=== PATIENT | male | born 1980 ===

== ENCOUNTER 2022-09-16 16:49 | Emergency (ER) | payer OTHER, SELFPAY ==
[2022-09-16 16:59] VITALS: BP 146/94; PULSE 103; O2SAT 98
[2022-09-16 17:11] VITALS: BP 110/71; PULSE 72; RESP 16; TEMP 36.2; O2SAT 97; BMI 20.3
--- NOTE | 2022-09-16 17:12 | ED.GENADULT ---
HPI - General Adult General Chief complaint: Chest Pain Stated complaint: PALPITATION Related Data Allergies Allergy/AdvReac Type Severity Reaction Status Date / Time No Known Allergies Allergy Unverified 12/03/19 15:54 [facility] Social History Social History Alcohol intake: former Smoked in Last 30 Days: No Substance Use Type: Crack/Cocaine and Heroin Substance Use Frequency: Chronic Longstanding Last Used Substance: Just Prior to Admission Advance Directives: No Advance Directives Information Provided: No Physical Exam ED Vital Signs: BMI result Body Mass Index 20.3 Course Course Course Narrative: RME; 42 yold male presents to the ED for chest pain after cocaine binging for 3 days. patient chest pain and at times palpaitations. patient denies any recent trauma. labs/EKG ordered and chest xray ordered Medical Decision Making Lab Data 09/16/22 18:25 09/16/22 18:25 Labs: Lab Results 09/16/22 09/16/22 09/16/22 Range/Units 18:25 18:25 18:25 WBC 5.3 (4.8-10.8) X10*3/uL RBC 4.29 L (4.60-5.80) X10*6/uL Hgb 13.1 L (14.0-18.0) g/dl Hct 39.3 L (42.0-52.0) % MCV 91.6 (80.0-98.0) fL MCH 30.5 (27.0-33.0) pg MCHC 33.3 (31.0-36.0) g/dl RDW 12.9 (11.0-16.0) % Plt Count 163 (160-400) X10*3/uL MPV 10.7 (9.4-12.4) fL Immature Gran % (Auto) 0.2 (0.0-0.4) % Neut % (Auto) 57.7 (45-73) % Lymph % (Auto) 27.6 (20-40) % Vermilion % (Auto) 12.6 H (2-11) % Eos % (Auto) 1.1 (0-4) % Baso % (Auto) 0.8 (0-2) % Lymph # (Auto) 1.5 (1.2-4.9) X10*3/uL Vermilion # (Auto) 0.7 (0.1-1.2) X10*3/uL Eos # (Auto) 0.1 (0.0-0.4) X10*3/uL Baso # (Auto) 0.0 (0.0-0.2) X10*3/uL Abs Immat Gran (auto) 0.01 (0.00-0.03) X10*3/uL Absolute Neuts (auto) 3.0 (2.0-8.3) x10*3/uL Absolute Nucleated RBC 0.000 (0.0-0.012) X10*3/uL Nucleated RBC % (auto) 0.0 (0.0-0.2) /100WBC PT 12.5 (10.0-13.1) SEC INR 1.1 (0.9-1.1) APTT 31.5 (26.0-36.4) SEC Sodium 143 (135-145) mmol/L Potassium 3.9 (3.3-5.1) mmol/L Chloride 107 (96-108) mmol/L Carbon Dioxide 26 (22-29) mmol/L Anion Gap 14 (12-20) BUN 21 H (9-16) mg/dL Creatinine 0.88 (0.5-1.4) mg/dL Estim Creat Clear Calc 105.2 Estimated GFR > 60 Random Glucose 101 (60-115) mg/dL Calcium 9.7 (8.4-10.2) mg/dL Total Bilirubin 0.7 (0.0-1.0) mg/dL AST 29 (5-37) U/L ALT 17 (0-40) U/L Alkaline Phosphatase 63 (39-117) U/L Troponin I High Sens (<3.5-35.0) ng/L B-Natriuretic Peptide (<100) pg/mL Total Protein 6.9 (6.5-8.0) g/dL Albumin 4.5 (3.5-5.0) g/dL 09/16/22 09/16/22 Range/Units 18:25 18:25 WBC (4.8-10.8) X10*3/uL RBC (4.60-5.80) X10*6/uL Hgb (14.0-18.0) g/dl Hct (42.0-52.0) % MCV (80.0-98.0) fL MCH (27.0-33.0) pg MCHC (31.0-36.0) g/dl RDW (11.0-16.0) % Plt Count (160-400) X10*3/uL MPV (9.4-12.4) fL Immature Gran % (Auto) (0.0-0.4) % Neut % (Auto) (45-73) % Lymph % (Auto) (20-40) % Vermilion % (Auto) (2-11) % Eos % (Auto) (0-4) % Baso % (Auto) (0-2) % Lymph # (Auto) (1.2-4.9) X10*3/uL Vermilion # (Auto) (0.1-1.2) X10*3/uL Eos # (Auto) (0.0-0.4) X10*3/uL Baso # (Auto) (0.0-0.2) X10*3/uL Abs Immat Gran (auto) (0.00-0.03) X10*3/uL Absolute Neuts (auto) (2.0-8.3) x10*3/uL Absolute Nucleated RBC (0.0-0.012) X10*3/uL Nucleated RBC % (auto) (0.0-0.2) /100WBC PT (10.0-13.1) SEC INR (0.9-1.1) APTT (26.0-36.4) SEC Sodium (135-145) mmol/L Potassium (3.3-5.1) mmol/L Chloride (96-108) mmol/L Carbon Dioxide (22-29) mmol/L Anion Gap (12-20) BUN (9-16) mg/dL Creatinine (0.5-1.4) mg/dL Estim Creat Clear Calc Estimated GFR Random Glucose (60-115) mg/dL Calcium (8.4-10.2) mg/dL Total Bilirubin (0.0-1.0) mg/dL AST (5-37) U/L ALT (0-40) U/L Alkaline Phosphatase (39-117) U/L Troponin I High Sens 5.3 (<3.5-35.0) ng/L B-Natriuretic Peptide 33 (<100) pg/mL Total Protein (6.5-8.0) g/dL Albumin (3.5-5.0) g/dL Discharge Plan Discharge Clinical Impression: Chest pain Patient Disposition: Left Against Medical Advice Discharge Date/Time: 09/16/22 18:59
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
[2022-09-16 17:42] VITALS: BP 114/70; PULSE 74; RESP 18; O2SAT 97
--- NOTE | 2022-09-16 17:42 | PC.NURSE ---
Food and fluids provided
--- NOTE | 2022-09-16 17:58 | PC.NURSE ---
Patient agreeable to changing into hospital attire. Drug paraphernalia in pant pockets. Security locked all personal belongings in decon.
--- NOTE | 2022-09-16 18:31 | PC.NURSE ---
Patient pacing in hallway, stating he needs to go home. Explained to patient we were waiting for his labs to come back . Patient easily re -directable back to bed. states upon discharge he will be going to his sponsors house and then home. Denies pain or discomfort at this time. Provided with food and fluids
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
[2022-09-16 18:53] LABS: Alanine Aminotransferase 17 U/L (0-40); Albumin Level 4.5 g/dL (3.5-5.0); Alkaline Phosphatase 63 U/L (39-117); Anion Gap 14 (12-20); Aspartate Amino Transferase 29 U/L (5-37); Bilirubin Total 0.7 mg/dL (0.0-1.0); Blood Urea Nitrogen 21 mg/dL (9-16); Calcium 9.7 mg/dL (8.4-10.2); Carbon Dioxide 26 mmol/L (22-29); Chloride 107 mmol/L (96-108); Creatinine Clr Calc Pharmacy 105.2; Estimated Glomerular Filt Rate > 60; Glucose Random 101 mg/dL (60-115); Potassium 3.9 mmol/L (3.3-5.1); Sodium 143 mmol/L (135-145); Total Protein 6.9 g/dL (6.5-8.0)
== END 2022-09-16 18:59 | disposition left against medical advice (07) ==
PROVIDERS: Physician Assistant; Emergency Provider Physician Assistant; PCP Internal Medicine
DX: R07.9 Chest pain, unspecified (principal); R00.2 Palpitations
CPT/HCPCS: 36415; 71045; 80053; 83880; 84484; 85025; 85610; 85730; 93005; 99283; 99284

== ENCOUNTER 2022-09-23 20:30 | Emergency (ER) | payer OTHER, SELFPAY ==
[2022-09-23 20:36] VITALS: BP 108/59; BP 111/65; PULSE 67; PULSE 69; RESP 17; TEMP 36.9; O2SAT 100; O2SAT 99; BMI 21.3
--- NOTE | 2022-09-23 20:46 | MHC.EDTECH ---
Pt came in by ambulance,pt changed into hospital attire,vitals taken. Pt has a wound to the right forearm,bleeding is controlled, cleaned with normal saline and awaiting a provider at this time. RN aware
[2022-09-23 21:53] VITALS: BP 99/54; PULSE 58; RESP 18; TEMP 37; O2SAT 98
--- NOTE | 2022-09-23 22:50 | PC.NURSE ---
Pt requesting something for anxiety and his nicotine gum. Medicated per MAR at this time.
[2022-09-23 23:23] VITALS: BP 99/52; PULSE 64; RESP 18; TEMP 36.7; O2SAT 99
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
--- NOTE | 2022-09-24 00:14 | PC.NURSE ---
Spoke with Hortencia at [facility] to notify them of pts return. Voices understanding.
--- NOTE | 2022-09-24 00:20 | PC.NURSE ---
I was notified @ this time that this patient eloped while waiting for EMS to return to [facility]. Security, Ele ROMAN and [place] [employer] immediately contacted. Primary RN Maribell attempted to contact [facility] but there was no answer.
--- NOTE | 2022-09-24 00:30 | PC.NURSE ---
Pt no longer visualized on ED stretcher, charge authorizer, protective services, Ele ROMAN, [place] [employer] made aware.
--- NOTE | 2022-09-24 01:08 | PC.NURSE ---
Attempted to notify [facility] of pt elopement, no answer at this time. Will attempt again shortly.
--- NOTE | 2022-09-24 01:15 | PC.NURSE ---
George, open hear[employer] stockyard supervisor at [facility] notified of pt elopement. Voices understanding
--- NOTE | 2022-09-24 03:17 | PC.NURSE ---
Addendum entered by Laura Abdullahi 09/24/22 04:57: Pt located by PD and brought back [place] [facility] [place]psych eval. Original Note: Ele ROMAN unable to locate patient. Per [place] [employer], they sent a car out to patients house, Megan was the only one home and per , has not seen/heard from patient. [employer] and [facility] to call with any updates.
== END 2022-09-24 04:59 | disposition left against medical advice (07) ==
PROVIDERS: Emergency Provider Emergency Medicine Emergency Medical Services; PCP Internal Medicine
DX: S51.811A Laceration without foreign body of right forearm, initial encounter (principal); T81.30XA Disruption of wound, unspecified, initial encounter; F41.1 Generalized anxiety disorder; F43.0 Acute stress reaction; F17.203 Nicotine dependence unspecified, with withdrawal; G47.00 Insomnia, unspecified; X58.XXXA Exposure to other specified factors, initial encounter; Y93.9 Activity, unspecified; Y92.9 Unspecified place or not applicable; Y99.9 Unspecified external cause status; Z79.899 Other long term (current) drug therapy
CPT/HCPCS: 12002; 99284

== ENCOUNTER 2022-09-24 04:59 | Emergency (ER) | payer OTHER, SELFPAY ==
[2022-09-24 05:03] VITALS: BP 103/67; PULSE 76; RESP 17; TEMP 36.8; O2SAT 98; BMI 21.7
--- NOTE | 2022-09-24 06:17 | ED.GENADULT ---
HPI - General Adult General Chief complaint: General Medical Stated complaint: SECT 12,RETURNING S/P ELOPEMENT Time Seen by Provider: 09/24/22 06:17 Source: patient Mode of arrival: EMS Limitations: no limitations History of Present Illness HPI narrative: 42-year-old male who was seen earlier this morning in the emergency department by me. Patient was sent in from [facility] for evaluation of a right forearm laceration which had been repaired at [facility] and dehisced he fell at [facility]. The wound was dressed with bacitracin and a nonstick gauze dressing. When the nurse went to discharge him the patient had eloped. The patient was on a Section 12 at [facility] therefore we contacted the police. The patient told me that he walked home and was talking to his when the police found him and brought him back to emergency department for evaluation. The patient denied using any drugs when he left our facility he states that he last used September 17 when he relapsed and used cocaine. The patient told me that the initial Section 12 was placed by [facility] where he was evaluated for suicidal ideation. He states that he is no longer suicidal however the Section 12 extended over the weekend and he was told that on Saturday (today) the [facility] psychiatrist with make a judgment as to whether he needed to stay longer or could leave their facility. Related Data Home Medications Medication Instructions Recorded Confirmed bupropion HCl 75 mg tablet 75 mg PO BID 09/24/22 09/24/22 dexmethylphenidate 30 mg 30 mg PO DAILY 09/24/22 09/24/22 capsule,extended release [id number] (Focalin XR) hydroxyzine pamoate 50 mg capsule 50 mg PO BID PRN Anxiety 09/24/22 09/24/22 trazodone 100 mg tablet 100 mg PO BEDTIME 09/24/22 09/24/22 Allergies Allergy/AdvReac Type Severity Reaction Status Date / Time No Known Allergies Allergy Verified 09/23/22 20:36 Review of Systems Review of Systems: Yes all other systems are reviewed and are negative [facility] Social History Social History Alcohol intake: former Substance Use Type: Crack/Cocaine and Heroin Advance Directives: No Physical Exam ED Vital Signs: Vital Signs - 24 hr 09/24/22 05:03 Temperature 98.2 F Pulse Rate 76 Respiratory Rate 17 Blood Pressure 103/67 Pulse Oximetry 98 Oxygen Delivery Method Room Air BMI result Body Mass Index 21.7 Const General: cooperative and no acute distress Orientation/consciousness: oriented to person and oriented to place Limitations: no limitations HENMT Head: Yes normal to inspection, Yes normocephalic and Yes atraumatic Ears: external ears normal General nose exam: Normal external nose present Face and sinus: Yes normal facial exam Mouth: Normal oral and palatal mucosa present Throat: Yes posterior oropharynx normal Eyes General: appearance normal, both eyes and all related structures Pupils: Equal, round and reactive pupils present Neck Neck: Yes normal visual inspection, Yes no lymphadenopathy, Yes trachea midline and Yes supple Chest Chest palpation & inspection: normal inspection of the chest and normal palpation of entire chest wall Resp Effort & Inspection: normal respiratory effort and able to speak in complete sentences Auscultation: clear to auscultation bilaterally Cardio Rate: regular rate Rhythm: regular rhythm Heart sounds: S1 normal heart sound present, S2 normal heart sound present and no murmurs GI Inspection: Yes normal to inspection Palpation (GI): Soft to palpation, nontender and no guarding Auscultation: normal bowel sounds General: Yes no CVA tenderness Back/Spine/Pelvis Back: no CVA tenderness Skin General skin exam: no rashes or lesions noted Neuro General: oriented to person and oriented to place Cranial nerves: Yes CN's II-XII intact bilaterally and Yes Equal, round and reactive pupils present Cognition (Neuro): normal cognition Motor exam (neuro): 5/5 motor strength present throughout Extrem Other: The patient's right forearm was bleeding, this was redressed with bacitracin in on sticks dressing. Psych Appearance: grossly normal Speech and movement: Normal speech and movement present Affect: normal affect Attitude: cooperative Thought process: Normal thought process present Thought content: Normal thought content present Medical Decision Making Medical Decision Making MDM Narrative: 42-year-old male who was initially sent to the emergency department from [facility] for evaluation of a right forearm wound which dehisced after he fell at their facility. The patient had made suicidal statements, was evaluated [facility], placed on a Section 12 and eventually transferred to [facility] for psychiatric evaluation. Patient states that he relapsed and last used cocaine on 09/17/2022. Patient eloped from our facility but was found by the police and brought back. The patient denied being suicidal homicidal, he denies using the facility. Patient's physical examination was unremarkable except for the fact that the dehisced wound in his right forearm bleeding in this had to be redressed. We did do a urine tox screen on the patient which was positive for fentanyl and cocaine. It is unclear to me how sensitive are tested it is unclear if this positive test reflects recent knees or his from his previous drug use on 09/17/2022. In any event, the patient does not appear to be intoxicated and is medically cleared to go back to [facility] for further evaluation of his suicidal ideation. Differential Diagnosis The differential diagnosis includes but is not limited to drug use, suicidal ideation, homicidal ideation, depression Lab Data MDM Lab Attestation statement: I reviewed the patient's lab results. Patient's urine tox screen was positive for fentanyl and cocaine. Labs: Lab Results 09/24/22 Range/Units 05:25 Urine Opiates Screen Not Detected (Not Detect) Urine Fentanyl Screen POSITIVE H (Not Detect) Ur Barbiturates Screen Not Detected (Not Detect) Ur Phencyclidine Scrn Not Detected (Not Detect) Ur Amphetamines Screen Not Detected (Not Detect) U Benzodiazepines Scrn Not Detected (Not Detect) Urine Cocaine Screen POSITIVE H (Not Detect) U Marijuana (THC) Screen Not Detected (Not Detect) Discharge Plan Discharge Clinical Impression: Cocaine use disorder, Suicidal ideation Patient Disposition: Xfer Psychiatric Hosp Transfer Details: [facility] Additional Instructions: Your urine drug screen was positive for fentanyl and cocaine. I do not know how all sensitive are urine drug screen is and the positive test could reflect either new use of cocaine and fentanyl or use of cocaine and fentanyl from 09/17/2022. It is important that you continue to get help with your cocaine use disorder. Almost all street drugs have fentanyl in them including cocaine and if you continue to use cocaine , there is a very good chance that you will from a fentanyl overdose. At this time, you are medically clear to go back to [facility] for further treatment of your suicidal ideation. Prescriptions: No Action hydroxyzine pamoate 50 mg capsule 50 mg PO BID PRN (Reason: Anxiety) trazodone 100 mg tablet 100 mg PO BEDTIME bupropion HCl 75 mg tablet 75 mg PO BID dexmethylphenidate [Focalin XR] 30 mg capsule,ER biphasic 50-50 30 mg PO DAILY
--- NOTE | 2022-09-24 06:43 | PC.NURSE ---
Patient cleared medically, ready for discharge back to [facility], ED commercial baker helper is coordinating the ride back to [facility], no distress observed/reported, VSS, med rec completed, pending provider's approval, will continue to monitor
--- NOTE | 2022-09-24 07:26 | PC.NURSE ---
PT SLEEPING. AWAITING AMBULANCE BACK TO [facility].
== END 2022-09-24 11:52 ==
PROVIDERS: Emergency Provider Emergency Medicine Emergency Medical Services; PCP Internal Medicine
DX: R45.851 Suicidal ideations (principal); F14.10 Cocaine abuse, uncomplicated; Z79.899 Other long term (current) drug therapy
CPT/HCPCS: 80307; 99283

== ENCOUNTER 2022-10-24 02:48 | Inpatient (IN) | payer OTHER, SELFPAY ==
[2022-10-24] VITALS (10 sets, daily range): BP systolic 99–128; BP diastolic 52–95; PULSE 48–110; RESP 12–17; TEMP 36.4–37.1; O2SAT 95–100; BMI 20.6
--- NOTE | 2022-10-24 04:49 | PC.NURSE ---
pt spo2 was 83-88% on room air. placed pt on nasal cannula 2 liters
--- NOTE | 2022-10-24 04:52 | ED_ITS ---
HPI - Overdose General Chief Complaint: Overdose Stated Complaint: OD Time Seen by Provider: 10/24/22 04:13 Source: patient and EMS Mode of arrival: EMS Limitations: no limitations History of Present Illness HPI Narrative: accidental overdose of heroin and cocaine - found in alley no trauma noted to head responded to 16mg narcan he has no SI but wants detox he is from [place]. complaint: accidental overdose Onset (ago): unknown Timing confirmed by: other (bystander) Context: Accidental Overdose: wanted to get high Treatments Prior to Arrival: narcan (16mg) Related Data Home Medications Medication Instructions Recorded Confirmed bupropion HCl 75 mg tablet 75 mg PO BID 09/24/22 09/24/22 dexmethylphenidate 30 mg 30 mg PO DAILY 09/24/22 09/24/22 capsule,extended release [id number] (Focalin XR) hydroxyzine pamoate 50 mg capsule 50 mg PO BID PRN Anxiety 09/24/22 09/24/22 trazodone 100 mg tablet 100 mg PO BEDTIME 09/24/22 09/24/22 Allergies Allergy/AdvReac Type Severity Reaction Status Date / Time No Known Allergies Allergy Verified 09/23/22 20:36 Review of Systems Review of Systems: Constitutional : No Fever, No Chills ENT/Mouth : No Ear Pain, No Nasal Congestion, No sore throat Eyes: No Eye Pain, No Swelling, No Redness Cardiovascular : No Chest Pain, No SOB Respiratory : No Cough, No Sputum, No Dyspnea Gastrointestinal : No Nausea, No Vomiting, No Diarrhea, No Hematochezia, No Melena Genitourinary : No Dysuria, No Urinary Frequency, No Hematuria Musculoskeletal : No Myalgias Skin : No Skin Lesions, No rash Neuro : No Weakness, No Numbness, No Paresthesias, No Dizziness, No Headache Psych : positive Anxiety, no Depression, no SI/HI All other systems reviewed and are negative [facility] Past Medical History Attestation statement: The following information was validated with the patient. Medical History Active substance abuse Social History Social History Alcohol intake: current Smoked in Last 30 Days: No Use of substances other than those prescribed or required for medical reasons: Yes Substance Use Type: Crack/Cocaine, Heroin and Opiates Advance Directives: No Advance Directives Information Provided: No Physical Exam Vital Signs: Vital Signs: Last Vital Signs Temp 97.5 F 10/24/22 05:03 Pulse 80 10/24/22 05:03 Resp 17 10/24/22 05:03 BP 110/66 10/24/22 05:03 Pulse Ox 100 10/24/22 05:03 O2 Del Method Nasal Cannula 10/24/22 05:03 O2 Flow Rate 2 10/24/22 05:03 BMI result Body Mass Index 20.6 Appearance: sleepy but easily woken. Oriented X3. No acute distress. Eyes: Pupils equal, round and reactive to light. ENT: Pharynx normal. atraumatic Neck: Normal inspection. Neck supple. CVS: Normal heart rate and rhythm. Pulses normal. Respiratory: No respiratory distress. Breath sounds normal. Abdomen: Soft and non-tender. Skin: Skin warm and dry. Normal skin color. Normal skin turgor. Extremities: No lower extremity edema. No calf ttp Neuro: Oriented X 3. No motor deficit. No sensory deficit. Course Course Course Narrative: Physician observation started at 555am Patient placed in physician observation because the patient needed more time CARE team and recovery team to help with addiction issues. At the time observation was started the patient's vitals were stable, patient is somnolent but easily woken, Neuro: nonfocal, CV RRR, Lungs clear Medical Decision Making Medical Decision Making [facility] Narrative: 42 yo male here with accidental overdose - took 16mg of narcan here oriented x 3, no head trauma will need prolonged monitoring he wants to go to detox has no SI no signs of trauma to the head to suggest need for CT scan. at this time basic labs, obsevation and recovery team when awake. Differential Diagnosis Differential Diagnoses: The differential diagnosis associated with the presentation includes opiate use disorder, overdose Admission/Observation Consideration of admission/observation: Escalation of care including admission/observation considered observe for recovery team and more clinically sober Lab Data [facility] Lab Attestation statement: I reviewed the patient's lab results. 10/24/22 05:25 10/24/22 05:25 Labs: Lab Results 10/24/22 10/24/22 Range/Units 05:25 05:25 WBC 9.1 (4.8-10.8) X10*3/uL RBC 4.24 L (4.60-5.80) X10*6/uL Hgb 13.3 L (14.0-18.0) g/dl Hct 39.6 L (42.0-52.0) % MCV 93.4 (80.0-98.0) fL MCH 31.4 (27.0-33.0) pg MCHC 33.6 (31.0-36.0) g/dl RDW 13.8 (11.0-16.0) % Plt Count 143 L (160-400) X10*3/uL MPV 9.7 (9.4-12.4) fL Immature Gran % (Auto) 0.4 (0.0-0.4) % Neut % (Auto) 78.1 H (45-73) % Lymph % (Auto) 8.4 L (20-40) % [place] % (Auto) 12.6 H (2-11) % Eos % (Auto) 0.3 (0-4) % Baso % (Auto) 0.2 (0-2) % Lymph # (Auto) 0.8 L (1.2-4.9) X10*3/uL [place] # (Auto) 1.1 (0.1-1.2) X10*3/uL Eos # (Auto) 0.0 (0.0-0.4) X10*3/uL Baso # (Auto) 0.0 (0.0-0.2) X10*3/uL Abs Immat Gran (auto) 0.04 H (0.00-0.03) X10*3/uL Absolute Neuts (auto) 7.1 (2.0-8.3) x10*3/uL Absolute Nucleated RBC 0.000 (0.0-0.012) X10*3/uL Nucleated RBC % (auto) 0.0 (0.0-0.2) /100WBC Sodium 142 (135-145) mmol/L Potassium 3.9 (3.3-5.1) mmol/L Chloride 108 (96-108) mmol/L Carbon Dioxide 24 (22-29) mmol/L Anion Gap 14 (12-20) BUN 18 H (9-16) mg/dL Creatinine 0.78 (0.5-1.4) mg/dL Estim Creat Clear Calc 120.0 Estimated GFR > 60 Random Glucose 74 (60-115) mg/dL Calcium 9.3 (8.4-10.2) mg/dL Independent Historian Clinical information obtained from an independent historian. History obtained from or confirmed by: EMS External Record Review External record reviewed: Inpatient record Social Determinants Patient?s care significantly limited by Social Determinants of Health including: Inadequate housing and Low income Discharge Plan Discharge Clinical Impression: Drug overdose Qualifiers: Encounter type: initial encounter Injury intent: accidental or unintentional Qualified Code(s): T50.901A - Poisoning by unspecified drugs, medicaments and biological substances, accidental (unintentional), initial encounter Patient Disposition: Still a Patient Prescriptions: No Action hydroxyzine pamoate 50 mg capsule 50 mg PO BID PRN (Reason: Anxiety) trazodone 100 mg tablet 100 mg PO BEDTIME bupropion HCl 75 mg tablet 75 mg PO BID dexmethylphenidate [Focalin XR] 30 mg capsule,ER biphasic 50-50 30 mg PO DAILY
--- NOTE | 2022-10-24 05:18 | MHC.EDTECH ---
labs are delayed due to this tech unable to draw x3 RN AND MD WAS NOTIFIED REACHED OUT TO ANOTHER TECH
--- NOTE | 2022-10-24 05:22 | MHC.EDTECH ---
PATIENT CHANGE INTO HOSPITAL ATTIRE ALL ITEMS ARE LOCKED INTO DECON
[2022-10-24 05:29] LABS: Basophils Percent Auto 0.2 % (0-2); Eosinophils Percent Auto 0.3 % (0-4); Hematocrit 39.6 % (42.0-52.0); Hemoglobin 13.3 g/dl (14.0-18.0); Imm Gran Abs Auto 0.04 X10*3/uL (0.00-0.03); Imm Gran Pct Auto 0.4 % (0.0-0.4); Lymphocytes Absolute Auto 0.8 X10*3/uL (1.2-4.9); Lymphocytes Percent Auto 8.4 % (20-40); MANUAL DIFF FLAG NO; Mean Corpuscular HGB Conc 33.6 g/dl (31.0-36.0); Mean Corpuscular Hemoglobin 31.4 pg (27.0-33.0); Mean Corpuscular Volume 93.4 fL (80.0-98.0); Mean Platelet Volume 9.7 fL (9.4-12.4); Monocytes Absolute Auto 1.1 X10*3/uL (0.1-1.2); Monocytes Percent Auto 12.6 % (2-11); Neutrophils Absolute Auto 7.1 x10*3/uL (2.0-8.3); Neutrophils Percent Auto 78.1 % (45-73); Platelet Count 143 X10*3/uL (160-400); Red Blood Count 4.24 X10*6/uL (4.60-5.80); Red Cell Distribution Width 13.8 % (11.0-16.0); White Blood Count 9.1 X10*3/uL (4.8-10.8)
[2022-10-24 05:42] LABS: Anion Gap 14 (12-20); Blood Urea Nitrogen 18 mg/dL (9-16); Calcium 9.3 mg/dL (8.4-10.2); Carbon Dioxide 24 mmol/L (22-29); Chloride 108 mmol/L (96-108); Estimated Glomerular Filt Rate > 60; Glucose Random 74 mg/dL (60-115); Potassium 3.9 mmol/L (3.3-5.1); Sodium 142 mmol/L (135-145)
--- NOTE | 2022-10-24 08:53 | PC.NURSE ---
sleeping in room, respirations even and unlabored. call romero within reach
--- NOTE | 2022-10-24 10:35 | PC.NURSE ---
awake, eating breakfast at this time, pt calm and cooperative. reporting vague suicidal ideation currently, no plan.
--- NOTE | 2022-10-24 10:40 | PHA.MEDREC ---
Pharmacy Consult ? Medication Reconciliation Pharmacy has completed the medication reconciliation. spoke with patient to confirm medications. Patient reports not taking anything before coming here.
--- NOTE | 2022-10-24 14:42 | HO.SUDE ---
Addendum entered by True Davies 10/24/22 19:50: After speaking with his mother pt shares SI with plan to jump off a bridge as he cant take struggling with sobriety and not having any family or supports. T/W informed provider and Care Team for Crisis evaluation. Original Note: This racebook writer met with patient to complete SUDE. Pt awake to verbal command, this racebook writer reviewed, pt brought to hospital for accidental overdose. Pt reports being sober for several months before using for the past 4 days at about 5-6 bags a day intravenously. Pt informs this is his 4th overdose, and he was on Suboxone last year but does not want to get back on it. T/W reviewed harm reduction and overdose prevention. Pt verbalized understanding. Pt informs he does not want ATS at this time but that he just needs more sleep. Provider aware.
--- NOTE | 2022-10-24 19:50 | MHC.EDTECH ---
PATIENT 2000 VITALS SIGN TAKEN ,AND ETHANOL DRAWN AND SENT TO LAB ,PT UNABLE TO GIVE URINE SAMPLE AT THIS TIME ,LAKESHIA ARAGON IS AWARE ,PATIENT HAD A TUNA FISH SANDWICH AND A RENA KAYLEEN FOR SNACK ,WARM BLANKET GIVEN ,PATIENT REFUSED DINNER EARLIER .
[2022-10-24 20:07] LABS: Ethanol < 10 mg/dL
[2022-10-24] MEDS: Naloxone HCl Nasal TAKE HOME 4 MG SPRAY 8 MG NOSTRILALT (22:04)
[2022-10-25] VITALS (7 sets, daily range): BP systolic 94–118; BP diastolic 52–65; PULSE 52–65; RESP 14–18; TEMP 36.3–37.6; O2SAT 98–100
--- NOTE | 2022-10-25 05:51 | PC.NURSE ---
Pt slept most of the night, no apparent distress noted, resting quietly. Pt states 6/10 pain in legs and lower back. Pt reports SI, with a prior plan to jump off a bridge, states no plan while here, pt stated he feels safe being in the hospital. Pt ambulated independently to with steady gait, urine sample collected and sent to lab. PO fluids given. wctm pt awaiting care team.
--- NOTE | 2022-10-25 05:56 | MHC.CARE ---
Pt will need a Utox prior to the Care Team assessment this morning.
--- NOTE | 2022-10-25 05:59 | MHC.EDTECH ---
0600 rounding done ,vitals sign taken ,patient urine sample collected and sent to lab ,patient drank 360 ml juice ,patient was change into (green gown ) .
[2022-10-25 06:12] LABS: Amphetamine Screen Urine Not Detected (Not Detect); Barbiturates, Urine Not Detected (Not Detect); Benzodiazepines Screen Urine Not Detected (Not Detect); Cannabinoid Screen Urine Not Detected (Not Detect); Cocaine Screen Urine POSITIVE (Not Detect); Fentanyl, urine POSITIVE (Not Detect); Opiate Screen Urine POSITIVE (Not Detect); Phencyclidine Screen Urine Not Detected (Not Detect)
--- NOTE | 2022-10-25 06:44 | PC.NURSE ---
Care team updated on Pt's urine sample. Plan is for care team will see him this morning.
--- NOTE | 2022-10-25 07:12 | PC.NURSE ---
patient sleeping in strether, pt respirations equal and unlabored no signs of distress.
[2022-10-25 10:07] LABS: Appearance Urine Clear; Color Urine Dark Yellow; Glucose Urine UA Negative (Negative); Leukocyte Esterase Urine Negative (Negative); Nitrite Urine Negative (Negative); Specific Gravity - Urine >= 1.030 (1.005-1.025); UMIC TRIGGER UACC YES; Urine Blood Negative (Negative); Urine Ketones Trace mg/dL (Negative); Urine Protein 30 (1+) mg/dL (Neg-Trace)
[2022-10-25 10:09] LABS: Bacteria Urine None Seen (None Seen); RBC Urine 0-2 /HPF (0-2); Squamous Epithelial Cell Urine 0-2 /HPF (0-2); UACC Culture Trigger YES
--- NOTE | 2022-10-25 12:06 | MHC.CARE ---
Patient seen by CARE team, is a voluntary psychiatric admission, pending placement.
--- NOTE | 2022-10-25 14:43 | ECG_ITS ---
Test Reason : PRLONG QT Blood Pressure : / mmHG Vent. Rate : 059 BPM Atrial Rate : 059 BPM P-R Int : 154 ms QRS Dur : 082 ms QT Int : 430 ms P-R-T Axes : 077 056 050 degrees QTc Int : 425 ms Sinus bradycardia Otherwise normal ECG When compared with ECG of 16-SEP-2022 18:17, No significant change was found Referred By: Iveth Ambriz Electronically Signed By:Duke Strong
[2022-10-25 15:16] LABS: IDNOW Serial# 08D9AD1C
[2022-10-25] MEDS: cloNIDine HCL 0.1 MG TABLET PO (15:16)
[2022-10-25 15:17] LABS: COVID-19 Test Negative (Negative)
[2022-10-25] MEDS: TiZANidine HCL 4 MG TABLET PO (15:49)
[2022-10-25] MEDS: Buprenorphine/Naloxone 4/1 mg FILM 1 FILM SUBLINGUAL ×2 (17:58→22:34)
[2022-10-25] MEDS: diazePAM 5 MG TABLET 10 MG PO (17:58)
[2022-10-25] MEDS: Ondansetron ODT 4 MG TAB.RAPDIS TRANSLINGU ×2 (17:58→22:34)
--- NOTE | 2022-10-25 18:18 | PC.NURSE ---
Matteo was admitted to m3 at 1630 from [facility] for treatment of mood disorder with suicidality and polysubstance abuse. He was clean for several months and relapsed 4 days ago on heroin, cocaine and alcohol.? Patient overdosed on heroin and was found in an alley 10/23/2022, Brought to ED by ambulance where he voiced SI with plan to jump from a bridge due to shame related to substance use/relapse. Patient is alert and fully oriented. He is restless, physically agitated and resistant to engaging in admission process due to feeling uncomfortable with withdrawal. Mood is depressed. Affect is irritable. Matteo reports auditory hallucinations of echoes, denies visual hallucinations. There is no indication of paranoia or delusions thought process linear. He denies current ideation, plan or intent to harm self or others. He notes his and children are protective factors. Matteo has recently lost 15 pounds which he attributes to using and being depressed. Sleep is variable. Focus is poor. Matteo denies medical Issues?but reports 7/10 headache, diarrhea x 1, cramps and body aches. RN notes nausea with dry heaves, tremor and diaphoresis. CIWA on admission is 20. Pt received Valium 10mg. COWS on admission is 12. He received suboxone 06/16. In addition he received zofran 4mg. Matteo is placed on q 15 minute checks for safety.
[2022-10-25] MEDS: Famotidine 20 MG TABLET PO (22:34)
[2022-10-25] MEDS: Melatonin 3 MG TABLET 9 MG PO (22:35)
[2022-10-25] MEDS: traZODone HCL 100 MG TABLET PO (22:35)
[2022-10-25] MEDS: LORazepam 1 MG TABLET PO (22:35)
[2022-10-25] MEDS: buPROPion HCL 75 MG TABLET PO (22:35)
[2022-10-25] MEDS: hydrOXYzine HCL 25 MG TABLET PO (22:35)
[2022-10-25] MEDS: Thiamine HCL 100 MG TABLET PO (22:35)
[2022-10-25] MEDS: Ibuprofen 600 MG TABLET PO (22:37)
[2022-10-26 08:45] VITALS: BP 101/58; PULSE 58; RESP 16; TEMP 36.7; O2SAT 98
[2022-10-26] MEDS: Buprenorphine/Naloxone 8/2 mg FILM 1 FILM SUBLINGUAL (08:59)
[2022-10-26] MEDS: Famotidine 20 MG TABLET PO ×2 (09:00→21:12)
[2022-10-26] MEDS: buPROPion HCL 75 MG TABLET PO ×2 (09:00→21:12)
[2022-10-26] MEDS: Thiamine HCL 100 MG TABLET PO (09:00)
--- NOTE | 2022-10-26 09:16 | HO.PSYADMNOT ---
HPI Date of Service: 10/26/22 Chief Complaint: SI Sources of Information: patient interviewed, chart reviewed and crisis/core team assessment reviewed HPI Subjective Notes: [place] Warning and Conditional Voluntary Narrative: Patient is a 42 year old male with hx of MDD, opioid use, cocaine use and ETOH use d/o, who was brought in by ambulance after accidentally overdosing on heroin and cocaine and being found in an alley. Per crisis report, pt responded to 16mg Narcan. Per , pt has made attempts to get sober but he relapses and becomes depressed and hopeless. This is his 4th overdose. Patient has a history of being section 35d. During admission assessment, pt presents calm and cooperative. Patient stated, I was trying to stay clean but I got this overwhelming urge to use and I spiraled from there . Patient reports suicidal ideation with plan to jumping off bridge. Patient stated, I tried to OD before but someone found me. I'm able to stay clean for a little bit but I use again. This wasn't a suicide attempt . Patient reports he has been using a gram of cocaine, 15 bags of IV heroin and drinking a pint of hard liquor daily. He denies having any outpatient psychiatric providers. Patient reports he would like to go into a treatment program for substance abuse. Past Psychiatric History: Multiple substance abuse treatment programs. One psychiatric admission in September 2022 at [facility]. Detox in [place] and [place]. Has been sectioned 35 in past. 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 Substance History: cocaine use, etoh use, IV heroin use. Trauma History: denies Diagnostics Vital Signs (24Hr): Vital Signs - 24 hr 10/25/22 13:21 10/25/22 15:11 10/25/22 17:29 Temperature 99.7 F 99.4 F 97.4 F Pulse Rate 52 65 52 Respiratory Rate 14 16 18 Blood Pressure 110/55 L 110/65 94/52 L Pulse Oximetry 98 100 99 Oxygen Delivery Method Room Air Room Air Room Air 10/25/22 21:59 Temperature 97.8 F Pulse Rate 56 Respiratory Rate 18 Blood Pressure 112/62 Pulse Oximetry 98 Oxygen Delivery Method Room Air BMI result Body Mass Index 20.6 Labs 10/24/22 05:25 10/24/22 05:25 Labs: Laboratory Results - last 48 hr 10/24/22 10/25/22 10/25/22 19:48 05:56 09:57 Urine Color Dark Yellow Urine Appearance Clear Urine pH 6.0 Ur Specific Plato >= 1.030 H Urine Protein 30 (1+) H Urine Glucose (UA) Negative Urine Ketones Trace Urine Blood Negative Urine Nitrite Negative Ur Leukocyte Esterase Negative Urine RBC 0-2 Urine WBC 6-10 H Ur Squamous Epith Cells 0-2 Urine Bacteria None Seen Hyaline Casts 3-5 Urine Opiates Screen POSITIVE H Urine Fentanyl Screen POSITIVE H Ur Barbiturates Screen Not Detected Ur Phencyclidine Scrn Not Detected Ur Amphetamines Screen Not Detected U Benzodiazepines Scrn Not Detected Urine Cocaine Screen POSITIVE H U Marijuana (THC) Screen Not Detected Ethyl Alcohol < 10 COVID-19 (ZANE) [email or web address] 10/25/22 14:47 Urine Color Urine Appearance Urine pH Ur Specific Plato Urine Protein Urine Glucose (UA) Urine Ketones Urine Blood Urine Nitrite Ur Leukocyte Esterase Urine RBC Urine WBC Ur Squamous Epith Cells Urine Bacteria Hyaline Casts Urine Opiates Screen Urine Fentanyl Screen Ur Barbiturates Screen Ur Phencyclidine Scrn Ur Amphetamines Screen U Benzodiazepines Scrn Urine Cocaine Screen U Marijuana (THC) Screen Ethyl Alcohol COVID-19 (ZANE) Negative COVID-19 [employer] See Note Meds/Allergies Meds Home Medications Medication Instructions Recorded Confirmed Type bupropion HCl 75 mg tablet 75 mg PO BID 09/24/22 10/24/22 History dexmethylphenidate 30 mg 30 mg PO DAILY 09/24/22 10/24/22 History capsule,extended release [id number] (Focalin XR) hydroxyzine pamoate 50 mg capsule 50 mg PO BID PRN Anxiety 09/24/22 10/24/22 History trazodone 100 mg tablet 100 mg PO BEDTIME PRN Sleep 09/24/22 10/24/22 History buspirone 5 mg tablet 5 mg PO BID 10/24/22 10/24/22 History melatonin 3 mg tablet 9 mg PO BEDTIME PRN insomnia 10/24/22 10/24/22 History testosterone 2 pump topical QAM 10/24/22 10/24/22 History Allergies Allergies Allergy/AdvReac Type Severity Reaction Status Date / Time No Known Allergies Allergy Verified 09/23/22 20:36 Mental Status Exam Mental Status Exam Narrative: Pt is alert and oriented; behavior is cooperative and calm; dressed in hospital attire with unkempt hair; mood is described as depressed ; eye contact appropriate; Speech is normal rate, volume and prosody and not pressured; no psychomotor agitation/retardation present; thought process is organized and goal directed; Thought content is on tx; otherwise pertinent to relevant topics and without any delusional content, paranoid ideations or grandiosity; denies HI. Reports suicidal ideation with plan to jump off a bridge. There is no evidence of perceptual disturbance. Patients insight and judgment are poor. Assessment & Plan Assessment & Plan (1) MDD (major depressive disorder), recurrent episode, severe: Status: Acute Code(s): F33.2 - Major depressive disorder, recurrent severe without psychotic features (2) Opioid abuse: Status: Acute Code(s): F11.10 - Opioid abuse, uncomplicated (3) Cocaine abuse: Status: Acute Code(s): F14.10 - Cocaine abuse, uncomplicated (4) ETOH abuse: Status: Acute Code(s): F10.10 - Alcohol abuse, uncomplicated Plan Patient is a 42 year old male with hx of MDD, opioid use, cocaine use and ETOH use d/o, who was brought in by ambulance after accidentally overdosing on heroin and cocaine and being found in an alley. Plan: CV 15 minute safety checks CIWA Continue home medications Referral to substance abuse program Obtain collateral Patient educated on: diagnosis, medication risk/benefits, substance abuse and therapeutic strategies Informed Consent: understands Reason for continued inpatient stay Substantial Risk for: harm to self and med/psych decompensation Statement Statement: I have reviewed the history and physical and performed a pertinent examination on my patient. No changes have occurred unless specified. If the History and Physical was not performed prior to admission, the Hospitalist's service will be consulted for completing the admission physical. Time Spent With Patient Time: Total time managing care of this patient today _60___ minutes.
[2022-10-26] MEDS: LORazepam 1 MG TABLET 2 MG PO (12:35)
--- NOTE | 2022-10-26 14:18 | MHC.CLN ---
NUTRITION CONSULT FOR 15# WEIGHT LOSS. PATIENT STATED THAT HE ATE BREAKFAST AND LUNCH TODAY AND HAD NOT BEEN EATING WELL PRIOR TO TODAY. ORDER FOR ENSURE TID; PREFERS [facility] AWARE. PROVIDES 1050 KCALS, 60 G PROTEIN. REVIEW OF WEIGH HX SHOWS APPROX 5% WEIGHT LOSS X 30 DAYS.
[2022-10-26] MEDS: LORazepam 1 MG TABLET PO ×2 (18:15→21:12)
[2022-10-26 21:27] VITALS: BP 116/63; PULSE 60; RESP 16; TEMP 36.7; O2SAT 98
[2022-10-27 08:49] VITALS: BP 105/74; PULSE 61; RESP 18; TEMP 36.8; O2SAT 99
[2022-10-27] MEDS: LORazepam 1 MG TABLET PO ×4 (09:03→20:57)
[2022-10-27] MEDS: Buprenorphine/Naloxone 8/2 mg FILM 1 FILM SUBLINGUAL (09:03)
[2022-10-27] MEDS: LORazepam 1 MG TABLET 2 MG PO (09:04)
[2022-10-27] MEDS: Thiamine HCL 100 MG TABLET PO (09:04)
[2022-10-27] MEDS: Famotidine 20 MG TABLET PO ×2 (09:04→20:57)
[2022-10-27] MEDS: buPROPion HCL 75 MG TABLET PO ×2 (09:04→20:57)
[2022-10-27] MEDS: Ibuprofen 600 MG TABLET PO (17:09)
--- NOTE | 2022-10-27 19:07 | PC.NURSE ---
Pt complained of right hip pain (09/24), reporting its been sore a couple of days. No bruising or swelling noted. Pt unable to recall what happened, saying, I must of did something to it before I got here and was using. Pt given Motrin as ordered with moderate effect.
[2022-10-27 19:50] VITALS: BP 103/60; PULSE 67; RESP 18; TEMP 36.9; O2SAT 98
[2022-10-27] MEDS: Melatonin 3 MG TABLET 9 MG PO (22:40)
[2022-10-27] MEDS: traZODone HCL 100 MG TABLET PO (22:41)
--- NOTE | 2022-10-27 23:55 | P.PNPSI_ITS ---
Subjective Subjective Date of Service: 10/27/22 Reason For Visit: SI Subjective Notes: Conditional Voluntary Interim History: pt relates hx of withdrawl sz asking for help Medication Compliance: Yes Mental Status Exam Mental Status Exam Narrative: Pt is alert and oriented; behavior is cooperative and calm; dressed in hospital attire with unkempt hair; mood is described as depressed ; eye contact appropriate; Speech is normal rate, volume and prosody and not pressured; no psychomotor agitation/retardation present; thought process is organized and goal directed; Thought content is on tx; otherwise pertinent to relevant topics and without any delusional content, paranoid ideations or grandiosity; denies HI. Reports suicidal ideation with plan to jump off a bridge. There is no evidence of perceptual disturbance. Patients insight and judgment are poor. Diagnostics Vital Signs (24Hr): Vital Signs - 24 hr 10/27/22 08:49 10/27/22 19:50 Temperature 98.3 F 98.4 F Pulse Rate 61 67 Respiratory Rate 18 18 Blood Pressure 105/74 103/60 Pulse Oximetry 99 98 Oxygen Delivery Method Room Air Room Air BMI result Body Mass Index 20.6 Labs 10/24/22 05:25 10/24/22 05:25 Medications Medications Current Medications Acetaminophen (Acetaminophen 325 Mg Tablet) 650 mg PO Q6H PRN PRN Reason: Headache/Pain Mild Scale (1-3) Al Hydroxide/Mg Hydroxide (Magnesium Hydrox/Alum Hydrox 30 Ml Oral.Susp) 30 ml PO Q6H PRN PRN Reason: Heartburn/Nausea Buprenorphine/Naloxone (Buprenorphine/Naloxone 8/2 Mg Film) 1 film SUBLINGUAL DAILY [facility] Last Admin: 10/27/22 09:03 Dose: 1 film Bupropion HCl (Bupropion Hcl 75 Mg Tablet) 75 mg PO BID [facility] Last Admin: 10/27/22 20:57 Dose: 75 mg Famotidine (Famotidine 20 Mg Tablet) 20 mg PO BID [facility] Last Admin: 10/27/22 20:57 Dose: 20 mg Hydroxyzine HCl (Hydroxyzine Hcl 25 Mg Tablet) 25 mg PO Q6H PRN PRN Reason: Anxiety Last Admin: 10/25/22 22:35 Dose: 25 mg Ibuprofen (Ibuprofen 600 Mg Tablet) 600 mg PO Q6H PRN PRN Reason: Pain, Moderate(Pain Scale 4-6) Last Admin: 10/27/22 17:09 Dose: 600 mg Loperamide HCl (Loperamide Hcl 2 Mg Capsule) 2 mg PO Q3H PRN PRN Reason: Loose Stool Lorazepam (Lorazepam 1 Mg Tablet) 1 mg PO Q4H PRN PRN Reason: ciwa 8-12 Last Admin: 10/27/22 16:44 Dose: 1 mg Lorazepam (Lorazepam 1 Mg Tablet) 2 mg PO Q4H PRN PRN Reason: ciwa 13-17 Last Admin: 10/27/22 09:04 Dose: 2 mg Lorazepam (Lorazepam 1 Mg Tablet) 1 mg PO TID ADRIENNE Last Admin: 10/27/22 20:57 Dose: 1 mg Magnesium Hydroxide (Milk Of Magnesia 30 Ml Oral.Susp) 30 ml PO DAILY PRN PRN Reason: Constipation Melatonin (Melatonin 3 Mg Tablet) 9 mg PO BEDTIME PRN PRN Reason: insomnia Last Admin: 10/27/22 22:40 Dose: 9 mg Non-Formulary Medication (Testosterone) 2 pump TOPICAL QAM ADRIENNE Ondansetron HCl (Ondansetron Odt 4 Mg Tab.Rapdis) 4 mg TRANSLINGU Q6H PRN PRN Reason: Nausea Last Admin: 10/25/22 22:34 Dose: 4 mg Thiamine HCl (Thiamine Hcl 100 Mg Tablet) 100 mg PO DAILY ADRIENNE Last Admin: 10/27/22 09:04 Dose: 100 mg Trazodone HCl (Trazodone Hcl 100 Mg Tablet) 100 mg PO BEDTIME PRN PRN Reason: Sleep Last Admin: 10/27/22 22:41 Dose: 100 mg Allergies Allergies Allergy/AdvReac Type Severity Reaction Status Date / Time No Known Allergies Allergy Verified 09/23/22 20:36 Assessment & Plan Assessment & Plan (1) MDD (major depressive disorder), recurrent episode, severe: Status: Acute Code(s): F33.2 - Major depressive disorder, recurrent severe without psychotic features (2) Opioid abuse: Status: Acute Code(s): F11.10 - Opioid abuse, uncomplicated (3) Cocaine abuse: Status: Acute Code(s): F14.10 - Cocaine abuse, uncomplicated (4) ETOH abuse: Status: Acute Code(s): F10.10 - Alcohol abuse, uncomplicated Plan Patient is a 42 year old male with hx of MDD, opioid use, cocaine use and ETOH use d/o, who was brought in by ambulance after accidentally overdosing on heroin and cocaine and being found in an alley. Plan: CV 15 minute safety checks CIWA Continue home medications Referral to substance abuse program Obtain collateral 10/27/22 cont plan of care monitor sx hx sz Patient educated on: medication risk/benefits Reason for continued inpatient stay Substantial Risk for: harm to self and inability to function Time Spent With Patient Time: Total time managing care of this patient today ____ minutes.
[2022-10-28 08:28] VITALS: BP 105/67; PULSE 69; RESP 20; TEMP 36.3; O2SAT 98
[2022-10-28] MEDS: LORazepam 1 MG TABLET PO ×2 (08:46→15:24)
[2022-10-28] MEDS: Buprenorphine/Naloxone 8/2 mg FILM 1 FILM SUBLINGUAL (08:46)
[2022-10-28] MEDS: buPROPion HCL 75 MG TABLET PO (08:46)
[2022-10-28] MEDS: Thiamine HCL 100 MG TABLET PO (08:46)
[2022-10-28] MEDS: Famotidine 20 MG TABLET PO ×2 (08:46→20:46)
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
[2022-10-28 20:45] VITALS: BP 104/73; PULSE 80; RESP 18; TEMP 36.4; O2SAT 98
[2022-10-28] MEDS: LORazepam 0.5 MG TABLET PO (20:46)
[2022-10-28] MEDS: Melatonin 3 MG TABLET 9 MG PO (20:46)
[2022-10-29 08:00] VITALS: BP 99/62; PULSE 49; RESP 18; TEMP 36.6; O2SAT 99
[2022-10-29] MEDS: Famotidine 20 MG TABLET PO ×2 (09:01→21:46)
[2022-10-29] MEDS: LORazepam 0.5 MG TABLET PO ×3 (09:01→21:46)
[2022-10-29] MEDS: Thiamine HCL 100 MG TABLET PO (09:01)
[2022-10-29] MEDS: buPROPion HCl XL 300 MG TAB.ER.24H PO (09:01)
[2022-10-29] MEDS: Buprenorphine/Naloxone 8/2 mg FILM 1 FILM SUBLINGUAL (09:01)
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
[2022-10-29 15:25] VITALS: BP 119/68; PULSE 58; RESP 16; TEMP 36.7; O2SAT 98
[2022-10-29] MEDS: Buprenorphine/Naloxone 4/1 mg FILM 1 FILM SUBLINGUAL (15:30)
[2022-10-29 21:40] VITALS: BP 116/72; PULSE 77; RESP 18; TEMP 36.3; O2SAT 100
[2022-10-29] MEDS: Melatonin 3 MG TABLET 9 MG PO (21:46)
[2022-10-29] MEDS: traZODone HCL 100 MG TABLET PO (21:50)
[2022-10-30] MEDS: hydrOXYzine HCL 25 MG TABLET PO ×2 (01:49→21:36)
[2022-10-30 08:15] VITALS: BP 108/64; PULSE 52; RESP 16; TEMP 36.8; O2SAT 99
[2022-10-30] MEDS: LORazepam 0.5 MG TABLET PO ×2 (08:42→21:36)
[2022-10-30] MEDS: buPROPion HCl XL 300 MG TAB.ER.24H PO (08:42)
[2022-10-30] MEDS: Thiamine HCL 100 MG TABLET PO (08:43)
[2022-10-30] MEDS: Buprenorphine/Naloxone 8/2 mg FILM 1 FILM SUBLINGUAL (08:44)
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
[2022-10-30] MEDS: Fluticasone Propionate Nasal 16 GM SPRAY 1 SPRAY NOSTRIL-B (12:21)
[2022-10-30] MEDS: Buprenorphine/Naloxone 4/1 mg FILM 1 FILM SUBLINGUAL (16:11)
[2022-10-30 20:00] VITALS: BP 113/62; PULSE 64; RESP 18; TEMP 36.3; O2SAT 96
[2022-10-30] MEDS: Melatonin 3 MG TABLET 9 MG PO (21:36)
[2022-10-31 08:39] VITALS: BP 126/79; PULSE 56; RESP 18; TEMP 36.5; O2SAT 99
[2022-10-31] MEDS: Buprenorphine/Naloxone 8/2 mg FILM 1 FILM SUBLINGUAL (08:42)
[2022-10-31] MEDS: buPROPion HCl XL 300 MG TAB.ER.24H PO (08:43)
[2022-10-31] MEDS: Fluticasone Propionate Nasal 16 GM SPRAY 1 SPRAY NOSTRIL-B (09:19)
[2022-10-31] MEDS: hydrOXYzine HCL 25 MG TABLET PO (09:52)
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
== END 2022-10-31 11:09 | disposition other institution (70) | DRG 751 ==
LOC: HO.ED 10-25 07:23 → HO.PADLT16 10-25 17:18
PROVIDERS: Physician Assistant; Student in an Organized Health Care Education/Training Program; Admitting Provider Social Worker; Emergency Provider Emergency Medicine; Responsible Provider Registered Nurse; Visit Provider Psychiatry & Neurology Psychiatry
DX: F33.2 Major depressive disorder, recurrent severe without psychotic features (principal); R45.851 Suicidal ideations; T40.1X1A Poisoning by heroin, accidental (unintentional), initial encounter; T40.5X1A Poisoning by cocaine, accidental (unintentional), initial encounter; F10.10 Alcohol abuse, uncomplicated; F11.10 Opioid abuse, uncomplicated; F14.10 Cocaine abuse, uncomplicated; F43.10 Post-traumatic stress disorder, unspecified; Z62.810 Personal history of physical and sexual abuse in childhood; Z20.822 Contact with and (suspected) exposure to COVID-19; Z79.899 Other long term (current) drug therapy
CPT/HCPCS: 36415; 80048; 80307; 81001; 85025; 87086; 87635; 93005; 99285; S9485

== ENCOUNTER → 2022-10-25 14:43 | Outpatient (BNV) | payer OTHER, SELFPAY | PROVIDERS: Admitting Provider Social Worker; Emergency Provider Emergency Medicine; Visit Provider Internal Medicine Cardiovascular Disease | DX: R00.1 Bradycardia, unspecified (principal) | CPT/HCPCS: 93010 ==

== ENCOUNTER → 2022-10-25 16:04 | Outpatient (BNV) | payer OTHER, SELFPAY | PROVIDERS: Admitting Provider Social Worker; Emergency Provider Emergency Medicine; Responsible Provider Registered Nurse; Visit Provider Psychiatry & Neurology Psychiatry | DX: F33.2 Major depressive disorder, recurrent severe without psychotic features (principal); F11.10 Opioid abuse, uncomplicated; F14.10 Cocaine abuse, uncomplicated; F10.10 Alcohol abuse, uncomplicated | CPT/HCPCS: 99231; 99232 ==

== ENCOUNTER → 2022-10-25 16:04 | Outpatient (BNV) | payer OTHER, SELFPAY | PROVIDERS: Admitting Provider Social Worker; Emergency Provider Emergency Medicine; Responsible Provider Registered Nurse; Visit Provider Registered Nurse | DX: F33.2 Major depressive disorder, recurrent severe without psychotic features (principal); F11.10 Opioid abuse, uncomplicated; F14.10 Cocaine abuse, uncomplicated; F10.10 Alcohol abuse, uncomplicated | CPT/HCPCS: 90792; 99231; 99232; 99238 ==

== ENCOUNTER 2023-02-19 12:36 | Inpatient (IN) | payer OTHER, SELFPAY ==
--- NOTE | ~2023-02-19 | US_ITS ---
EXAMINATION: US THYROID CLINICAL INFORMATION: Large right thyroid. Question thyroid nodule. COMPARISON: None available. TECHNIQUE: Linear transducer grayscale and color Doppler examination with attention to the region of the thyroid. FINDINGS: SIZE: Measurements of the thyroid lobes and nodules are given in sagittal, anteroposterior and transverse dimensions respectively. Right Thyroid Lobe: 6.0 x 2.3 x 2.7 cm, volume 19.5 mL. Parenchyma: The gland echotexture is homogeneous. Thyroid vascularity is normal. Left Thyroid Lobe: 5.5 x 1.6 x 1.9 cm, volume 8.4 mL. Parenchyma: The gland echotexture is homogeneous. Thyroid vascularity is normal. Isthmus: 0.4 cm in maximum AP dimension. Estimated total number of nodules greater than or equal to 1 cm: 1. Seed Corn Production Manager nodules are described as follows: 1. Location: Right mid. Size: 2.7 x 1.8 x 2.3 cm, volume 6.1 mL. Nodule characteristics: Composition: Mixed cystic and solid (1). Echogenicity: Isoechoic (1). Shape: Not taller than wide (0). Margins: Smooth (0). Echogenic Foci: Peripheral calcifications (2). ACR TI-RADS total points: 4 ACR TI-RADS category: 4 NODES: No lymphadenopathy is seen in the tissue surrounding the thyroid gland. US/US thyroid IMPRESSION: 2.7 cm TR 4 nodule in the right mid thyroid. Fine-needle aspiration is recommended as per ACR TI-RADS. ACR TI-RADS RECOMMENDATION REFERENCE: Ultrasound-guided fine-needle aspiration, followup ultrasound, no further follow up. * TR1 (0 point) and TR2 (2 points): No FNA or follow up. * TR3 (3 points): FNA if more than or equal to 2.5 cm in maximum dimension, followup ultrasound in 1, 3 and 5 years if 1.5 to 2.4 cm in maximum dimension. * TR4 (4-6 points): FNA if more than or equal to 1.5 cm in maximum dimension, followup ultrasound in 1, 2, 3 and 5 years if 1 to 1.4 cm in maximum dimension. * TR5 (more than or equal to 7 points): FNA if more than or equal to 1 cm in maximum dimension, followup ultrasound every year for 5 years if 0.5 to 0.9 cm in maximum dimension. * TR3, TR4 or TR5 nodules that are below the size threshold for followup receive no follow up.
--- NOTE | ~2023-02-19 | XR_ITS ---
EXAMINATION: XR FOOT, RIGHT CLINICAL INFORMATION: Right fifth toe swelling COMPARISON: Right foot radiograph from 02/19/2023 TECHNIQUE: AP, lateral, and oblique views of the right foot. FINDINGS: Comminuted fracture of the fifth distal phalanx with butterfly fragment along its medial margin. Correlation with point tenderness. Mild multi joint arthritic changes. Redemonstration of soft tissue irregularity along the lateral aspect of the foot. Joint space alignment are otherwise maintained. XR/XR foot RT 2V IMPRESSION: 1. Comminuted fracture of the fifth distal phalanx with butterfly fragment along its medial margin. Correlation with point tenderness. 2. Mild multi joint arthritic changes. 3. Redemonstration of soft tissue irregularity along the lateral aspect of the foot.
--- NOTE | ~2023-02-19 | US_ITS ---
EXAMINATION: US VENOUS ULTRASOUND WITH DOPPLER LOWER EXTREMITY, RIGHT CLINICAL INFORMATION: Right lower leg swelling, rule out deep venous thrombosis COMPARISON: None available. TECHNIQUE: Ultrasound of the deep veins is performed from the hip to the calf with compression sonography and color and pulse Doppler assessment. Spectral analysis with color-flow imaging is performed. FINDINGS: There is normal venous compression and respiratory variation and augmented flow. The visualized common femoral vein, superficial femoral vein, profunda femoral vein, popliteal vein, and the trifurcation region shows no evidence of deep venous thrombosis. There is no significant popliteal fossa cyst. Incidental note of a 2.3 x 0.7 x 2.4 cm wider than tall lymph node with echogenic hilum in the area examined by the tea tree farmer in the proximal right thigh. Radiologist was not in attendance. Images were later provided for interpretation. If the patient's symptoms persist, followup ultrasound in 5 days 7 days might be of value to exclude proximal propagation from a non-visualized calf vein. US/US venous duplex LE RT IMPRESSION: 1. No DVT demonstrated in the right lower extremity. 2. Incidental note of a 2.3 x 0.7 x 2.4 cm wider than tall lymph node with echogenic hilum in the proximal right thigh. Decisions regarding further management should be based on the clinical assessment. This study was presented today February 25, 2023 at 1:32 PM for interpretation. Stat results provided at this time as requested by referring provider.
--- NOTE | ~2023-02-19 | XR_ITS ---
EXAMINATION: XR FOOT, RIGHT CLINICAL INFORMATION: Abscess lateral foot COMPARISON: None available. TECHNIQUE: AP, lateral, and oblique views of the right foot. FINDINGS: Soft tissue irregularity along the lateral aspect of the foot corresponding to known abscess. No acute visible fracture or dislocation. Mild multi joint arthritic changes. XR/XR foot RT min 3V IMPRESSION: 1. Soft tissue irregularity along the lateral aspect of the foot corresponding to known abscess. 2. No acute visible fracture or dislocation. 3. Mild multi joint arthritic changes.
--- NOTE | ~2023-02-19 | MR_ITS ---
EXAMINATION: MR FOOT WITHOUT AND WITH CONTRAST, RIGHT CLINICAL INFORMATION: Fifth toe fracture. Evaluate for osteomyelitis. Fifth toe swelling. COMPARISON: Right foot radiographs dated 02/19/2023 and 03/03/2023. TECHNIQUE: Multisequence MR imaging of the right foot was obtained before and after the IV administration of 7.5 mL Gadavist contrast on a high-field strength scanner. FINDINGS: Bone detail of the previously seen fifth distal phalangeal fracture is limited on MR examination. There is associated edema with surrounding soft tissue swelling in this area. Minimal postcontrast enhancement. No associated organized fluid collection or abscess formation. A superimposed infectious or inflammatory process cannot be excluded in the appropriate clinical setting. No additional fracture or dislocation. No concerning lytic or blastic osseous lesion. No metatarsal stress reaction. Chronic, corticated ossification along the base of the fifth metatarsal which could represent an accessory ossicle versus remote, unfused fracture fragment. No edema or enhancement in this region to suggest acute injury. Subcutaneous edema and soft tissue swelling with skin thickening and postcontrast enhancement along the lateral aspect of the fifth metatarsal base. Findings could represent acute cellulitis in the appropriate clinical setting. No organized fluid collection or abscess formation. No adjacent marrow edema, periosteal reaction, or enhancement to suggest acute osteomyelitis. No soft tissue mass or fluid collection. No forefoot neuroma. The visualized flexor and extensor tendons are intact. No edema or enhancement within the musculature to suggest acute injury. Intact Lisfranc ligament. MR/MR foot RT wo/w con IMPRESSION: 1. Soft tissue swelling and skin thickening along the lateral aspect of the fifth metatarsal base with minimal postcontrast enhancement. Findings could represent acute cellulitis in the appropriate clinical setting. No organized fluid collection or abscess formation. No adjacent marrow edema or periosteal reaction to suggest acute osteomyelitis. 2. Chronic, corticated ossification along the base of the fifth metatarsal which could represent an accessory ossicle versus remote, unfused fracture fragment. No edema or enhancement in this region to suggest acute injury.
--- NOTE | ~2023-02-19 | XR_ITS ---
EXAMINATION: XR LUMBOSACRAL SPINE CLINICAL INFORMATION: Low back pain extending down right leg COMPARISON: None available. TECHNIQUE: Three views of the lumbosacral spine. FINDINGS: Vertebral body height is preserved. Grade 1 spondylolisthesis is evident at L5-S1, approximately 8 mm, with at least right-sided spondylolysis. Alignment is otherwise maintained. XR/XR lumbar spine 2-3V IMPRESSION: Grade 1 spondylolisthesis at L5-S1 with at least right-sided and probably bilateral L5 spondylolysis.
--- NOTE | ~2023-02-19 | XR_ITS ---
EXAMINATION: XR KNEE, RIGHT CLINICAL INFORMATION: Right knee pain. COMPARISON: None available. TECHNIQUE: Two views of the right knee. FINDINGS: No acute fracture or subluxation. No significant degenerative changes. No abnormal soft tissue calcifications. Trace joint effusion. XR/XR knee RT 2V IMPRESSION: No acute fracture or malalignment. Trace joint effusion.
[2023-02-19 12:40] VITALS: BP 110/66; PULSE 71; RESP 16; TEMP 36.6; O2SAT 98; BMI 20.2
--- NOTE | 2023-02-19 12:40 | ED_ITS ---
HPI - General Adult General Chief complaint: Psychiatric Symptoms Stated complaint: SI/Crisis Time Seen by Provider: 02/19/23 13:17 Source: patient Mode of arrival: ambulatory Limitations: no limitations History of Present Illness HPI narrative: Patient is a 42-year-old male with history of ETOH, cocaine, and opioid abuse, MDD presenting to the emergency department with suicidal ideation and withdrawal from fentanyl. Reports plan for intentional overdose. Friend states patient required narcan several times the other day. States last used a half gram of fentanyl around midnight, cocaine and heroin use around 4am. Denies alcohol use. Also complaining of abscess to lateral aspect of right foot, denies drainage, reports fevers. Denies homicidal ideation, but does report auditory and visual hallucinations patient was admitted for depression and detox on 11/07 patient been homeless for last 10 days started using drugs was sober for 2 months. Patient been to detox at least 12 times Related Data Home Medications Medication Instructions Recorded Confirmed hydroxyzine pamoate 50 mg capsule 50 mg PO BID PRN Anxiety 09/24/22 02/19/23 trazodone 100 mg tablet 100 mg PO BEDTIME PRN Sleep 09/24/22 02/19/23 melatonin 3 mg tablet 9 mg PO BEDTIME PRN insomnia 10/24/22 02/19/23 bupropion HCl 150 mg 24 hr tablet, 150 mg PO QAM 02/19/23 02/19/23 extended release Allergies Allergy/AdvReac Type Severity Reaction Status Date / Time No Known Allergies Allergy Verified 09/23/22 20:36 Review of Systems 2 Review of Systems: Yes all other systems are reviewed and are negative [facility] Past Medical History Medical History Active substance abuse Social History Social History Household Members: Significant Other, Family and Children Housing: House Do you presently have visiting nurse or other home services: No Alcohol intake: current Patient Tobacco Use Status: Never used Tobacco Second Hand Smoke Exposure: No Substance Use Type: Crack/Cocaine, Heroin and Other Advance Directives: No service: No Sexual orientation: Straight/Heterosexual Physical Exam ED Vital Signs: Vital Signs - 24 hr 02/19/23 12:40 02/19/23 15:53 Temperature 97.8 F Pulse Rate 71 Respiratory Rate 16 16 Blood Pressure 110/66 Pulse Oximetry 98 Oxygen Delivery Method Room Air BMI result Body Mass Index 20.2 Appearance: Alert. Oriented X3. No acute distress. Eyes: PERRLA, No Nystagmus ENT: Pharynx normal. Oral Mucosa moist Neck: Normal inspection. Neck supple. CVS: Normal heart rate and rhythm. Pulses normal. Respiratory: No respiratory distress. Equal air entry bilateral, no wheezing/rales/rhonchi Abdomen: Soft and nontender. Bowel sounds are present, no mass palpable, no CVA tenderness Skin: Skin warm and dry. Normal skin color. Normal skin turgor. Extremities: No lower extremity edema. No calf tenderness infected callus right aspect Neuro: Oriented X 3. No motor deficit. No sensory deficit.No cerebellar signs , cranial nerves II-XII intact Course Course Course Narrative: This is a rapid medical exam: Additional HPI, ROS, PE not included below will be deferred to primary provider. Patient is a 42-year-old male with history of ETOH, cocaine, and opioid abuse, MDD presenting to the emergency department with suicidal ideation and withdrawal from fentanyl. Reports plan for intentional overdose. Friend states patient required narcan several times the other day. States last used a half gram of fentanyl around midnight, cocaine and heroin use around 4am. Denies alcohol use. Also complaining of abscess to lateral aspect of right foot, denies drainage, reports fevers. Denies homicidal ideation, but does report auditory and visual hallucinations. Plan: labs including blood cultures, x-ray Medications Administered Generic Name Dose Route Start Last Admin Trade Name Freq PRN Reason Stop Dose Admin Cephalexin HCl 500 mg 02/19/23 21:00 02/19/23 21:11 Cephalexin 500 Mg Capsule PO 03/02/23 21:00 500 mg QID ADRIENNE Administration Doxycycline Monohydrate 100 mg 02/19/23 21:00 02/19/23 21:11 Doxycycline Monohydrate 100 Mg Capsule PO 03/02/23 21:00 100 mg BID ADRIENNE Administration Melatonin 9 mg 02/19/23 20:46 02/19/23 21:11 Melatonin 3 Mg Tablet PO 9 mg BEDTIME PRN Administration insomnia Discontinued Medications Generic Name Dose Route Start Last Admin Trade Name Freq PRN Reason Stop Dose Admin Cephalexin HCl 500 mg 02/19/23 13:59 02/19/23 14:37 Cephalexin 500 Mg Capsule PO 02/19/23 14:00 500 mg ONCE ONE Administration Doxycycline Monohydrate 100 mg 02/19/23 13:59 02/19/23 14:37 Doxycycline Monohydrate 100 Mg Capsule PO 02/19/23 14:00 100 mg ONCE ONE Administration Lorazepam 2 mg 02/19/23 14:08 02/19/23 14:37 Lorazepam 1 Mg Tablet PO 02/19/23 14:09 2 mg ONCE ONE Administration Methadone HCl 30 mg 02/19/23 14:08 02/19/23 14:36 Methadone Hcl 20 Mg/2 Ml Oral.Conc PO 02/19/23 14:09 30 mg ONCE ONE Administration Nicotine Polacrilex 2 mg 02/19/23 21:14 02/19/23 21:17 Nicotine Polacrilex 2 Mg Gum BUCCAL 02/19/23 21:15 2 mg ONCE ONE Administration Procedures Abscess I/D Site: foot Side (if applicable): right Local Anesthetic: lidocaine 1% Amount of anesthesia used (mL): 2 Technique: incised with blade Amount of fluid expressed (mL): 1 Sent for culture/gram staining?: Yes Irrigation: No Packing used?: none Medical Decision Making Medical Decision Making [facility] Narrative: Patient with substance abuse with depression SI feeling seen by care team will admit patient to inpatient psych floor also has abscess superficial on the right foot started on antibiotic status post I&D Differential Diagnosis Differential Diagnoses: The differential diagnosis associated with the presentation includes Admission/Observation Consideration of admission/observation: Escalation of care including admission/observation considered Lab Data [facility] Lab Attestation statement: I reviewed the patient's lab results. 02/19/23 13:05 02/19/23 13:05 Labs: Lab Results 02/19/23 02/19/23 Range/Units 13:05 16:38 WBC 10.8 (4.8-10.8) X10*3/uL RBC 4.16 L (4.60-5.80) X10*6/uL Hgb 13.0 L (14.0-18.0) g/dl Hct 39.2 L (42.0-52.0) % MCV 94.2 (80.0-98.0) fL MCH 31.3 (27.0-33.0) pg MCHC 33.2 (31.0-36.0) g/dl RDW 12.7 (11.0-16.0) % Plt Count 196 D (160-400) X10*3/uL MPV 10.0 (9.4-12.4) fL Immature Gran % (Auto) 0.4 (0.0-0.4) % Neut % (Auto) 81.2 H (45-73) % Lymph % (Auto) 9.1 L (20-40) % Rhea % (Auto) 8.6 (2-11) % Eos % (Auto) 0.4 (0-4) % Baso % (Auto) 0.3 (0-2) % Lymph # (Auto) 1.0 L (1.2-4.9) X10*3/uL Rhea # (Auto) 0.9 (0.1-1.2) X10*3/uL Eos # (Auto) 0.0 (0.0-0.4) X10*3/uL Baso # (Auto) 0.0 (0.0-0.2) X10*3/uL Abs Immat Gran (auto) 0.04 H (0.00-0.03) X10*3/uL Absolute Neuts (auto) 8.8 H (2.0-8.3) x10*3/uL Absolute Nucleated RBC 0.000 (0.0-0.012) X10*3/uL Nucleated RBC % (auto) 0.0 (0.0-0.2) /100WBC ESR 11 (0-15) MM/HR Sodium 139 (135-145) mmol/L Potassium 4.4 (3.3-5.1) mmol/L Chloride 104 (96-108) mmol/L Carbon Dioxide 26 (22-29) mmol/L Anion Gap 13 (12-20) BUN 16 (9-16) mg/dL Creatinine 0.76 (0.5-1.4) mg/dL Estim Creat Clear Calc 120.8 Estimated GFR > 60 Random Glucose 117 H (60-115) mg/dL Calcium 9.4 (8.4-10.2) mg/dL C-Reactive Protein 7.12 H (< or = 0.50) mg/dL Urine Color Yellow Urine Appearance Hazy Urine pH 6.0 (5.0-9.0) Ur Specific [place] >= 1.030 H (1.005-1.025) Urine Protein Trace (Neg-Trace) mg/dL Urine Glucose (UA) Negative (Negative) mg/dL Urine Ketones 15 (Negative) mg/dL Urine Blood Negative (Negative) Urine Nitrite Negative (Negative) Ur Leukocyte Esterase Negative (Negative) Salicylates < 5.0 L (15-30) mg/dL Urine Opiates Screen Not Detected (Not Detect) Urine Fentanyl Screen POSITIVE H (Not Detect) Acetaminophen < 3 (<30) mcg/mL Ur Barbiturates Screen Not Detected (Not Detect) Ur Phencyclidine Scrn Not Detected (Not Detect) Ur Amphetamines Screen Not Detected (Not Detect) U Benzodiazepines Scrn Not Detected (Not Detect) Urine Cocaine Screen POSITIVE H (Not Detect) U Marijuana (THC) Screen Not Detected (Not Detect) Ethyl Alcohol < 10 mg/dL COVID-19 (ZANE) Negative (Negative) COVID-19 Clin Com See Note Independent Interpretation I performed an independent interpretation of an: EKG and Plain X-Ray Interpretation: Sinus bradycardia heart rate 53 beats per normal interval normal QT interval no acute ST-T change and no acute ischemia Radiology Impression Discussion of test interpretation with radiology: I have reviewed the radiologist's reading. Discharge Plan Discharge Clinical Impression: Suicidal ideation, Depression, Polysubstance abuse, Abscess of right foot Patient Disposition: Admitted As Inpatient Interventions: [place]-Suicide Risk Severity Scale Last Done: 02/19/23 15:53
--- NOTE | 2023-02-19 12:46 | ECG_ITS ---
Test Reason : CRISIS Blood Pressure : / mmHG Vent. Rate : 053 BPM Atrial Rate : 053 BPM P-R Int : 140 ms QRS Dur : 088 ms QT Int : 446 ms P-R-T Axes : 058 061 049 degrees QTc Int : 418 ms Sinus bradycardia Early repolarization Otherwise normal ECG When compared with ECG of 25-OCT-2022 14:54, No significant change was found Referred By: Lissa Isaac Electronically Signed By:LELAND JONES
--- OUTSIDE RECORDS SUMMARY | 2023-02-19 13:07 | XMS_ITS | Continuity of Care Document ---
Author Name Unknown Organization [facility] Address [address] [place] [address]- Care Team Providers Care Sample Box Maker Name Role Phone Nakul SUNSHINE, Raúl Goodwin [id number] Date[facility] 12/14/21 - 01/26/22 [facility] [address] [place], [place] [address] Attending Physician: Lion Marvin MD, Hebert Green Referring Physician: Not on Staff, Referring MD Allergies, Adverse Reactions, Alerts No Known Allergies Medications acetaminophen 325 mg oral tablet 650 mg, By Mouth, Every 4 hours, PRN, Temperature Greater than 100.5, Refills 0, Maintenance, Pain , Mild, 04/13/21 9:09:00 EST, Partial fill upon patient request if the prescription is for a schedule II opioid drug. Start Date: 04/13/21 Status: Ordered ARIPiprazole 2 mg oral tablet 2 mg, 1, tablet, By Mouth, Daily, # 30 tablet, Refills 0, Maintenance, 03/23/21 19:02:00 EST, Partial fill upon patient request if the prescription is for a schedule II opioid drug. Start Date: 03/23/21 Status: Ordered buprenorphine-naloxone 8 mg-2 mg sublingual film 1 film, Sublingual, Daily, [id number], # 10 film, 0 Refills, Maintenance, 07/31/21 13:36:00 EDT, Film, Partial fill upon patient request if the prescription is for a schedule II opioid drug. Start Date: 07/31/21 Status: Ordered naloxone 4 mg/0.1 mL nasal spray 1 sprays, Naris, Left, Once, PRN Other respiratory depression, # 1 kit, 0 Refills, Soft Stop, 02/27/19 15:03:49 EST Start Date: 02/27/19 Status: Ordered Wellbutrin By Mouth, 0 Refills, Maintenance, 02/17/20 10:10:00 EST, Partial fill upon patient request if the prescription is for a schedule II opioid drug. Start Date: 02/17/20 Status: Ordered Problem List Condition Confirmation Course Effective Dates Status Health St atus Informant Cellulitis Confirmed Active Social History Social History Type Response Smoking Status Never (less than 100 in lifetime) entered on: 03/23/21 Sex Patient Care team information Care Team Personnel Name: Raúl Mota MD Position: [facility] Physician -Physician Practices Member Role: PCP Address: Address: [address] [place] [address] [address] [place] [address]- Name: Kate Hernandez RN Position: [facility] RN Member Role: Primary Care Nurse Name: Julia Hennessy Position: [facility] RN Member Role: Primary Care Nurse Name: Anita Jeter RN Position: [facility] RN Member Role: Primary Care Nurse Care Team Related Persons Name: CHANDRA NAKIA Address: home [address] [place] [id number]
--- OUTSIDE RECORDS SUMMARY | 2023-02-19 13:07 | XMS_ITS | Continuity of Care Document ---
Author Name Unknown Organization [facility] Address [address] [place] [address]- Care Team Providers Care Tubular Stock Glass Bulb Machine Former Name Role Phone Raúl Sampson Primary Care Physician Encounter [facility] Date(s): 04/07/21 - 04/07/[address] [address]- Discharge Disposition: A-D/C AMA Attending Physician: Ld Sky DO Admitting Physician: Ld Sky DO Referring Physician: Not on Staff, Referring MD Allergies, Adverse Reactions, Alerts No Known Allergies Medications ARIPiprazole 2 mg oral tablet 2 mg, 1, tablet, By Mouth, Daily, # 30 tablet, Refills 0, Maintenance, 03/23/21 19:02:00 EST, Partial fill upon patient request if the prescription is for a schedule II opioid drug. Start Date: 03/23/21 Status: Ordered naloxone 4 mg/0.1 mL nasal spray 1 sprays, Naris, Left, Once, PRN Other respiratory depression, # 1 kit, 0 Refills, Soft Stop, 02/27/19 15:03:49 EST Start Date: 02/27/19 Status: Ordered Wellbutrin By Mouth, 0 Refills, Maintenance, 02/17/20 10:10:00 EST, Partial fill upon patient request if the prescription is for a schedule II opioid drug. Start Date: 02/17/20 Status: Ordered Vital Signs Most recent to oldest [Reference Range]: 1 Oxygen Saturation [94-100 %] 95 % (04/07/21 12:50 PM) Pulse Rate [55-90 bpm] 93 bpm *H* (04/07/21 12:50 PM) Blood Pressure [90-138/55-84 mm Hg] 121/ 73mm Hg (04/07/21 12:50 PM) Respiratory Rate [16-30 br/min] 16 br/mi n (04/07/21 12:50 PM) Temperature [96.8-100.4 DegF] 98.0 DegF (04/07/21 12:56 PM) Mode of Delivery (Oxygen) Room air (04/07/21 12:50 PM) Blood pressure sites Arm, right (04/07/21 12:50 PM) Temperature Route Oral (04/07/21 12:56 PM) Social History Social History Type Response Smoking Status Never (less than 100 in lifetime) entered on: 03/23/21 Sex
--- OUTSIDE RECORDS SUMMARY | 2023-02-19 13:07 | XMS_ITS | Continuity of Care Document ---
Author Name Unknown Organization [facility] Address [address] [place] [address]- Care Team Providers Care Glass Breaker Name Role Phone Saeid Perkins MD Primary Care Physician [place] [facility] Date(s): 03/29/21 - 04/28/21 [facility] [address], [place] [address] Attending Physician: Edis Jimenes Admitting Physician: AdmEdis rea Referring Physician: AdmtrEdis Allergies, Adverse Reactions, Alerts No Known Allergies [...] Date: 02/17/20 Status: Ordered Problem List Condition Effective Dates Status Health Status Inform ant Cellulitis(Confirmed) Active Social History Social History Type Response Smoking Status Never (less than 100 in lifetime) entered on: 03/23/21 Sex
--- OUTSIDE RECORDS SUMMARY | 2023-02-19 13:07 | XMS_ITS | Continuity of Care Document ---
Author Name Unknown Organization [facility] Address [address] [place] [address]- Care Team Providers Care Brothel Keeper Name Role Phone Not on Staff, PCP Primary Care Physician Unavail able Encounter [facility] Date(s): 01/04/22 - 02/09/22 [facility] [address] [place] [address]- Attending Physician: Raúl Mota MD Admitting Physician: Raúl Mota MD Referring Physician: Raúl Mota MD Social History Social History Type Response Sex Male Patient Care team information Care Team Personnel Name: Not on Staff, PCP Position: S Physician (General Medicine) Member Role: PCP Care Team Related Persons Name: MARISELA CHANDRA Address: [place] [address]
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
--- OUTSIDE RECORDS SUMMARY | 2023-02-19 13:07 | XMS_ITS | Continuity of Care Document ---
Author Name Unknown Organization [facility] Sharmaine Talavera [facility] Address [address] [place] [address]- Care Team Providers Care Pail Bailer Name Role Phone Not on Staff, PCP Primary Care Physician Unavail able Encounter [facility] NBR [id number] Date(s): 11/15/21 - 12/15/[address] [address]- Attending Physician: Edis Jimenes Admitting Physician: Edis Jimenes Referring Physician: Edis Jimenes Patient Care team information Personnel Name: Not on Staff, PCP
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
--- OUTSIDE RECORDS SUMMARY | 2023-02-19 13:07 | XMS_ITS | Continuity of Care Document ---
Author Name Unknown Organization [facility] Address [address] [place] [address]- Care Team Providers Care Bread Wrapper Name Role Phone Nakul SUNSHINE, Raúl Goodwin Primary Care Physician Encounter [facility] NBR [id number] Date(s): 11/17/21 - 01/04/22 [facility] [address], [place] [address] Attending Physician: Golden Seymour MD Referring Physician: Not on Staff, Referring [...] mg sublingual film 1 film, Sublingual, Daily, [id number], # 10 film, 0 Refills, Maintenance, 07/31/21 [...] on: 03/23/21 Sex Patient Care team information Personnel Name: Nakul SUNSHINE, Raúl Goodwin Address: Address: [address] [place] [address] [address] [place], [place] [address]
--- OUTSIDE RECORDS SUMMARY | 2023-02-19 13:07 | XMS_ITS | Continuity of Care Document ---
Author Name Unknown Organization [facility] ter Address [address] [place] [address]- Care Team Providers Care Fuse Assembler Name Role Phone Saeid Perkins MD Primary Care Physician Encounter [facility] Date(s): 04/09/21 - 04/10/[address] [address]- Encounter Diagnosis Suicidal ideation(Final) - 04/10/21 Discharge Disposition: A-D/C Group Home, Correction, or Residential Fac Attending Physician: Agustin Garsia MD Admitting Physician: Agustin Garsia MD Referring Physician: Not on Staff, Referring [...] Status Health Status Inform ant Cellulitis(Confirmed) Active Results Orders for Microbiology Reports Name Date Blood Culture 04/09/21 Blood Culture #2 04/09/21 Microbiology Reports TEST:Blood Culture, Second Order STATUS:Unauthenticated BODY SITE: SOURCE:Blood COLLECTED DATE/TIME:04/09/21 8:16 PM Blood Culture, Second Order SPECIMEN DESCRIPTION : BLOOD L HAND SPECIAL REQUESTS : NONE CULTURE : NO GROWTH AFTER 24 HOURS REPORT STATUS : PRELIMINARY REPORT TEST:Blood Culture STATUS:Unauthenticated BODY SITE: SOURCE:Blood COLLECTED DATE/TIME:04/09/21 8:04 PM Blood Culture SPECIMEN DESCRIPTION : BLOOD RAC SPECIAL REQUESTS : NONE CULTURE : NO GROWTH AFTER 24 HOURS REPORT STATUS : PRELIMINARY REPORT Vital Signs Most recent to oldest [Reference Range]: 1 2 3 Oxygen Saturation [94-100 %] 100 % (04/10/21 12:35 AM) 98 % (04/09/21 9:11 PM) 96 % (04/09/21 8:37 PM) Pulse Rate [55-90 bpm] 54 bpm *L* (04/10/21 12:35 AM) 63 bpm (04/09/21 9:11 PM) 59 bpm (04/09/21 8:37 PM) Blood Pressure [90-138/55-84 mm Hg] 106/56mm Hg (04/10/21 12:35 AM) 104/56mm Hg (04/09/21 9:13 PM) 89/54mm Hg *L* (04/09/21 9:11 PM) Respiratory Rate [16-30 br/min] 18 br/min (04/10/21 12:35 AM) 20 br/min (04/09/21 9:11 PM) 20 br/min (04/09/21 8:37 PM) Temperature [96.8-100.4 DegF] 97.4 DegF (04/09/21 9:11 PM) 97.4 DegF (04/09/21 8:37 PM) 98.4 DegF (04/09/21 7:03 PM) Mode of Delivery (Oxygen) Room air (04/10/21 12:35 AM) Room air (04/09/21 9:11 PM) Room air (04/09/21 8:37 PM) Blood pressure sites Arm, left (04/10/21 12:35 AM) Arm, left (04/09/21 9:13 PM) Arm, right (04/09/21 9:11 PM) Temperature Route Oral (04/09/21 9:11 PM) Oral (04/09/21 8:37 PM) Oral (04/09/21 7:03 PM) Social History Social History Type Response Smoking Status Never (less than 100 in lifetime) entered on: 03/23/21 Sex
--- OUTSIDE RECORDS SUMMARY | 2023-02-19 13:07 | XMS_ITS | Continuity of Care Document ---
Author Name Unknown Organization [facility] Address [address] [place] [address]- Care Team Providers Care Metal Framer Name Role Phone Raúl Mota MD Primary Care Physician Encounter [facility] Date(s): 12/27/21 - 01/26/22 [facility] [address] [place], [place] [address] Attending Physician: Edis Jimenes Admitting Physician: Admtr, Edis Referring Physician: Admtr, Ar8 Allergies, Adverse Reactions, Alerts No Known Allergies [...] mg sublingual film 1 film, Sublingual, Daily, [id number], # 10 film, 0 Refills, Maintenance, 07/31/21 [...] Team Personnel Name: Raúl Mota MD Position: [facility] Physician -Physician Practices Member Role: PCP Address: Address: [address] [place] [address] & [place] [address]- Name: Kate Hernandez RN Position: [facility] RN Member Role: Primary Care Nurse Name: Julia Hennessy Position: S RN Member Role: Primary Care Nurse Name: Anita Jeter RN Position: S RN Member Role: Primary Care Nurse Care Team Related Persons Name: NAKIA CHANDRA Address: home [address] [place] [address]
--- OUTSIDE RECORDS SUMMARY | 2023-02-19 13:07 | XMS_ITS | Continuity of Care Document ---
Author Name Unknown Organization [facility] ter Address [address] [place] [address]- Care Team Providers Care Scientific Technical Writer Name Role Phone Raúl Sampson Primary Care Physician Encounter [facility] Date(s): 03/23/21 - 03/26/[address] [address] Discharge Disposition: A-D/C Home Attending Physician: Yeimy Black MD Admitting Physician: Em SUNSHINE, Fito Referring Physician: Not on Staff, Referring MD Allergies, Adverse Reactions, Alerts Substance Reaction Severity Status NKA Active Medications ARIPiprazole 2 mg oral tablet 2 mg, 1, tablet, By Mouth, Daily, # 30 tablet, Refills 0, Maintenance, 03/23/21 19:02:00 EST, Partial fill upon patient request if the prescription is for a schedule II opioid drug. Start Date: 03/23/21 Status: Ordered doxycycline hyclate 100 mg oral enteric coated tablet 2 tablet = 200 mg, By Mouth, Daily, for 11 days, # 22 tablet, 0 Refills, Acute 04/06/21 9:52:00 EST, 03/26/21 9:52:00 EST, CR Tablet, [facility], Partial fill upon patient request if the prescription is for a schedule II opioid drug., 18... Start Date: 03/26/21 Stop Date: 04/06/21 Status: Ordered MorPHINE Inj 4 mg, Injection, IV Push Slowly, Every 4 hours, PRN for Pain , Severe, Routine, 03/25/21 9:13:00 EST Start Date: 03/25/21 Stop Date: 03/26/21 Status: Discontinued naloxone 4 mg/0.1 mL nasal spray 1 sprays, Naris, Left, Once, PRN Other respiratory depression, # 1 kit, 0 Refills, Soft Stop, 02/27/19 15:03:49 EST Start Date: 02/27/19 Status: Ordered oxyCODONE 5 mg oral tablet 5 mg, 1, tablet, By Mouth, Every 6 hours, PRN, for 5 days, # 20 tablet, Refills 0, Tot. Refills 0, Acute 03/31/21 10:13:00 EST, as needed for pain, 03/26/21 10:13:00 EST, Route to Pharmacy Electronically, [facility], Partial fill upon pa... Start Date: 03/26/21 Stop Date: 03/31/21 Status: Ordered Wellbutrin By Mouth, 0 Refills, Maintenance, 02/17/20 10:10:00 EST, Partial fill upon patient request if the prescription is for a schedule II opioid drug. Start Date: 02/17/20 Status: Ordered Results Orders for Microbiology Reports Name Date Anaerobic Culture (ANAEROBIC CULTURE) 03/24/21 Tissue Culture w/ Gram Smear (TISSUE/BIO PSY CULT.) 03/24/21 Blood Culture 03/23/21 Blood Culture #2 03/23/21 Microbiology Reports TEST:Anaerobic Culture STATUS:Unauthenticated BODY SITE: SOURCE:TISSUE1 COLLECTED DATE/TIME:03/24/21 5:55 PM Anaerobic Culture SPECIMEN DESCRIPTION : TISSUE LEFT LONG FINGER FLEXOR MENINGES E SWAB SPECIAL REQUESTS : NONE CULTURE : NO ANAEROBES ISOLATED SO FAR. REPORT STATUS : PRELIMINARY REPORT TEST:Tissue/Biopsy Culture STATUS:Unauthenticated BODY SITE: SOURCE:TISSUE1 COLLECTED DATE/TIME:03/24/21 5:55 PM Tissue/Biopsy Culture SPECIMEN DESCRIPTION : TISSUE LEFT LONG FINGER FLEXOR MENINGES E SWAB SPECIAL REQUESTS : NONE GRAM STAIN : 1+ WHITE BLOOD CELLS NO ORGANISMS SEEN CULTURE : NO GROWTH TO DATE REPORT STATUS : PRELIMINARY REPORT TEST:Blood Culture STATUS:Unauthenticated BODY SITE: SOURCE:Blood COLLECTED DATE/TIME:03/23/21 8:59 PM Blood Culture SPECIMEN DESCRIPTION : BLOOD SPECIAL REQUESTS : NONE CULTURE : NO GROWTH 3 DAYS REPORT STATUS : PRELIMINARY REPORT TEST:Blood Culture, Second Order STATUS:Unauthenticated BODY SITE: SOURCE:Blood COLLECTED DATE/TIME:03/23/21 8:59 PM Blood Culture, Second Order SPECIMEN DESCRIPTION : BLOOD SPECIAL REQUESTS : NONE CULTURE : NO GROWTH AFTER 48 HOURS REPORT STATUS : PRELIMINARY REPORT Vital Signs Most recent to oldest [Reference Range]: 1 2 3 Height 183 cm (03/26/21 7:36 AM) 183 cm (03/26/21 5:21 AM) 183 cm (03/25/21 11:49 PM) Weight 78.2 kg (03/24/21 4:18 PM) 78.2 kg (03/23/21 10:35 PM) 78.2 kg (03/23/21 10:25 PM) Oxygen Saturation [94-100 %] 99 % (03/26/21 7:36 AM) 97 % (03/26/21 5:21 AM) 97 % (03/25/21 11:49 PM) Pulse Rate [55-90 bpm] 67 bpm (03/26/21 7:36 AM) 64 bpm (03/26/21 5:21 AM) 67 bpm (03/25/21 11:49 PM) Body Mass Index [18.5-24.99] 23.35 (03/24/21 4:18 PM) 23.35 (03/23/21 10:35 PM) Blood Pressure [90-138/55-84 mm Hg] 131/92mm Hg (03/26/21 7:36 AM) 116/76mm Hg (03/26/21 5:21 AM) 102/57mm Hg (03/25/21 11:49 PM) Respiratory Rate [16-30 br/min] 20 br/min (03/26/21 10:22 AM) 20 br/min (03/26/21 9:55 AM) 18 br/min (03/26/21 7:36 AM) Temperature [96.8-100.4 DegF] 98.4 DegF (03/26/21 7:36 AM) 98.3 DegF (03/26/21 5:21 AM) 98.0 DegF (03/25/21 11:49 PM) Liters per Minute 6 L/min (03/24/21 6:30 PM) Mode of Delivery (Oxygen) Room air (03/26/21 7:36 AM) Room air (03/26/21 5:21 AM) Room air (03/25/21 11:49 PM) Blood pressure sites Arm, right (03/26/21 7:36 AM) Arm, right (03/26/21 5:21 AM) Arm, right (03/25/21 11:49 PM) Temperature Route Oral (03/26/21 7:36 AM) Oral (03/26/21 5:21 AM) Oral (03/25/21 11:49 PM) Dry Weight 78.2 kg (03/23/21 10:35 PM) Weight Obtained Via Bed scale (03/23/21 10:35 PM) Dry Weight Obtained Via Bed scale (03/23/21 10:35 PM) Social History Social History Type Response Smoking Status Never (less than 100 in lifetime) entered on: 03/23/21 Sex Male
--- OUTSIDE RECORDS SUMMARY | 2023-02-19 13:07 | XMS_ITS | Continuity of Care Document ---
Author Name Unknown Organization [facility] Address [address] [place] [address]- Care Team Providers Care Chief Deputy Sheriff Name Role Phone Raúl Sampson Primary Care Physician Encounter [facility] Date(s): 03/23/21 - 03/23/[address] [address]- Encounter Diagnosis Flexor tenosynovitis of finger(Final) - 03/23/21 [facility]: [facility] Attending Physician: Wagner Modi MD Admitting Physician: Wagner Modi MD Referring Physician: Not on Staff, Referring MD Allergies, Adverse Reactions, Alerts Substance Reaction Severity Status NKA Active Medications ARIPiprazole 2 mg oral tablet 2 mg, 1, tablet, By Mouth, Daily, # 30 tablet, Refills 0, Maintenance, 03/23/21 19:02:00 EST, Partial fill upon patient request if the prescription is for a schedule II opioid drug. Start Date: 03/23/21 Status: Ordered MorPHINE Inj 4 mg, Injection, IV Push Slowly, Once, STAT, 03/23/21 13:13:00 EST, Stop date 03/23/21 13:13:00 EST Start Date: 03/23/21 Stop Date: 03/23/21 Status: Completed naloxone 4 mg/0.1 mL nasal spray 1 sprays, Naris, Left, Once, PRN Other respiratory depression, # 1 kit, 0 Refills, Soft Stop, 02/27/19 15:03:49 EST Start Date: 02/27/19 Status: Ordered Wellbutrin By Mouth, 0 Refills, Maintenance, 02/17/20 10:10:00 EST, Partial fill upon patient request if the prescription is for a schedule II opioid drug. Start Date: 02/17/20 Status: Ordered Results Radiology Reports * Exam Date Time Procedure Performing Provider Status 03/23/21 10:32 AM Hand Min 3 Views Left Sonia Talavera; [facility] (Verified) Notes: (Hand Min 3 Views Left) Reason For Exam: Pain RESULT: Hand Min 3 Views Left Hand Min 3 Views Left, 3 views HX OF PRESENT ILLNESS: pt reports left 3rd digit on his left hand swelling and pain for one week, was seen 12 28 and dx with sprain. States swelling and pain is worse.; Reason: Pain; Clinical Question(s): Fracture COMPARISON: None. FINDINGS: No fractures or bone lesions. No arthritic changes. Mild soft tissue swelling of the middle finger. IMPRESSION: No evidence of acute osseous abnormality. WSN: [id number] Ordering Physician: Wagner Modi Dictated By: True Wall MD Dictated Date/Time: 03/23/21 10:40 a Reviewed By: True Wall MD Signed By: True Wall MD Signed Date/Time: 03/23/21 10:40 am Transcribed By: PARTH Transcribed Date/Time: 03/23/21 10:40 am Vital Signs Most recent to oldest [Reference Range]: 1 2 3 Height 186 cm (03/23/21 10:17 AM) Weight 79.1 kg (03/23/21 10:17 AM) 79.1 kg (03/23/21 10:16 AM) 79.1 kg (03/23/21 9:45 AM) Oxygen Saturation [94-100 %] 100 % (03/23/21 9:45 AM) Pulse Rate [55-90 bpm] 69 bpm (03/23/21 9:45 AM) Blood Pressure [90-138/55-84 mm Hg] 124/74mm Hg (03/23/21 10:16 AM) 117/66mm Hg (03/23/21 9:45 AM) Respiratory Rate [16-30 br/min] 12 br/min *L* (03/23/21 1:47 PM) 20 br/min (03/23/21 1:17 PM) 18 br/min (03/23/21 9:45 AM) Temperature [96.8-100.4 DegF] 97.7 DegF (03/23/21 9:45 AM) Mode of Delivery (Oxygen) Room air (03/23/21 9:45 AM) Blood pressure sites Arm, right (03/23/21 9:45 AM) Temperature Route Oral (03/23/21 9:45 AM) Dry Weight 79.1 kg (03/23/21 10:17 AM) 79.1 kg (03/23/21 10:16 AM) 79.1 kg (03/23/21 9:45 AM) Weight Obtained Via Standing scale (03/23/21 9:45 AM) Dry Weight Obtained Via Standing scale (03/23/21 9:45 AM) Social History Social History Type Response Smoking Status Never (less than 100 in lifetime) entered on: 03/23/21 Sex Male
--- OUTSIDE RECORDS SUMMARY | 2023-02-19 13:07 | XMS_ITS | Continuity of Care Document ---
Author Name Unknown Organization [facility] ter Address [address] [place] [id number]- Care Team Providers Care Social Science Instructor Name Role Phone Maddie SUNSHINE, Saeid Norwood Primary Care Physician [place] [facility] [place] - 04/13/[address] [address]- Encounter Diagnosis Bacteremia(Final) - 04/10/21 Discharge Disposition: A-D/C Home Attending Physician: Mary Gatica MD Admitting Physician: Leticia Lewis MD Referring Physician: Not on Staff, Referring [...] opioid drug. Start Date: 03/23/21 Status: Ordered Dilaudid 2 mg oral tablet 1 mg, Tablet, By Mouth, Every 4 hours, PRN for Pain , Severe, Routine, 04/10/21 18:34:00 EST Start Date: 04/10/21 Stop Date: 04/13/21 Status: Discontinued naloxone 4 mg/0.1 mL nasal [...] for Microbiology Reports Name Date Blood Culture 04/10/21 Blood Culture 04/10/21 Blood Culture #2 04/10/21 Microbiology Reports TEST:Blood Culture STATUS:Unauthenticated BODY SITE: SOURCE:Blood COLLECTED DATE/TIME:04/10/21 12:10 PM Blood Culture SPECIMEN DESCRIPTION : BLOOD LAC SPECIAL REQUESTS : NONE CULTURE : NO GROWTH 3 DAYS REPORT STATUS : PRELIMINARY REPORT TEST:Blood Culture, Second Order STATUS:Unauthenticated BODY SITE: SOURCE:Blood COLLECTED DATE/TIME:04/10/21 12:08 PM Blood Culture, Second Order SPECIMEN DESCRIPTION : BLOOD R FOREARM SPECIAL REQUESTS : NONE CULTURE : NO GROWTH 3 DAYS REPORT STATUS : PRELIMINARY REPORT TEST:Blood Culture STATUS:Unauthenticated BODY SITE: SOURCE:Blood COLLECTED DATE/TIME:04/10/21 12:07 PM Blood Culture SPECIMEN DESCRIPTION : BLOOD R ARM SPECIAL REQUESTS : NONE CULTURE : NO GROWTH 3 DAYS REPORT STATUS : PRELIMINARY REPORT Radiology Reports * Exam Date Time Procedure Performing Provider Status 04/10/21 2:20 PM Foot Min 3 Views Left Sivan Chapa; Auth (Verified) Notes: (Foot Min 3 Views Left) Reason For Exam: Effusion RESULT: Foot Min 3 Views Left Foot Min 3 Views Left, 3 views Hx of Present Illness: d x this morning from ED, called back foot + blood cultures. Pain in left lateral foot; Reason: Effusion; Clinical Question(s): Fracture COMPARISON: None. FINDINGS: No fractures or bone lesions. Healed fracture of the left fifth metatarsal bone with a nail in place. Mild adjacent soft tissue swelling without focal defect. Please correlate clinically. The rest of the left foot is unremarkable. IMPRESSION: Healed fracture of left fifth metatarsal bone with a nail in place. Mild adjacent soft tissue swelling without focal defect. Please correlate clinically. No acute fracture. WSN: [id number] Ordering Physician: Chet Alegria Dictated By: Tyler Dias MD Dictated Date/Time: 04/10/21 2:25 pm Reviewed By: Tyler Disa MD Signed By: Tyler Dias MD Signed Date/Time: 04/10/21 2:25 pm Transcribed By: PARTH Transcribed Date/Time: 04/10/21 2:22 pm Vital Signs Most recent to oldest [Reference Range]: 1 2 3 Height 183 cm (04/13/21 7:31 AM) 183 cm (04/11/21 11:30 PM) 183 cm (04/11/21 7:42 PM) Weight 75.5 kg (04/11/21 12:31 PM) 75.5 kg (04/11/21 12:21 PM) 76.7 kg (04/11/21 11:47 AM) Oxygen Saturation [94-100 %] 96 % (04/13/21 7:31 AM) 97 % (04/12/21 11:00 PM) 97 % (04/12/21 7:00 PM) Pulse Rate [55-90 bpm] 59 bpm (04/13/21 7:31 AM) 61 bpm (04/12/21 11:00 PM) 72 bpm (04/12/21 7:00 PM) Body Mass Index [18.5-24.99] 22.54 (04/11/21 12:31 PM) 22.54 (04/11/21 12:21 PM) 22.9 (04/11/21 11:47 AM) Blood Pressure [90-138/55-84 mm Hg] 99/46mm Hg (04/13/21 7:31 AM) 100/56mm Hg (04/12/21 11:00 PM) 100/52mm Hg (04/12/21 7:00 PM) Respiratory Rate [16-30 br/min] 16 br/min (04/13/21 7:31 AM) 18 br/min (04/13/21 4:56 AM) 18 br/min (04/13/21 3:56 AM) Temperature [96.8-100.4 DegF] 97.9 DegF (04/13/21 7:31 AM) 98.0 DegF (04/12/21 11:00 PM) 98.0 DegF (04/12/21 7:00 PM) Mode of Delivery (Oxygen) Room air (04/13/21 7:31 AM) Room air (04/12/21 11:00 PM) Room air (04/12/21 7:00 PM) Blood pressure sites Arm, right (04/13/21 7:31 AM) Arm, right (04/12/21 11:00 PM) Arm, right (04/12/21 7:00 PM) Temperature Route Oral (04/13/21 7:31 AM) Oral (04/12/21 11:00 PM) Oral (04/12/21 7:00 PM) Dry Weight 75.5 kg (04/11/21 12:21 PM) 76.7 kg (04/11/21 11:47 AM) 76.7 kg (04/11/21 7:56 AM) Weight Obtained Via Bed scale (04/11/21 12:31 PM) Bed scale (04/11/21 12:21 PM) Standing scale (04/10/21 11:16 AM) Dry Weight Obtained Via Standing scale (04/10/21 11:16 AM) Social History Social History Type Response Smoking Status Never (less than 100 in lifetime) entered on: 03/23/21 Sex
--- OUTSIDE RECORDS SUMMARY | 2023-02-19 13:07 | XMS_ITS | Continuity of Care Document ---
Author Name Unknown Organization [facility] Address [address] [place] [address]- Care Team Providers Care Veneer Joiner Name Role Phone Raúl Sampson Primary Care Physician Encounter [facility] Date(s): 11/07/21 - 11/07/[address] [address]- Discharge Disposition: A-D/C Home Attending Physician: Golden Rosado MD Admitting Physician: Golden Rosado MD Referring Physician: Not on Staff, Referring [...] mg sublingual film 1 film, Sublingual, Daily, [id number], # 10 film, 0 Refills, Maintenance, 07/31/21 [...] Health Status Inform ant Cellulitis(Confirmed) Active Results Radiology Reports * Exam Date Time Procedure Performing Provider Status 11/07/21 11:53 AM Ankle Min 3 Views Right Pirosseno , R obin; Auth (Verified) Notes: (Ankle Min 3 Views Right) Reason For Exam: Trauma RESULT: Ankle Min 3 Views Right Ankle Min 3 Views Right HX OF PRESENT ILLNESS: Slipped on puddle of water while shopping at [employer]. Twisted R ankle. Also reports R great toe pain and is unable to move this.; Reason: Trauma; Clinical Question(s): Fracture COMPARISON: None. FINDINGS: No acute fracture or dislocation. Corticated bone fragment adjacent to the medial malleolus, compatible with sequela of remote injury. Intact ankle mortise and talar dome. No arthritic changes. Normal soft tissues. IMPRESSION: No evidence of acute osseous abnormality. WSN: [id number] Ordering Physician: Golden Rosado Dictated By: True Wall MD Dictated Date/Time: 11/07/21 12:22 p Reviewed By: True Wall MD Signed By: True Wall MD Signed Date/Time: 11/07/21 12:22 pm Transcribed By: PARTH Transcribed Date/Time: 11/07/21 12:22 pm * Exam Date Time Procedure Performing Provider Status 11/07/21 11:54 AM Foot Min 3 Views Right Rola Chua ssa; Auth (Verified) Notes: (Foot Min 3 Views Right) Reason For Exam: Pain RESULT: Foot Min 3 Views Right Foot Min 3 Views Right, 3 views HX OF PRESENT ILLNESS: Slipped on puddle of water while shopping at [employer]. Twisted R ankle. Also reports R great toe pain and is unable to move this.; Reason: Pain; Clinical Question(s): Fracture COMPARISON: None. FINDINGS: There is a bone fragment at the base of the fifth metatarsal, it appears well-corticated. No arthritic changes. Normal soft tissues. IMPRESSION: Bone fragment at the base of the fifth metatarsal appears well-corticated and may be the sequela ofprior injury. Recommend correlation with point tenderness on exam. No acute fracture is identified. WSN: [id number] Ordering Physician: Golden Rosado Dictated By: True Wall MD Dictated Date/Time: 11/07/21 12:20 p Reviewed By: True Wall MD Signed By: True Wall MD Signed Date/Time: 11/07/21 12:20 pm Transcribed By: PARTH Transcribed Date/Time: 11/07/21 12:19 pm Vital Signs Most recent to oldest [Reference Range]: 1 Height 183 cm (11/07/21 11:04 AM) Weight 80 kg (11/07/21 11:04 AM) Oxygen Saturation [94-100 %] 100 % (11/07/21 11:04 AM) Pulse Rate [55-90 bpm] 63 bpm (11/07/21 11:04 AM) Blood Pressure [90-138/55-84 mm Hg] 146/ 78mm Hg *H* (11/07/21 11:04 AM) Respiratory Rate [16-30 br/min] 16 br/mi n (11/07/21 11:04 AM) Temperature [96.8-100.4 DegF] 98.6 DegF (11/07/21 11:04 AM) Mode of Delivery (Oxygen) Room air (11/07/21 11:04 AM) Temperature Route Temporal (11/07/21 11:04 AM) Dry Weight 80 kg (11/07/21 11:04 AM) Social History Social History Type Response Smoking Status Never (less than 100 in lifetime) entered on: 03/23/21 Sex
--- OUTSIDE RECORDS SUMMARY | 2023-02-19 13:07 | XMS_ITS | Continuity of Care Document ---
Author Name Unknown Organization [facility] ter Address [address] [place] [address]- Care Team Providers Care Agent Contract Clerk Name Role Phone Raúl Sampson Primary Care Physician En[place] [facility] [place] Date(s): 03/21/21 - 03/21/[address] [address]- Discharge Disposition: A-D/C Walkout Attending Physician: Not on Staff, Attending MD Admitting Physician: Not on Staff, Admitting MD Referring Physician: Not on Staff, Referring [...] 15:03:48 EST Start Date: 02/27/19 Status: Ordered Suboxone 8 mg-2 mg Sublingual Film 1 film, Sublingual, Daily, dissolve under the tongue. MORAIMA-X: [id number], # 14 film, 0 Refills, Maintenance, 04/01/19 12:46:00 EST, Film Start Date: 04/01/19 Stop Date: 04/15/19 Status: Ordered Wellbutrin By Mouth, 0 Refills, Maintenance, 02/17/20 10:10:00 EST, Partial fill upon patient request if the prescription is for a schedule II opioid drug. Start Date: 02/17/20 Status: Ordered Vital Signs Most recent to oldest [Reference Range]: 1 2 Oxygen Saturation [94-100 %] 98 % (03/21/21 11:43 AM) 96 % (03/21/21 11:23 AM) Pulse Rate [55-90 bpm] 86 bpm (03/21/21 11:43 AM) 94 bpm *H* (03/21/21 11:23 AM) Blood Pressure [90-138/55-84 mm Hg] 112/ 66mm Hg (03/21/21 11:43 AM) Temperature [96.8-100.4 DegF] 97.9 DegF (03/21/21 11:43 AM) Mode of Delivery (Oxygen) Room air (03/21/21 11:43 AM) Temperature Route Oral (03/21/21 11:43 AM) Social History Social History Type Response Sex Male
--- OUTSIDE RECORDS SUMMARY | 2023-02-19 13:07 | XMS_ITS | Continuity of Care Document ---
Author Name Unknown Organization [facility] Address [address] [place] [address]- Care Team Providers Care Community Health Outreach Worker Name Role Phone Raúl Sampson Primary Care Physician Encounter [facility] Date(s): 07/31/21 - 07/31/[address] [address]- Discharge Disposition: A-D/C Home Attending Physician: Golden [...] mg sublingual film 1 film, Sublingual, Daily, [id number], # 10 film, 0 Refills, Maintenance, 07/31/21 13:36:00 EDT, Film, Partial fill upon patient request if the prescription is for a schedule II opioid drug. Start Date: 07/31/21 Status: Ordered LORazepam 1 mg oral tablet 1 tablet = 1 mg, By Mouth, Every 6 hours, PRN Symptoms of Alcohol Withdrawal, # 12 tablet, 0 Refills, Acute 08/04/21 13:37:00 EDT, 07/31/21 13:36:00 EDT, Tablet, Partial fill upon patient request if the prescription is for a schedule II opioid drug. Start Date: 07/31/21 Stop Date: 08/04/21 Status: Ordered naloxone 4 mg/0.1 mL nasal [...] Exam Date Time Procedure Performing Provider Status 07/31/21 1:19 PM Chest 2 Views Frontal and Lat Marilu Cheung; Mariangel (Verified) Notes: (Chest 2 Views Frontal and Lat) Reason For Exam: Shortness of Breath RESULT: Chest 2 Views Frontal and Lat Chest 2 Views Frontal and Lat Hx of Present Illness: ETOH Heroin Withdrawl. Last use 07 28 21, when encarcerated. (Multiple drinkshard alcohol 1 bundle 10 bags of Heroin). Reports previouse Suboxone use of 8mg, months ago but hasnot returned to clinic in [place].; Reason: Shortness of Breath; Clinical Question(s): Pneumonia COMPARISON: 02/27/2019. FINDINGS: LINES AND TUBES: None. LUNGS AND PLEURA: Clear lungs. Normal pulmonary vascularity. No pleural effusion. No pneumothorax. HEART, MEDIASTINUM AND JOSEPH: Heart is normal in size. Normal upper mediastinal and hilar contour. BONES AND SOFT TISSUES: No acute abnormality. IMPRESSION: No acute abnormality. WSN: [id number] Ordering Physician: Golden Rosado Dictated By: Alexis Walker MD Dictated Date/Time: 07/31/21 1:26 pm Reviewed By: Alexis Walker MD Signed By: Alexis Walker MD Signed Date/Time: 07/31/21 1:26 pm Transcribed By: PARTH Transcribed Date/Time: 07/31/21 1:24 pm Vital Signs Most recent to oldest [Reference Range]: 1 2 Height 186 cm (07/31/21 11:44 AM) Weight 75 kg (07/31/21 11:44 AM) Oxygen Saturation [94-100 %] 100 % (07/31/21 2:16 PM) 100 % (07/31/21 11:44 AM) Pulse Rate [55-90 bpm] 65 bpm (07/31/21 2:16 PM) 64 bpm (07/31/21 11:44 AM) Blood Pressure [90-138/55-84 mm Hg] 110/ 61mm Hg (07/31/21 2:16 PM) 114/61mm Hg (07/31/21 11:44 AM) Respiratory Rate [16-30 br/min] 20 br/mi n (07/31/21 2:16 PM) 18 br/min (07/31/21 11:44 AM) Temperature [96.8-100.4 DegF] 96.8 DegF (07/31/21 11:44 AM) Mode of Delivery (Oxygen) Room air (07/31/21 2:16 PM) Room air (07/31/21 11:44 AM) Blood pressure sites Arm, right (07/31/21 2:16 PM) Arm, right (07/31/21 11:44 AM) Temperature Route Temporal (07/31/21 11:44 AM) Dry Weight 75 kg (07/31/21 11:44 AM) Weight Obtained Via Patient/family state d (07/31/21 11:44 AM) Social History Social History Type Response Smoking Status Never (less than 100 in lifetime) entered on: 03/23/21 Sex
--- OUTSIDE RECORDS SUMMARY | 2023-02-19 13:07 | XMS_ITS | Continuity of Care Document ---
Author Name Unknown Organization [facility] ter Address [address] [place] [id number]- Care Team Providers Care Straw Hat Brusher Name Role Phone Monique SUNSHINE, Betsy Primary Care Physician [phone] Encounter [facility] [place] Date(s): 04/01/19 - 04/01/[address] [address]- [facility] Encounter Diagnosis Opioid use disorder(Final) - 04/01/19 Discharge Disposition: A-D/C Home Attending Physician: Hebert Campbell MD Admitting Physician: Hebert Campbell MD Referring Physician: Not on Staff, Referring [...] Sublingual, Daily, dissolve under the tongue. MORAIMA-X: [id number], # 14 film, 0 Refills, Maintenance, 04/01/19 12:46:00 EST, Film Start Date: 04/01/19 Stop Date: 04/15/19 Status: Ordered Vital Signs Most recent to oldest [Reference Range]: 1 2 Oxygen Saturation [94-100 %] 98 % (04/01/19 12:45 PM) 100 % (04/01/19 12:27 PM) Pulse Rate [55-90 bpm] 57 bpm (04/01/19 12:45 PM) 78 bpm (04/01/19 12:27 PM) Blood Pressure [90-138/55-84 mm Hg] 127/ 80mm Hg (04/01/19 12:45 PM) Respiratory Rate [16-30 br/min] 20 br/mi n (04/01/19 12:45 PM) Temperature [96.8-100.4 DegF] 97.9 DegF (04/01/19 12:45 PM) Mode of Delivery (Oxygen) Room air (04/01/19 12:45 PM) Room air (04/01/19 12:27 PM) Blood pressure sites Arm, right (04/01/19 12:45 PM) Temperature Route Oral (04/01/19 12:45 PM) Social History Social History Type Response Sex Male
--- OUTSIDE RECORDS SUMMARY | 2023-02-19 13:07 | XMS_ITS | Continuity of Care Document ---
Author Name Unknown Organization [facility] Address [address] [place] [address]- Care Team Providers Care Supervisor Inspection Department Name Role Phone Raúl Sampson Primary Care Physician Encounter [facility] [place] Date(s): 03/29/21 - 04/05/21 [facility] [address] [place] [address]- Attending Physician: Tavia Liu MD Allergies, Adverse Reactions, Alerts No Known [...] 9:52:00 EST, 03/26/21 9:52:00 EST, CR Tablet, [facility], Partial fill upon patient request if the prescription is for a schedule II opioid drug., 18... Start Date: 03/26/21 Stop Date: 04/06/21 Status: Ordered naloxone 4 mg/0.1 mL nasal spray 1 sprays, Naris, Left, Once, PRN Other respiratory depression, # 1 kit, 0 Refills, Soft Stop, 02/27/19 15:03:49 EST Start Date: 02/27/19 Status: Ordered Wellbutrin By Mouth, 0 Refills, Maintenance, 02/17/20 10:10:00 EST, Partial fill upon patient request if the prescription is for a schedule II opioid drug. Start Date: 02/17/20 Status: Ordered Social History Social History Type Response Smoking Status Never (less than 100 in lifetime) entered on: 03/23/21 Sex
[2023-02-19 13:10] LABS: MANUAL DIFF FLAG NO
[2023-02-19 13:13] LABS: Basophils Percent Auto 0.3 % (0-2); Eosinophils Percent Auto 0.4 % (0-4); Hematocrit 39.2 % (42.0-52.0); Imm Gran Abs Auto 0.04 X10*3/uL (0.00-0.03); Imm Gran Pct Auto 0.4 % (0.0-0.4); Lymphocytes Percent Auto 9.1 % (20-40); Mean Corpuscular HGB Conc 33.2 g/dl (31.0-36.0); Mean Corpuscular Hemoglobin 31.3 pg (27.0-33.0); Mean Corpuscular Volume 94.2 fL (80.0-98.0); Monocytes Absolute Auto 0.9 X10*3/uL (0.1-1.2); Monocytes Percent Auto 8.6 % (2-11); Neutrophils Absolute Auto 8.8 x10*3/uL (2.0-8.3); Neutrophils Percent Auto 81.2 % (45-73); Platelet Count 196 X10*3/uL (160-400); Red Blood Count 4.16 X10*6/uL (4.60-5.80); Red Cell Distribution Width 12.7 % (11.0-16.0); White Blood Count 10.8 X10*3/uL (4.8-10.8)
[2023-02-19 13:26] LABS: IDNOW Serial# BCCEAD1C
[2023-02-19 13:27] LABS: COVID-19 Test Negative (Negative)
[2023-02-19 14:01] LABS: Erythrocyte Sedimentation Rate 11 MM/HR (0-15)
[2023-02-19 14:03] LABS: Ethanol < 10 mg/dL
[2023-02-19 14:04] LABS: Anion Gap 13 (12-20); Blood Urea Nitrogen 16 mg/dL (9-16); C Reactive Protein 7.12 mg/dL (< or = 0.50); Calcium 9.4 mg/dL (8.4-10.2); Carbon Dioxide 26 mmol/L (22-29); Chloride 104 mmol/L (96-108); Creatinine Clr Calc Pharmacy 120.8; Estimated Glomerular Filt Rate > 60; Glucose Random 117 mg/dL (60-115); Potassium 4.4 mmol/L (3.3-5.1); Sodium 139 mmol/L (135-145)
[2023-02-19 14:25] LABS: Acetaminophen LAB < 3 mcg/mL (<30); Salicylate < 5.0 mg/dL (15-30)
[2023-02-19] MEDS: methADONE HCl 20 MG/2 ML ORAL.CONC 30 MG PO (14:36)
[2023-02-19] MEDS: cephALEXin 500 MG CAPSULE PO ×2 (14:37→21:11)
[2023-02-19] MEDS: Doxycycline Monohydrate 100 MG CAPSULE PO ×2 (14:37→21:11)
[2023-02-19] MEDS: LORazepam 1 MG TABLET 2 MG PO (14:37)
[2023-02-19 15:53] VITALS: RESP 16
--- NOTE | 2023-02-19 16:05 | PC.NURSE ---
Matteo self presented to the ED with worsening depression and SI in the context of recent fentanyl use. Pleasant but tearful on admission. X-Ray done on R foot and abscess drained. Antibiotics started. Matteo reported feeling sick from withdrawals. COWS 7. 30mg Methadone ordered, Matteo would like to detox with Methadone and then resume his Suboxone. Appetite good. No behavioral concerns. Labs pending. Pain reported to the foot only and has been appropriately addressed. Staff will continue to monitor.
[2023-02-19 16:49] LABS: Appearance Urine Hazy; Color Urine Yellow; Glucose Urine UA Negative (Negative); Leukocyte Esterase Urine Negative (Negative); Nitrite Urine Negative (Negative); Specific Gravity - Urine >= 1.030 (1.005-1.025); Urine Blood Negative (Negative); Urine Ketones 15 mg/dL (Negative); Urine Protein Trace mg/dL (Neg-Trace)
[2023-02-19 16:54] LABS: Amphetamine Screen Urine Not Detected (Not Detect); Barbiturates, Urine Not Detected (Not Detect); Benzodiazepines Screen Urine Not Detected (Not Detect); Cannabinoid Screen Urine Not Detected (Not Detect); Cocaine Screen Urine POSITIVE (Not Detect); Fentanyl, urine POSITIVE (Not Detect); Opiate Screen Urine Not Detected (Not Detect); Phencyclidine Screen Urine Not Detected (Not Detect)
--- NOTE | 2023-02-19 20:18 | PC.NURSE ---
Assumed care of pt. Pt currently angy mcnally recliner, eyes closed, no acute distress at this time. Respirations even and unlabored, continuing plan of care at this time.
[2023-02-19] MEDS: Melatonin 3 MG TABLET 9 MG PO (21:11)
[2023-02-19] MEDS: Nicotine Polacrilex 2 MG GUM BUCCAL (21:17)
--- NOTE | 2023-02-19 23:19 | PC.NURSE ---
Pt remains lying on stretcher, eyes closed, respirations even and unlabored, no acute distress. Continuing plan of care.
[2023-02-19 23:45] VITALS: BP 104/70; PULSE 79; RESP 16; TEMP 37; O2SAT 97; BMI 20.3
--- NOTE | 2023-02-20 04:59 | PC.ADMIT ---
patient arrived on unit at 2330 on 02/19/23. was a referral from the POD after assessment was completed by the CARE team. (see assessment for additional information) nurse to nurse done prior to admission. this is the 2nd M3 admission for this 42 year old male. legal:CV. dx: MDD, opioid use d/o, severe. allowed for skin assessment upon arrival. presents with depressed mood with a sedated affect. fully oriented. reports passive SI, no plan, reporting that he feels safe in the hospital environment. states he ''needs to be here'' and that ''I need a rehab afterwards, I want a voluntary program, not a section 35'' reports use of opioids, fentanyl and cocaine. when he uses opioids he injects. patient has injection sites on R lateral aspect of foot, on hands, both antecubital, and r axilla. patient is on 2 antibiotics for his foot infection. area is swollen and warm to touch. areas assessed and dry dsd placed. needs dressing orders. patient was given and also ordered methadone and a consult placed to addictions. question if he minimized alcohol intake but bal <10. ? compliance to outpatient medications. he does not have behavioral health providers and reports that his PCP prescribes medications. he initially did not sign release for PCP upon admission due to sedated affect but later in the morning when he was up for a snack. no A/V hallucinations but reports he does experience them when he is using. refused flu shot. oriented to unit. safety tool/treatment plan initiated.
[2023-02-20 07:35] VITALS: BP 103/58; PULSE 64; TEMP 37.2; O2SAT 98
--- NOTE | 2023-02-20 09:32 | P.HPPS_ITS ---
HPI Date of Service: 02/20/23 Chief Complaint: Depression Sources of Information: patient interviewed, chart reviewed and crisis/core team assessment reviewed HPI Subjective Notes: [place] Warning and Conditional Voluntary Narrative: Patient is a 42 year old male with hx of MDD, opioid use, cocaine use and ETOH use d/o, who was brought in to [facility] ER via his sponsor d/t suicidal ideation and treatment of his foot. Per crisis report, patient has been homeless for the past 3-5 days and has been using, cocaine, fentanyl and heroin IV. Patient went to the family home and his saw him and called pt's sponsor who brought him to the ER. Patient's foot was treated in the ER and was medically cleared. During admission assessment, patient presents calm, cooperative and guarded. Patient stated, my life is falling apart. My mental health is not good. I've been thinking about suicide. My relationships are unraveling. I have no direction in life. I don't know what I'm supposed to be doing. The day after Thanksgiving I relapsed d/t stress and feeling shitty. I was almost 100 days sober . Patient reports after his last inpatient hospitalizations on M3, he was section 35'd, went to a half way house, returned home for two weeks and now has been homeless for two weeks d/t relapsing on substances. Patient reports suicidal ideation with plan to OD on drugs. Patient does not have an outpatient psychiatrist provider or therapist. He has not been medication compliant for the past two weeks. Patient reports he would like help getting into a substance abuse program and getting connected with outpatient providers . denies HI/VH/AH. Past Psychiatric History: Multiple substance abuse treatment programs. One psychiatric admission in September 2022 at [facility]. Detox in [place] and [place]. Has been sectioned 35 in past. 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 Patient is not able to be in his home with his and children when he is actively using. Substance History: hx of cocaine use, opioids, fentanyl, etoh Trauma History: denies Diagnostics Vital Signs (24Hr): Vital Signs - 24 hr 02/19/23 12:40 02/19/23 15:53 02/19/23 23:45 Temperature 97.8 F 98.6 F Pulse Rate 71 79 Respiratory Rate 16 16 16 Blood Pressure 110/66 104/70 Pulse Oximetry 98 97 Oxygen Delivery Method Room Air Room Air 02/20/23 07:35 Temperature 99 F Pulse Rate 64 Respiratory Rate Blood Pressure 103/58 L Pulse Oximetry 98 Oxygen Delivery Method Room Air BMI result Body Mass Index 20.3 Labs 02/19/23 13:05 02/19/23 13:05 Labs: Laboratory Results - last 48 hr 02/19/23 02/19/23 13:05 16:38 WBC 10.8 RBC 4.16 L Hgb 13.0 L Hct 39.2 L MCV 94.2 MCH 31.3 MCHC 33.2 RDW 12.7 Plt Count 196 D MPV 10.0 Immature Gran % (Auto) 0.4 Neut % (Auto) 81.2 H Lymph % (Auto) 9.1 L [place] % (Auto) 8.6 Eos % (Auto) 0.4 Baso % (Auto) 0.3 Lymph # (Auto) 1.0 L [place] # (Auto) 0.9 Eos # (Auto) 0.0 Baso # (Auto) 0.0 Abs Immat Gran (auto) 0.04 H Absolute Neuts (auto) 8.8 H Absolute Nucleated RBC 0.000 Nucleated RBC % (auto) 0.0 ESR 11 Sodium 139 Potassium 4.4 Chloride 104 Carbon Dioxide 26 Anion Gap 13 BUN 16 Creatinine 0.76 Estim Creat Clear Calc 120.8 Estimated GFR > 60 Random Glucose 117 H Calcium 9.4 C-Reactive Protein 7.12 H Urine Color Yellow Urine Appearance Hazy Urine pH 6.0 Ur Specific [place] >= 1.030 H Urine Protein Trace Urine Glucose (UA) Negative Urine Ketones 15 Urine Blood Negative Urine Nitrite Negative Ur Leukocyte Esterase Negative Salicylates < 5.0 L Urine Opiates Screen Not Detected Urine Fentanyl Screen POSITIVE H Acetaminophen < 3 Ur Barbiturates Screen Not Detected Ur Phencyclidine Scrn Not Detected Ur Amphetamines Screen Not Detected U Benzodiazepines Scrn Not Detected Urine Cocaine Screen POSITIVE H U Marijuana (THC) Screen Not Detected Ethyl Alcohol < 10 COVID-19 (ZANE) Negative COVID-19 Clin Com See Note Imaging Radiology Impressions: ITS Impressions Foot X-Ray 02/19/23 13:38 IMPRESSION: 1. Soft tissue irregularity along the lateral aspect of the foot corresponding to known abscess. 2. No acute visible fracture or dislocation. 3. Mild multi joint arthritic changes. Meds/Allergies Meds Home Medications Medication Instructions Recorded Confirmed Type hydroxyzine pamoate 50 mg capsule 50 mg PO BID PRN Anxiety 09/24/22 02/19/23 History trazodone 100 mg tablet 100 mg PO BEDTIME PRN Sleep 09/24/22 02/19/23 History melatonin 3 mg tablet 9 mg PO BEDTIME PRN insomnia 10/24/22 02/19/23 History bupropion HCl 150 mg 24 hr tablet, 150 mg PO QAM 02/19/23 02/19/23 History extended release Allergies Allergies Allergy/AdvReac Type Severity Reaction Status Date / Time No Known Allergies Allergy Verified 09/23/22 20:36 Mental Status Exam Mental Status Exam Narrative: Pt is alert and oriented; behavior is cooperative and calm; dressed in casual attire; mood is described as depressed and affect congruent; eye contact appropriate; Speech is normal rate, volume and prosody and not pressured; no psychomotor agitation/retardation present; thought process is organized and goal directed; Thought content is on tx; otherwise pertinent to relevant topics and without any delusional content, paranoid ideations or grandiosity; denies HI. Pt reports suicidal ideation with plan to OD. There is no evidence of perceptual disturbance. Patients insight and judgment are poor. Assessment & Plan Assessment & Plan (1) MDD (major depressive disorder), recurrent episode, severe: Status: Acute Code(s): F33.2 - Major depressive disorder, recurrent severe without psychotic features (2) Opioid abuse: Status: Acute Code(s): F11.10 - Opioid abuse, uncomplicated (3) Cocaine abuse: Status: Acute Code(s): F14.10 - Cocaine abuse, uncomplicated Plan Patient is a 42 year old male with hx of MDD, opioid use, cocaine use and ETOH use d/o, who was brought in to [facility] ER via his sponsor d/t suicidal ideation and treatment of his foot. Plan: CV 15 minute safety checks continue home medications wound care consult for foot referral to outpatient psychiatric providers referral to substance abuse program Patient educated on: diagnosis, medication risk/benefits, substance abuse and therapeutic strategies Informed Consent: understands and further education needed Reason for continued inpatient stay Substantial Risk for: harm to self and med/psych decompensation Statement Statement: I have reviewed the history and physical and performed a pertinent examination on my patient. No changes have occurred unless specified. If the History and Physical was not performed prior to admission, the Hospitalist's service will be consulted for completing the admission physical. Time Spent With Patient Time: Total time managing care of this patient today _60___ minutes.
[2023-02-20] MEDS: buPROPion HCl XL 150 MG TAB.ER.24H PO (09:40)
[2023-02-20] MEDS: cephALEXin 500 MG CAPSULE PO ×4 (09:40→21:30)
[2023-02-20] MEDS: methADONE HCl 20 MG/2 ML ORAL.CONC PO ×2 (09:40→12:16)
[2023-02-20] MEDS: Doxycycline Monohydrate 100 MG CAPSULE PO ×2 (09:40→21:30)
[2023-02-20] MEDS: Magnesium Hydrox/Alum Hydrox 30 ML ORAL.SUSP PO (12:15)
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
[2023-02-20 20:00] VITALS: BP 101/59; PULSE 55; RESP 16; TEMP 36.6; O2SAT 98
[2023-02-20] MEDS: Nicotine Polacrilex 2 MG GUM 4 MG BUCCAL ×2 (20:00→22:01)
[2023-02-20] MEDS: Melatonin 3 MG TABLET 9 MG PO (21:30)
[2023-02-20] MEDS: Cyclobenzaprine HCl 10 MG TABLET PO (21:30)
[2023-02-21 07:00] VITALS: BMI 21.5
[2023-02-21 08:47] VITALS: BP 93/50; PULSE 60; RESP 14; TEMP 36.6; O2SAT 97
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
[2023-02-21] MEDS: Doxycycline Monohydrate 100 MG CAPSULE PO ×2 (09:38→21:14)
[2023-02-21] MEDS: cephALEXin 500 MG CAPSULE PO ×4 (09:39→21:14)
[2023-02-21] MEDS: methADONE HCl 20 MG/2 ML ORAL.CONC 40 MG PO (09:39)
[2023-02-21] MEDS: buPROPion HCl XL 150 MG TAB.ER.24H PO (09:39)
[2023-02-21] MEDS: OLANZapine 5 MG TABLET PO ×2 (10:20→16:27)
--- NOTE | 2023-02-21 11:26 | MHC.RECOVRN ---
Met with pt to follow up and assess for opioid withdrawal. Pt laying in bed, eyes closed, wakes to voice. Pt reports having a tough day emotionally. Pt reports prior to receiving 40 mg methadone this morning feeling withdrawal symptoms including stomach cramps, body aches, rhinorrhea. Pt reports methadone has addressed all withdrawal symptoms and currently denies all symptoms. Pt would like to remain at 40 mg. Denies questions or concerns for t/w. Discussed with Lian Ford APRN.
[2023-02-21 13:35] LABS: HBS Num1 64.95 mIU/mL (0-7.99); HBsAGNum1 0.68 S/CO (0.00-0.99); HIV AB/AG Nonreactive (Nonreactive); HIV Num 1 0.05 S/CO (0.00-0.99); Hepatitis A Antibody IgM 0.18 Index (0-0.79); Hepatitis B Core Antibody Nonreactive (Nonreactive); Hepatitis B Surface Antigen Negative (Negative); ~HepC Num1 15.07 S/CO (0.00-0.79); ~Hepatitis A Antibody IgM Nonreactive (Nonreactive); ~Hepatitis B Surface Antibody REACTIVE (Nonreactive); ~Hepatitis C Antibody Reactive (Nonreactive)
[2023-02-21 16:20] VITALS: BP 103/63; PULSE 59; RESP 18; TEMP 36.8; O2SAT 98
[2023-02-21] MEDS: Cyclobenzaprine HCl 10 MG TABLET PO (16:27)
[2023-02-21] MEDS: cloNIDine HCL 0.1 MG TABLET PO (16:27)
[2023-02-21] MEDS: hydrOXYzine HCL 25 MG TABLET PO (16:28)
[2023-02-21] MEDS: Acetaminophen 325 MG TABLET 650 MG PO (16:28)
--- NOTE | 2023-02-21 17:24 | PC.NURSE ---
Patient refused dressing change to R foot. Declined to let writer editor view area at this time.
[2023-02-21 19:45] VITALS: BP 97/58; PULSE 55; RESP 18; TEMP 36.8; O2SAT 96
[2023-02-21] MEDS: Melatonin 3 MG TABLET 9 MG PO (21:15)
[2023-02-22 08:52] VITALS: BP 90/51; PULSE 57; RESP 18; TEMP 36.9; O2SAT 96
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
[2023-02-22] MEDS: cephALEXin 500 MG CAPSULE PO ×4 (10:03→21:37)
[2023-02-22] MEDS: Doxycycline Monohydrate 100 MG CAPSULE PO ×2 (10:03→21:37)
[2023-02-22] MEDS: methADONE HCl 20 MG/2 ML ORAL.CONC 40 MG PO (10:03)
[2023-02-22] MEDS: buPROPion HCl XL 150 MG TAB.ER.24H PO (10:03)
--- NOTE | 2023-02-22 13:14 | HO.WOUND ---
Wound Consult: Initial 42yr old male admitted to [facility] on 02/19/23 22:38? - See progress notes and H&P for detailed history. Wound consult placed for patents right lateral foot while on inpatient behavioral unit. Right Lateral Foot Etiology: s/p I&D in ED of abscess Measurements: 1cm x 1cm x 0.5cm Wound Bed: central areas of yellow moist adherent slough - central area of depth of 0.5cm extending to partial thickness tissue loss at wound edges Drainage / Odor: yellow boston drainage noted on dressing - mild odor noted Edges: ? Irregular - macerated peeling edges Nadia wound: Fluctuance, Erythema and Warmth noted - pt reports this is improved from initial presentation. There is some swelling visable in the foot over all and 5th toe. There is red erythema in the immediate periwound up to 5th toe. There is bone deformity noted with prominent protrusion to lateral side - pt reports that formation from a surgery / repair he had in his 20's - unrelated to current wound. Pain: Denies pain at the wound site - pt reports of significant pain and tenderness to the posterioe knee - direct care nurse made aware and she has requested Hospitalist assessment - may consider Ortho consultaiton if needed. Goals of Treatment: ? Alginate for moisture management with antimicrobial properties. Recommendations: 1. Right Lateral Foot - Cleanse and irrigate with NS, Pat dry.? Apply barrier wipe to periwound, cover wound bed with Durafiber AGl.? Cover with Foam dressing.? Change Daily. Re-consult wound care Nurse for wound deterioration or wound changes.
[2023-02-22] MEDS: Nicotine Polacrilex 2 MG GUM 4 MG BUCCAL ×4 (13:34→21:38)
--- NOTE | 2023-02-22 17:39 | PM.EVENT ---
Event Note Date of Service: 02/22/23 Event Note: Patient is 42-year-old male with PMH significant for polysubstance use and depression with SI who is seen for complaints of right knee pain for the past 3 days. Patient states he had been walking around outside a lot but then started running downhill when he felt a sharp stabbing pain in his right knee. He was able to walk it off at that time but pain has persisted since that day, though he says the knee feels a little bit better now than it initially did. Reports pain radiates both up poor to mid thigh and down to mid calf. Patient is still able to ambulate without assistance. Was noted to walk into the exam room without decreased range motion or limitation to mobility. No limp initially noted. Upon physical examination patient endorses tenderness to palpation behind his knee and in lower thigh and upper calf. No tenderness to lateral, anterior, or medial aspects of knee. Negative Apley test. No swelling or erythema of knee noted. No palpable mass or fluid collection behind knee noted. Mild swelling of calf. Of note, patient had abscess on the right foot drained in the ED on 02/19/2023; was secondary to IV heroin injection site. Started on doxycycline. Today, he was seen today by Wound Care who offered dressing recommendations. Right knee pain Will get x-ray to rule out fracture or oseous abnormality Motrin for pain; can also use cold compresses Most likely soft tissue and a minor muscle strain, which usually takes 2-3 weeks to heal Activity as tolerated; encourage rest when possible Thank you for allowing us to participate in the care of this patient. Signing off at this time. Please re-consult if any acute complaints or issues arise. Time Spent With Patient Time: Total time managing care of this patient today ____ minutes.
[2023-02-22 19:55] VITALS: BP 105/62; PULSE 65; RESP 18; TEMP 36.6; O2SAT 98
[2023-02-22] MEDS: Cyclobenzaprine HCl 10 MG TABLET PO (20:06)
[2023-02-22] MEDS: cloNIDine HCL 0.1 MG TABLET PO (20:06)
[2023-02-22] MEDS: Melatonin 3 MG TABLET 9 MG PO (21:38)
[2023-02-22] MEDS: risperiDONE 1 MG TABLET PO (21:38)
[2023-02-23 08:00] VITALS: BP 128/63; PULSE 69; RESP 18; TEMP 36.3; O2SAT 97
[2023-02-23] MEDS: methADONE HCl 20 MG/2 ML ORAL.CONC 40 MG PO (08:12)
[2023-02-23] MEDS: Doxycycline Monohydrate 100 MG CAPSULE PO ×2 (08:13→20:58)
[2023-02-23] MEDS: buPROPion HCl XL 300 MG TAB.ER.24H PO (08:14)
[2023-02-23] MEDS: cephALEXin 500 MG CAPSULE PO (08:14)
[2023-02-23] MEDS: Nicotine Polacrilex 2 MG GUM 4 MG BUCCAL ×5 (08:25→21:02)
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
[2023-02-23] MEDS: Lidocaine 4 % Patch ADH..PATCH 1 PATCH TRANSDERMA (14:15)
[2023-02-23] MEDS: Throat Lozenge, Medicated LOZENGE 1 LOZENGE MUCOUS MEM (14:22)
--- NOTE | 2023-02-23 14:40 | P.PNPSI_ITS ---
Subjective Subjective Date of Service: 02/23/23 Reason For Visit: Depression Subjective Notes: Conditional Voluntary Interim History: The nursing staff reported the patient had a wound on his right hold. He also complained of sore throat in the morning. On interview the patient reported that he had been feeling more depressed with some suicidal thoughts but able to contract for safety in the facility. He stated that he has had been non compliant with Wellbutrin in the past and he has now restarted on this medication. Mental Status Exam Mental Status Exam Patient Appearance: Well Grooomed and Appropriate Patient Orientation: Person and Situation Level of Consciousness: Awake and Appropriate Patient Behavior: Guarded and Passive Mood Description: Withdrawn Affect Description: Constricted and Depressed Patient Cognition Impaired: Yes Ability to Follow Directions: Good Speech Pattern: Clear Hallucinations: None Delusions: Not Present Thought Process: Distracted and Slowed Thinking Thought Content: positive for Circumstantial Judgement: Fair Diagnostics Vital Signs (24Hr): Vital Signs - 24 hr 02/22/23 19:55 Temperature 97.8 F Pulse Rate 65 Respiratory Rate 18 Blood Pressure 105/62 Pulse Oximetry 98 Oxygen Delivery Method Room Air BMI result Body Mass Index 21.5 Labs 02/19/23 13:05 02/19/23 13:05 Imaging Radiology Impressions: ITS Impressions Foot X-Ray 02/19/23 13:38 IMPRESSION: 1. Soft tissue irregularity along the lateral aspect of the foot corresponding to known abscess. 2. No acute visible fracture or dislocation. 3. Mild multi joint arthritic changes. Knee X-Ray 02/22/23 19:54 IMPRESSION: No acute fracture or malalignment. Trace joint effusion. Medications Medications Current Medications Acetaminophen (Acetaminophen 325 Mg Tablet) 650 mg PO Q6H PRN PRN Reason: Headache/Pain Mild Scale (1-3) Last Admin: 02/21/23 16:28 Dose: 650 mg Al Hydroxide/Mg Hydroxide (Magnesium Hydrox/Alum Hydrox 30 Ml Oral.Susp) 30 ml PO Q6H PRN PRN Reason: Heartburn/Nausea Last Admin: 02/20/23 12:15 Dose: 30 ml Benzocaine (Throat Lozenge, Medicated Lozenge) 1 lozenge MUCOUS MEM Q2H PRN PRN Reason: Sore Throat Last Admin: 02/23/23 14:22 Dose: 1 lozenge Bupropion HCl (Bupropion Hcl Xl 300 Mg Tab.Er.24h) 300 mg PO DAILY [facility] Last Admin: 02/23/23 08:14 Dose: 300 mg Clonidine HCl (Clonidine Hcl 0.1 Mg Tablet) 0.1 mg PO Q4H PRN; Protocol PRN Reason: withdrfawal/anxiety Last Admin: 02/22/23 20:06 Dose: 0.1 mg Cyclobenzaprine HCl (Cyclobenzaprine Hcl 10 Mg Tablet) 10 mg PO QID PRN PRN Reason: muscle spasm Last Admin: 02/22/23 20:06 Dose: 10 mg Docusate Sodium (Docusate Sodium 100 Mg Capsule) 100 mg PO BEDTIME PRN PRN Reason: Constipation Doxycycline Monohydrate (Doxycycline Monohydrate 100 Mg Capsule) 100 mg PO BID [facility] Stop: 03/02/23 21:00 Last Admin: 02/23/23 08:13 Dose: 100 mg Hydroxyzine HCl (Hydroxyzine Hcl 25 Mg Tablet) 25 mg PO Q6H PRN PRN Reason: Anxiety Last Admin: 02/21/23 16:28 Dose: 25 mg Ibuprofen (Ibuprofen 400 Mg Tablet) 400 mg PO TIDWM PRN PRN Reason: Pain, Mild (Pain Scale 1-3) Stop: 03/01/23 17:51 Lidocaine (Lidocaine 4 % Patch Adh..Patch) 1 patch TRANSDERMA DAILY [facility]; Protocol Last Admin: 02/23/23 14:15 Dose: 1 patch Lidocaine (Lidocaine 5 % Ointment 35 Gm) 1 appl TOPICAL Q6H PRN; Protocol PRN Reason: r knee pain Loperamide HCl (Loperamide Hcl 2 Mg Capsule) 2 mg PO Q4H PRN PRN Reason: loose stool Magnesium Hydroxide (Milk Of Magnesia 30 Ml Oral.Susp) 30 ml PO DAILY PRN PRN Reason: Constipation Melatonin (Melatonin 3 Mg Tablet) 9 mg PO BEDTIME PRN PRN Reason: insomnia Last Admin: 02/22/23 21:38 Dose: 9 mg Methadone HCl (Methadone Hcl 20 Mg/2 Ml Oral.Conc) 40 mg PO DAILY [facility] Last Admin: 02/23/23 08:12 Dose: 40 mg Nicotine (Nicotine 21 Mg Patch.Td24) 21 mg TRANSDERMA DAILY PRN PRN Reason: smoking cessation Nicotine Polacrilex (Nicotine Polacrilex 2 Mg Gum) 4 mg BUCCAL Q2H PRN PRN Reason: Nicotine Cravings Last Admin: 12/09/23 14:20 Dose: 4 mg Risperidone (Risperidone 1 Mg Tablet) 1 mg PO BEDTIME [facility] Last Admin: 02/22/23 21:38 Dose: 1 mg Trazodone HCl (Trazodone Hcl 50 Mg Tablet) 50 mg PO BEDTIME MRX1 PRN PRN Reason: Insomnia Allergies Allergies Allergy/AdvReac Type Severity Reaction Status Date / Time No Known Allergies Allergy Verified 09/23/22 20:36 Assessment & Plan Assessment & Plan (1) Abscess of right foot: Status: Acute Code(s): L02.611 - Cutaneous abscess of right foot (2) Right knee pain: Status: Acute Code(s): M25.561 - Pain in right knee (3) Low back pain: Status: Acute Code(s): M54.50 - Low back pain, unspecified (4) Neck mass: Status: Acute Code(s): R22.1 - Localized swelling, mass and lump, neck (5) Sore throat: Status: Acute Code(s): J02.9 - Acute pharyngitis, unspecified Plan 42-year-old male admitted to Psychiatry with consult placed to hospitalist service for evaluation of large right neck mass and follow-up evaluation of right foot abscess. #R Foot abscess and cellulitis -s/p I&D 02/19- wound culture growing MSSA and gram negative rods (prelim) -DC keflex, continue doxycycline -Cellulitis resolving, ongoing purulent drainage from abscess -Continue with dressing changes per wound RN -Will continue following for wound checks #R Neck Mass -suspect thyroid nodule -U/s thyroid ordered #Sore throat with cervical adenopathy -low suspicion for strep as patient has been on keflex and symptoms are new -likely viral -Covid swab -throat lozenges and warm salt water gargles #R knee pain -xray negative for osseous abnormality, trace pleural effusion (no intervention needed at this time) -tylenol, ibuprofen, ice, lidocaine ointment #Low back pain -lido patches, tylenol, ibuprofen Thank you for this consult, will continue following. Reason for continued inpatient stay Substantial Risk for: inability to function, rapid decompensation and med/psych decompensation Time Spent With Patient Time: Total time managing care of this patient today __20__ minutes.
[2023-02-23] MEDS: Ibuprofen 400 MG TABLET PO (16:53)
[2023-02-23 17:02] LABS: Influenza A PCR NEGATIVE (Negative); Influenza B PCR NEGATIVE (Negative); Resp Syncy Virus RNA Qual PCR NEGATIVE (Negative); SARS COV2 PCR INHOUSE NEGATIVE (Negative)
[2023-02-23 20:46] VITALS: BP 132/68; PULSE 73; RESP 18; TEMP 36.2; O2SAT 100
[2023-02-23] MEDS: Melatonin 3 MG TABLET 9 MG PO (20:58)
[2023-02-23] MEDS: Cyclobenzaprine HCl 10 MG TABLET PO (20:58)
[2023-02-23] MEDS: risperiDONE 1 MG TABLET PO (20:58)
[2023-02-23] MEDS: cloNIDine HCL 0.1 MG TABLET PO (20:58)
[2023-02-23] MEDS: Ibuprofen 800 MG TABLET PO (20:59)
[2023-02-24 07:40] VITALS: BP 103/56; PULSE 58; RESP 16; TEMP 37.1; O2SAT 99
[2023-02-24] MEDS: buPROPion HCl XL 300 MG TAB.ER.24H PO (08:12)
[2023-02-24] MEDS: Doxycycline Monohydrate 100 MG CAPSULE PO ×2 (08:12→21:31)
[2023-02-24] MEDS: methADONE HCl 20 MG/2 ML ORAL.CONC 40 MG PO (08:13)
[2023-02-24] MEDS: Lidocaine 4 % Patch ADH..PATCH 1 PATCH TRANSDERMA (08:14)
[2023-02-24] MEDS: Nicotine Polacrilex 2 MG GUM 4 MG BUCCAL ×2 (08:15→21:32)
[2023-02-24] MEDS: Throat Lozenge, Medicated LOZENGE 1 LOZENGE MUCOUS MEM (08:40)
[2023-02-24] MEDS: cloNIDine HCL 0.1 MG TABLET PO (09:33)
[2023-02-24 10:41] LABS: TSH reflex Free T4 6.11 uIU/mL (0.32-4.0)
[2023-02-24 11:12] LABS: Free T4 (Free Thyroxine) 0.85 ng/dL (0.71-1.85)
--- NOTE | 2023-02-24 14:19 | HO.PSYCHPN ---
Subjective Subjective Date of Service: 02/24/23 Reason For Visit: Depression Subjective Notes: Conditional Voluntary Interim History: The nursing staff reported the patient had been medically workout for thyroid condition his TSH was slightly high but his free T3-4 was normal. In the afternoon he looks more depressed and overwhelmed and irritable. On interview the patient reported that he is feeling very anxious so he agreed to increased hydroxyzine. Mental Status Exam Mental Status Exam Patient Appearance: Well Grooomed Patient Orientation: Person and Situation Level of Consciousness: Awake and Appropriate Patient Behavior: Guarded and Passive Mood Description: Withdrawn Affect Description: Constricted Patient Cognition Impaired: Yes Ability to Follow Directions: Good Speech Pattern: Clear Hallucinations: None Delusions: Not Present Thought Process: Linear Thought Content: positive for [place] and positive for Goal Oriented Judgement: Fair Diagnostics Vital Signs (24Hr): Vital Signs - 24 hr 02/23/23 20:46 02/24/23 07:40 Temperature 97.2 F 98.8 F Pulse Rate 73 58 Respiratory Rate 18 16 Blood Pressure 132/68 103/56 L Pulse Oximetry 100 99 Oxygen Delivery Method Room Air Room Air BMI result Body Mass Index 21.5 Labs 02/19/23 13:05 02/19/23 13:05 Labs: Laboratory Results - last 48 hr 02/23/23 02/24/23 16:15 09:38 TSH 6.11 H Free T4 0.85 Influenza Type A (PCR) NEGATIVE Influenza Type B (PCR) NEGATIVE RSV RNA Qual (PCR) NEGATIVE SARS-CoV-2 RNA (RT-PCR) NEGATIVE Imaging Radiology Impressions: ITS Impressions Foot X-Ray 02/19/23 13:38 IMPRESSION: 1. Soft tissue irregularity along the lateral aspect of the foot corresponding to known abscess. 2. No acute visible fracture or dislocation. 3. Mild multi joint arthritic changes. Knee X-Ray 02/22/23 19:54 IMPRESSION: No acute fracture or malalignment. Trace joint effusion. Medications Medications Current Medications Acetaminophen (Acetaminophen 325 Mg Tablet) 650 mg PO Q6H PRN PRN Reason: Headache/Pain Mild Scale (1-3) Last Admin: 02/21/23 16:28 Dose: 650 mg Al Hydroxide/Mg Hydroxide (Magnesium Hydrox/Alum Hydrox 30 Ml Oral.Susp) 30 ml PO Q6H PRN PRN Reason: Heartburn/Nausea Last Admin: 02/20/23 12:15 Dose: 30 ml Benzocaine (Throat Lozenge, Medicated Lozenge) 1 lozenge MUCOUS MEM Q2H PRN PRN Reason: Sore Throat Last Admin: 02/24/23 08:40 Dose: 1 lozenge Bupropion HCl (Bupropion Hcl Xl 300 Mg Tab.Er.24h) 300 mg PO DAILY [facility] Last Admin: 02/24/23 08:12 Dose: 300 mg Clonidine HCl (Clonidine Hcl 0.1 Mg Tablet) 0.1 mg PO Q4H PRN; Protocol PRN Reason: withdrfawal/anxiety Last Admin: 02/24/23 09:33 Dose: 0.1 mg Cyclobenzaprine HCl (Cyclobenzaprine Hcl 10 Mg Tablet) 10 mg PO QID PRN PRN Reason: muscle spasm Last Admin: 02/23/23 20:58 Dose: 10 mg Docusate Sodium (Docusate Sodium 100 Mg Capsule) 100 mg PO BEDTIME PRN PRN Reason: Constipation Doxycycline Monohydrate (Doxycycline Monohydrate 100 Mg Capsule) 100 mg PO BID [facility] Stop: 03/02/23 21:00 Last Admin: 02/24/23 08:12 Dose: 100 mg Hydroxyzine HCl (Hydroxyzine Hcl 25 Mg Tablet) 25 mg PO Q6H PRN PRN Reason: Anxiety Last Admin: 02/21/23 16:28 Dose: 25 mg Ibuprofen (Ibuprofen 800 Mg Tablet) 800 mg PO TIDWM PRN PRN Reason: Pain, Mild (Pain Scale 1-3) Stop: 03/01/23 17:51 Last Admin: 02/23/23 20:59 Dose: 800 mg Lidocaine (Lidocaine 4 % Patch Adh..Patch) 1 patch TRANSDERMA DAILY [facility]; Protocol Last Admin: 02/24/23 08:14 Dose: 1 patch Lidocaine (Lidocaine 5 % Ointment 35 Gm) 1 appl TOPICAL Q6H PRN; Protocol PRN Reason: r knee pain Loperamide HCl (Loperamide Hcl 2 Mg Capsule) 2 mg PO Q4H PRN PRN Reason: loose stool Magnesium Hydroxide (Milk Of Magnesia 30 Ml Oral.Susp) 30 ml PO DAILY PRN PRN Reason: Constipation Melatonin (Melatonin 3 Mg Tablet) 9 mg PO BEDTIME PRN PRN Reason: insomnia Last Admin: 02/23/23 20:58 Dose: 9 mg Methadone HCl (Methadone Hcl 20 Mg/2 Ml Oral.Conc) 40 mg PO DAILY [facility] Nicotine (Nicotine 21 Mg Patch.Td24) 21 mg TRANSDERMA DAILY PRN PRN Reason: smoking cessation Nicotine Polacrilex (Nicotine Polacrilex 2 Mg Gum) 4 mg BUCCAL Q2H PRN PRN Reason: Nicotine Cravings Last Admin: 02/24/23 08:15 Dose: 4 mg Risperidone (Risperidone 1 Mg Tablet) 1 mg PO BEDTIME [facility] Last Admin: 02/23/23 20:58 Dose: 1 mg Trazodone HCl (Trazodone Hcl 50 Mg Tablet) 50 mg PO BEDTIME MRX1 PRN PRN Reason: Insomnia Allergies Allergies Allergy/AdvReac Type Severity Reaction Status Date / Time No Known Allergies Allergy Verified 09/23/22 20:36 Assessment & Plan Assessment & Plan (1) Abscess of right foot: Status: Acute Code(s): L02.611 - Cutaneous abscess of right foot (2) Right knee pain: Status: Acute Code(s): M25.561 - Pain in right knee (3) Low back pain: Status: Acute Code(s): M54.50 - Low back pain, unspecified (4) Neck mass: Status: Acute Code(s): R22.1 - Localized swelling, mass and lump, neck (5) Sore throat: Status: Acute Code(s): J02.9 - Acute pharyngitis, unspecified Plan 42-year-old male admitted to Psychiatry with consult placed to hospitalist service for evaluation of large right neck mass and follow-up evaluation of right foot abscess. #R Foot abscess and cellulitis -s/p I&D 02/19- wound culture growing MSSA and gram negative rods (prelim) -DC keflex, continue doxycycline -Cellulitis resolving, ongoing purulent drainage from abscess -Continue with dressing changes per wound RN -Will continue following for wound checks #R Neck Mass -suspect thyroid nodule -U/s thyroid ordered #Sore throat with cervical adenopathy -low suspicion for strep as patient has been on keflex and symptoms are new -likely viral -Covid swab -throat lozenges and warm salt water gargles #R knee pain -xray negative for osseous abnormality, trace pleural effusion (no intervention needed at this time) -tylenol, ibuprofen, ice, lidocaine ointment #Low back pain -lido patches, tylenol, ibuprofen Thank you for this consult, will continue following. Reason for continued inpatient stay Substantial Risk for: inability to function, rapid decompensation and med/psych decompensation Time Spent With Patient Time: Total time managing care of this patient today __20__ minutes.
[2023-02-24] MEDS: hydrOXYzine HCL 10 MG TABLET PO ×2 (16:02→21:31)
--- NOTE | 2023-02-24 18:14 | PM.EVENT ---
Event Note Date of Service: 02/24/23 Event Note: Patient is 42-year-old male with PMH significant for polysubstance use and depression with SI who is seen for right lower leg and foot swelling since this morning. Also complains of right-sided lower back pain that radiates to his thigh. On exam, minor swelling of RLE noted. No tenderness on exam. No reduced active or passive ROM. Negative Jaswinder's sign. Minor tenderness to right lower back. Treat with lidocaine patches, Tylenol, ibuprofen. Will get US of RLE and x-ray of lumbar spine. Of note, pt was seen 2 days ago for right knee pain which he says feels much better today. Was also been seen yesterday for large right neck mass. Ultrasound of thyroid found a 2.7 cm TR4 nodule in the right mid thyroid with recommendation of fine needle aspiration. Should f/u with PCP to schedule FNA. Will continue to follow pending imaging results. Time Spent With Patient Time: Total time managing care of this patient today ____ minutes.
[2023-02-24 19:20] VITALS: BP 106/56; PULSE 72; RESP 16; TEMP 36.6; O2SAT 96
[2023-02-24] MEDS: Nicotine 21 MG PATCH.TD24 TRANSDERMA (19:42)
[2023-02-24] MEDS: Ibuprofen 800 MG TABLET PO (21:31)
[2023-02-24] MEDS: Cyclobenzaprine HCl 10 MG TABLET PO (21:31)
[2023-02-24] MEDS: Melatonin 3 MG TABLET 9 MG PO (21:31)
[2023-02-24] MEDS: risperiDONE 1 MG TABLET PO (21:31)
[2023-02-25] MEDS: methADONE HCl 20 MG/2 ML ORAL.CONC 40 MG PO (06:21)
[2023-02-25] MEDS: Nicotine Polacrilex 2 MG GUM 4 MG BUCCAL ×3 (06:28→20:07)
[2023-02-25] MEDS: Nicotine 21 MG PATCH.TD24 TRANSDERMA (06:28)
--- NOTE | 2023-02-25 06:31 | PC.NURSE ---
Matteo had removed the nicotine patch around 0100 due to nightmares. Patient was given new nicotine patch at 0630.
[2023-02-25 07:15] VITALS: BP 112/73; PULSE 69; TEMP 36.1; O2SAT 99
[2023-02-25] MEDS: Doxycycline Monohydrate 100 MG CAPSULE PO ×2 (08:08→21:37)
[2023-02-25] MEDS: hydrOXYzine HCL 10 MG TABLET PO ×3 (08:08→21:37)
[2023-02-25] MEDS: buPROPion HCl XL 300 MG TAB.ER.24H PO (08:08)
[2023-02-25] MEDS: Lidocaine 4 % Patch ADH..PATCH 1 PATCH TRANSDERMA (08:53)
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
[2023-02-25] MEDS: cloNIDine HCL 0.1 MG TABLET PO ×2 (16:53→22:57)
--- NOTE | 2023-02-25 17:01 | P.PNADD_ITS ---
Subjective Subjective Date of Service: 02/25/23 Reason For Visit: Depression Interim History: Patient seen in follow up Awake, alert, pleasant and engaged in interview Methadone dose has been at 40mg daily He is reporting withdrawal sx have resolved, however cravings and thoughts of using are quite intense. He has noticed that thoughts increase as the sun is setting . Discussed increasing thoughts of using prior to hospital admission. Reviewed timing of sx with length of time for last MAT administration --he was able to acknowledge that sx increased in severity as it came time to have next injection administered. Ultimately he did not continue with MAT and resumed using. Discussed patient's plan for ongoing treatment--reviewed options including continuing methadone and titrating dose, transitioning to buprenorophine while here and finally continue methadone with option to transition to buprenorphine in the future. Patient decided he would like to continue titrating methadone dose. Review of Systems Constitutional: Reports as per HPI Mental Status Exam Mental Status Exam Patient Appearance: Appropriate Patient Behavior: Talkative Diagnostics Vital Signs (24Hr): Vital Signs - 24 hr 02/24/23 19:20 02/25/23 07:15 Temperature 97.9 F 96.9 F Pulse Rate 72 69 Respiratory Rate 16 Blood Pressure 106/56 L 112/73 Pulse Oximetry 96 99 Oxygen Delivery Method Room Air Room Air BMI result Body Mass Index 21.5 Labs 02/19/23 13:05 02/19/23 13:05 Labs: Laboratory Results - last 48 hr 02/23/23 02/24/23 16:15 09:38 TSH 6.11 H Free T4 0.85 Influenza Type A (PCR) NEGATIVE Influenza Type B (PCR) NEGATIVE RSV RNA Qual (PCR) NEGATIVE SARS-CoV-2 RNA (RT-PCR) NEGATIVE Imaging Radiology Impressions: ITS Impressions Foot X-Ray 02/19/23 13:38 IMPRESSION: 1. Soft tissue irregularity along the lateral aspect of the foot corresponding to known abscess. 2. No acute visible fracture or dislocation. 3. Mild multi joint arthritic changes. Knee X-Ray 02/22/23 19:54 IMPRESSION: No acute fracture or malalignment. Trace joint effusion. Thyroid Ultrasound 02/23/23 13:20 IMPRESSION: 2.7 cm TR 4 nodule in the right mid thyroid. Fine-needle aspiration is recommended as per ACR TI-RADS. ACR TI-RADS RECOMMENDATION REFERENCE: Ultrasound-guided fine-needle aspiration, followup ultrasound, no further follow up. * TR1 (0 point) and TR2 (2 points): No FNA or follow up. * TR3 (3 points): FNA if more than or equal to 2.5 cm in maximum dimension, followup ultrasound in 1, 3 and 5 years if 1.5 to 2.4 cm in maximum dimension. * TR4 (4-6 points): FNA if more than or equal to 1.5 cm in maximum dimension, followup ultrasound in 1, 2, 3 and 5 years if 1 to 1.4 cm in maximum dimension. * TR5 (more than or equal to 7 points): FNA if more than or equal to 1 cm in maximum dimension, followup ultrasound every year for 5 years if 0.5 to 0.9 cm in maximum dimension. * TR3, TR4 or TR5 nodules that are below the size threshold for followup receive no follow up. Venous Duplex 02/25/23 09:44 IMPRESSION: 1. No DVT demonstrated in the right lower extremity. 2. Incidental note of a 2.3 x 0.7 x 2.4 cm wider than tall lymph node with echogenic hilum in the proximal right thigh. Decisions regarding further management should be based on the clinical assessment. This study was presented today February 25, 2023 at 1:32 PM for interpretation. Stat results provided at this time as requested by referring provider. Medications Medications Current Medications Acetaminophen (Acetaminophen 325 Mg Tablet) 650 mg PO Q6H PRN PRN Reason: Headache/Pain Mild Scale (1-3) Last Admin: 02/21/23 16:28 Dose: 650 mg Al Hydroxide/Mg Hydroxide (Magnesium Hydrox/Alum Hydrox 30 Ml Oral.Susp) 30 ml PO Q6H PRN PRN Reason: Heartburn/Nausea Last Admin: 02/20/23 12:15 Dose: 30 ml Benzocaine (Throat Lozenge, Medicated Lozenge) 1 lozenge MUCOUS MEM Q2H PRN PRN Reason: Sore Throat Last Admin: 02/24/23 08:40 Dose: 1 lozenge Bupropion HCl (Bupropion Hcl Xl 300 Mg Tab.Er.24h) 300 mg PO DAILY ADRIENNE Last Admin: 02/25/23 08:08 Dose: 300 mg Clonidine HCl (Clonidine Hcl 0.1 Mg Tablet) 0.1 mg PO Q4H PRN; Protocol PRN Reason: withdrfawal/anxiety Last Admin: 02/25/23 16:53 Dose: 0.1 mg Cyclobenzaprine HCl (Cyclobenzaprine Hcl 10 Mg Tablet) 10 mg PO QID PRN PRN Reason: muscle spasm Last Admin: 02/24/23 21:31 Dose: 10 mg Docusate Sodium (Docusate Sodium 100 Mg Capsule) 100 mg PO BEDTIME PRN PRN Reason: Constipation Doxycycline Monohydrate (Doxycycline Monohydrate 100 Mg Capsule) 100 mg PO BID [facility] Stop: 03/02/23 21:00 Last Admin: 02/25/23 08:08 Dose: 100 mg Hydroxyzine HCl (Hydroxyzine Hcl 25 Mg Tablet) 25 mg PO Q6H PRN PRN Reason: Anxiety Last Admin: 02/21/23 16:28 Dose: 25 mg Hydroxyzine HCl (Hydroxyzine Hcl 10 Mg Tablet) 10 mg PO TID ADRIENNE Last Admin: 02/25/23 15:53 Dose: 10 mg Ibuprofen (Ibuprofen 800 Mg Tablet) 800 mg PO TIDWM PRN PRN Reason: Pain, Mild (Pain Scale 1-3) Stop: 03/01/23 17:51 Last Admin: 02/24/23 21:31 Dose: 800 mg Lidocaine (Lidocaine 4 % Patch Adh..Patch) 1 patch TRANSDERMA DAILY [facility]; Protocol Last Admin: 02/25/23 08:53 Dose: 1 patch Lidocaine (Lidocaine 5 % Ointment 35 Gm) 1 appl TOPICAL Q6H PRN; Protocol PRN Reason: r knee pain Loperamide HCl (Loperamide Hcl 2 Mg Capsule) 2 mg PO Q4H PRN PRN Reason: loose stool Magnesium Hydroxide (Milk Of Magnesia 30 Ml Oral.Susp) 30 ml PO DAILY PRN PRN Reason: Constipation Melatonin (Melatonin 3 Mg Tablet) 9 mg PO BEDTIME PRN PRN Reason: insomnia Last Admin: 02/24/23 21:31 Dose: 9 mg Methadone HCl (Methadone Hcl 20 Mg/2 Ml Oral.Conc) 45 mg PO DAILY@0630 [facility] Nicotine (Nicotine 21 Mg Patch.Td24) 21 mg TRANSDERMA DAILY PRN PRN Reason: smoking cessation Last Admin: 02/25/23 06:28 Dose: 21 mg Nicotine Polacrilex (Nicotine Polacrilex 2 Mg Gum) 4 mg BUCCAL Q2H PRN PRN Reason: Nicotine Cravings Last Admin: 02/25/23 11:24 Dose: 4 mg Risperidone (Risperidone 1 Mg Tablet) 1 mg PO BEDTIME ADRIENNE Last Admin: 02/24/23 21:31 Dose: 1 mg Trazodone HCl (Trazodone Hcl 50 Mg Tablet) 50 mg PO BEDTIME MRX1 PRN PRN Reason: Insomnia Allergies Allergies Allergy/AdvReac Type Severity Reaction Status Date / Time No Known Allergies Allergy Verified 09/23/22 20:36 Assessment & Plan Assessment & Plan (1) Opioid use disorder: Status: Acute Code(s): F11.90 - Opioid use, unspecified, uncomplicated Assessment and Plan: * withdrawal resolved * increase methadone to 45mg QD 02/26 * reviewed coping strategies to address ongoing thoughts of using * will continue to follow Total time managing care of this patient today __35__ minutes.
--- NOTE | 2023-02-25 18:38 | PM.EVENT ---
Event Note Date of Service: 02/25/23 Event Note: Note made of venous duplex study showing 1. No DVT demonstrated in the right lower extremity. 2. Incidental note of a 2.3 x 0.7 x 2.4 cm wider than tall lymph node with echogenic hilum in the proximal right thigh. Decisions regarding further management should be based on the clinical assessment. etiology of this is unclear, will ask Heme/oc to ass for needs for Bx and further investigation Time Spent With Patient Time: Total time managing care of this patient today ____ minutes.
[2023-02-25 19:30] VITALS: BP 123/67; PULSE 78; RESP 16; TEMP 36.7; O2SAT 98
[2023-02-25] MEDS: Cyclobenzaprine HCl 10 MG TABLET PO (21:37)
[2023-02-25] MEDS: risperiDONE 1 MG TABLET PO (21:37)
[2023-02-25] MEDS: Melatonin 3 MG TABLET 9 MG PO (21:38)
[2023-02-25 22:58] VITALS: BP 115/60; PULSE 77; RESP 18
[2023-02-26] MEDS: methADONE HCl 20 MG/2 ML ORAL.CONC 45 MG PO (06:32)
[2023-02-26 07:46] VITALS: BP 93/50; PULSE 67; RESP 18; TEMP 36.6; O2SAT 97
[2023-02-26] MEDS: buPROPion HCl XL 300 MG TAB.ER.24H PO (08:20)
[2023-02-26] MEDS: Lidocaine 4 % Patch ADH..PATCH 1 PATCH TRANSDERMA (08:20)
[2023-02-26] MEDS: Doxycycline Monohydrate 100 MG CAPSULE PO ×2 (08:20→21:08)
[2023-02-26] MEDS: hydrOXYzine HCL 10 MG TABLET PO ×3 (08:20→21:08)
[2023-02-26] MEDS: Nicotine Polacrilex 2 MG GUM 4 MG BUCCAL ×3 (08:23→21:39)
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
--- NOTE | 2023-02-26 11:37 | P.EN_ITS ---
Event Note Date of Service: 02/26/23 Event Note: Pt with RLE swelling. Doppler is negative for DVT. Incidentally noted enlarged lymph node groin noted. This is likely reactive. Would recommend outpatient follow up with repeat u/s in one month. Xray lumbar spine not read officially but there does not appear to be any osseous abnormality. There is likely musculoskeletal strain. Would not recommend further imaging. Recommend muscle relaxers (would recommend tizanidine 4mg TID PRN over cyclobenzaprine if appropr iate but can potentially cause sedation), NSAIDs, tylenol, lidocaine patch. There is also a moderate/large sized thyroid nodule on right lobe. Given no compressive symptoms, recommend outpt follow up with endocrinology/surgery for FNA of nodule. Discussed with Dr. Nguyen. Signing off at this time. Please do not hesitate to reach out for any further questions or for any acute medical concerns. Time Spent With Patient Time: Total time managing care of this patient today ____ minutes.
--- NOTE | 2023-02-26 16:04 | HO.ADDICTPRO ---
Subjective Subjective Date of Service: 02/26/23 Reason For Visit: Depression Interim History: Patient seen in follow up Methadone increased to 45mg this morning Patient reports he does like the way medication is making him feel--has tried reading and he finds his eyes closing. Feels like he is on something . Would like to transition suboxone. Reports this medication was instrumental in maintaining recovery Discharge pending--likely at the end of the week. Discussed d/c methadone now, with plan to start buprenorphine on Saturday. Patient agreeable Review of Systems Constitutional: Reports as per HPI Mental Status Exam Mental Status Exam Patient Appearance: Appropriate Level of Consciousness: Awake and Alert Diagnostics Vital Signs (24Hr): Vital Signs - 24 hr 02/25/23 19:30 02/25/23 22:58 02/26/23 07:46 Temperature 98.1 F 97.9 F Pulse Rate 78 77 67 Respiratory Rate 16 18 18 Blood Pressure 123/67 115/60 93/50 L Pulse Oximetry 98 97 Oxygen Delivery Method Room Air Room Air BMI result Body Mass Index 21.5 Labs 02/19/23 13:05 02/19/23 13:05 Imaging Radiology Impressions: ITS Impressions Foot X-Ray 02/19/23 13:38 IMPRESSION: 1. Soft tissue irregularity along the lateral aspect of the foot corresponding to known abscess. 2. No acute visible fracture or dislocation. 3. Mild multi joint arthritic changes. Knee X-Ray 02/22/23 19:54 IMPRESSION: No acute fracture or malalignment. Trace joint effusion. Thyroid Ultrasound 02/23/23 13:20 IMPRESSION: 2.7 cm TR 4 nodule in the right mid thyroid. Fine-needle aspiration is recommended as per ACR TI-RADS. ACR TI-RADS RECOMMENDATION REFERENCE: Ultrasound-guided fine-needle aspiration, followup ultrasound, no further follow up. * TR1 (0 point) and TR2 (2 points): No FNA or follow up. * TR3 (3 points): FNA if more than or equal to 2.5 cm in maximum dimension, followup ultrasound in 1, 3 and 5 years if 1.5 to 2.4 cm in maximum dimension. * TR4 (4-6 points): FNA if more than or equal to 1.5 cm in maximum dimension, followup ultrasound in 1, 2, 3 and 5 years if 1 to 1.4 cm in maximum dimension. * TR5 (more than or equal to 7 points): FNA if more than or equal to 1 cm in maximum dimension, followup ultrasound every year for 5 years if 0.5 to 0.9 cm in maximum dimension. * TR3, TR4 or TR5 nodules that are below the size threshold for followup receive no follow up. Lumbar Spine X-Ray 02/25/23 08:17 IMPRESSION: Grade 1 spondylolisthesis at L5-S1 with at least right-sided and probably bilateral L5 spondylolysis. Venous Duplex 02/25/23 09:44 IMPRESSION: 1. No DVT demonstrated in the right lower extremity. 2. Incidental note of a 2.3 x 0.7 x 2.4 cm wider than tall lymph node with echogenic hilum in the proximal right thigh. Decisions regarding further management should be based on the clinical assessment. This study was presented today February 25, 2023 at 1:32 PM for interpretation. Stat results provided at this time as requested by referring provider. Medications Medications Current Medications Acetaminophen (Acetaminophen 325 Mg Tablet) 650 mg PO Q6H PRN PRN Reason: Headache/Pain Mild Scale (1-3) Last Admin: 02/21/23 16:28 Dose: 650 mg Al Hydroxide/Mg Hydroxide (Magnesium Hydrox/Alum Hydrox 30 Ml Oral.Susp) 30 ml PO Q6H PRN PRN Reason: Heartburn/Nausea Last Admin: 02/20/23 12:15 Dose: 30 ml Benzocaine (Throat Lozenge, Medicated Lozenge) 1 lozenge MUCOUS MEM Q2H PRN PRN Reason: Sore Throat Last Admin: 02/24/23 08:40 Dose: 1 lozenge Bupropion HCl (Bupropion Hcl Xl 300 Mg Tab.Er.24h) 300 mg PO DAILY [facility] Last Admin: 02/26/23 08:20 Dose: 300 mg Clonidine HCl (Clonidine Hcl 0.1 Mg Tablet) 0.1 mg PO TID PRN; Protocol PRN Reason: Anxiety Doxycycline Monohydrate (Doxycycline Monohydrate 100 Mg Capsule) 100 mg PO BID [facility] Stop: 03/02/23 21:00 Last Admin: 02/26/23 08:20 Dose: 100 mg Hydroxyzine HCl (Hydroxyzine Hcl 25 Mg Tablet) 25 mg PO Q6H PRN PRN Reason: Anxiety Last Admin: 02/21/23 16:28 Dose: 25 mg Hydroxyzine HCl (Hydroxyzine Hcl 10 Mg Tablet) 10 mg PO TID [facility] Last Admin: 02/26/23 15:58 Dose: 10 mg Ibuprofen (Ibuprofen 800 Mg Tablet) 800 mg PO TIDWM PRN PRN Reason: Pain, Mild (Pain Scale 1-3) Stop: 03/01/23 17:51 Last Admin: 02/24/23 21:31 Dose: 800 mg Lidocaine (Lidocaine 4 % Patch Adh..Patch) 1 patch TRANSDERMA DAILY [facility]; Protocol Last Admin: 02/26/23 08:20 Dose: 1 patch Lidocaine (Lidocaine 5 % Ointment 35 Gm) 1 appl TOPICAL Q6H PRN; Protocol PRN Reason: r knee pain Magnesium Hydroxide (Milk Of Magnesia 30 Ml Oral.Susp) 30 ml PO DAILY PRN PRN Reason: Constipation Melatonin (Melatonin 3 Mg Tablet) 9 mg PO BEDTIME PRN PRN Reason: insomnia Last Admin: 02/25/23 21:38 Dose: 9 mg Nicotine (Nicotine 21 Mg Patch.Td24) 21 mg TRANSDERMA DAILY PRN PRN Reason: smoking cessation Last Admin: 02/25/23 06:28 Dose: 21 mg Nicotine Polacrilex (Nicotine Polacrilex 2 Mg Gum) 4 mg BUCCAL Q2H PRN PRN Reason: Nicotine Cravings Last Admin: 02/26/23 16:00 Dose: 4 mg Risperidone (Risperidone 1 Mg Tablet) 1 mg PO BEDTIME [facility] Last Admin: 02/25/23 21:37 Dose: 1 mg Tizanidine HCl (Tizanidine Hcl 4 Mg Tablet) 4 mg PO TID PRN PRN Reason: Muscle Spasm Allergies Allergies Allergy/AdvReac Type Severity Reaction Status Date / Time No Known Allergies Allergy Verified 09/23/22 20:36 Assessment & Plan Assessment & Plan (1) Opioid use disorder: Status: Acute Code(s): F11.90 - Opioid use, unspecified, uncomplicated Assessment and Plan: D/C methadone encouraged to take PRN meds more consistently to address withdrawal sx as they emerge plan to start buprenorphine Saturday during transition patient would benefit from staying inpt--decreased risk of recurrence of use Patient requesting to follow up outpatient with [facility]--Sublocade ordered with goal of administering immediately following D/C Total time managing care of this patient today __35__ minutes.
[2023-02-26 20:05] VITALS: BP 112/56; PULSE 75; RESP 14; TEMP 36.8; O2SAT 96
[2023-02-26] MEDS: risperiDONE 1 MG TABLET PO (21:08)
[2023-02-26] MEDS: cloNIDine HCL 0.1 MG TABLET PO (21:39)
[2023-02-27 07:57] VITALS: BP 118/56; PULSE 71; RESP 16; TEMP 36.8; O2SAT 98
[2023-02-27] MEDS: buPROPion HCl XL 300 MG TAB.ER.24H PO (08:55)
[2023-02-27] MEDS: Doxycycline Monohydrate 100 MG CAPSULE PO ×2 (08:55→23:27)
[2023-02-27] MEDS: hydrOXYzine HCL 10 MG TABLET PO ×3 (08:55→23:27)
[2023-02-27] MEDS: cloNIDine HCL 0.1 MG TABLET PO ×2 (09:00→23:27)
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
--- NOTE | 2023-02-27 12:41 | HO.WOUND ---
Wound Consult: Follow up 42yr old male admitted to [facility] to the Behavioral Health Unit on 02/19/23 22:38? - See progress notes and H&P for detailed history. Wound consult placed for patents right lateral foot, while in ED pt had I&D performed - see chart review for details. Updated topical orders below - TT to Advanced Provider based on todays assessment. Right Lateral Foot Etiology: s/p I&D in ED of abscess Measurements: 1.5cm x 0.5cm x 0.3cm Wound Bed: increased in slough observation since last assessment no odor noted but wound bed with adherent yellow moist slough Drainage / Odor: yellow boston drainage noted on dressing - No odor noted Edges: ? Irregular Nadia wound: mild central fluctuance, Improving erythema and No noted. Decreased swelling in the 5th toe. Of note there is bone deformity noted with prominent protrusion to lateral side - pt reports that formation is from a surgery / repair he had in his 20's - unrelated to current wound. Pain: Denies pain at the wound site - pt reports of improving pain and tenderness to the posterior knee - workup negative per pt - improving symptoms Goals of Treatment: ? Switch topical treatment to Santyl for enzymatic debridement due to increased slough observation Recommendations: 1. Right Lateral Foot - Cleanse with NS, Pat dry.? Apply barrier wipe to periwound, cover wound bed thick layer of Santyl cover with piece of xeroform, cover with Foam dressing.? Change Daily. Re-consult wound care Nurse for wound deterioration or wound changes. Initialized on 02/22/23 13:14 - END OF NOTE
[2023-02-27] MEDS: Ibuprofen 800 MG TABLET PO (13:44)
[2023-02-27] MEDS: TiZANidine HCL 4 MG TABLET PO ×2 (13:45→20:28)
[2023-02-27] MEDS: Nicotine Polacrilex 2 MG GUM 4 MG BUCCAL ×3 (13:46→20:28)
[2023-02-27] MEDS: Nicotine 21 MG PATCH.TD24 TRANSDERMA (13:48)
[2023-02-27] MEDS: Collagenase Clostridium Hist. 30 GM TUBE 1 APPL TOPICAL (19:14)
[2023-02-27 19:58] VITALS: BP 103/57; PULSE 83; RESP 18; TEMP 35.8; O2SAT 99
[2023-02-27] MEDS: risperiDONE 1 MG TABLET PO (23:27)
[2023-02-28 07:00] VITALS: BMI 22.7
[2023-02-28 07:40] VITALS: BP 89/50; PULSE 61; TEMP 36.3; O2SAT 96
[2023-02-28] MEDS: Doxycycline Monohydrate 100 MG CAPSULE PO ×2 (09:19→21:54)
[2023-02-28] MEDS: hydrOXYzine HCL 10 MG TABLET PO ×3 (09:19→21:54)
[2023-02-28] MEDS: buPROPion HCl XL 300 MG TAB.ER.24H PO (09:19)
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
[2023-02-28] MEDS: Ibuprofen 800 MG TABLET PO (09:23)
[2023-02-28] MEDS: TiZANidine HCL 4 MG TABLET PO ×2 (09:23→20:25)
[2023-02-28] MEDS: Nicotine 21 MG PATCH.TD24 TRANSDERMA (09:23)
[2023-02-28] MEDS: Nicotine Polacrilex 2 MG GUM 4 MG BUCCAL ×3 (09:23→20:25)
[2023-02-28 13:46] VITALS: BP 103/59; PULSE 91; RESP 18
[2023-02-28] MEDS: cloNIDine HCL 0.1 MG TABLET PO ×2 (13:49→21:54)
[2023-02-28] MEDS: hydrOXYzine HCL 25 MG TABLET PO (13:49)
[2023-02-28 20:20] VITALS: BP 121/58; PULSE 83; RESP 18; TEMP 36.5; O2SAT 97
[2023-02-28] MEDS: risperiDONE 1 MG TABLET PO (21:54)
[2023-02-28] MEDS: Melatonin 3 MG TABLET 9 MG PO (21:54)
[2023-03-01 07:25] VITALS: BP 88/53; PULSE 58; RESP 16; TEMP 36.6; O2SAT 96
[2023-03-01 08:23] VITALS: PULSE 58
[2023-03-01] MEDS: Doxycycline Monohydrate 100 MG CAPSULE PO (08:57)
[2023-03-01] MEDS: buPROPion HCl XL 300 MG TAB.ER.24H PO (08:57)
[2023-03-01] MEDS: Buprenorphine HCL 2 MG TAB.SUBL SUBLINGUAL ×4 (08:57→11:57)
[2023-03-01] MEDS: hydrOXYzine HCL 10 MG TABLET PO ×3 (08:57→21:29)
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
[2023-03-01] MEDS: Nicotine Polacrilex 2 MG GUM 4 MG BUCCAL ×3 (10:41→21:30)
[2023-03-01] MEDS: Nicotine 21 MG PATCH.TD24 TRANSDERMA (10:42)
[2023-03-01 11:20] VITALS: BP 104/59
[2023-03-01] MEDS: TiZANidine HCL 4 MG TABLET PO ×2 (13:46→21:29)
[2023-03-01] MEDS: Buprenorphine HCL 2 MG TAB.SUBL 4 MG SUBLINGUAL (14:33)
[2023-03-01] MEDS: Collagenase Clostridium Hist. 30 GM TUBE 1 APPL TOPICAL (16:21)
--- NOTE | 2023-03-01 16:24 | P.PNADD_ITS ---
Subjective Subjective Date of Service: 03/01/23 Reason For Visit: Depression Interim History: Patient seen in follow up Last methadone dose on 02/26. Scheduled to start bupre this morning. Initial COWs of 9 as reported by RN. Started 2mg Q1hr for 4 doses. Seen one hour following last dose. He reports feeling better still some cramping in his thighs--encouraged to take PRN tizanidine. Review of Systems Constitutional: Reports as per HPI Mental Status Exam Mental Status Exam Patient Appearance: Appropriate Level of Consciousness: Awake and Appropriate Patient Behavior: Appropriate Mood Description: Calm and Depressed Diagnostics Vital Signs (24Hr): Vital Signs - 24 hr 02/28/23 20:20 03/01/23 07:25 Temperature 97.7 F 98 F Pulse Rate 83 58 Respiratory Rate 18 16 Blood Pressure 121/58 L 88/53 L Pulse Oximetry 97 96 Oxygen Delivery Method Room Air Room Air BMI result Body Mass Index 22.7 Labs 02/19/23 13:05 02/19/23 13:05 Imaging Radiology Impressions: ITS Impressions Foot X-Ray 02/19/23 13:38 IMPRESSION: 1. Soft tissue irregularity along the lateral aspect of the foot corresponding to known abscess. 2. No acute visible fracture or dislocation. 3. Mild multi joint arthritic changes. Knee X-Ray 02/22/23 19:54 IMPRESSION: No acute fracture or malalignment. Trace joint effusion. Thyroid Ultrasound 02/23/23 13:20 IMPRESSION: 2.7 cm TR 4 nodule in the right mid thyroid. Fine-needle aspiration is recommended as per ACR TI-RADS. ACR TI-RADS RECOMMENDATION REFERENCE: Ultrasound-guided fine-needle aspiration, followup ultrasound, no further follow up. * TR1 (0 point) and TR2 (2 points): No FNA or follow up. * TR3 (3 points): FNA if more than or equal to 2.5 cm in maximum dimension, followup ultrasound in 1, 3 and 5 years if 1.5 to 2.4 cm in maximum dimension. * TR4 (4-6 points): FNA if more than or equal to 1.5 cm in maximum dimension, followup ultrasound in 1, 2, 3 and 5 years if 1 to 1.4 cm in maximum dimension. * TR5 (more than or equal to 7 points): FNA if more than or equal to 1 cm in maximum dimension, followup ultrasound every year for 5 years if 0.5 to 0.9 cm in maximum dimension. * TR3, TR4 or TR5 nodules that are below the size threshold for followup receive no follow up. Lumbar Spine X-Ray 02/25/23 08:17 IMPRESSION: Grade 1 spondylolisthesis at L5-S1 with at least right-sided and probably bilateral L5 spondylolysis. Venous Duplex 02/25/23 09:44 IMPRESSION: 1. No DVT demonstrated in the right lower extremity. 2. Incidental note of a 2.3 x 0.7 x 2.4 cm wider than tall lymph node with echogenic hilum in the proximal right thigh. Decisions regarding further management should be based on the clinical assessment. This study was presented today February 25, 2023 at 1:32 PM for interpretation. Stat results provided at this time as requested by referring provider. Medications Medications Current Medications Acetaminophen (Acetaminophen 325 Mg Tablet) 650 mg PO Q6H PRN PRN Reason: Headache/Pain Mild Scale (1-3) Last Admin: 02/21/23 16:28 Dose: 650 mg Al Hydroxide/Mg Hydroxide (Magnesium Hydrox/Alum Hydrox 30 Ml Oral.Susp) 30 ml PO Q6H PRN PRN Reason: Heartburn/Nausea Last Admin: 02/20/23 12:15 Dose: 30 ml Benzocaine (Throat Lozenge, Medicated Lozenge) 1 lozenge MUCOUS MEM Q2H PRN PRN Reason: Sore Throat Last Admin: 02/24/23 08:40 Dose: 1 lozenge Buprenorphine HCl (Buprenorphine Hcl 8 Mg Tab.Subl) 8 mg SUBLINGUAL DAILY ADRIENNE Buprenorphine HCl (Buprenorphine Hcl 2 Mg Tab.Subl) 4 mg SUBLINGUAL DAILY PRN PRN Reason: Opiate Withdrawal Last Admin: 03/01/23 14:33 Dose: 4 mg Bupropion HCl (Bupropion Hcl Xl 300 Mg Tab.Er.24h) 300 mg PO DAILY ADRIENNE Last Admin: 03/01/23 08:57 Dose: 300 mg Clonidine HCl (Clonidine Hcl 0.1 Mg Tablet) 0.1 mg PO BID PRN; Protocol PRN Reason: Anxiety Collagenase (Collagenase Clostridium Hist. 30 Gm Tube) 1 appl TOPICAL DAILY ADRIENNE; Protocol Last Admin: 03/01/23 16:21 Dose: 1 appl Doxycycline Monohydrate (Doxycycline Monohydrate 100 Mg Capsule) 100 mg PO BID ADRIENNE Stop: 03/02/23 21:00 Last Admin: 03/01/23 08:57 Dose: 100 mg Hydroxyzine HCl (Hydroxyzine Hcl 25 Mg Tablet) 25 mg PO Q6H PRN PRN Reason: Anxiety Last Admin: 02/28/23 13:49 Dose: 25 mg Hydroxyzine HCl (Hydroxyzine Hcl 10 Mg Tablet) 10 mg PO TID ADRIENNE Last Admin: 03/01/23 14:30 Dose: 10 mg Ibuprofen (Ibuprofen 800 Mg Tablet) 800 mg PO TIDWM PRN PRN Reason: Pain, Mild (Pain Scale 1-3) Stop: 03/01/23 17:51 Last Admin: 02/28/23 09:23 Dose: 800 mg Lidocaine (Lidocaine 4 % Patch Adh..Patch) 1 patch TRANSDERMA DAILY [facility]; Protocol Last Admin: 03/01/23 10:24 Dose: Not Given Lidocaine (Lidocaine 5 % Ointment 35 Gm) 1 appl TOPICAL Q6H PRN; Protocol PRN Reason: r knee pain Magnesium Hydroxide (Milk Of Magnesia 30 Ml Oral.Susp) 30 ml PO DAILY PRN PRN Reason: Constipation Melatonin (Melatonin 3 Mg Tablet) 9 mg PO BEDTIME PRN PRN Reason: insomnia Last Admin: 02/28/23 21:54 Dose: 9 mg Nicotine (Nicotine 21 Mg Patch.Td24) 21 mg TRANSDERMA DAILY PRN PRN Reason: smoking cessation Last Admin: 03/01/23 10:42 Dose: 21 mg Nicotine Polacrilex (Nicotine Polacrilex 2 Mg Gum) 4 mg BUCCAL Q2H PRN PRN Reason: Nicotine Cravings Last Admin: 03/01/23 13:46 Dose: 4 mg Tizanidine HCl (Tizanidine Hcl 4 Mg Tablet) 4 mg PO BID PRN PRN Reason: Muscle Spasm Last Admin: 03/01/23 13:46 Dose: 4 mg Allergies Allergies Allergy/AdvReac Type Severity Reaction Status Date / Time No Known Allergies Allergy Verified 09/23/22 20:36 Assessment & Plan Assessment & Plan (1) Opioid use disorder: Status: Acute Code(s): F11.90 - Opioid use, unspecified, uncomplicated Assessment and Plan: * Buprenorphine 8mg QD and 4mg PRN --will assess how patient does overnight and adjust dosing as needed * Scheduled for discharge Saturday, should present to [facility] before he leaves [facility] to have Sublocade injection adminsitered. 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 * PRN comfort meds encouraged Total time managing care of this patient today _30___ minutes.
[2023-03-01 18:18] VITALS: BP 115/60; PULSE 64; RESP 18; TEMP 36.2; O2SAT 98
[2023-03-01 19:25] VITALS: BP 132/62; PULSE 92; RESP 14; TEMP 36.8; O2SAT 96
[2023-03-01 21:25] VITALS: BP 115/66; PULSE 87; RESP 16
[2023-03-01] MEDS: cloNIDine HCL 0.1 MG TABLET PO (21:29)
[2023-03-01] MEDS: Melatonin 3 MG TABLET 9 MG PO (21:30)
[2023-03-02 06:00] VITALS: BP 104/60; PULSE 60; TEMP 2.6; TEMP 36.6
[2023-03-02] MEDS: buPROPion HCl XL 300 MG TAB.ER.24H PO (08:40)
[2023-03-02] MEDS: Buprenorphine HCL 8 MG TAB.SUBL SUBLINGUAL ×2 (08:40→17:41)
[2023-03-02] MEDS: Nicotine 21 MG PATCH.TD24 TRANSDERMA (09:03)
[2023-03-02] MEDS: Buprenorphine HCL 2 MG TAB.SUBL 4 MG SUBLINGUAL (09:43)
[2023-03-02] MEDS: Collagenase Clostridium Hist. 30 GM TUBE 1 APPL TOPICAL (12:02)
--- NOTE | 2023-03-02 14:08 | MHC.RECOVRN ---
Met with pt in group room on M3 to follow up regarding transition from methadone to buprenorphine. Pt appears to have restless legs, rhinorrhea. Pt reports feeling much better than a couple days ago, is happy and feels good about the transition. Pt is interested in additional buprenorphine to address continued withdrawal symptoms. Pt continues to be agreeable to plan of discharge on Saturday and presenting to the [facility] for Sublocade injection. Pt denies other questions or concerns. Discussed with Lian Ford APRN.
[2023-03-02] MEDS: TiZANidine HCL 4 MG TABLET PO ×2 (15:10→21:40)
[2023-03-02] MEDS: hydrOXYzine HCL 10 MG TABLET PO ×2 (15:10→21:40)
[2023-03-02] MEDS: Nicotine Polacrilex 2 MG GUM 4 MG BUCCAL ×2 (15:11→20:16)
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
[2023-03-02 18:00] VITALS: BP 113/56; PULSE 78; RESP 16; TEMP 36.6; O2SAT 99
[2023-03-02] MEDS: Melatonin 3 MG TABLET 9 MG PO (21:40)
[2023-03-03] MEDS: Nicotine Polacrilex 2 MG GUM 4 MG BUCCAL ×5 (02:51→19:53)
[2023-03-03] MEDS: Buprenorphine HCL 8 MG TAB.SUBL SUBLINGUAL ×3 (06:32→17:49)
[2023-03-03 07:20] VITALS: BP 101/58; PULSE 62; RESP 16; TEMP 36.8; O2SAT 99
[2023-03-03] MEDS: buPROPion HCl XL 300 MG TAB.ER.24H PO (08:35)
[2023-03-03] MEDS: hydrOXYzine HCL 10 MG TABLET PO ×3 (08:35→22:21)
[2023-03-03] MEDS: Nicotine 21 MG PATCH.TD24 TRANSDERMA (08:37)
[2023-03-03] MEDS: Collagenase Clostridium Hist. 30 GM TUBE 1 APPL TOPICAL (10:23)
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
--- NOTE | 2023-03-03 14:00 | MHC.RECOVRN ---
Met with pt to follow up after buprenorphine increase to 8 mg TID. Pt sitting in group room, awake, alert, easily engages in conversation. Reports feeling better both physically and mentally. Pt future oriented, looking forward to receiving Sublocade on Saturday and continuing outpatient tx. Pt denies questions or concerns for t/w.
--- NOTE | 2023-03-03 14:59 | PM.EVENT ---
Event Note Date of Service: 03/03/23 Event Note: The patient was seen and evaluated Complaining of 5th toe swelling and mild erythema for 1 day No drainage, Foot lateral wound clean and covered with no draianage, no fever or chills XR foot ordered ADvil PRN for pain Time Spent With Patient Time: Total time managing care of this patient today ____ minutes.
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
[2023-03-03] MEDS: Ibuprofen 400 MG TABLET PO (18:00)
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
[2023-03-03 20:10] VITALS: BP 123/71; PULSE 74; RESP 18; TEMP 36.6; O2SAT 98
[2023-03-03] MEDS: Melatonin 3 MG TABLET 9 MG PO (22:20)
[2023-03-03] MEDS: TiZANidine HCL 4 MG TABLET PO (22:21)
[2023-03-04] MEDS: Nicotine Polacrilex 2 MG GUM 4 MG BUCCAL ×7 (05:03→23:20)
[2023-03-04] MEDS: Buprenorphine HCL 8 MG TAB.SUBL SUBLINGUAL ×3 (07:00→18:01)
[2023-03-04 08:27] VITALS: BP 118/74; PULSE 69; RESP 18; TEMP 36.2; O2SAT 100
[2023-03-04] MEDS: buPROPion HCl XL 300 MG TAB.ER.24H PO (08:44)
[2023-03-04] MEDS: Nicotine 21 MG PATCH.TD24 TRANSDERMA (08:44)
[2023-03-04] MEDS: hydrOXYzine HCL 10 MG TABLET PO ×3 (08:44→22:04)
[2023-03-04] MEDS: Ibuprofen 400 MG TABLET PO ×3 (09:08→18:31)
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
[2023-03-04] MEDS: gadobutroL 7.5 ML VIAL IVPUSH (13:01)
[2023-03-04] MEDS: Collagenase Clostridium Hist. 30 GM TUBE 1 APPL TOPICAL (14:15)
[2023-03-04] MEDS: Sulfamethox/Trimeth 800/160 TABLET 1 TAB PO (16:19)
[2023-03-04 19:00] VITALS: BP 113/66; PULSE 73; RESP 16; TEMP 36.7; O2SAT 97
[2023-03-04] MEDS: TiZANidine HCL 4 MG TABLET PO (22:05)
[2023-03-04] MEDS: Melatonin 3 MG TABLET 9 MG PO (22:05)
[2023-03-04] MEDS: hydrOXYzine HCL 25 MG TABLET PO (23:20)
[2023-03-05] MEDS: Sulfamethox/Trimeth 800/160 TABLET 1 TAB PO (06:10)
[2023-03-05] MEDS: Buprenorphine HCL 8 MG TAB.SUBL SUBLINGUAL ×2 (06:11→11:33)
[2023-03-05 07:10] VITALS: BP 109/57; PULSE 65; RESP 16; TEMP 36.4; O2SAT 96
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
[2023-03-05] MEDS: Nicotine 21 MG PATCH.TD24 TRANSDERMA (09:31)
[2023-03-05] MEDS: buPROPion HCl XL 300 MG TAB.ER.24H PO (09:31)
[2023-03-05] MEDS: Ibuprofen 400 MG TABLET PO (09:31)
[2023-03-05] MEDS: hydrOXYzine HCL 10 MG TABLET PO ×2 (09:32→14:00)
[2023-03-05] MEDS: Collagenase Clostridium Hist. 30 GM TUBE 1 APPL TOPICAL (09:32)
[2023-03-05] MEDS: Naloxone HCl Nasal TAKE HOME 4 MG SPRAY 8 MG NOSTRILALT (11:19)
[2023-03-05] MEDS: Nicotine Polacrilex 2 MG GUM 4 MG BUCCAL ×2 (11:33→14:00)
--- NOTE | 2023-03-05 12:28 | PC.NURSE ---
Matteo is alert, fully oriented, pleasant and cooperative with discharge process. He denies ideation, plan or intent to harm self or others. He verbalizes understanding of discharge meds and appointments as well as wound care and abx treatment. He denies current physical complaint.
--- NOTE | 2023-03-28 16:20 | HE.ONCSEC ---
left a massages with his that he have an appt on 04/02/23 and a call back number.
== END 2023-03-05 15:50 | disposition home or self-care (01) | DRG 751 ==
LOC: HO.ED 22:30 → HO.PADLT16 22:55
PROVIDERS: Physician Assistant; Registered Nurse Emergency; Admitting Provider Psychiatry & Neurology Psychiatry; Emergency Provider Internal Medicine; Responsible Provider Registered Nurse; Visit Provider Psychiatry & Neurology Psychiatry
DX: F33.2 Major depressive disorder, recurrent severe without psychotic features (principal); R45.851 Suicidal ideations; L03.115 Cellulitis of right lower limb; Z91.148 Patient's other noncompliance with medication regimen for other reason; B95.61 Methicillin susceptible Staphylococcus aureus infection as the cause of diseases classified elsewhere; J02.9 Acute pharyngitis, unspecified; F14.10 Cocaine abuse, uncomplicated; M54.50 Low back pain, unspecified; F11.10 Opioid abuse, uncomplicated; L02.611 Cutaneous abscess of right foot; E04.1 Nontoxic single thyroid nodule; M25.561 Pain in right knee; Z20.822 Contact with and (suspected) exposure to COVID-19; Z59.02 Unsheltered homelessness; Z79.899 Other long term (current) drug therapy
CPT/HCPCS: 0241U; 36415; 72100; 73560; 73620; 73630; 73720; 76536; 80048; 80143; 80179; 80307; 81003; 84439; 84443; 85025; 85652; 86140; 86704; 86706; 86709; 86803; 87040; 87070; 87077; 87186; 87205; 87340; 87389; 87635; 93005; 93971; 99285; A9585; J0571; S9485

== ENCOUNTER → 2023-02-19 12:46 | Outpatient (BNV) | payer OTHER, SELFPAY | PROVIDERS: Emergency Provider Internal Medicine; Visit Provider Internal Medicine | DX: R00.1 Bradycardia, unspecified (principal) | CPT/HCPCS: 93010 ==

== ENCOUNTER → 2023-02-19 22:38 | Outpatient (BNV) | payer OTHER, SELFPAY | PROVIDERS: Admitting Provider Psychiatry & Neurology Psychiatry; Emergency Provider Internal Medicine; Responsible Provider Registered Nurse; Visit Provider Student in an Organized Health Care Education/Training Program | DX: L02.611 Cutaneous abscess of right foot (principal); M25.561 Pain in right knee; M54.50 Low back pain, unspecified; R22.1 Localized swelling, mass and lump, neck; J02.9 Acute pharyngitis, unspecified | CPT/HCPCS: 99222; 99499 ==

== ENCOUNTER → 2023-02-19 22:38 | Outpatient (BNV) | payer OTHER, SELFPAY | PROVIDERS: Admitting Provider Psychiatry & Neurology Psychiatry; Emergency Provider Internal Medicine; Responsible Provider Registered Nurse; Visit Provider Internal Medicine | DX: R59.0 Localized enlarged lymph nodes (principal); E04.1 Nontoxic single thyroid nodule | CPT/HCPCS: 99222 ==

== ENCOUNTER → 2023-02-19 22:38 | Outpatient (BNV) | payer OTHER, SELFPAY | PROVIDERS: Admitting Provider Psychiatry & Neurology Psychiatry; Emergency Provider Internal Medicine; Responsible Provider Registered Nurse; Visit Provider Nurse Practitioner Psychiatric/Mental Health | DX: F33.2 Major depressive disorder, recurrent severe without psychotic features (principal); F11.90 Opioid use, unspecified, uncomplicated | CPT/HCPCS: 90792; 99231; 99232; 99238; 99499 ==

== ENCOUNTER 2023-03-04 10:46 | Outpatient (AMB) | payer OTHER, SELFPAY ==
--- NOTE | 2023-03-05 14:01 | MHC.AM.SUB ---
Intake Intake Visit Reasons: MAT Intake Allergies No Known Allergies Allergy (Verified 09/23/22 20:36) HPI MAT Intake HPI Details Patient is a 42 year old male with dx of OUD and MDD. Intake completed via teleheath for continuity of care while admitted to unit Seen by this remote mortgage underwriter and microsoft developer on unit several times. Substance use history: -started with prescription for oxycontin over 20 years ago following a sports related injury -over time progressed to heroin--including IVDU -cocaine IV use as well -alcohol use Treatment history: -numerous admissions to various levels of [facility] treatment, including section 35 admissions -Reports several months in recovery when taking Buprenorphine and Sublocade -methadone only for withdrawal management Social History: Denies family history of [facility] with young children strong recovery supports--including individuals in the recovery community Currently stable on 8mg TID which was initiated by this remote mortgage underwriter during current admission [facility] Medical History Active substance abuse Drug overdose Social History Household Members: None Housing: Homeless Do you presently have visiting nurse or other home services: No Alcohol intake: current Patient Tobacco Use Status: Never used Tobacco Years Smoked: ''not sure, for awhile'' e-Cigarette/Vaping Use: Currently Using Second Hand Smoke Exposure: Yes Substance Use Type: Crack/Cocaine, Heroin and Other service: No Sexual orientation: Straight/Heterosexual Review of Systems Const Reports as per HPI Assessment & Plan Assessment & Plan (1) Opioid use disorder: Code(s): F11.90 - Opioid use, unspecified, uncomplicated Plan: sublocade to be admisnitered in office once discharged from unit patient to continue care at [facility] Telehealth Location of provider rendering services: practice address Location of patient: other Patient Identification confirmed using: Name, : Yes Coding Level of Care Code Tele Est Pt Level 3 (08630) Diagnoses Opioid use disorder F11.90 Time Spent (min) 30
== END 2023-03-04 10:55 | disposition home or self-care (01) ==
PROVIDERS: Visit Provider Nurse Practitioner Psychiatric/Mental Health
DX: F11.90 Opioid use, unspecified, uncomplicated (principal)
CPT/HCPCS: 99213

== ENCOUNTER → 2023-03-04 10:46 | Outpatient (BNVA) | payer OTHER, SELFPAY | PROVIDERS: Visit Provider Nurse Practitioner Psychiatric/Mental Health ==

== ENCOUNTER 2023-03-05 15:53 | Outpatient (AMB) | payer OTHER, SELFPAY ==
--- NOTE | 2023-03-05 15:55 | AM.OFFVISNUR ---
Intake Vital Signs 03/05/23 15:57 BP 116/78 Blood Pressure Location Lt radial Position Sitting Pulse 66 Pulse Source Pulse Oximeter Pulse Oximetry (%) 98 Oxygen Delivery Method Room Air Intake Visit Reasons: Sub Inj Intake Note: the patient presents for a sub 300 mg Food And Beverage Cashier Required: No Allergies No Known Allergies Allergy (Verified 03/05/23 15:59) Do you need a note to return to daycare/school/sports/work: No Nursing Note Pt. presents for OUD F/U and initial sublocade injection.? Pt A&O x 4 pleasant and cooperative with care.? [facility] and is going to stay with his mother. He is awaiting a bed at a sober living but in the mean time will stay with his mom. He has plans for recovery support while awaiting his bed. T/W educated pt on process of steady state and sublocade duration.?Pt educated on SS of infection and SE of sublocade injection as well as when to report. Also educated pt. re: care of injection area. Pt. is motivated for recovery and is actively participating in his treatment.? T/W administered sublocade injection as per provider orders.? Pt. will F/U in clinic in four weeks for check in and injection and will call provider Lian on 03/08 for a phone check in.. Office Meds Sublocade 300 mg/1.5 mL solution,extended release subcutaneous syringe Performing Provider: Lian Ford CNP Performing Location: [facility] Administered by: Tonya Villasenor RN on 03/05/23 16:14 Dose Route Admin Location Dispensed Lot Number Expiration Date [facility] Intake Coordinator 300 mg subcut LLQ 1.5 mL [id number] 05/16/24 [address]-3 [employer]. Comments: Pt tolerated first injection well. Educated on S/S of infection and SE to report. Encouraged to call [facility] with questions/concerns. Coding Assessment & Plan Assessment & Plan Orders: Orders AMB Buprenorphine Injection - Patient Supplied Today F11.90 - Opioid use, unspecified, uncomplicated
[2023-03-05 15:57] VITALS: BP 116/78; PULSE 66; O2SAT 98
== END 2023-03-05 16:14 | disposition home or self-care (01) ==
DX: F11.90 Opioid use, unspecified, uncomplicated (principal)

== ENCOUNTER → 2023-03-05 15:53 | Outpatient (BNVA) | payer OTHER, SELFPAY | DX: F11.20 Opioid dependence, uncomplicated (principal) | CPT/HCPCS: 96372; Q9992 ==

== ENCOUNTER → 2023-04-02 13:40 | Outpatient (BNV) | payer OTHER, SELFPAY | PROVIDERS: Visit Provider Internal Medicine | DX: R59.0 Localized enlarged lymph nodes (principal) | CPT/HCPCS: 99214 ==

== ENCOUNTER 2023-04-02 14:01 | Outpatient (AMB) | payer OTHER, SELFPAY ==
--- NOTE | 2023-04-02 14:01 | AM.OFFVISNUR ---
Intake Vital Signs 04/02/23 14:08 BP 112/72 Blood Pressure Location Lt radial Position Sitting Pulse 78 Pulse Source Pulse Oximeter Pulse Oximetry (%) 96 Oxygen Delivery Method Room Air Intake Visit Reasons: Sub Inj Intake Note: the patient presents for a sub inj Demolition Hammer Operator Required: No Allergies No Known Allergies Allergy (Verified 04/02/23 14:10) Do you need a note to return to daycare/school/sports/work: No Nursing Note Pt tolerated injection well, denies concerns about previous injection. Educated on signs and symptoms of infection, encouraged to call [facility] with any questions or concerns, pt verbalized understanding. He was in good spirits, smiling, said hes in a program and going to counseling. Talked about his wide and children being in counseling as well and was very happy telling me he feels back on track . Office Meds Sublocade 300 mg/1.5 mL solution,extended release subcutaneous syringe Performing Provider: Lian Ford CNP Performing Location: [facility] Administered by: Grace Romo RN on 04/02/23 14:23 Dose Route Admin Location Dispensed Lot Number Expiration Date [facility] Environmental Compliance Technician 300 mg subcut RLQ 1.5 mL [id number] 05/16/24 [address]-4 [employer]. Coding Assessment & Plan Assessment & Plan Orders: Orders AMB Buprenorphine Injection - Patient Supplied Today F11.10 - Opioid abuse, uncomplicated
[2023-04-02 14:08] VITALS: BP 112/72; PULSE 78; O2SAT 96
== END 2023-04-02 14:40 | disposition home or self-care (01) ==
DX: F11.10 Opioid abuse, uncomplicated (principal)

== ENCOUNTER → 2023-04-02 14:01 | Outpatient (BNVA) | payer OTHER, SELFPAY | DX: F11.20 Opioid dependence, uncomplicated (principal) | CPT/HCPCS: 96372; Q9992 ==

== ENCOUNTER 2023-04-30 13:57 | Outpatient (AMB) | payer OTHER, SELFPAY ==
[2023-04-30 14:27] VITALS: BP 110/60; PULSE 81; O2SAT 99
--- NOTE | 2023-04-30 14:27 | AM.OFFVISNUR ---
Intake Vital Signs 04/30/23 14:27 BP 110/60 Blood Pressure Location Lt brachial Position Sitting Pulse 81 Pulse Source Pulse Oximeter Pulse Oximetry (%) 99 Oxygen Delivery Method Room Air Intake Visit Reasons: Sub Inj Allergies No Known Allergies Allergy (Verified 04/02/23 14:10) Nursing Note Patient to clinic for sublocade injection. He states he is feeling good, denies any cravings, still residing in a program and sees his family for visits often. He was in good spirits, alert and oriented x4, well appearing. Will see pt again for injection in 4 weeks. Office Meds Sublocade 300 mg/1.5 mL solution,extended release subcutaneous syringe Performing Provider: Lian Ford CNP Performing Location: [facility] Administered by: Grace Romo RN on 04/30/23 14:38 Dose Route Admin Location Dispensed Lot Number Expiration Date [facility] Cutting Machine Tender Helper 300 mg subcut llq 1.5 mL [id number] 06/16/24 [address]-0 [employer]. Comments: Patient tolerated injection with no stated or noted side effects. Will call [facility] with any concerns or questions. Coding Assessment & Plan Assessment & Plan Orders: Orders AMB Buprenorphine Injection - Patient Supplied Today F11.10 - Opioid abuse, uncomplicated
== END 2023-04-30 14:37 | disposition home or self-care (01) ==
DX: F11.10 Opioid abuse, uncomplicated (principal)

== ENCOUNTER → 2023-04-30 13:57 | Outpatient (BNVA) | payer OTHER, SELFPAY | DX: F11.10 Opioid abuse, uncomplicated (principal) | CPT/HCPCS: 96372; Q9992 ==

== ENCOUNTER 2023-05-28 14:02 | Outpatient (AMB) | payer OTHER, SELFPAY ==
--- NOTE | 2023-05-28 14:05 | MHC.AM.SUB ---
Intake Intake Visit Reasons: Sub Inj Intake Note: the patient presents for a sub inj Store Gift Wrap Associate Required: No Allergies No Known Allergies Allergy (Verified 05/28/23 14:05) Do you need a note to return to daycare/school/sports/work: No REPLACED BY [facility] Medical History Active substance abuse Drug overdose Social History Household Members: None Housing: Homeless Do you presently have visiting nurse or other home services: No Alcohol intake: current Patient Tobacco Use Status: Never used Tobacco Years Smoked: ''not sure, for awhile'' e-Cigarette/Vaping Use: Currently Using Second Hand Smoke Exposure: Yes Substance Use Type: Crack/Cocaine, Heroin and Other service: No Sexual orientation: Straight/Heterosexual Coding
[2023-05-28 14:10] VITALS: BP 130/78; PULSE 68; O2SAT 97
--- NOTE | 2023-05-28 14:39 | AM.OFFVISNUR ---
Intake Vital Signs 05/28/23 14:10 BP 130/78 Blood Pressure Location Lt radial Pulse 68 Pulse Source Pulse Oximeter Pulse Oximetry (%) 97 Oxygen Delivery Method Room Air Intake Visit Reasons: Sub Inj Allergies No Known Allergies Allergy (Verified 05/28/23 14:05) Nursing Note Patient in for injection today, appeared well, smiling, very happy. 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 He agrees to call for any concerns or questions. Office Meds Sublocade 100 mg/0.5 mL solution,extended release subcutaneous syringe Performing Provider: Lian Ford CNP Performing Location: [facility] Administered by: Grace Romo RN on 05/28/23 14:45 Dose Route Admin Location Dispensed Lot Number Expiration Date [facility] Teacher Home Therapy 100 mg subcut RLQ 0.5 mL [id number] 05/16/24 [address]-0 [employer]. Coding Assessment & Plan Assessment & Plan Orders: Orders AMB Buprenorphine Injection - Patient Supplied Today F11.10 - Opioid abuse, uncomplicated
== END 2023-05-28 14:34 | disposition home or self-care (01) ==
DX: F11.10 Opioid abuse, uncomplicated (principal)

== ENCOUNTER → 2023-05-28 14:02 | Outpatient (BNVA) | payer OTHER, SELFPAY | DX: F11.10 Opioid abuse, uncomplicated (principal) | CPT/HCPCS: 96372; Q9992 ==

== ENCOUNTER 2023-07-02 13:17 | Outpatient (AMB) | payer OTHER, SELFPAY ==
--- NOTE | 2023-07-02 13:17 | AM.OFFVISNUR ---
Intake Vital Signs 07/02/23 13:20 BP 128/84 Blood Pressure Location Lt brachial Position Sitting Pulse 80 Pulse Source Pulse Oximeter Pulse Oximetry (%) 97 Oxygen Delivery Method Room Air Intake Visit Reasons: Sub Inj Allergies No Known Allergies Allergy (Verified 05/28/23 14:05) Nursing Note Patient in for injection today, alert and oriented x4. Patient appeared anxious, asking to leave soon , and admitted feeling overwhelmed and inquired about a stronger dose of medication, which we did talk about changing next injection, he agreed and appreciated this. He acknowledged feeling both stressed but blessed being able to spend more time with family. I offered for him to see the provider soon, which he agreed would benefit him, he booked a telehealth visit upon check out, and I reviewed this with Lian GAUTAM. Office Meds Sublocade 100 mg/0.5 mL solution,extended release subcutaneous syringe Performing Provider: Leticia Freed NP Performing Location: [facility] Administered by: Grace Romo RN on 07/02/23 14:01 Dose Route Admin Location Dispensed Lot Number Expiration Date [facility] Shift Manager 100 mg subcut LLQ 0.5 mL [id number] 11/17/23 [address]-6 [employer]. Coding Assessment & Plan Assessment & Plan Orders: Orders AMB Buprenorphine Injection - Patient Supplied Today F11.10 - Opioid abuse, uncomplicated Medications: New Sublocade ER (buprenorphine) 100 mg (0.5 mL) subcut ONCE 0.5 mL 0RF NS F11.10 - Opioid abuse, uncomplicated
[2023-07-02 13:20] VITALS: BP 128/84; PULSE 80; O2SAT 97
== END 2023-07-02 13:49 | disposition home or self-care (01) ==
DX: F11.10 Opioid abuse, uncomplicated (principal)

== ENCOUNTER → 2023-07-02 13:17 | Outpatient (BNVA) | payer OTHER, SELFPAY | DX: F11.10 Opioid abuse, uncomplicated (principal) | CPT/HCPCS: 96372; Q9992 ==

== ENCOUNTER 2023-07-17 13:02 | Outpatient (AMB) | payer OTHER, SELFPAY ==
--- NOTE | 2023-07-17 13:01 | A.OFFVISCC_ITS ---
Intake Visit Reasons: MAT Allergies No Known Allergies Allergy (Verified 05/28/23 14:05) [facility] HPI MAT: Details: Patient presents for follow up via telehealth [employer]ed [employer] Reporting he stopped Wellbutrin about a month and a half ago because he was having trouble sleeping and felt that it was making him more anxious. Inquired what time he was taking medication and he reports taking it around lunch time T/w reminded patient that medication is intended to be taken in the morning due to stimulating properties. Patient does not wish to remain on medication --open to trialing new medicaiotn for depressive an danxious sx. Discussed previous trials, he states that SSRIs change my personality --he expanded to say that he felt numb while taking them He acknowledges increase in stresses with family and work Also, requesting increase in sublocade dose as he feels 100mg dose is not effective [facility] Medical History (Updated 07/23/23 @ 17:46 by iLan Ford CNP) Opioid use disorder Right knee pain Low back pain Sore throat Opioid withdrawal Polysubstance abuse Depression Suicidal ideation Active substance abuse Drug overdose Social History Household Members: None Housing: Homeless Do you presently have visiting nurse or other home services: No Alcohol intake: current Patient Tobacco Use Status: Never used Tobacco Years Smoked: ''not sure, for awhile'' e-Cigarette/Vaping Use: Currently Using Second Hand Smoke Exposure: Yes Substance Use Type: Crack/Cocaine, Heroin and Other service: No Sexual orientation: Straight/Heterosexual Review of Systems Const Reports as per HPI Telehealth Telehealth Telehealth Platform: Telephone Location of patient: other Patient Identification confirmed using: Name, : Yes Telehealth method: voice only Patient verbally consented to treatment: Yes Patient verbally consented to billing insurance company: Yes Minutes spent on Phone/Video with Pt.: 35 Assessment & Plan Assessment & Plan (1) Opioid use disorder: Code(s): F11.90 - Opioid use, unspecified, uncomplicated Category: Medical Plan: * sublocade 300mg dose ordered for next visit * films ordered until then (2) MDD (major depressive disorder), recurrent episode, severe: Code(s): F33.2 - Major depressive disorder, recurrent severe without psychotic features Category: Medical Plan: * agreeable to trial of mirtazipine --reviewed dosing, side effects, and goals of treatment * encouraged to call office with any questions Medications: New mirtazapine 7.5 mg PO BEDTIME 30 tabs 0RF Changed From buprenorphine-naloxone 8-2 mg 1 film buccal BID PRN 15 ea 0RF opiate withdrawal To buprenorphine-naloxone 8-2 mg (Suboxone) 1 film buccal BID 28 ea 0RF Discontinued bupropion HCl XL Discontinued Reason: Patient no longer taking 300 mg PO DAILY 30 days 30 tabs 0RF
== END 2023-07-17 13:33 | disposition home or self-care (01) ==
PROVIDERS: Visit Provider Nurse Practitioner Psychiatric/Mental Health
DX: F11.90 Opioid use, unspecified, uncomplicated (principal); F33.2 Major depressive disorder, recurrent severe without psychotic features
CPT/HCPCS: 99214

== ENCOUNTER → 2023-07-17 13:02 | Outpatient (BNVA) | payer OTHER, SELFPAY | PROVIDERS: Visit Provider Nurse Practitioner Psychiatric/Mental Health ==

== ENCOUNTER 2023-07-30 12:58 | Outpatient (AMB) | payer OTHER, SELFPAY ==
--- NOTE | 2023-07-30 13:02 | AM.OFFVISNUR ---
Intake Vital Signs 07/30/23 13:04 BP 118/86 Blood Pressure Location Lt brachial Position Sitting Pulse 91 Pulse Source Pulse Oximeter Pulse Oximetry (%) 98 Oxygen Delivery Method Room Air Intake Visit Reasons: Sub Inj Allergies No Known Allergies Allergy (Verified 05/28/23 14:05) Nursing Note Patient in for injection today, he appears well and happy, smiling, talking in calm, appropriate/clear sentences. States he is excited to stay at 300mg for injection, It lasts the month, I think I need that . He states he is working two jobs, and is keeping busy. Will follow up for injection in 4 weeks. Office Meds Sublocade 300 mg/1.5 mL solution,extended release subcutaneous syringe Performing Provider: Lian Ford CNP Performing Location: [facility] Administered by: Grace Romo RN on 07/30/23 09:01 Dose Route Admin Location Dispensed Lot Number Expiration Date [facility] Auto Servicer 300 mg subcut LUQ 1.5 mL [id number] 05/16/24 [address]-4 [employer] Coding Assessment & Plan Assessment & Plan Orders: Orders AMB Buprenorphine Injection - Patient Supplied 07/30/23 F11.90 - Opioid use, unspecified, uncomplicated Medications: New Sublocade ER (buprenorphine) 300 mg (1.5 mL) subcut ONCE 1.5 mL 0RF NS F11.90 - Opioid use, unspecified, uncomplicated
[2023-07-30 13:04] VITALS: BP 118/86; PULSE 91; O2SAT 98
== END 2023-07-30 13:38 | disposition home or self-care (01) ==
DX: F11.90 Opioid use, unspecified, uncomplicated (principal)

== ENCOUNTER → 2023-07-30 12:58 | Outpatient (BNVA) | payer OTHER, SELFPAY | DX: F11.90 Opioid use, unspecified, uncomplicated (principal) | CPT/HCPCS: 96372; Q9992 ==

== ENCOUNTER 2023-09-10 15:24 | Outpatient (AMB) | payer OTHER, SELFPAY ==
--- NOTE | 2023-09-10 15:28 | AM.OFFVISNUR ---
Intake Intake Visit Reasons: Sub Inj Allergies No Known Allergies Allergy (Verified 05/28/23 14:05) Nursing Note Patient here today in clinic for injection. Pt is alert and oriented x4, in good spirits, speaking in clear/full sentences. Denies any complications with previous injection. Patient states that he is getting a lot of exercise and losing unwanted weight, we talked about increasing protein intake and trying to fit snacks in throughout the work day. Sublocade 300mg given in the LLQ with no noted or stated reaction/complications. Patient will follow up with nurse visit in 4 weeks. Office Meds Sublocade 300 mg/1.5 mL solution,extended release subcutaneous syringe Performing Provider: Lian Ford CNP Performing [facility] Administered by: Grace Romo RN on 09/10/23 15:39 Dose Route Admin Location Dispensed Lot Number Expiration Date [facility] Assembler Erector 300 mg subcut 1.5 mL [id number] 12/16/24 [address]-1 [employer]. Coding Assessment & Plan Assessment & Plan Orders: Orders AMB Buprenorphine Injection - Patient Supplied Today F11.90 - Opioid use, unspecified, uncomplicated Medications: New Sublocade ER (buprenorphine) 300 mg (1.5 mL) subcut ONCE 1.5 mL 0RF NS F11.90 - Opioid use, unspecified, uncomplicated
== END 2023-09-10 15:41 | disposition home or self-care (01) ==
DX: F11.90 Opioid use, unspecified, uncomplicated (principal)

== ENCOUNTER → 2023-09-10 15:24 | Outpatient (BNVA) | payer OTHER, SELFPAY | DX: F11.90 Opioid use, unspecified, uncomplicated (principal); Z79.899 Other long term (current) drug therapy | CPT/HCPCS: 96372; Q9992 ==

== ENCOUNTER 2023-09-14 06:40 | Emergency (ER) | payer OTHER, SELFPAY ==
[2023-09-14 06:58] VITALS: RESP 14; BMI 23.1
[2023-09-14 07:01] VITALS: RESP 16
--- NOTE | 2023-09-14 07:04 | PC.NURSE ---
pt not fully cooperative with exchange underwriting consultant process, questioning why he is here, inquiring about whether or not he is sectioned. When asked to change out of his shirt, he requests to leave stating I aint dealing with this shit, I wanna go if I aint being held here . GUCCI Sky at bedside at this time
--- NOTE | 2023-09-14 07:11 | ED_ITS ---
HPI - General Adult General Chief complaint: ETOH/Substance Use Stated complaint: crisis Time Seen by Provider: 09/14/23 07:02 Source: patient Mode of arrival: ambulatory Limitations: no limitations History of Present Illness ED Provider: Asya Lats APRN HPI narrative: 43-year-old male with a history of polysubstance use presents the ER seeking detox. Patient reports that he uses cocaine daily and occasionally opiates. He denies IV drug abuse. He reports he is currently not suicidal or homicidal. He has no physical complaints. He is currently on a wait list for [facility] detox but states I don't feel safe out there because I'm afraid I'm going to use again. Related Data Previous Rx's ?Medication ?Instructions ?Recorded clonidine HCl 0.1 mg tablet 0.1 mg PO BID PRN Anxiety 30 days 03/04/23 #60 tabs collagenase clostridium histo. 250 1 appl topical DAILY 30 days #30 03/04/23 unit/gram topical ointment (Santyl) grams hydroxyzine HCl 10 mg tablet 10 mg PO TID 30 days #90 tabs 03/04/23 melatonin 3 mg tablet 9 mg (3 x 3 mg) PO BEDTIME PRN 03/04/23 insomnia 30 days #90 tabs nicotine (polacrilex) 2 mg gum 4 mg buccal Q2H PRN Nicotine 03/05/23 Cravings 30 days #110 ea buprenorphine 300 mg/1.5 mL 300 mg (1.5 mL) subcut .every 4 07/02/23 solution,exten.rel.subcutaneous weeks #1.5 mL syringe (Sublocade) mirtazapine 7.5 mg tablet 7.5 mg PO BEDTIME #30 tabs 08/14/23 buprenorphine 8 mg-naloxone 2 mg 1 film buccal BID #28 ea 09/02/23 sublingual film (Suboxone) Allergies Allergy/AdvReac Type Severity Reaction Status Date / Time No Known Allergies Allergy Verified 09/14/23 07:00 Review of Systems Review of Systems: Yes all other systems are reviewed and are negative Constitutional: Constitutional: Reports no additional constitutional complaints, Denies body ache(s), Denies chills, Denies fever(s), Denies headache(s) and Denies weakness Eyes: Eyes: Reports no additional eye complaints and Denies change in vision ENT: Reports system reviewed and no additional complaints, except as documented, Denies dizziness, Denies headache(s), Denies nasal congestion, Denies nasal discharge and Denies neck pain Cardiovascular: Cardiovascular: Reports no additional cardiovascular complaints, Denies chest pain, Denies leg edema and Denies dyspnea Respiratory: Respiratory: Reports no additional respiratory complaints, Denies cough and Denies dyspnea Gastrointestinal: Gastrointestinal: Reports no additional gastrointestinal complaints, Denies abdominal pain, Denies diarrhea, Denies nausea and Denies vomiting Genitourinary: Genitourinary: Denies urinary incontinence Musculoskeletal: Musculoskeletal: Reports no additional musculoskeletal complaints, Denies back pain, Denies arthralgias, Denies joint swelling, Denies neck pain, Denies numbness and Denies tingling Integumentary/Breasts: Skin/Breast: Reports system reviewed and no additional complaints, except as docu and Denies rash Neurologic: Reports system reviewed and no additional complaints, except as documented, Denies Abnormal speech present, Denies dizziness, Denies headache(s), Denies numbness, Denies tingling and Denies weakness Psychiatric: Psychiatric: Denies homicidal ideation and Denies suicidal ideation [facility] Past Medical History Attestation statement: The following information was validated with the patient. Source: old records reviewed and nursing notes reviewed Medical History Opioid use disorder Right knee pain Low back pain Sore throat Opioid withdrawal Polysubstance abuse Depression Suicidal ideation Active substance abuse Drug overdose Social History Social History Household Members: None Housing: Homeless Do you presently have visiting nurse or other home services: No Alcohol intake: current Patient Tobacco Use Status: Never used Tobacco Years Smoked: ''not sure, for awhile'' Smoked in Last 30 Days: Yes e-Cigarette/Vaping Use: Currently Using Second Hand Smoke Exposure: Yes Use of substances other than those prescribed or required for medical reasons: Yes Substance Use Type: Crack/Cocaine and Heroin Substance Use Frequency: Chronic Longstanding Last Used Substance: Hours (ago) Any prior treatment program specific to substance use: No service: No Sexual orientation: Straight/Heterosexual Physical Exam ED Vital Signs: Vital Signs - 24 hr 09/14/23 06:58 09/14/23 07:01 Respiratory Rate 14 16 BMI result Body Mass Index 23.1 Const General: cooperative, healthy appearing, comfortable and no acute distress Orientation/consciousness: patient oriented x3 Limitations: no limitations HENMT Head: Yes normal to inspection Ears: hearing grossly normal bilaterally General nose exam: Normal external nose present Face and sinus: Yes normal facial exam Mouth: Normal oral and palatal mucosa present Throat: Yes posterior oropharynx normal Eyes General: appearance normal, both eyes and all related structures Pupils: Equal, round and reactive pupils present Neck Neck: Yes normal visual inspection Chest Chest palpation & inspection: normal inspection of the chest Resp Effort & Inspection: normal respiratory effort Auscultation: clear to auscultation bilaterally Cardio Rate: regular rate Rhythm: regular rhythm Peripheral pulses: Peripheral pulses 2+ throughout GI Inspection: Yes normal to inspection Palpation (GI): Soft to palpation and nontender Auscultation: normal bowel sounds Back/Spine/Pelvis Thoracic/Lumbar Spine: thoracic and lumbar spine normal to inspection Skin General skin exam: no rashes or lesions noted Neuro General: patient oriented x3, no focal motor deficits and normal sensation to monofilament Cranial nerves: Yes Equal, round and reactive pupils present Cognition (Neuro): normal cognition Speech: No Abnormal speech present Gait exam (Neuro): Normal gait present Motor exam (neuro): 5/5 motor strength present throughout Extrem General: Yes normal to inspection Medical Decision Making Medical Decision Making [facility] Narrative: 43-year-old male with a history of polysubstance use presents the ER seeking detox. Patient reports that he uses cocaine daily and occasionally opiates. He denies IV drug abuse. He reports he is currently not suicidal or homicidal. He has no physical complaints. He is currently on a wait list for [facility] but states I don't feel safe out there because I'm afraid I'm going to use again. Patient is seeking to speak to recovery. No concern for acute ingestion or trauma. Vitals are stable According to nursing we have no recovery team here this weekend and patient should be provided with detox list. There is no safety concerns barring the patient from discharge therefore he will be sent home with a list and return precautions Differential Diagnosis Differential Diagnoses: The differential diagnosis associated with the presentation includes Polysubstance use Admission/Observation Consideration of admission/observation: Escalation of care including admission/observation considered See discussion in MDM Social Determinants Patient?s care significantly limited by Social Determinants of Health including: Alcoholism and drug addiction in family and Other Social Determinant of Health Discharge Plan Discharge Clinical Impression: Cocaine abuse Patient Disposition: Home, Self-Care Instructions: Cocaine Abuse (ED) Prescriptions: No Action mirtazapine 7.5 mg tablet 7.5 mg PO BEDTIME Qty: 30 0RF buprenorphine-naloxone [Suboxone] 8-2 mg film 1 film buccal BID Qty: 28 0RF melatonin 3 mg Tablet 9 mg PO BEDTIME PRN (Reason: insomnia) 30 Days Qty: 90 0RF hydroxyzine HCl 10 mg Tablet 10 mg PO TID 30 Days Qty: 90 0RF clonidine HCl 0.1 mg Tablet 0.1 mg PO BID PRN (Reason: Anxiety) 30 Days Qty: 60 0RF Protocol: Hold for SBP< HOLD for SBP < : 90 Santyl 250 unit/gram Ointment 1 appl topical DAILY 30 Days Qty: 30 0RF Protocol: Apply to: Apply to: Right foot nicotine (polacrilex) 2 mg Gum 4 mg buccal Q2H PRN (Reason: Nicotine Cravings) 30 Days Qty: 110 0RF Sublocade 300 mg/1.5 mL solution, extended rel syringe 300 mg subcut .every 4 weeks Qty: 1.5 5RF Print Language: Sinhala
--- OUTSIDE RECORDS SUMMARY | 2023-09-14 07:27 | XMS_ITS | Continuity of Care Document ---
Author Organization [facility] Address [address] [place] [address]- Care Team Providers Care Research Study Assistant Name Role Phone Raúl Mota MD Primary Care Physician Encounter [facility] Date(s): 05/23/23 - 06/22/23 [facility] [address] [place] [id number]- Allergies, Adverse Reactions, Alerts No Known Allergies [...] mg sublingual film 1 film, Sublingual, Daily, [id number], # 10 film, 0 Refills, Maintenance, 07/31/21 [...] in lifetime) entered on: 03/23/21 Sex Male Patient Care team information Care Team Personnel Name: Raúl Mota MD Position: S Physician - Primary Care Member Role: PCP Address: Address: [address] [place] [address] [address] Epstein [place], [place] [address] Name: Kate Hernandez RN Position: S RN Member Role: Primary Care Nurse Name: Julia Hennessy Position: S RN Member Role: Primary Care Nurse Name: Anita Jeter RN Position: [facility] RN Member Role: Primary Care Nurse Care Team Related Persons Name: ELLIE CHANDRAY Address: home [address] [place] [id number]
--- OUTSIDE RECORDS SUMMARY | 2023-09-14 07:27 | XMS_ITS | Continuity of Care Document ---
Author Organization [facility] Address [address] [place] [address]- Care Team Providers Care Pegger Name Role Phone Raúl Mota MD Primary Care Physician [facility] [facility] [place](s): 06/07/23 - 09/06/23 [facility] [address] [place] [email or web address] Attending Physician: Talisha Nam MD Admitting Physician: Talisha Nam MD Referring Physician: Raúl Mota MD Allergies, Adverse Reactions, Alerts No Known [...] mg sublingual film 1 film, Sublingual, Daily, [id number], # 10 film, 0 Refills, Maintenance, 07/31/21 [...] Team Personnel Name: Raúl Mota MD Position: [facility] Physician - Primary Care Member Role: PCP Address: Address: [address] [place] [address] [address] [place] [address]- Name: Kate Hernandez RN Position: S RN Member Role: Primary Care Nurse Name: Julia Hennessy RN Position: S RN Member Role: Primary Care Nurse Name: Anita Jeter RN Position: S RN Member Role: Primary Care Nurse Care Team Related Persons Name: NAKIA CHANDRA Address: home [address] [place] [address]
--- OUTSIDE RECORDS SUMMARY | 2023-09-14 07:27 | XMS_ITS | Continuity of Care Document ---
Author Organization [facility] Address [address] [place] [address]- Care Team Providers Care Tomography Technologist Name Role Phone Nakul SUNSHINE, Raúl Goodwin Primary Care Physician [place] [facility]23 - 06/27/23 [facility] [address] [place] [phone]- Allergies, Adverse Reactions, Alerts No Known Allergies [...] mg sublingual film 1 film, Sublingual, Daily, [id number], # 10 film, 0 Refills, Maintenance, 07/31/21 [...] Primary Care Member Role: PCP Address: Address: [address] [place] [address] [address] Epstein [place], [place] [address] Name: Kate Hernandez RN Position: S RN Member Role: Primary Care Nurse Name: Julia Hennessy Position: S RN Member Role: Primary Care Nurse Name: Anita Jeter RN Position: [facility] RN Member Role: Primary Care Nurse Care Team Related Persons Name: ELLIE CHANDRAY Address: home [address] [place] [id number]
--- OUTSIDE RECORDS SUMMARY | 2023-09-14 07:27 | XMS_ITS | Continuity of Care Document ---
Author Organization [facility] Address [address] [place] [address]- Care Team Providers Care Producer Arborist Manager Name Role Phone Raúl Mota MD Primary Care Physician Encounter [facility] Date(s): 08/07/23 - 09/06/23 [facility] [address] [place] [id number] Attending Physician: Edis Jimenes Admitting Physician: Admtr, [...] mg sublingual film 1 film, Sublingual, Daily, [id number], # 10 film, 0 Refills, Maintenance, 07/31/21 [...] Name: Raúl Mota MD Position: [facility] Physician - Primary Care Member Role: PCP Address: Address: [address] [place] [address] & [place] [address]- Name: Kate Hernandez RN Position: S RN Member Role: Primary Care Nurse Name: Julia Hennessy RN Position: S RN Member Role: Primary Care Nurse Name: Anita Jeter RN Position: S RN Member Role: Primary Care Nurse Care Team Related Persons Name: NAKIA CHANDRA Address: home [address] [place] [address]
[2023-09-14 07:28] VITALS: BP 0/0; PULSE 67; RESP 16; TEMP 37.1; O2SAT 97
--- NOTE | 2023-09-14 07:34 | PC.NURSE ---
Due to recovery not being present on the weekends, a list with detox facilities was provided to the patient, patient requested to leave, PA perez
== END 2023-09-14 07:35 | disposition home or self-care (01) ==
LOC: HO.ED 07:25
PROVIDERS: Emergency Provider Emergency Medicine; PCP Nurse Practitioner Psychiatric/Mental Health
DX: F14.10 Cocaine abuse, uncomplicated (principal); F33.2 Major depressive disorder, recurrent severe without psychotic features; F19.10 Other psychoactive substance abuse, uncomplicated; F10.10 Alcohol abuse, uncomplicated; F11.20 Opioid dependence, uncomplicated; Z79.899 Other long term (current) drug therapy
CPT/HCPCS: 99284

== ENCOUNTER 2023-09-15 07:37 | Emergency (ER) | payer OTHER, SELFPAY ==
[2023-09-15 07:39] VITALS: BP 103/67; PULSE 81; RESP 16; TEMP 36.6; O2SAT 96; BMI 23.1
--- NOTE | 2023-09-15 07:53 | ECG_ITS ---
Test Reason : ETOH Blood Pressure : / mmHG Vent. Rate : 060 BPM Atrial Rate : 060 BPM P-R Int : 154 ms QRS Dur : 086 ms QT Int : 412 ms P-R-T Axes : 077 048 043 degrees QTc Int : 412 ms Normal sinus rhythm ST elevation, consider early repolarization Borderline ECG When compared with ECG of 19-FEB-2023 12:54, No significant change was found Referred By: Hodan Santos Electronically Signed By:LESLYE MOSS MD
--- NOTE | 2023-09-15 07:54 | ED_ITS ---
HPI - Psych General Chief Complaint: Psychiatric Symptoms Stated Complaint: SI Time Seen by Provider: 09/15/23 07:49 Source: patient Mode of arrival: ambulatory Limitations: no limitations History of Present Illness ED Provider: DR. Santos HPI Narrative: 43-year-old male with history of MDD, opiate use, cocaine use, and ETOH use patient walked into emergency department complaining of depression and suicidal ideation plan. Patient suffer from major depression disorder feeling more depressed due to many factors in his life including financial and relationship with his patient does not talk about it at the moment, feels depressed and having suicidal thoughts to overdose on heroin. Had prior attempt to hurt himself by intentional overdoses, had a prior psych admission in the past here today seeking help. Patient was sober for few months then he relapsed 5 days ago, patient also admitted to using drugs. Related Data Previous Rx's ?Medication ?Instructions ?Recorded clonidine HCl 0.1 mg tablet 0.1 mg PO BID PRN Anxiety 30 days 03/04/23 #60 tabs collagenase clostridium histo. 250 1 appl topical DAILY 30 days #30 03/04/23 unit/gram topical ointment (Santyl) grams hydroxyzine HCl 10 mg tablet 10 mg PO TID 30 days #90 tabs 03/04/23 melatonin 3 mg tablet 9 mg (3 x 3 mg) PO BEDTIME PRN 03/04/23 insomnia 30 days #90 tabs nicotine (polacrilex) 2 mg gum 4 mg buccal Q2H PRN Nicotine 03/05/23 Cravings 30 days #110 ea buprenorphine 300 mg/1.5 mL 300 mg (1.5 mL) subcut .every 4 07/02/23 solution,exten.rel.subcutaneous weeks #1.5 mL syringe (Sublocade) mirtazapine 7.5 mg tablet 7.5 mg PO BEDTIME #30 tabs 08/14/23 buprenorphine 8 mg-naloxone 2 mg 1 film buccal BID #28 ea 09/02/23 sublingual film (Suboxone) Allergies Allergy/AdvReac Type Severity Reaction Status Date / Time No Known Allergies Allergy Verified 09/15/23 07:41 Review of Systems 2 Review of Systems: All other systems are reviewed and are negative Constitutional: Reports as per HPI and Reports no additional constitutional complaints Eyes: Reports as per HPI and Reports no additional eye complaints Reports system reviewed and no additional complaints, except as documented Cardiovascular: Reports as per HPI and Reports no additional cardiovascular complaints Respiratory: Reports as per HPI and Reports no additional respiratory complaints Gastrointestinal: Reports as per HPI and Reports no additional gastrointestinal complaints Genitourinary: Reports no additional female genitourinary complaints Musculoskeletal: Reports no additional musculoskeletal complaints Skin/Breast: Reports system reviewed and no additional complaints, except as docu Psychiatric: Reports no additional psychiatric complaints Endocrine: Reports no additional endocrine complaints Hematologic/Lymphatic: Reports no additional hematologic/lymphatic complaints Allergic/Immunologic: Reports no additional allergic/immunologic complaints Reports system reviewed and no additional complaints, except as documented and Reports Abnormal speech present [facility] Past Medical History Medical History Opioid use disorder Right knee pain Low back pain Sore throat Opioid withdrawal Polysubstance abuse Depression Suicidal ideation Active substance abuse Drug overdose Social History Social History Household Members: None Housing: Homeless Do you presently have visiting nurse or other home services: No Alcohol intake: current Patient Tobacco Use Status: Never used Tobacco Years Smoked: ''not sure, for awhile'' e-Cigarette/Vaping Use: Currently Using Second Hand Smoke Exposure: Yes Substance Use Type: Crack/Cocaine and Heroin Advance Directives: No service: No Sexual orientation: Straight/Heterosexual Physical Exam 2 Vital Signs: Vital Signs: Last Vital Signs Temp 98.3 F 09/15/23 10:41 Pulse 58 09/15/23 10:41 Resp 14 09/15/23 10:41 BP 106/59 L 09/15/23 10:41 Pulse Ox 98 09/15/23 10:41 O2 Del Method Room Air 09/15/23 10:41 BMI result Body Mass Index 23.1 Vital signs have been reviewed and appear to be correct. Blood pressure elevated. Heart rate normal. Respiratory rate normal. Temperature normal. Oxygen saturation normal. Appearance: Alert. Oriented X3. No acute distress. Head: Normal external exam. Normocephalic. Atraumatic. No Maldonado signs noted. No raccoon eyes noted Eyes: PERRLA. EOMI. Conjunctiva and sclera normal. Eyelids normal. ENT: TM's Normal. Pharynx normal. Uvula midline. Moist mucous membranes. No trismus noted. No drooling noted. No muffled voice noted. Neck: Normal inspection. Neck supple. FROM. No adenopathy. Thyroid Normal. No meningeal signs. No neck mass noted. CVS: Normal heart rate and rhythm. Heart sound normal. No murmurs noted. Pulses normal throughout. Respiratory: No respiratory distress. Painless inspiration. Breath sounds normal. No wheezes/rales/rhonchi noted. Chest nontender. No accessory muscle usage noted or decreased air movement noted. Abdomen: Soft and nontender. Bowel sounds normal in all 4 quadrants. No distention noted. No organomegaly noted. No visible injury noted. Back: No CVA tenderness. Full range of motion noted. Skin: Skin warm and dry. Normal skin color. Normal skin turgor. No rashes/lesions/lacerations noted. Extremities: No lower extremity edema. Extremities exhibit normal range of motion. Extremities nontender. Neuro: Oriented X 3. Cranial nerve exam: II-XII are grossly intact No motor deficit. No sensory deficit. Reflexes normal. Patient Orientation: Person, Place, Time and Situation, okay hygiene and grooming. Fair eye contact, attentive, no tics or tremors. Level of Consciousness: Awake, Appropriate and Alert Patient Behavior: Appropriate, Guarded, Cooperative and Anxious Mood Description: Constricted, Blunted and Apprehensive Affect Description: Constricted, Blunted and Apprehensive Patient Cognition Impaired: No Ability to Follow Directions: Excellent Speech Pattern: Clear, Appropriate and Spontaneous Speech, nonpressured, spontaneous with regular rate and rhythm, normal volume and prosody. No dysarthria. Memory Description: Intact, Immediate Intact and Short Term Intact Hallucinations: None Delusions: Not Present Thought Process: Intact Thought Content: positive for Intact, positive for suicidal ideation with plan of overdosing. denies Homicidal Ideation. Depressive Symptoms: Not present. Judgement and Insight: Limited but adequate. Course Reevaluation(s) Reevaluation #1: Depression and SI will start medical clearance process and care team evaluation. Time: 08:00 Reevaluation #2: medically cleared, start physician observation, care team to evaluate. Time: 11:57 Medical Decision Making Differential Diagnosis Differential Diagnoses: The differential diagnosis associated with the presentation includes ( Medical clearance, electrolyte derangement, severe anemia, substance abuse, SI, hallucination.) Admission/Observation Consideration of admission/observation: Escalation of care including admission/observation considered Lab Data MDM Lab Attestation statement: I reviewed the patient's lab results. 09/15/23 08:50 09/15/23 08:50 Labs: Lab Results 09/15/23 Range/Units 08:50 WBC 5.6 (4.8-10.8) X10*3/uL RBC 4.62 (4.60-5.80) X10*6/uL Hgb 14.1 (14.0-18.0) g/dl Hct 42.3 (42.0-52.0) % MCV 91.6 (80.0-98.0) fL MCH 30.5 (27.0-33.0) pg MCHC 33.3 (31.0-36.0) g/dl RDW 13.2 (11.0-16.0) % Plt Count 201 (160-400) X10*3/uL MPV 9.7 (9.4-12.4) fL Immature Gran % (Auto) 0.4 (0.0-0.4) % Neut % (Auto) 52.8 (45-73) % Lymph % (Auto) 29.6 (20-40) % Gallia % (Auto) 12.5 H (2-11) % Eos % (Auto) 3.6 (0-4) % Baso % (Auto) 1.1 (0-2) % Lymph # (Auto) 1.7 (1.2-4.9) X10*3/uL Gallia # (Auto) 0.7 (0.1-1.2) X10*3/uL Eos # (Auto) 0.2 (0.0-0.4) X10*3/uL Baso # (Auto) 0.1 (0.0-0.2) X10*3/uL Abs Immat Gran (auto) 0.02 (0.00-0.03) X10*3/uL Absolute Neuts (auto) 3.0 (2.0-8.3) x10*3/uL Absolute Nucleated RBC 0.000 (0.0-0.012) X10*3/uL Nucleated RBC % (auto) 0.0 (0.0-0.2) /100WBC Sodium 142 (135-145) mmol/L Potassium 4.0 (3.3-5.1) mmol/L Chloride 107 (96-108) mmol/L Carbon Dioxide 28 (22-29) mmol/L Anion Gap 11 L (12-20) BUN 14 (9-16) mg/dL Creatinine 0.90 (0.5-1.4) mg/dL Estim Creat Clear Calc 115.4 Estimated GFR > 60 Random Glucose 84 (60-115) mg/dL Calcium 8.7 D (8.4-10.2) mg/dL Total Bilirubin 0.7 (0.0-1.0) mg/dL Direct Bilirubin 0.2 (0.0-0.5) mg/dL AST 24 (5-37) U/L ALT 19 (0-40) U/L Alkaline Phosphatase 57 (39-117) U/L Troponin I High Sens 7.6 (<3.5-35.0) ng/L Total Protein 6.0 L (6.5-8.0) g/dL Albumin 3.7 (3.5-5.0) g/dL Lipase 22 (8-78) U/L Ethyl Alcohol < 10 mg/dL Discharge Plan Discharge Clinical Impression: MDD (major depressive disorder), recurrent episode, severe, Active substance abuse Patient Disposition: Still a Patient Prescriptions: No Action mirtazapine 7.5 mg tablet 7.5 mg PO BEDTIME Qty: 30 0RF buprenorphine-naloxone [Suboxone] 8-2 mg film 1 film buccal BID Qty: 28 0RF melatonin 3 mg Tablet 9 mg PO BEDTIME PRN (Reason: insomnia) 30 Days Qty: 90 0RF hydroxyzine HCl 10 mg Tablet 10 mg PO TID 30 Days Qty: 90 0RF clonidine HCl 0.1 mg Tablet 0.1 mg PO BID PRN (Reason: Anxiety) 30 Days Qty: 60 0RF Protocol: Hold for SBP< HOLD for SBP < : 90 Santyl 250 unit/gram Ointment 1 appl topical DAILY 30 Days Qty: 30 0RF Protocol: Apply to: Apply to: Right foot nicotine (polacrilex) 2 mg Gum 4 mg buccal Q2H PRN (Reason: Nicotine Cravings) 30 Days Qty: 110 0RF Sublocade 300 mg/1.5 mL solution, extended rel syringe 300 mg subcut .every 4 weeks Qty: 1.5 5RF Print Language: Finnish
--- NOTE | 2023-09-15 08:01 | PC.NURSE ---
patient is changed over by security, changed into hospital attire. has sitter at bedside. patient belongings placed in laundry closet in the pod. patient is calm and cooperative,
--- NOTE | 2023-09-15 08:20 | PC.NURSE ---
Spoke with family who shares concerns for pt well being and substance use and expressions of suicidal ideation to family. Erratic behaviors and concerning post on social media Contact numbers Megan () [phone] Gisel (mom) [phone] Sarai (sister) [phone] wire stripper
[2023-09-15 08:55] LABS: MANUAL DIFF FLAG NO
[2023-09-15 08:56] LABS: Basophils Absolute Auto 0.1 X10*3/uL (0.0-0.2); Basophils Percent Auto 1.1 % (0-2); Eosinophils Absolute Auto 0.2 X10*3/uL (0.0-0.4); Eosinophils Percent Auto 3.6 % (0-4); Hematocrit 42.3 % (42.0-52.0); Hemoglobin 14.1 g/dl (14.0-18.0); Imm Gran Abs Auto 0.02 X10*3/uL (0.00-0.03); Imm Gran Pct Auto 0.4 % (0.0-0.4); Lymphocytes Absolute Auto 1.7 X10*3/uL (1.2-4.9); Lymphocytes Percent Auto 29.6 % (20-40); Mean Corpuscular HGB Conc 33.3 g/dl (31.0-36.0); Mean Corpuscular Hemoglobin 30.5 pg (27.0-33.0); Mean Corpuscular Volume 91.6 fL (80.0-98.0); Mean Platelet Volume 9.7 fL (9.4-12.4); Monocytes Absolute Auto 0.7 X10*3/uL (0.1-1.2); Monocytes Percent Auto 12.5 % (2-11); Neutrophils Percent Auto 52.8 % (45-73); Platelet Count 201 X10*3/uL (160-400); Red Blood Count 4.62 X10*6/uL (4.60-5.80); Red Cell Distribution Width 13.2 % (11.0-16.0); White Blood Count 5.6 X10*3/uL (4.8-10.8)
[2023-09-15 09:31] LABS: Alanine Aminotransferase 19 U/L (0-40); Albumin Level 3.7 g/dL (3.5-5.0); Alkaline Phosphatase 57 U/L (39-117); Anion Gap 11 (12-20); Aspartate Amino Transferase 24 U/L (5-37); Bilirubin Direct 0.2 mg/dL (0.0-0.5); Bilirubin Total 0.7 mg/dL (0.0-1.0); Blood Urea Nitrogen 14 mg/dL (9-16); Calcium 8.7 mg/dL (8.4-10.2); Carbon Dioxide 28 mmol/L (22-29); Chloride 107 mmol/L (96-108); Creatinine Clr Calc Pharmacy 115.4; Estimated Glomerular Filt Rate > 60; Ethanol < 10 mg/dL; Glucose Random 84 mg/dL (60-115); Lipase 22 U/L (8-78); Sodium 142 mmol/L (135-145)
[2023-09-15 09:38] LABS: Troponin-I High Sensitivity 7.6 ng/L (<3.5-35.0)
[2023-09-15 10:41] VITALS: BP 106/59; PULSE 58; RESP 14; TEMP 36.8; O2SAT 98
--- NOTE | 2023-09-15 12:45 | PC.NURSE ---
comsec manager Pt noted to still have tshirt on and cell phone, security called to bedside. Cell phone placed with other belongings in POD, pt reports allergy to hospital gown and request to keep tshirt on per security. Pt observer at bedside
--- NOTE | 2023-09-15 15:44 | PC.NURSE ---
RN to RN phone report given to Noelle, patient already in pod getting changed over.
[2023-09-15 16:06] LABS: Appearance Urine Clear; Color Urine Dark Yellow; Glucose Urine UA Negative (Negative); Leukocyte Esterase Urine Trace (Negative); Nitrite Urine Negative (Negative); PH 5.5 (5.0-9.0); Specific Gravity - Urine >= 1.030 (1.005-1.025); UMIC TRIGGER UACC YES; Urine Blood Negative (Negative); Urine Ketones Trace mg/dL (Negative); Urine Protein Trace mg/dL (Neg-Trace)
[2023-09-15 16:11] LABS: Bacteria Urine None Seen (None Seen); Hyaline Casts Urine 0-2 /LPF (0-2); RBC Urine 0-2 /HPF (0-2); Squamous Epithelial Cell Urine 0-2 /HPF (0-2); WBC Urine 0-5 /HPF (0-5)
[2023-09-15 16:16] LABS: Amphetamine Screen Urine Not Detected (Not Detect); Barbiturates, Urine Not Detected (Not Detect); Benzodiazepines Screen Urine POSITIVE (Not Detect); Buprenorphine Scr Positive (Not Detect); Cannabinoid Screen Urine Not Detected (Not Detect); Cocaine Screen Urine POSITIVE (Not Detect); Fentanyl, urine POSITIVE (Not Detect); Methadone Screen, Urine Not Detected (Not Detect); Opiate Screen Urine Not Detected (Not Detect); Oxycodone Screen Urine Not Detected (Not Detect); Phencyclidine Screen Urine Not Detected (Not Detect)
[2023-09-16 06:34] VITALS: BP 96/45; PULSE 52; RESP 14; TEMP 36.7; O2SAT 95
[2023-09-16 06:35] VITALS: BP 94/40
--- NOTE | 2023-09-16 10:14 | MHC.RECOVRN ---
Met with pt in [facility] after request by CARE Team. Pt presented to the ED with SI without a plan as well as substance use. Pt had been cleared by CARE Team with a plan to discharge today with planned admission to [facility] tomorrow. Pt laying down, eyes closed, wakes to voice, engages in conversation. Pt reports recurrence x 1 week, has been using 3.5 grams cocaine daily, IV and INH, as well as 1 pint of hard liquor. Pt denies other substances. Pts UDS positive for buprenorphine, fentanyl, benzodiazepines, and cocaine. In regards to opioids, pt states I haven't used heroin because I am on the Sublocade shot. Pt was seen at the [facility] on 09/10/23 and received a 300 mg Sublocade injection. Pt states I can't discharge today, I am not in a safe space mentally. Pt reports SI with plan to overdose. Pt states I know I can't go to [facility] with SI so if my disposition needs to change then it needs to change. Pt denies questions or concerns for t/w. Discussed with CARE Team.
--- NOTE | 2023-09-16 11:52 | MHC.CARE ---
Pt will remain in the ED at this time as a dual diagnosis bed search for safety and stabilization.
--- NOTE | 2023-09-16 12:52 | MHC.CARE ---
Pt was accepted to [facility] by Raúl. and the ETA is 5pm. The accepting doctor is Dr. Molly Bates and the address is [address] [place] [id number]. No nurse to nurse is required. Pod RN Lázaro and CARE team were notified of acceptance.
[2023-09-16 14:00] VITALS: BP 98/58; PULSE 87; RESP 16; O2SAT 98
[2023-09-16 17:00] VITALS: BP 98/58; PULSE 87; RESP 16; TEMP 36.7; O2SAT 98
== END 2023-09-16 17:07 ==
PROVIDERS: Emergency Provider Emergency Medicine; PCP Internal Medicine
DX: F33.1 Major depressive disorder, recurrent, moderate (principal); R45.851 Suicidal ideations; R94.31 Abnormal electrocardiogram [ECG] [EKG]; Z79.899 Other long term (current) drug therapy
CPT/HCPCS: 36415; 80048; 80076; 80307; 81001; 83690; 84484; 85025; 93005; 99285; S9485

== ENCOUNTER → 2023-09-15 07:53 | Outpatient (BNV) | payer OTHER, SELFPAY | PROVIDERS: Emergency Provider Emergency Medicine; Visit Provider Internal Medicine Cardiovascular Disease | DX: R94.31 Abnormal electrocardiogram [ECG] [EKG] (principal) | CPT/HCPCS: 93010 ==

== ENCOUNTER 2024-11-19 22:59 | Emergency (ER) | payer OTHER, SELFPAY ==
--- NOTE | 2024-11-19 | ECG_ITS ---
Test Reason : MED CLEARNC Blood Pressure : */* mmHG Vent. Rate : 80 BPM Atrial Rate : 80 BPM P-R Int : 160 ms QRS Dur : 84 ms QT Int : 354 ms P-R-T Axes : 68 65 54 degrees QTcB Int : 408 ms Sinus rhythm with marked sinus arrhythmia Early repolarization Otherwise normal ECG When compared with ECG of 15-Sep-2023 08:15, No significant change was found Referred By: Es Mann Electronically Signed By: Duke Strong
--- OUTSIDE RECORDS SUMMARY | 2024-11-19 16:53 | XMS_ITS | Encounter Summary ---
Author Organization [facility] Address [address] [place] [address] Care Team Providers Care Contact Lens Technician Name Role Phone Raúl Blancas Primary Care Provider [phone] Reason for Visit * Reason Comments Palpitations My heart is beating out of my chest & my throat is starting to close Encounter Details Date Type Department Care Team (Late st Contact Info) Description 11/19/2024 4:53 PM EDT - 11/19/2024 6:04 PM EDT Emergency [facility] Emergency [address] [place] [id number] Rosetta Stephenson MD [address] [place] [address] Discharge Disposition: Left Against Medical Advice Social History Tobacco Use Types Packs/Day Years Used Date Smoking Tobacco: Former Cigarettes Smokeless Tobacco: Current Alcohol Use Standard Drinks/Week Comments No 0 (1 standard drink = 0.6 oz pur e alcohol) Sex and Gender Information Value Date Recorded Sex Assigned at Not on file Legal Sex Male 9:27 AM EST Gender Identity Not on file Sexual Orientation Not on file documented as of this encounter Medications at Time of Discharge ARIPiprazole (ABILIFY) 2 mg tablet Take 1 tablet (2 mg total) by mouth 1 (one) time each day. 11/30/2020 buPROPion XL (WELLBUTRIN XL) 300 mg 24 hr tablet Take 1 tablet by mouth every morning. 09/20/2020 diclofenac (VOLTAREN) 1 % topical gel Apply 2 g topically 4 times daily as needed for Other (b/l elbow pain). 03/15/2020 famotidine (PEPCID) 20 mg tablet Take 1 Tab by mouth 2 times daily as needed for Heartburn. 02/19/2020 documented as of this encounter Discharge Disposition Disposition Code Departure Means Destination Comment s Left Against Medical Advice documented in this encounter Progress Notes * Ernestine Bhatt RN - 11/19/2024 4:53 PM EDT Pt brought into ED by [facility] nurse as he was found running around in the lobby naked. Pt denies SI/HI to her but stated he is having palpitations. Pt has cocaine use history, states last used 8 hours ago * Rosetta Stephenson MD - 11/19/2024 4:48 PM EDT Patient Name: Matteo Ledesma Date and Time of Assessment: 5:20 PM EDT 11/19/24 Patient : 1980 Patient's PMD: GUCCI Mark Chief Complaint Patient presents with ??? Palpitations My heart is beating out of my chest & my throat is starting to close HPI: 44 yo male with PMH Cocaine use presents to the ED for palpitations. Pt brought into ED by [facility] nurse as he was found running around in the lobby naked. Pt denies SI/HI to her but stated he is having palpitations. Pt has cocaine use history, states last used 8 hours ago PHYSICAL EXAM: Visit Vitals Smoking Status Former General: calm, cooperative Resp: no respiratory distress Abd: Soft, non-tender, non-distended Ext: No edema Neuro: AAOx3, no focal deficits MEDICAL DECISION MAKING: Patient presents today for palpitations On initial evaluation, patient is sitting in stretcher, appears mildly agitated but calm Initial Plan: Based on the patient's presentation today, we will obtain vitals, EKG, basic labs, CXR. Please see ED course for my interpretation of lab results and imaging which I independently reviewed. Updates in patient care are also noted there accordingly. EMERGENCY DEPARTMENT COURSE AND TREATMENT: Available prior records were reviewed. Patient history and allergies reviewed. Nursing note reviewed. The diagnostic results contained in this document reflect the information available to the physician at the time of the patient encounter. Final results, when completed, will be found in the patient's hospital chart. Medications - No data to display ED Course as of 11/19/24 175 Moraima Nov 19, 2024 1755 Pt walked out to lobby prior to medical work up. Likely eloped. [BM] ED Course User Index [BM] Rosetta Stephenson MD Procedures Rosetta Stephenson MD 11/19/241729 Rosetta Stephenson MD 11/19/241755 documented in this encounter Plan of Treatment Scheduled Orders Name Type Priority Associated Diagnoses Orde r Schedule 12-Lead ECG ECG STAT Once for 1 Oc currences starting 11/19/2024 until 11/19/2024 documented as of this encounter Visit Diagnoses Not on filedocumented in this encounter Care Teams Contact Lens Technician Relationship Specialty Start Date End Date Raúl Blancas PA [address] [place] [address] PCP - General Internal Medicine 11/19/24 documented as of this encounter
[2024-11-19 23:02] VITALS: BP 127/67; PULSE 102; RESP 16; TEMP 36.5; O2SAT 99; BMI 22.1
--- NOTE | 2024-11-20 00:03 | ED.PSYCH ---
HPI - Psych General Chief Complaint: Psychiatric Symptoms Stated Complaint: SI/HI with a plan Time Seen by Provider: 11/19/24 23:28 Source: patient Mode of arrival: ambulatory Limitations: no limitations History of Present Illness ED Provider: Dr. Es Mann HPI Narrative: Patient comes to the emergency room complaining of suicidal ideation. Patient states that he was considering jumping off a bridge or shooting himself. Denies homicidal ideation. Patient states that he has had a lot of issues with his marriage. Patient states that since he did not have the responsibility of a family/, he started using drugs again. Patient reports using heroin and cocaine. Related Data Home Medications ?Medication ?Instructions ?Recorded ?Confirmed bupropion HCl 150 mg tablet,12 hr 150 mg PO QAM 11/20/24 11/20/24 sustained-release testosterone cypionate 200 mg/mL 300 mg IM QWEEK 11/20/24 11/20/24 intramuscular oil Allergies Allergy/AdvReac Type Severity Reaction Status Date / Time No Known Allergies Allergy Verified 11/19/24 23:10 Review of Systems Review of Systems: Constitutional : No Weight loss, No Fever, No Chills, No Night Sweats, No Fatigue, No Malaise ENT/Mouth : No Hearing loss, No Ear Pain, No Nasal Congestion, No Sinus Pain, No Hoarseness, No sore throat, No Rhinorrhea, No Swallowing Difficulty Eyes: No Eye Pain, No Swelling, No Redness, No Foreign Body, No Discharge, No Vision Changes Cardiovascular : No Chest Pain, No SOB, No Dyspnea on Exertion, No Orthopnea, No Edema, No Palpitations Respiratory : No Cough, No Sputum, No Wheezing, No Smoke Exposure, No Dyspnea Gastrointestinal : No Nausea, No Vomiting, No Diarrhea, No Constipation, No abdominal Pain, No Hematochezia, No Melena Genitourinary : no irregular bleeding, No Dysuria, No Urinary Frequency, No Hematuria, No Urinary Incontinence, No Urgency, No Flank Pain, No Urinary Flow Changes, No Hesitancy Musculoskeletal : No joint pain, No Myalgias, No Joint Swelling Skin : No Skin Lesions, No rash, complaining of 2nd toe pain of the left foot for several weeks Neuro : No Weakness, No Numbness, No Paresthesias, No Loss of Consciousness, No Dizziness, No Headache Psych : No Anxiety/Panic, complaining of depression, SI, no HI, admits to narcotics/opiates and cocaine relapse Heme/Lymph: No Bruising, No Bleeding,No Lymphadenopathy Endocrine : No Polyuria, No Polydipsia, No Temperature Intolerance PMFSH Past Medical History Medical History Opioid use disorder Right knee pain Low back pain Sore throat Opioid withdrawal Polysubstance abuse Depression Suicidal ideation Active substance abuse Drug overdose Social History Social History Household Members: None Housing: Homeless Do you presently have visiting nurse or other home services: No Alcohol intake: current Alcohol intake frequency: does not drink Patient Tobacco Use Status: Never used Tobacco Years Smoked: ''not sure, for awhile'' Smoked in Last 30 Days: Yes e-Cigarette/Vaping Use: Currently Using Second Hand Smoke Exposure: Yes Use of substances other than those prescribed or required for medical reasons: Yes Substance Use Type: Crack/Cocaine and Heroin Advance Directives: No service: No Sexual orientation: Straight/Heterosexual Physical Exam Exam: Exam: Appearance: Alert. Oriented X3. No acute distress. Coherent Eyes: Pupils equal, round and reactive to light. ENT: Pharynx normal. Neck: Normal inspection. Neck supple. No lymph nodes noted. No crepitus CVS: Normal heart rate and rhythm. Pulses normal. Normal S1 and S2 Respiratory: No respiratory distress. Breath sounds normal. No Wheezing. No rales Abdomen: Soft and nontender. No rigidity. No distention. Skin: Skin warm and dry. Normal skin color. Normal skin turgor. Patient's 2nd toe has a loose toenail. It will probably fall off. No signs of cellulitis Extremities: No lower extremity edema. No Lacerations. No Rash Neuro: Oriented X 3. No motor deficit. No sensory deficit. Moving all extremities. No slurred speech. CN 2 through 12 grossly intact Psych: calm, cooperative, normal affect Vital Signs: Vital Signs: Last Vital Signs Temp 98.9 F 11/20/24 08:24 Pulse 97 11/20/24 08:24 Resp 16 11/20/24 08:24 BP 116/62 11/20/24 08:24 Pulse Ox 98 11/20/24 08:24 O2 Del Method Room Air 11/20/24 08:24 BMI result Body Mass Index 22.1 Course Course Course Narrative: Patient is on a Section 12 Care team consult pending Bacitracin was applied to the second left toe Physician observation started 00:02 Reevaluation(s) Reevaluation #1: Time: 10:29 Date: 11/20/24 Provider: Vj Dhillon MD Physician observation ended at 10:29. Patient has been seen by the care team with the recommendation for inpatient psychiatric treatment. Arrangements has been made for the patient to be admitted to the [facility]. He will be transferred there by ambulance.. Medications Administered Discontinued Medications Generic Name Dose Route Start Last Admin Trade Name Freq PRN Reason Stop Dose Admin Diphenhydramine HCl 50 mg 11/20/24 01:08 11/20/24 01:26 Diphenhydramine Hcl 25 Mg Capsule PO 11/20/24 01:09 50 mg ONCE ONE Administration Lorazepam 2 mg 11/20/24 01:08 11/20/24 01:26 Lorazepam 1 Mg Tablet PO 11/20/24 01:09 2 mg ONCE ONE Administration Medical Decision Making Differential Diagnosis Differential Diagnoses: The differential diagnosis associated with the presentation includes (Alcohol abuse, polysubstance abuse, anxiety, depression) Admission/Observation Consideration of admission/observation: Escalation of care including admission/observation considered (Patient is on a Section 12 waiting to be seen by the care team to determine patient's disposition) Lab Data 11/19/24 23:58 11/19/24 23:58 Labs: Lab Results 11/19/24 11/20/24 Range/Units 23:58 00:54 WBC 10.3 (4.8-10.8) X10*3/uL RBC 4.56 L (4.60-5.80) X10*6/uL Hgb 15.0 (14.0-18.0) g/dl Hct 42.3 (42.0-52.0) % MCV 92.8 (80.0-98.0) fL MCH 32.9 (27.0-33.0) pg MCHC 35.5 (31.0-36.0) g/dl RDW 13.5 (11.0-16.0) % Plt Count 210 (160-400) X10*3/uL MPV 9.3 L (9.4-12.4) fL Immature Gran % (Auto) 0.2 (0.0-0.4) % Neut % (Auto) 69.9 (45-73) % Lymph % (Auto) 18.4 L (20-40) % [place] % (Auto) 10.4 (2-11) % Eos % (Auto) 0.5 (0-4) % Baso % (Auto) 0.6 (0-2) % Lymph # (Auto) 1.9 (1.2-4.9) X10*3/uL [place] # (Auto) 1.1 (0.1-1.2) X10*3/uL Eos # (Auto) 0.1 (0.0-0.4) X10*3/uL Baso # (Auto) 0.1 (0.0-0.2) X10*3/uL Abs Immat Gran (auto) 0.02 (0.00-0.03) X10*3/uL Absolute Neuts (auto) 7.2 (2.0-8.3) x10*3/uL Absolute Nucleated RBC 0.000 (0.0-0.012) X10*3/uL Nucleated RBC % (auto) 0.0 (0.0-0.2) /100WBC Sodium 142 (135-145) mmol/L Potassium 4.9 D (3.3-5.1) mmol/L Chloride 104 (96-108) mmol/L Carbon Dioxide 28 (22-29) mmol/L Anion Gap 15 (12-20) BUN 19 H (9-16) mg/dL Creatinine 1.08 (0.5-1.4) mg/dL Estim Creat Clear Calc 91.2 Estimated GFR > 60 Random Glucose 127 H (60-115) mg/dL Calcium 8.8 (8.4-10.2) mg/dL Total Bilirubin 0.9 (0.0-1.0) mg/dL AST 49 H (5-37) U/L ALT 44 H (0-40) U/L Alkaline Phosphatase 44 (39-117) U/L Total Protein 6.6 (6.5-8.0) g/dL Albumin 4.5 (3.5-5.0) g/dL Urine Color Dark Yellow Urine Appearance Clear Urine pH 6.0 (5.0-9.0) Ur Specific [place] >= 1.030 H (1.005-1.025) Urine Protein Trace (Neg-Trace) mg/dL Urine Glucose (UA) Negative (Negative) mg/dL Urine Ketones Trace (Negative) mg/dL Urine Blood Negative (Negative) Urine Nitrite Negative (Negative) Ur Leukocyte Esterase Negative (Negative) Urine Opiates Screen Not Detected (Not Detect) Ur Buprenorphine Scrn Positive H (Not Detect) ng/mL Ur Oxycodone Screen Not Detected (Not Detect) ng/mL Urine Methadone Screen Not Detected (Not Detect) ng/mL Urine Fentanyl Screen Not Detected (Not Detect) Ur Barbiturates Screen Not Detected (Not Detect) Ur Phencyclidine Scrn Not Detected (Not Detect) Ur Amphetamines Screen Not Detected (Not Detect) U Benzodiazepines Scrn POSITIVE H (Not Detect) Urine Cocaine Screen POSITIVE H (Not Detect) U Marijuana (THC) Screen Not Detected (Not Detect) Ethyl Alcohol < 10 mg/dL Critical Care Time Critical Care Time Critical Care Time: Yes Total Critical Care Time: 35 Attestation: I have personally provided critical care time. Time includes review of lab data, radiology results, discussion with consultants, and monitoring for potential decompensation. Intervention performed as documented. Discharge Plan Discharge Clinical Impression: Polysubstance abuse, Suicidal ideation Patient Disposition: Xfer Psychiatric Hosp Transfer Details: [facility] Prescriptions: No Action bupropion HCl 150 mg tablet sustained-release 12 hr 150 mg PO QAM testosterone cypionate 200 mg/mL oil 300 mg IM QWEEK Interventions: [place]-Suicide Risk Severity Scale Last Done: 11/19/24 23:34 Print Language: German
[2024-11-20 00:04] LABS: Hematocrit 42.3 % (42.0-52.0); Hemoglobin 15.0 g/dl (14.0-18.0); Imm Gran Abs Auto 0.02 X10*3/uL (0.00-0.03); Imm Gran Pct Auto 0.2 % (0.0-0.4); Lymphocytes Absolute Auto 1.9 X10*3/uL (1.2-4.9); MANUAL DIFF FLAG NO; Mean Corpuscular HGB Conc 35.5 g/dl (31.0-36.0); Mean Corpuscular Hemoglobin 32.9 pg (27.0-33.0); Mean Corpuscular Volume 92.8 fL (80.0-98.0); NRBC Abs Auto 0.000 X10*3/uL (0.0-0.012); NRBC Pct Auto 0.0 /100WBC (0.0-0.2); Platelet Count 210 X10*3/uL (160-400); Red Blood Count 4.56 X10*6/uL (4.60-5.80); White Blood Count 10.3 X10*3/uL (4.8-10.8)
[2024-11-20 00:21] LABS: Alanine Aminotransferase 44 U/L (0-40); Albumin Level 4.5 g/dL (3.5-5.0); Alkaline Phosphatase 44 U/L (39-117); Anion Gap 15 (12-20); Aspartate Amino Transferase 49 U/L (5-37); Blood Urea Nitrogen 19 mg/dL (9-16); Calcium 8.8 mg/dL (8.4-10.2); Carbon Dioxide 28 mmol/L (22-29); Chloride 104 mmol/L (96-108); Creatinine Clr Calc Pharmacy 91.2; Estimated Glomerular Filt Rate > 60; Potassium 4.9 mmol/L (3.3-5.1); Sodium 142 mmol/L (135-145); Total Protein 6.6 g/dL (6.5-8.0)
[2024-11-20 01:07] LABS: Appearance Urine Clear; Glucose Urine UA Negative (Negative); PH 6.0 (5.0-9.0); Specific Gravity - Urine >= 1.030 (1.005-1.025)
--- OUTSIDE RECORDS SUMMARY | 2024-11-20 01:08 | XMS_ITS | Clinical Summary ---
Author Organization [address] Address [address] [place] [address] Phone Care Team Providers Care Interpretative Dancer Name Role Phone Raúl Blancas Primary Care Provider [phone] Allergies No known active allergies Medications ARIPiprazole (ABILIFY) 2 mg tablet Take 1 tablet (2 mg total) by mouth 1 (one) time each day. 1 Active buPROPion XL (WELLBUTRIN XL) 300 mg 24 hr tablet Take 1 tablet by mouth every morning. 1 Active diclofenac (VOLTAREN) 1 % topical gel Apply 2 g topically 4 times daily as needed for Other (b/l elbow pain). 0 Active famotidine (PEPCID) 20 mg tablet Take 1 Tab by mouth 2 times daily as needed for Heartburn. 0 Active Active Problems Problem Noted Date Diagnosed Date Subclinical hypothyroidism 12/18/2019 Anxiety 07/19/2017 Depression 07/19/2017 Moderate heroin dependence i n early remission ([facility] V24, [facility] V28) 07/19/2017 Overview (03/03/2024): Starting 2000, last use 05/2017, in a community recovery program, also with his psychiatrist Encounters Date Type Department Care Team Description 11/19/2024 4:53 PM EDT - 11/19/2024 6:04 PM EDT Emergency [facility] Emergency [address] [place] [id number] Rosetta Stephenson MD Discharge Disposition: Left Against Medical Advice from Last 3 Months Immunizations Name Administration Dates Next Due Td Tetanus diptheria (Tdvax) 7yo and older 05/10 Surgical History Surgery Date Site/Laterality Comments OTHER SURGICAL HISTORY Left PROCEDURE: MS RPR NON/MALUNION METARSAL W/WO BONE GRAFT OTHER SURGICAL HISTORY PROCEDURE: MS LARYNGOSCOPY INDIRECT W/BIOPSY; COMMENT: polyps removed Medical History Medical History Date Comments Anxiety and depression DX:Anxiet y and depression Family History Medical History Relation Name Comments Other: IBS Brother Meniere's disease Father Other: chronic low back pain Father No Known Problems Maternal Grandfather Hypertension Maternal Grandmother No Known Problems Mother No Known Problems Paternal Grandfather No Known Problems Paternal Grandmother Arthritis Sister Relation Name Status Comments Brother Alive Father Alive Maternal Grandfather Maternal Grandmother Alive Mother Alive Paternal Grandfather Paternal Grandmother Sister Alive Social History Tobacco Use Types Packs/Day Years Used Date Smoking Tobacco: Former Cigarettes Smokeless Tobacco: Current Alcohol Use Standard Drinks/Week Comments No 0 (1 standard drink = 0.6 oz pur e alcohol) Sex and Gender Information Value Date Recorded Sex Assigned at Not on file Legal Sex Male 9:27 AM EST Gender Identity Not on file Sexual Orientation Not on file Obstetrics History Plan of Treatment Health Maintenance Due Date Last Done Comments Hepatitis A Vaccines (1 of 2 - Risk 2-dose series) 1999 Hepatitis B Vaccines (1 of 3 - 19+ 3-dose series) 1999 Cholesterol Screening (Lipid Panel) 02/12/2022 HIV Screening 02/12/2022 Hepatitis C Screening 02/12/2022 Social Influencers of Health Screening 02/12/2022 Depression Screening 03/18/2024 COVID-19 Vaccine (3 - 2024-2 6 season) 2024 05/17/2020, 04/26/2020 Influenza Vaccine (#1) 2024 DTaP,Tdap,and Td Vaccines (2 - Td or Tdap) 05/10/2027 05/10/2017 HIB Vaccines Aged Out No longer eligi ble based on patient's age to complete this topic HPV Vaccines Aged Out No longer eligi ble based on patient's age to complete this topic IPV Vaccines Aged Out No longer eligi ble based on patient's age to complete this topic MMR Vaccines Aged Out No longer eligi ble based on patient's age to complete this topic Meningococcal ACWY Vaccine Aged Out N o longer eligible based on patient's age to complete this topic Meningococcal B Vaccine Aged Out No l onger eligible based on patient's age to complete this topic Pneumococcal Vaccine: Pediatrics (0 to 5 Years) and At-Risk Patients (6 to 49 Years) Aged Out No longer eligible b ased on patient's age to complete this topic RSV Immunization Patients Under 20 months Aged Out No longer eligible b ased on patient's age to complete this topic Varicella Vaccines Aged Out No longer eligible based on patient's age to complete this topic Insurance [facility] Care Teams Interpretative Dancer Relationship Specialty Start Date End Date Raúl Blancas PA [address] [place] [address] PCP - General Internal Medicine 11/19/24
--- OUTSIDE RECORDS SUMMARY | 2024-11-20 01:08 | XMS_ITS | Encounter Summary ---
Author Organization [facility] Address [address] [place] [address] Care Team Providers Care Production Line Assembler Name Role Phone Raúl Blancas Primary Care Provider [phone] Encounter Details Date Type Department Care Team (Late st Contact Info) Description 07/30/2024 Lab Requisition [facility] - Main Lab [address] [place] [phone] Brien Mitchell PA [address] [phone] Testicular hypofunction Social History Tobacco Use Types Packs/Day Years [...] on file documented as of this encounter Plan of Treatment Not on file documented as of this encounter Procedures Procedure Name Priority Date/Time Associated Diagnosis Comments COMPLETE BLOOD COUNT Routine 07/30/2024 1:47 PM EDT Testicular hypofunction documented in this encounter Results * Complete blood count (07/30/2024 1:47 PM EDT) WBC 5.6 4.8 - 10.8 K/[facility] LAB HEMETOLOGY METHOD 07/30/2024 7:13 PM EDT [facility] LAB RBC 4.60 4.50 - 5.50 M/[facility] LAB HEMETOLOGY METHOD 07/30/2024 7:13 PM EDT [facility] Hemoglobin 14.1 13.5 - 17.5 g/dL LAB HEMETOLOGY METHOD 07/30/2024 7:13 PM EDT [facility] Hematocrit 43.3 42.0 - 54.0 % LAB HEMETOLOGY METHOD 07/30/2024 7:13 PM EDT [facility] MCV 95.2 79.0 - 98.0 FL LAB HEMETOLOGY METHOD 07/30/2024 7:13 PM EDT [facility] MCH 31.0 27.0 - 32.0 pcg LAB HEMETOLOGY METHOD 07/30/2024 7:13 PM EDT [facility] MCHC 32.6 32.0 - 37.0 g/dL LAB HEMETOLOGY METHOD 07/30/2024 7:13 PM EDT [facility] RDW 14.1 11.0 - 15.0 % LAB HEMETOLOGY METHOD 07/30/2024 7:13 PM EDT [facility] Platelets 196 130 - 400 K/mcL LAB HEMETOLOGY METHOD 07/30/2024 7:13 PM EDT [facility] MPV 10.1 7.0 - 11.0 FL LAB HEMETOLOGY METHOD 07/30/2024 7:13 PM EDT [facility] NRBC 0.0 <1.0 % LAB HEMETOLOGY METHOD 07/30/2024 7:13 PM EDT [facility] NRBC Absolute 0.00 <0.10 K/mcL LAB HEMETOLOGY METHOD 07/30/2024 7:13 PM EDT [facility] Blood Venous blood specimen / Unknown 07/30/2024 1:47 PM EDT 07/30/2024 6:40 PM EDT us B[facility] LAB BLOOD ORDERABLES Final Res ult [facility] [address] [place] [address], documented in this encounter Visit Diagnoses Diagnosis Testicular hypofunction Other testicular hypofunction documented in this encounter Care Teams Production Line Assembler Relationship Specialty Start Date End Date Raúl Blancas PA [address] [place] [address] PCP - General Internal Medicine 11/19/24 documented as of this encounter
[2024-11-20 01:11] LABS: Cannabinoid Screen Urine Not Detected (Not Detect)
--- NOTE | 2024-11-20 06:08 | PC.NURSE ---
pt rested well throughout the night. pt did not display any symptoms or behaviors of concern.
--- NOTE | 2024-11-20 07:32 | PC.NURSE ---
Pt sleeping. chest rise noted. skin PWD. NAD.
[2024-11-20 08:24] VITALS: BP 116/62; PULSE 97; RESP 16; TEMP 37.2; O2SAT 98
--- NOTE | 2024-11-20 09:27 | PC.NURSE ---
Pt has been sleeping throughout am. Wakes with verbal stimuli but falls alseep immediatly. Skin pWD. no resp depression. Denies SI.
--- NOTE | 2024-11-20 10:11 | PC.NURSE ---
RN to RN with Tamiko at [facility].
--- NOTE | 2024-11-20 10:14 | MHC.CARE ---
Pt has been accepted to [facility] for today. ETA is 12pm. The accepting doc is Dr. Wagner Dutton and the address is [address] [place] [id number]. CARE team and pod RN have been notified. CARE is working on the section. [facility] will call for nurse to nurse.
[2024-11-20 12:19] VITALS: BP 116/62; PULSE 97; RESP 16; TEMP 37.2; O2SAT 98
== END 2024-11-20 12:20 ==
PROVIDERS: Emergency Provider Emergency Medicine
DX: F19.10 Other psychoactive substance abuse, uncomplicated (principal); R45.851 Suicidal ideations
CPT/HCPCS: 36415; 80053; 80307; 81003; 85025; 93005; 99285; S9485

== ENCOUNTER → 2024-11-19 23:53 | Outpatient (BNV) | payer OTHER, SELFPAY | PROVIDERS: Emergency Provider Emergency Medicine; Visit Provider Internal Medicine Cardiovascular Disease | DX: Z13.6 Encounter for screening for cardiovascular disorders (principal) | CPT/HCPCS: 93010 ==

== ENCOUNTER 2025-03-09 07:01 | Inpatient (IN) | payer OTHER, SELFPAY ==
--- OUTSIDE RECORDS SUMMARY | 2025-03-08 14:25 | XMS_ITS | Continuity of Care Document ---
Author Organization [facility] ter Address [address] [place] [id number]- Care Team Providers Care Health Information Clerk Name Role Phone Not on Staff, PCP Primary Care Physician Unavail able [place] [facility] [place]/04[place]25 - 03/08/[address] [address]- Encounter Diagnosis Fever(Final) - 03/04/25 Intentional self-harm(Final) - 03/04/25 Mental health problem(Final) - 03/04/25 Substance use disorder(Final) - 03/04/25 IVDU (intravenous drug user)(Final) - 03/05/25 Discharge Disposition: A-D/C Home Attending Physician: Mary Gatica MD Admitting Physician: Nasir SUNSHINE, Tani Chahal Referring Physician: Not on Staff, Referring MD Encounter Type: Disch IP Allergies, Adverse Reactions, Alerts No Known Allergies Functional Status Functional Status Assessment Assessment Assessment Component Result Effecti ve Date Total Falls Risk Score 1 03/06 Functional Status Assessment Assessment Assessment Component Result Effecti ve Date Jaspreet scale total score 22 Functional Status Assessment Assessment Assessment Component Result Effecti ve Date Total score [AUDIT] 6 03/05/25 Functional Status Assessment Assessment Assessment Component Result Effecti ve Date Unspecifed Functional Status Assessment Skin abnormality typ e (observable entity) Abrasion 03/08/25 Functional Status Assessment Assessment Assessment Component Result Effecti ve Date Total Falls Risk Score 2 03/08 Functional Status Assessment Assessment Assessment Component Result Effecti ve Date Jaspreet scale total score 23 Functional Status Assessment Assessment Assessment Component Result Effecti ve Date Jaspreet scale total score 21 Functional Status Assessment Assessment Assessment Component Result Effecti ve Date Total Falls Risk Score 2 03/08 Functional Status Assessment Assessment Assessment Component Result Effecti ve Date Unspecifed Functional Status Assessment Skin abnormality typ e (observable entity) Abrasion 03/08/25 Functional Status Assessment Assessment Assessment Component Result Effecti ve Date Unspecifed Functional Status Assessment Skin abnormality typ e (observable entity) Cellulitis 03/08/25 Functional Status Assessment Assessment Assessment Component Result Effecti ve Date Disability status [CUBS] I'm Vulnerable - I sometimes or periodically have acute or chronic symptoms affecting housing, employment, social interactions, etc. 03/05/25 Difficulty Reading O r Writing No 03/05/25 Do you need any additional assistance or accommodations during your visit No 03/05/25 Are you deaf, or do you have serious difficulty hearing No 03/05/25 Are you blind, or do you have serious difficulty seeing, even when wearing glasses No 03/05/25 Do you have serious difficulty walking or climbing stairs No 03/05/25 Because of a physica l, mental, or emotional condition, do you have serious difficulty concentrating, remembering, or making decisions No 03/05/25 Because of a physica l, mental, or emotional condition, do you have difficulty doing errands alone such as visiting a physician's office or shopping No 03/05/25 Do you have difficul ty dressing or bathing No 03/05/25 Difficulty communica ting in usual language No 03/05/25 Immunizations Given and Recorded Vaccine Date Status Refusal Reason tetanus/diphtheria/pertussis, acel(Tdap) 03/03/25 Given Medications amoxicillin-clavulanate 875 mg-125 mg oral tablet 1 tablet, By Mouth, 3 times a day, for 12 days, # 36 tablet, 0 Refills, Acute 03/20/25 3:05:00 PM EST, 03/08/25 3:05:00 PM EST, Tablet, [facility], Partial fill upon patient request if the prescription is for a schedule II opioid drug., 183, cm, 03/07/25 20:29:00 EST, Height, 81, kg, 03/05/25 16:51:00 EST, Dry Weight Start Date: 03/08/25 Stop Date: 03/20/25 Status: Ordered Medication Dispense Status: Completed Quantity: 36.0 Unit: tablet Total Allowed Fills: 1 Fills Dispensed: 0 cloNIDine 0.1 mg oral tablet 0.1 mg, 1, tablet, By Mouth, 2 times a day, PRN, Refills 0, Maintenance, Anxiety, 03/04/25 12:40:00PM EST, Partial fill upon patient request if the prescription is for a schedule II opioid drug. Start Date: 03/04/25 Status: Ordered Medication Dispense Status: Completed Total Allowed Fills: 1 Fills Dispensed: 0 doxepin 10 mg oral capsule 1 capsule = 10 mg, By Mouth, Daily at bedtime, 0 Refills, Maintenance, 03/04/25 12:42:00 PM EST, Partial fill upon patient request if the prescription is for a schedule II opioid drug. Start Date: 03/04/25 Status: Ordered Medication Dispense Status: Completed Total Allowed Fills: 1 Fills Dispensed: 0 Mag-Ox 400 400 mg oral tablet 1 tablet = 400 mg, By Mouth, Daily, 0 Refills, Maintenance, 03/04/25 12:42:00 PM EST, Partial fill upon patient request if the prescription is for a schedule II opioid drug. Start Date: 03/04/25 Status: Ordered Medication Dispense Status: Completed Total Allowed Fills: 1 Fills Dispensed: 0 Methadone Tablet 25 mg, Tablet, By Mouth, taper 5 mg each subsequent day, 03/08/25 9:00:00 AM EST Start Date: 03/08/25 Stop Date: 03/08/25 Status: Completed Medication Dispense Status: Completed Total Allowed Fills: 1 Fills Dispensed: 0 rOPINIRole 0.5 mg oral tablet 1 tablet = 0.5 mg, By Mouth, 3 times a day, 0 Refills, Maintenance, 03/04/25 12:41:00 PM EST, Partial fill upon patient request if the prescription is for a schedule II opioid drug. Start Date: 03/04/25 Status: Ordered Medication Dispense Status: Completed Total Allowed Fills: 1 Fills Dispensed: 0 SEROquel 25 mg oral tablet 25 mg, 1, tablet, By Mouth, Daily at bedtime, Refills 0, Maintenance, 03/04/25 12:39:00 PM EST, Partial fill upon patient request if the prescription is for a schedule II opioid drug. Start Date: 03/04/25 Status: Ordered Medication Dispense Status: Completed Total Allowed Fills: 1 Fills Dispensed: 0 Sublocade 100 mg/0.5 mL subcutaneous solution, extended release 0.5 mL = 100 mg, Subcutaneous Injection, Every 28 days, 0 Refills, Maintenance, 03/04/25 12:39:00 PM EST, Partial fill upon patient request if the prescription is for a schedule II opioid drug. Start Date: 03/04/25 Status: Ordered Medication Dispense Status: Completed Total Allowed Fills: 1 Fills Dispensed: 0 testosterone cypionate 200 mg/mL intramuscular solution 1.5 mL = 300 mg, Intramuscular, Every Saturday, 0 Refills, Maintenance, 03/04/25 12:38:00 PM EST, Partial fill upon patient request if the prescription is for a schedule II opioid drug. Start Date: 03/04/25 Status: Ordered Medication Dispense Status: Completed Total Allowed Fills: 1 Fills Dispensed: 0 Wellbutrin XL 150 mg/24 hours oral tablet, extended release 1 tablet = 150 mg, By Mouth, Every 24 hours, TDD: 450 mg, 0 Refills, Maintenance, 03/04/25 12:39:00PM EST, Partial fill upon patient request if the prescription is for a schedule II opioid drug. Start Date: 03/04/25 Status: Ordered Medication Dispense Status: Completed Total Allowed Fills: 1 Fills Dispensed: 0 Wellbutrin XL 300 mg/24 hours oral tablet, extended release 1 tablet = 300 mg, By Mouth, Every 24 hours, TDD: 450 mg, 0 Refills, Maintenance, 03/04/25 12:38:00PM EST, Partial fill upon patient request if the prescription is for a schedule II opioid drug. Start Date: 03/04/25 Status: Ordered Medication Dispense Status: Completed Total Allowed Fills: 1 Fills Dispensed: 0 Mental Status Mental Status Assessment Assessment Assessment Component Result Effecti ve Date Hardy coma score total 15 Mental Status Assessment Assessment Assessment Component Result Effecti ve Date Hardy coma score total 15 Problem List Condition Confirmation Course Effective Dates Status Health St atus Informant Cellulitis Confirmed Active Vital Signs Most recent to oldest [Reference Range]: 1 2 3 Height 183 cm (03/07/25 8:29 PM) 183 cm (03/07/25 1:19 PM) 183 cm (03/07/25 4:17 AM) Weight 81 kg (03/05/25 4:51 PM) Oxygen Saturation [94-100 %] 98 % (03/08/25 1:00 PM) 98 % (03/07/25 8:29 PM) 98 % (03/07/25 1:19 PM) Pulse Rate [55-90 bpm] 70 bpm (03/08/25 1:00 PM) 58 bpm (03/07/25 8:29 PM) 66 bpm (03/07/25 1:19 PM) Body Mass Index [18.5-24.99 kg/m2] 24.19 kg/m2 (03/05/25 4:51 PM) Blood Pressure [90-138/55-84 mm Hg] 137/69mm Hg (03/08/25 1:00 PM) 127/63mm Hg (03/07/25 8:29 PM) 106/68mm Hg (03/07/25 1:19 PM) Respiratory Rate [16-30 br/min] 14 br/min *L* (03/08/25 1:00 PM) 16 br/min (03/08/25 10:02 AM) 16 br/min (03/08/25 9:02 AM) Temperature [96.8-100.4 DegF] 98 DegF (03/08/25 1:00 PM) 98.3 DegF (03/07/25 8:29 PM) 97.5 DegF (03/07/25 1:19 PM) Mode of Delivery (Oxygen) Room air (03/08/25 1:00 PM) Room air (03/07/25 8:29 PM) Room air (03/07/25 1:19 PM) Blood pressure sites Arm, left (03/08/25 1:00 PM) Arm, left (03/07/25 8:29 PM) Arm, left (03/07/25 1:19 PM) Temperature Route Oral (03/08/25 1:00 PM) Oral (03/07/25 8:29 PM) Oral (03/07/25 1:19 PM) Dry Weight 81 kg (03/05/25 4:51 PM) Weight Obtained Via Patient/family state d (03/05/25 4:51 PM) Dry Weight Obtained Via Patient/family s tated (03/05/25 4:51 PM) Social History Social History Type Response Smoking Status Never (less than 100 in lifetime) entered on: 03/23/21 Sex Male Sex Representation Male (finding) Status N/A Social Determinants of Health Assessment Assessment Assessment Component Result Effecti ve Date Unspecifed Social Determinants of Health Assessment Are you worried abou t losing your housing [PRAPARE] Yes 03/05/25 Housing status I have housing 03/05/25 Has lack of transpor tation kept you from medical appointments, meetings, work, or from getting things needed for daily living Yes, it has kept me from non-medical meetings, appointments, work, or from getting things that I need 03/05/25 Have you or any fami ly members you live with been unable to get any of the following when it was really needed in past 1 year [PRAPARE] None 03/05/25 Do you feel physical ly and emotionally safe where you currently live [PRAPARE] Yes 03/05/25 How often do you see or talk to people that you care about and feel close to [PRAPARE] 6 or more times a week 03/05/25 Within the last year , have you been afraid of your partner or ex-partner No 03/05/25 Admission evaluation note * Farida DUCKWORTH, Golden Reed: PERFORM Event Display: Admission Note Authored Date: [id number] Patient: ??MATTEO LEDESMA ? Age:??44 Years?Sex:??Male?:??1980?LOC:??[facility]?? Chief Complaint/Reason for Consultation coming from home, PD called EMS, said he attempted SI 4 days ago, he tried to cut himself and tried to hang himself. History of Present Illness 44-year-old male with history of??polysubstance use,??depression??who has been having??issues with his?and kids,??inflicting self-harm with??numerous??lacerations??to his forearms bilaterally,??expressing??suicidal thoughts??and??police??were called, patient was sectioned??and sent to??the ED for crisis evaluation. ?? In the ED,??patient was noted to have a white blood cell count of 15.6,??Tmax of 101.5 ??F, heart rate 114??and??numerous??horizontal lacerations on bilateral forearms with??surrounding erythema??and??purulent drainage from numerous??wounds on the left forearm.?? He was given??2 L IV fluids, vancomycin and referred for admission.?? He was seen by crisis and formal evaluation pending.?? He is currently denying suicidal ideation??to me.?? He is set up to go to rehab in [place] for alcohol and drug treatment program??on??March 15. ? Social history:??No tobacco.?? He uses cocaine and heroin intranasally, last use??4 days ago ?? Baseline:??Independent in all ADLs ?? HCP:??His Megan Ledsema ?? Code status:??Full code, confirmed. Review of Systems C/o??sever anxiety and feeling very thirsty.??No chest pain, shortness of breath, fevers, chills, nausea, vomiting or diarrhea. Eating and sleeping well. Objective Vital Signs?? Temperature: 98.1 DegF (03/04/25 10:18:00) Temperature Route: Oral (03/04/25 10:18:00) Pulse Rate: 57 bpm (03/04/25 10:18:00) Respiratory Rate: 28 br/min (03/04/25 10:18:00) Systolic Blood Pressure: 128 mm Hg (03/04/25 10:18:00) Diastolic Blood Pressure: 65 mm Hg (03/04/25 10:18:00) Blood pressure sites: Arm, right (03/04/25 10:18:00) Mean Arterial Pressure: 86 mm Hg (03/04/25 07:41:00) Pulse Pressure: 63 mm Hg (03/04/25 10:18:00) Oxygen Saturation: 99 % (03/04/25 10:18:00) Mode of Delivery (Oxygen): Room air (03/04/25 10:18:00) Early Warning Score: 2 (03/04/25 10:22:42) ? Intake/Output? No Data Available ? Physical Exam Temperature?98.8 ?(05:12) Systolic Blood Pressure?101 ?(05:12) Diastolic Blood Pressure?62 ?(05:12) Pulse?61 ?(05:12) SpO2?94 ?(05:12) Respiratory Rate?16 ?(05:12) ?? Constitutional: Alert, in no distress. Mental Status: Oriented to person, place and time. Respiratory: Clear to auscultation. No wheezing, rales or rhonchi. Cardiovascular: Regular rate and rhythm, no murmurs, rubs or gallops. Abdomen: Soft, non-tender, non-distended.??Normal bowel sounds. Skin: Numerous??horizontal??dorsal??bilateral??forearm??lacerations which??are scabbed, with surrounding??erythema??approximately??1 cm??width??around each laceration with??multiple??wounds??on left forearm with purulent??drainage. Psychiatric: Normal mood and affect. Extremities: No edema. Assessment/Plan Assessment:??44-year-old male with history of??polysubstance use,??depression??who has been having??issues with his?and kids,??inflicting self-harm with??numerous??lacerations??to his forearms bilaterally,??expressing??suicidal thoughts??and??police??were called, patient was sectioned??and sent to??the ED for crisis evaluation where he was found to have sepsis secondary to purulent cellulitis of forearms. ?? Sepsis (A41.9) Cellulitis of arm (L03.119):? Sepsis secondary to purulent cellulitis L>R arms related to self-inflicted laceration injuries bilateral forearms. Temp 101.5, hr 114, WBC 15.6, with purulent drainage from L forearm wounds. Received 2 L IVF boluses and started on IV Vancomycin. Blood cultures x2 sent. Send swab of purulent drainage L forearm. No fluctuance, continue serial exams and if worsening consider imaging to rule out deeper involvement. Continue IV Vancomycin and give additional 500 cc bolus NS. ?? Intentional self-harm (X83.8XXA) Mental health problem (F48.9):? Psychiatry consult. Continue Wellbutrin 450 mg daily, doxepin 10 mg daily at HS,??Ropinirole 0.25 mg PO TID. ?? Substance use disorder (F19.90):? Use history includes Heroin and Cocaine. Not currently withdrawing. He is set up for rehab in [place] on March 15. Currently on monthly Sublocade injections. ? Quality measures: ?? Code status:??Full code, confirmed HCP: His Megan Ledesma Med rec: Med history team confirmed doses, confirmed off suboxone and taking Sublocade. Diet:??Regular DVT prophylaxis:??Ambulate TID ?? I spent a total of??92 minutes today reviewing the chart/medical records, speaking with the patient, formulating and discussing the treatment plan and documenting the findings and encounter. ?? Discussed plan with patient, nursing,??and case management. ?? Golden Iqbal, II PA-C [facility] Pager #[phone] or [employer]? Histories Allergies Allergies ?(Active and Proposed Allergies Only) NKA? (Severity: Unknown severity, Onset: Unknown) No Known Medication Allergies? (Severity: Unknown severity, Onset: Unknown) ? Past Medical History/Problem List Active Problems(1) Cellulitis ? Past Surgical History No surgery history documented. ? Social History Alcohol Details:??Use: Never. Substance Abuse Details:??Use: Past. ??Other: 30 days last used IV drugs. Tobacco Details:??Use: Never (less than 100 in lifetime). Electronic Cigarette/Vaping Details:??Electronic Cigarette Use: Unknown/Not obtained. ? Family History No Family History documented. ? Medications Home Medications Buprenorphine (Sublocade 100 mg/0.5 mL subcutaneous solution, extended release)??0.5 Milliliter 100Milligram Subcutaneous Injection Every 28 days BuPROpion (Wellbutrin XL 150 mg/24 hours oral tablet, extended release)??1 tab(s) 150 Milligram By Mouth Every 24 hours TDD: 450 mg BuPROpion (Wellbutrin XL 300 mg/24 hours oral tablet, extended release)??1 tab(s) 300 Milligram By Mouth Every 24 hours TDD: 450 mg Clonidine (cloNIDine 0.1 mg oral tablet)??0.1 Milligram 1 tablet By Mouth 2 times a day as needed Anxiety Doxepin (doxepin 10 mg oral capsule)??1 capsule 10 Milligram By Mouth Daily at bedtime Magnesium Oxide (Mag-Ox 400 400 mg oral tablet)??1 tab(s) 400 Milligram By Mouth Daily Quetiapine (SEROquel 25 mg oral tablet)??25 Milligram 1 tablet By Mouth Daily at bedtime Ropinirole (rOPINIRole 0.5 mg oral tablet)??1 tab(s) 0.5 Milligram By Mouth 3 times a day Testosterone (testosterone cypionate 200 mg/mL intramuscular solution)??1.5 Milliliter 300 Milligram Intramuscular Every Saturday ? Inpatient Medications Medications (15) Active SCHEDULED: (8) BuPROPion XL 150 mg Tablet (Wellbutrin XL Tablet) ??150 mg, By Mouth, Daily BuPROPion XL 300 mg Tablet (Wellbutrin XL Tablet) ??300 mg, By Mouth, Daily Doxepin 10 mg Capsule (Doxepin Tablet) ??10 mg, By Mouth, Daily at bedtime Magnesium Oxide 400 mg Tablet (magnesium oxide 400 mg oral tablet) ??400 mg, By Mouth, Daily NaCl 0.9% Flush 3ml (NaCL 0.9% Flush) ??3 mL, IV Push, Every 8 hours Quetiapine 25 mg Tablet (SEROquel 25 mg oral tablet) ??25 mg, By Mouth, Daily at bedtime Ropinirole 0.25 mg Tablet (rOPINIRole 0.25 mg oral tablet) ??0.5 mg, By Mouth, 3 times a day Vancomycin 1250 mg Inj (Vancomycin IVPB) ??1,250 mg, IVPB, Every 12 hours CONTINUOUS: (0) PRN: (7) Acetaminophen 325 mg Tablet (Acetaminophen Tablet) ??650 mg, By Mouth, Every 4 hours Clonidine 0.1 mg Tablet (cloNIDine 0.1 mg oral tablet) ??0.1 mg, By Mouth, 2 times a day Lorazepam 1 mg Tablet (LORazepam 1 mg oral tablet) ??1 mg, By Mouth, Every 6 hours Melatonin 3 mg Tablet (Melatonin Tablet) ??3 mg, By Mouth, Daily at bedtime NaCl 0.9% Flush 3ml (NaCL 0.9% Flush) ??3 mL, IV Push, Every 8 hours Polyethylene Glycol 17 Gm Powder (MiraLax Powder) ??17 Gm 1 pack/packet, By Mouth, Daily Simethicone 80 mg Chewable Tablet (Simethicone Tablet) ??80 mg, Chew, 3 times a day ? Results Recent Labs BACTERIOLOGY Blood Culture Results Preliminary report ()?? 03/04/2025 02:00 Blood Culture Isolate 1 Comment ()?? 03/04/2025 02:00 Blood Cult 2 Results Preliminary report ()?? 03/04/2025 02:05 Blood Culture 2 Isolate 1 Comment ()?? 03/04/2025 02:05 ?? BLOOD COUNT & DIFF WBC 15.6 k/mm3 (High)?? 03/03/2025 23:53 RBC 4.77 m/mm3 ()?? 03/03/2025 23:53 Hgb 15.2 Gm/dL ()?? 03/03/2025 23:53 Hct 44.8 % ()?? 03/03/2025 23:53 MCV 93.9 femtoliters ()?? 03/03/2025 23:53 MCH 31.9 pg ()?? 03/03/2025 23:53 MCHC 33.9 Gm/dL ()?? 03/03/2025 23:53 Platelet Count 218 k/mm3 ()?? 03/03/2025 23:53 RDW-SD 46.7 femtoliters ()?? 03/03/2025 23:53 MPV 9.4 femtoliters ()?? 03/03/2025 23:53 Nucleated RBC (Automated) 0.0 #/100 WBC'S ()?? 03/03/2025 23:53 Abs. NRBC 0.0 k/mm3 ()?? 03/03/2025 23:53 Abs. Neut 13.4 k/mm3 (High)?? 03/03/2025 23:53 Abs. Lymph 1.0 k/mm3 ()?? 03/03/2025 23:53 Abs. [place] 1.1 k/mm3 ()?? 03/03/2025 23:53 Abs. Eo 0.0 k/mm3 ()?? 03/03/2025 23:53 Abs. Baso 0.0 k/mm3 ()?? 03/03/2025 23:53 Neut % 85.9 % (High)?? 03/03/2025 23:53 Lymph % 6.3 % (Low)?? 03/03/2025 23:53 [place] % 6.9 % ()?? 03/03/2025 23:53 Eos % 0.2 % ()?? 03/03/2025 23:53 Baso % 0.3 % ()?? 03/03/2025 23:53 Imm Gran 0.4 % ()?? 03/03/2025 23:53 Abs. Imm Gran 0.1 k/mm3 ()?? 03/03/2025 23:53 ?? CHEM GENERAL Sodium 136 mmol/L ()?? 03/03/2025 23:53 Potassium 4.0 mmol/L ()?? 03/03/2025 23:53 Chloride 101 mmol/L ()?? 03/03/2025 23:53 Bicarbonate Level 24 mmol/L ()?? 03/03/2025 23:53 Anion Gap 11 mmol/L ()?? 03/03/2025 23:53 Glucose Level 99 mg/dL ()?? 03/03/2025 23:53 BUN 17 mg/dL ()?? 03/03/2025 23:53 Creatinine-Blood 1.00 mg/dL ()?? 03/03/2025 23:53 Estimated GFR Creatinine 95 ML/MIN/1.73 M2 ()?? 03/03/2025 23:53 Calcium 8.6 mg/dL ()?? 03/03/2025 23:53 Lactate 0.7 mmol/L ()?? 03/04/2025 02:00 ?? ENDOCRINE/TUMOR MARKER TSH 0.94 uIU/mL ()?? 03/03/2025 23:53 ?? TOXICOLOGY/TDM Ethanol, Serum or Plasma NONE DETECTED mg/dL ()?? 03/03/2025 23:53 ?? VIROLOGY Influenza A PCR NEGATIVE ()?? 03/04/2025 01:02 Influenza B PCR NEGATIVE ()?? 03/04/2025 01:02 RSV PCR NEGATIVE ()?? 03/04/2025 01:02 COVID-19 PCR Specimen Source NASAL ()?? 03/04/2025 01:02 COVID-19 PCR Result NEGATIVE ()?? 03/04/2025 01:02 ? Electronically Signed on 03/04/25 01:29 PM Golden Barbosa II Heart * Event Display: Echocardiogram - Complete Authored Date: [id number] Transthoracic Echocardiogram Report Patient Name: CORAZON HAN : 1980 Age: 44 year(s) Height: 183 cm BMI: 24.2 kg/m Weight: 81 kg BSA: 2.03 m Room #: [id number] Gender: Male Procedure Information: Procedure Type: TTE procedure: Echo Complete-Doppler, Colorflow, M-Mode. Accession No: [id number] Procedure Date/Time: 03/07/2025 9:39 AM Study [place] [facility] [place] Unit: Echo lab Admission Status: Inpatient Patient Status: Routine Rhythm: Normal sinus rhythm Heart Rate: 69 bpm Blood Pressure: 105 / 57 mmHg Image Quality: Adequate Indications Endocarditis Clinical History History comments: Polysubstance abuse Procedure Staff Interpreting physician: Raghu Badillo Nutrition Services Assistant: Braldy Lambert Referring Physician: Mary Ceballos MD Ordering physician: Mary Ceballos MD Physician Conclusions: Summary: 1) The left ventricular size is mildly dilated. Left ventricular wall thickness is normal. The LV systolic function is normal. The left ventricular ejection fraction is 58% by bi-plane Wilson's method. There are no regional wall motion abnormalities. 2) The right ventricle is moderately dilated. Right ventricular systolic function appears preserved. 3) The right atrium is dilated. 4) The mitral valve appears normal. There is mild mitral regurgitation. Comparison: No prior study available for comparison. Signature Findings: Left Ventricle: The left ventricular size is mildly dilated. Left ventricular wall thickness is normal. The LV systolic function is normal. The left ventricular ejection fraction is 58% by bi-plane Wilson's method. There are no regional wall motion abnormalities. Normal diastolic function. Right Ventricle: The right ventricle is moderately dilated. Right ventricular systolic function appears preserved. Left Atrium: The left atrium is normal in size. Right Atrium: The right atrium is dilated. Aorta: The aortic root and ascending aorta are within normal limits when indexed to BSA. Pulmonary Artery: The pulmonary artery systolic pressure estimation is within normal limits. Aortic Valve: The aortic valve is trileaflet. There is no aortic stenosis. There is no aortic regurgitation. Mitral Valve: The mitral valve appears normal. There is mild mitral regurgitation. Tricuspid Valve: The tricuspid valve appears normal . There is trace tricuspid valve regurgitation. Pulmonic Valve: The pulmonic valve is functionally normal. There is trace pulmonic regurgitation. Venous Structures: The inferior vena cava is normal in size, with normal inspiratory collapse. Pericardial/Extracardiac: There is no pericardial effusion. Measurements: Left Ventricle IVSd (2D): 0.8 cm LVPWd (2D): 1 cm LVIDd (2D): 5.7 cm LVIDs (2D): 4.2 cm (2.5 - 4 cm) Cardiac Output: 6.22 l/min Cardiac Index: 3.06 l/min/m LV Mass: 197.52 g LV Mass Index: 97.24 g/m Relative Wall Thickness: 0.35 Aortic Valve/LVOT AV Peak Velocity: 136 cm/s AV Peak Gradient: 7.4 mmHg AV Mean Gradient: 4 mmHg Dimensionless Index: 0.89 AV Area (VTI): 3.58 cm AV Area Index (VTI): 1.76 cm AV VTI: 25.2 cm LVOT Diameter: 2.3 cm LVOT VTI: 21.7 cm LVOT SV: 90.2 ml LVOT SV Index: 44.4 ml/m LVOT Peak Gradient: 5.9 mmHg Left Ventricle Ejection Fraction LVESV (A4C): 77.5 ml (21 - 61 ml) LVEDV (A4C): 178 ml (62 - 150 ml) LVESVI (A4C): 38.15 ml/m LVEDVI (A4C): 87.63 ml/m EF (A4C): 56.5 % LV EF (A4C): 56.5 % LVESV (A2C): 50.6 ml LVEDV (A2C): 130 ml LVESVI (A2C): 24.91 ml/m LVEDVI (A2C): 64 ml/m EF (A2C): 61.1 % LVEF (Biplane): 58.2 % LVEF (A4C A2C): 58.41 % LVESV (Biplane): 64.3 ml (21 - 61 ml) LVEDV (Biplane): 154 ml (62 - 150 ml) EF (Biplane): 58.2 % Mitral Valve MV Area (P1/2t): 4.31 cm MV Peak E-Wave: 97.3 cm/s MV Peak A-Wave: 38.1 cm/s MV E/A Ratio: 2.55 MV P1/2t: 51 ms MV Deceleration Time: 174 ms Tricuspid Valve TR Peak Velocity: 175 cm/s TR Gradient: 12.3 mmHg Left Ventricle Diastolic Function E' Septal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 mg/dL - 2.3 mg/dL 03/08/25 06:56:00 Est Creatinine Clearance 113.86 mL/min ?? 03/08/25 08:29:58 ? Diagnostic Results ECG 12-Lead ?? 23:57:26 Please click on pdf link to open report ?? Signed By: Lucio Baker DO ?? ECG 12-Lead ?? 23:57:26 Ventricular Rate: 100 BPM Atrial Rate: 100 BPM P-R Interval: 144 ms QRS Duration: 86 ms Q-T Interval: 326 ms QTC Calculation(Bazett): 420 ms P [place]: 83 degrees R [place]: 73 degrees T [place]: 66 degrees Normal sinus rhythm Possible Left atrial enlargement Borderline ECG When compared with ECG of 09-Feb-2025 10:20, No significant change was found Confirmed ?? Signed By: Lucio Baker DO Assessment/Recommendations Assessment: Matteo Ledesma is a 44-year-old male with history of cocaine and opiate use,??depression??who presented in Crisis.??He has a known hx of depression, anxiety, cocaine and opiate use, presenting with reported worsening symptoms and reports of recent SI and possible self harm attempts in the setting of recent relapse. Psychiatry was consulted??initially on 03/04, and??at that time, the patient??was not able to meaningfully engage in assessment due to lethargy. Psychiatry is following up today. ?? 03/08: On evaluation today, the patient demonstrates clear treatment-seeking behavior, having independently arranged admission to a long-term inpatient substance use rehabilitation program with an admission date of 03/15, and transportation planned. He is future oriented, expressing a strong desireto live for his three young children, as well as specific goals related to recovery. Recent superficial cutting behavior is best understood as a maladaptive coping strategy and ???cry for help?? in the context of acute interpersonal stress and substance relapse. The patient consistently denies suicidal ideation, intent, or plan, denies any history of suicide attempts, and denies access to firearms or other weapons. There is no evidence of ongoing self-injurious behavior, psychosis, or severe mood instability. Protective factors include strong attachment to his children, high motivation for sobriety, insight into his substance use disorder, proactive engagement in treatment planning, a social support system (friends and sponsor), and confirmed short-term housing support prior to rehab admission. Based on today???s assessment, the patient does not present an imminent risk of harm to himself or others, does not meet criteria for involuntary psychiatric hospitalization under Section 12, and there is no indication for suicide precautions at this time. ?? Diagnoses: Unspecified depressive disorder Opioid used disorder Stimulant use disorder R/o PTSD ?? Recommendations: - Does not meet criteria for section 12. - No indication for suicide precautions. - Continue Wellbutrin, Seroquel, and Doxepin as prescribed. - Support the patient???s decision to stop substance use and proceed with planned inpatient substance use rehabilitation. - Consider Section 35 given family concerns regarding relapse risk and history of poor outcomes if clinically ??indicated. ?? Thank you for allowing me to participate in this patient's care.?? Please??[facility] Text??Adult Psych Consults??with any further questions or concerns. ?? Recommendations [facility] Gatica. Electronically Signed on 03/08/25 02:23 PM Lauren Adam MD Electronically Signed on 03/08/25 02:24 PM Lauren Adam MD * Brando MCCORD, Aleshia Martin: PERFORM Event Display: Consultation Note Authored Date: [id number] Patient: ??MATTEO LEDESMA ? Age:??44 Years?Sex:??Male?:??1980?LOC:??[facility]?? History of Present Illness ?? Date: 03/05/25 ?? Infectious Diseases Attending: Dr. Weinstein ?? Requesting Attending/Provider: Dr. Lin Sanchez ?? Reason for Consult: Streptococcus pyogenes bacteremia/wound infection ?? Source of Information: [facility], patient ?? History of Present Illness: The patient is a 44-year-old male with a past medical history significant for anxiety/depression, chronic low back pain, and polysubstance abuse (cocaine/heroin) who was admitted 03/03 for crisis evaluation after??cutting his arms bilaterally. The wounds were notably infe cted-appearing and he was found to have a leukocytosis (WBC 15.6) with left shift and fever. He wasstarted on empiric vancomycin and blood cultures have since grown out Group A Strep so ID consultedfor assistance.??Today on exam the patient has been afebrile, hemodynamically stable, and with a resolved leukocytosis (WBC 6).??Numerous??horizontal cuts on the bilateral forearms??with surrounding erythema, some with purulent??drainage, and warm to touch but no fluctuance or induration. Admits toactive IVDU, and that he was previously treated for HCV. ?? Past Medical and Surgical History: ?? -Anxiety/depression -Chronic low back pain -Polysubstance abuse (IV/intranasal cocaine/heroin) -Hepatitis C s/p treatment (Epclusa in 2022) ?? Recent Antimicrobials: ?? Vancomycin IV (03/04-present) ?? Medications: Reviewed ?? Antimicrobial Allergies: No known antimicrobial allergies. ?? Family History: No relevant history of infectious issues in first degree relatives. ?? Social History and Infectious Diseases Exposure History: The patient lives in [place], [place] with his and young children. Active polysubstance abuse (intranasal and IV cocaine and heroin). Remote history of injection. No tobacco or heavy EtOH. Review of Systems Denies fever, chills, rigors, night sweats, headache, chest pain, shortness of breath, cough, abdominal pain, nausea, vomiting, diarrhea, dysuria, arthralgias, or rash. Physical Exam Vitals & Measurements Vital Signs?? Temperature: 97.7 DegF (03/05/25 08:51:00) Temperature Route: Oral (03/05/25 08:51:00) Pulse Rate: 55 bpm (03/05/25 08:51:00) Respiratory Rate: 19 br/min (03/05/25 13:01:00) Systolic Blood Pressure: 121 mm Hg (03/05/25 08:51:00) Diastolic Blood Pressure: 58 mm Hg (03/05/25 08:51:00) Blood pressure sites: Arm, left (03/05/25 08:51:00) Mean Arterial Pressure: 79 mm Hg (03/05/25 08:51:00) Pulse Pressure: 63 mm Hg (03/05/25 08:51:00) Oxygen Saturation: 99 % (03/05/25 08:51:00) Mode of Delivery (Oxygen): Room air (03/05/25 08:51:00) Early Warning Score: 2 (03/05/25 13:07:18) ?? GENERAL: In no acute distress HEENT: Anicteric, no subconjunctival petechiae, moist oral mucosa without lesions or thrush CARDIOVASCULAR: Regular rate and rhythm. Not able to appreciate any murmurs, rubs, or gallops. No peripheral edema. RESPIRATORY: Lungs clear to auscultation, breathing comfortably on room air GASTROINTESTINAL: Non-distended, normoactive bowel sounds, non-tender MUSCULOSKELETAL: Without joint effusions, no tenderness over spine SKIN: Warm to touch. No diffuse rash present, no stigmata of infective endocarditis. Numerous??horizontal cuts on the bilateral forearms??with surrounding erythema, some with purulent??drainage, no induration or fluctuance. NEUROLOGICAL/PSYCH: A&Ox3, grossly intact LINES: PIVs without erythema/edema/tenderness ? Microbiology/ID Work-up: ?? -Wound culture 03/04: In process -Blood cultures 03/04 x2:??GPCs speciated to??Streptococcus pyogenes in 03/19??sets Assessment/Plan ?? The patient is a 44-year-old male with a past medical history significant for anxiety/depression, chronic low back pain, and polysubstance abuse (cocaine/heroin) who was admitted 03/03 for crisis evaluation after cutting his arms bilaterally. The wounds were notably infected-appearing and he wasfound to have a leukocytosis, fever, and Gram positive bacteremia. ID consulted for assistance. ?? Strep pyogenes bacteremia:??The patient is on empiric vancomycin for??Gram positive bacteremia, nowspeciated to GAS, in the setting of infected bilateral forearm wounds. The wounds appear more superficial without induration or fluctuance, superficial culture in process. Wound stop the vancomycin and instead switch to a beta lactam - can use either ceftriaxone (for ease) or penicillin. Should repeat blood cultures today, obtain a TTE, and if clinical worsening low threshold to obtain imaging.? Polysubstance abuse:??The patient has known active polysubstance abuse (IV/intranasal cocaine/heroin), and reportedly was previously treated for HCV with Epclusa.??Would likely benefit from AddictionMedicine/Social Work evaluations, and he is amenable to??checking HIV/HBV/HCV serology given recent active drug use. ? Recommendations: ?? - Stop vancomycin IV - Start ceftriaxone 2g IV daily - Repeat blood cultures x2 today and follow wound culture - TTE - If worsening low threshold for imaging of the bilateral forearms - If amenable would check HIV, HCV, HBV serologies ?? Thank you for the consultation. Infectious Diseases will continue to follow this patient with you.? Aleshia Michaels, DNP, [employer]-[facility] Infectious Disease ?? Discussed with Dr. Weinstein. Dr. Birmingham??is allocations clerk this weekend if concerns. Recommendations communicated with Dr. Sanchez??via TC. ?? Time-based billing: I spent a total of 55 minutes today reviewing the chart/medical records, evaluating the patient, formulating and discussing the treatment plan, and documenting the findings and encounter. ?? (This note was dictated using the [employer] software and any typographical/grammatical errors were notdeliberate) ?? Lab Results Test Name Test Result Date/Time WBC 6.0 k/mm3 03/05/2025 07:56 EST RBC 4.50 m/mm3 03/05/2025 07:56 EST Hgb 14.2 Gm/dL 03/05/2025 07:56 EST Hct 42.5 % 03/05/2025 07:56 EST MCV 94.4 femtoliters 03/05/2025 07:56 EST MCH 31.6 pg 03/05/2025 07:56 EST MCHC 33.4 Gm/dL 03/05/2025 07:56 EST Platelet Count 189 k/mm3 03/05/2025 07:56 EST RDW-SD 46.6 femtoliters 03/05/2025 07:56 EST MPV 9.1 femtoliters 03/05/2025 07:56 EST Nucleated RBC (Automated) 0.0 #/100 WBC'S 03/05/2025 07:56 EST Abs. NRBC 0.0 k/mm3 03/05/2025 07:56 EST Sodium 139 mmol/L 03/05/2025 07:56 EST Potassium 3.9 mmol/L 03/05/2025 07:56 EST Chloride 108 mmol/L 03/05/2025 07:56 EST Bicarbonate Level 21 mmol/L 03/05/2025 07:56 EST Anion Gap 10 mmol/L 03/05/2025 07:56 EST Glucose Level 112 mg/dL 03/05/2025 07:56 EST BUN 13 mg/dL 03/05/2025 07:56 EST Creatinine-Blood 0.91 mg/dL 03/05/2025 07:56 EST Estimated GFR Creatinine 107 ML/MIN/1.73 M2 03/05/2025 07:56 EST Calcium 7.8 mg/dL 03/05/2025 07:56 EST C-Reactive Protein 7.4 mg/dL 03/05/2025 07:56 EST Electronically Signed on 03/05/25 02:30 PM Brando MCCORD, Aleshia Martin Electronically Signed on 03/05/25 03:27 PM Js SUNSHINE, Juliet DUCKWORTH, Sameera Braun: PERFORM Event Display: Consultation Note Authored Date: Patient: ??MATTEO LEDESMA ? Age:??44 Years?Sex:??Male?:??1980?LOC:??[facility]?? Reason for Consultation Addiction Med Consult - polysubstance use Requested by??Dr Mary Green History of Present Illness Matteo Ledesma is a 44 yo male with a PMHx of polysubstance use and depression. Pt was admitted 03/04??with self harm lacerations on his forearms bilaterally. Pt with SI.??Pt with active substance use with heroin and cocaine. Addiction med consulted. ?? Met with pt this morning. Pt resting in bed with eyes closed on approach but woke up and was interactive without issues. He reports he had been using heroin and cocaine daily but prior to admission was trying to stop. He reports using less than a bundle than heroin per day at least.?? Pt is not interested in initiation of any MAT for OUD at this time, but would be agreeable to a methadone taper to help with withdrawal. Pt states that he has been in touch with a treatment program in [place], and will be starting the program 03/15. He says that the program is detention and he will stay there for about 6 months.?? Pt would not be interested in any other referrals to be submitted on his behalf at this time. Not reporting use of any other substances. Review of Systems No acute complaints Physical Exam Vitals & Measurements T:??97.7?F?? TMIN:??97.5?F?? TMAX:??97.9?F?? HR:??55??(Peripheral)?? RR:??18?? BP:??121/58?? SpO2:??99%?? General:??well developed, well nourished,??appears to be stated age.??Breathing is??even and unlabored.??In no acute distress,??no diaphoresis. Mental Status Exam: Appearance:??casual?? Attitude:??cooperative? Eye contact:??normal Motor activity:??calm, no aberrant movements? Mood:??euthymic? Affect:??congruent? Speech:??fluent, unimpaired? Judgment:??appears intact? Insight:??appears intact? Thought process:??linear? Reliability:??likely reliable source? Fund of knowledge:??intact Assessment/Plan Opioid withdrawal (F11.93):??.?? Opioid use disorder (F11.90):??.? Pt not interested in any ongoing MAT for OUD, would be agreeable to a taper of methadone to help with symptoms though. QTc earlier this month 02/23 OK. Could start pt on methadone 30mg x1 today, and taper down by 5mg each subsequent day he is admitted(25mg tomorrow, 20mg Sun, etc etc). Could continue taper on APTU if pt gets admitted for psych. Otherwise if pt is ready to DC prior totaper completion, OK to DC (methadone is long acting and will taper a bit in the system as well). ?? Can consider addition of some PRNs to help with withdrawal on a symptomatic basis: Clonidine 0.1mg PO q 8 hrs PRN restlessness (so long as vitals are stable) Vistaril 25mg PO q 4/6 hrs PRN anxiety Flexeril 10mg PO TID PRN body aches Imodium 2mg q 2/4/6 hrs PRN diarrhea, max of 16mg/day ?? As mentioned in HPI, pt is planning to attend a 6 month program in [place] beginning 03/15. ?? Cocaine use disorder (F14.10):??.?? IVDU (intravenous drug user) (F19.90):??.? Patient counseled on risks of cocaine use, including seizures, psychosis, vascular complications such as heart attack and stroke. Also discussed risk of contamination in the cocaine supply with othersubstances such as fentanyl or heroin, which can lead to overdose. Current treatment guidelines forcocaine use disorder only start to include medication options once a patient has been participatingin intensive therapy for at least 8-12 weeks.??Pt declining referrals. If they change their mind, please reach out to social work. ?? Did psychosocial rehabilitation counselor patient in regards to IV use of substances. Patient should use clean needles if these are able to be obtained. [facility] in [place] is able to provide these to the community.?? Patient also needs to be careful about cleaning the skin prior to injection, and needs to clean thearea well with alcohol. Non-sterile injection techniques can lead to soft tissue infections, endocarditis, spinal abscesses, HIV, HCV. Pt receptive.? Sent update via??[employer] to Dr Mary Green Addiction??Service will sign off at this time. Thank you for allowing us to participate in the careof this patient. Please contact me with any questions or concerns. Problem List/Past Medical History Ongoing Cellulitis Procedure/Surgical History No qualifying data available. Medications Inpatient Acetaminophen(Acetaminophen Tablet), 650 mg, By Mouth, Every 4 hours, PRN BuPROpion(Wellbutrin XL Tablet), 150 mg, By Mouth, Daily BuPROpion(Wellbutrin XL Tablet), 300 mg, By Mouth, Daily Clonidine(cloNIDine 0.1 mg oral tablet), 0.1 mg, By Mouth, 2 times a day, PRN Doxepin(Doxepin Tablet), 10 mg, By Mouth, Daily at bedtime Lorazepam(LORazepam 1 mg oral tablet), 1 mg, By Mouth, Every 6 hours, PRN Magnesium Oxide(magnesium oxide 400 mg oral tablet), 400 mg, By Mouth, Daily Melatonin(Melatonin Tablet), 3 mg, By Mouth, Daily at bedtime, PRN Polyethylene Glycol 3350(MiraLax Powder), 17 Gm= 1 pack/packet, By Mouth, Daily, PRN Quetiapine(SEROquel 25 mg oral tablet), 25 mg, By Mouth, Daily at bedtime Ropinirole(rOPINIRole 0.25 mg oral tablet), 0.5 mg, By Mouth, 3 times a day Simethicone(Simethicone Tablet), 80 mg, Chew, 3 times a day, PRN Sodium Chloride(NaCL 0.9% Flush), 3 mL, IV Push, Every 8 hours Sodium Chloride(NaCL 0.9% Flush), 3 mL, IV Push, Every 8 hours, PRN Vancomycin(Vancomycin IVPB), 1250 mg, 15 mg/kg, IVPB, Every 12 hours Home Buprenorphine(Sublocade 100 mg/0.5 mL subcutaneous solution, extended release), 100 mg= 0.5 mL, Subcutaneous Injection, Every 28 days BuPROpion(Wellbutrin XL 300 mg/24 hours oral tablet, extended release), 300 mg= 1 tablet, By Mouth,Every 24 hours BuPROpion(Wellbutrin XL 150 mg/24 hours oral tablet, extended release), 150 mg= 1 tablet, By Mouth,Every 24 hours Clonidine(cloNIDine 0.1 mg oral tablet), 0.1 mg= 1 tablet, By Mouth, 2 times a day, PRN Doxepin(doxepin 10 mg oral capsule), 10 mg= 1 capsule, By Mouth, Daily at bedtime Magnesium Oxide(Mag-Ox 400 400 mg oral tablet), 400 mg= 1 tablet, By Mouth, Daily Quetiapine(SEROquel 25 mg oral tablet), 25 mg= 1 tablet, By Mouth, Daily at bedtime Ropinirole(rOPINIRole 0.5 mg oral tablet), 0.5 mg= 1 tablet, By Mouth, 3 times a day Testosterone(testosterone cypionate 200 mg/mL intramuscular solution), 300 mg= 1.5 mL, Intramuscular, Every Saturday Allergies NKA No Known Medication Allergies Social History Alcohol Use:Never Electronic Cigarette/Vaping E-Cigarette Use:Unknown/Not obtained Substance Abuse Use:Past Other:30 days last used IV drugs Tobacco Use:Never (less than 100 in lifetime) Immunizations Vaccine Date Status tetanus/diphtheria/pertussis, acel(Tdap) 03/03/2025 Given Electronically Signed on 03/05/25 11:42 AM Sameera Lynch Note * Ladonna Joiner RN: PERFORM Event Display: Discharge/Transfer Note Hospital Authored Date: [id number] Nursing Discharge Note Entered On: 03/08/2025 16:27 EST Performed On: 03/08/2025 16:25 EST by Ladonna Joiner RN Nursing Discharge Note 2 Discharge Level of Care at Discharge : Home/Custodial/Foster Care Discharge Time : 03/08/2025 16:25 EST Patient Support Assistant Utilized : No Patient Left Unit Via : Ambulatory Patient Accompanied Off Unit with : Other: N/A DC Instructions Provided & Signed by Pt : Yes Patient Understands D/C Instructions : Yes Patient Instructions Discharge Signed : Yes Discharge Comments : IV access removed, belongings returned to pt, education and teaching provided,instructed to grape picker RX, refusing wheelchair to lobby. Did Pt have Specialty Bed or Wound Vac : No Rhys RN, Ladonna - 03/08/2025 16:26 EST Electronically Signed on 03/08/25 04:26 PM Ladonna Joiner RN * Gavi SUNSHINE, Mary Rutherford: PERFORM Event Display: Discharge/Transfer Note Hospital Authored Date: [id number] Patient: ??MATTEO LEDESMA ? Age:??44 Years?Sex:??Male?:??1980?LOC:??[facility]?? Patient Information Discharge Location: 4 Primary Care Physician: Not on Staff, PCP Admit Date/Time: 03/04/2025 03:04 Discharge Disposition Discharge Disposition: ?? Discharge Diagnosis Fever (R50.9) Intentional self-harm (X83.8XXA) Mental health problem (F48.9) Substance use disorder (F19.90) Substance use disorder (F19.90) Sepsis (A41.9) Cellulitis of arm (L03.119) IVDU (intravenous drug user) (F19.90) Opioid use disorder (F11.90) Cocaine use disorder (F14.10) Opioid withdrawal (F11.93) _ Discharge Medications Amoxicillin-Clavulanate (amoxicillin-clavulanate 875 mg-125 mg oral tablet)??1 tab(s) By Mouth 3 times a day for 12 Days Buprenorphine (Sublocade 100 mg/0.5 mL subcutaneous solution, extended release)??0.5 Milliliter 100Milligram Subcutaneous Injection Every 28 days BuPROpion (Wellbutrin XL 150 mg/24 hours oral tablet, extended release)??1 tab(s) 150 Milligram By Mouth Every 24 hours TDD: 450 mg BuPROpion (Wellbutrin XL 300 mg/24 hours oral tablet, extended release)??1 tab(s) 300 Milligram By Mouth Every 24 hours TDD: 450 mg Clonidine (cloNIDine 0.1 mg oral tablet)??0.1 Milligram 1 tablet By Mouth 2 times a day as needed Anxiety Doxepin (doxepin 10 mg oral capsule)??1 capsule 10 Milligram By Mouth Daily at bedtime Magnesium Oxide (Mag-Ox 400 400 mg oral tablet)??1 tab(s) 400 Milligram By Mouth Daily Quetiapine (SEROquel 25 mg oral tablet)??25 Milligram 1 tablet By Mouth Daily at bedtime Ropinirole (rOPINIRole 0.5 mg oral tablet)??1 tab(s) 0.5 Milligram By Mouth 3 times a day Testosterone (testosterone cypionate 200 mg/mL intramuscular solution)??1.5 Milliliter 300 Milligram Intramuscular Every Saturday ? Quality Measures Tobacco Use Treatment:? Discharge Medications New Amoxicillin-Clavulanate (amoxicillin-clavulanate 875 mg-125 mg oral tablet)1 tab(s) Oral 3 times a day for 12 Days. Refills: 0. Unchanged Buprenorphine (Sublocade 100 mg/0.5 mL subcutaneous solution, extended release)0.5 Milliliter Subcutaneous Injection Every 28 days. BuPROpion (Wellbutrin XL 150 mg/24 hours oral tablet, extended release)1 tab(s) Oral every 24 hours. TDD: 450 mg. BuPROpion (Wellbutrin XL 300 mg/24 hours oral tablet, extended release)1 tab(s) Oral every 24 hours. TDD: 450 mg. Clonidine (cloNIDine 0.1 mg oral tablet)1 tab(s) Oral twice a day as needed Anxiety. Doxepin (doxepin 10 mg oral capsule)1 capsule Oral Daily at Bedtime. Magnesium Oxide (Mag-Ox 400 400 mg oral tablet)1 tab(s) Oral Daily. Quetiapine (SEROquel 25 mg oral tablet)1 tab(s) Oral Daily at Bedtime. Ropinirole (rOPINIRole 0.5 mg oral tablet)1 tab(s) Oral 3 times a day. Testosterone (testosterone cypionate 200 mg/mL intramuscular solution)1.5 Milliliter Intramuscular every Saturday. Discontinued Buprenorphine-Naloxone (Suboxone 4 mg-1 mg sublingual film)1 Film Sublingual twice a day. Allergies Allergies ?(Active and Proposed Allergies Only) NKA? (Severity: Unknown severity, Onset: Unknown) No Known Medication Allergies? (Severity: Unknown severity, Onset: Unknown) ? Hospital Course ?44 y/o male with h/o polysubstance use,??depression??who has been having??issues with his?and kids,??inflicting self-harm with??numerous??lacerations??to his forearms bilaterally,??expressing??suicidal thoughts??and??police??were called, patient was sectioned??and sent to??the ED for crisis evaluation where he was found to have sepsis secondary to purulent cellulitis of forearms. ?? Sepsis (A41.9) Cellulitis of arm (L03.119):? Sepsis secondary to purulent cellulitis L>R arms related to self-inflicted laceration injuries bilateral forearms. On admission Temp 101.5, hr 114, WBC 15.6, with purulent drainage from L forearm wounds. Received 2 L IVF boluses and started on IV Vancomycin. Blood cultures x2 positive for gram positive blood cx:??now speciated to GAS, Send swab of purulent drainage L forearm: f/u final culture No fluctuance, continue serial exams and if worsening consider imaging to rule out deeper involvement. ID consulted, and antibiotic was changed to Ceftriaxone ECHO: normal LVF; no vegetation ?? He is being discharged as cleared by psychiatry as below ?? Plan: Will continue?? Augmentin 875 mg TID from tomorrow to complete total 14 days of antibiotic from clearance of bacteremia (end fate 03/19/25 ??2 ?? Intentional self-harm (X83.8XXA) Mental health problem (F48.9):? Psychiatry consulted ?? psychiatry reevaluated and recommended no longer??meet criteria for section 12. - No indication for suicide precautions. Cleared for d/c ?? Plan: - Continue Wellbutrin, Seroquel, and Doxepin?? - Support the patient???s decision to stop substance use and proceed with planned inpatient substance use rehabilitation. Note: Patient already arranged to be admitted in [place] ? Substance use disorder (F19.90):? Use history includes Heroin and Cocaine and IV drug use . He is set up for rehab in [place] on March 15. addiction consulted started pt on methadone 30mg??on 02/15 and is being tapered by 5 mg each day ?d/w addiction, no need for Methadone as pt is going to be discharged ? Code status:??Full code, confirmed Objective Vital Signs?? Temperature: 98 DegF (03/08/25 13:00:00) Temperature Route: Oral (03/08/25 13:00:00) Pulse Rate: 70 bpm (03/08/25 13:00:00) Respiratory Rate:??14 br/min??Low (03/08/25 13:00:00) Systolic Blood Pressure: 137 mm Hg (03/08/25 13:00:00) Diastolic Blood Pressure: 69 mm Hg (03/08/25 13:00:00) Blood pressure sites: Arm, left (03/08/25 13:00:00) Mean Arterial Pressure: 84 mm Hg (03/07/25 20:29:00) Pulse Pressure: 68 mm Hg (03/08/25 13:00:00) Oxygen Saturation: 98 % (03/08/25 13:00:00) Mode of Delivery (Oxygen): Room air (03/08/25 13:00:00) Early Warning Score: 0 (03/08/25:46:44) ? . Physical Exam Awake, alert, oriented Lungs: Clear to auscultation bilateral, no wheezing no rales Heart: Regular rate and rhythm, no murmur, no rub or gallop Abdomen: Soft, nontender, nondistended; Bowel sounds present Extremity: SKIN: Warm to touch. No diffuse rash present, no stigmata of infective endocarditis. Numerous??horizontal cuts on the bilateral forearms??with surrounding erythema, some with purulent??drainage, no induration or fluctuance. Neurological: No focal deficit Psychiatric: Normal mood and affect Pending Results Hepatitis C RNA PCR Quant ordered on 03/08/2025 Follow-Up Appointments Added Follow Up ?Time Frame ?Comments Not on Staff, PCP?1 week Home Health Face to Face ^[facility] Results Discharge Labs BACTERIOLOGY MRSA PCR Result Negative, MRSA target DNA not detected. ()?? 03/04/2025 22:13 S Aureus ??PCR Result Positive, SA target DNA detected. (Abnormal)?? 03/04/2025 22:13 Blood Culture Results Preliminary report ()?? 03/05/2025 14:40 Blood Culture Specimen Source BLOOD ()?? 03/05/2025 14:40 Blood Culture Isolate 1 Comment ()?? 03/05/2025 14:40 Aerobic Cult Source SWAB ()?? 03/04/2025 22:13 Superficial Wound Cult Results Note (Abnormal)?? 03/04/2025 22:13 Blood Cult 2 Results Preliminary report ()?? 03/05/2025 14:40 Reflex to Rapid ID, ZANE, Culture 2 Comment ()?? 03/04/2025 02:05 Blood Culture 2 Specimen Source BLOOD ()?? 03/05/2025 14:40 Blood Culture 2 Isolate 1 Comment ()?? 03/05/2025 14:40 Blood Culture 2 Susceptibility Comment ()?? 03/04/2025 02:05 A calcoaceticus-baumannii comp,Culture 2 Not Detected ()?? 03/04/2025 02:05 Bacteroides fragilis, Culture 2 Not Detected ()?? 03/04/2025 02:05 Enterobacterales, Culture 2 Not Detected ()?? 03/04/2025 02:05 Enterobacter cloacae complex, Culture 2 Not Detected ()?? 03/04/2025 02:05 Escherichia coli, Culture 2 Not Detected ()?? 03/04/2025 02:05 Klebsiella aerogenes, Culture 2 Not Detected ()?? 03/04/2025 02:05 Klebsiella oxytoca, Culture 2 Not Detected ()?? 03/04/2025 02:05 Klebsiella pneumoniae group, Culture 2 Not Detected ()?? 03/04/2025 02:05 Proteus spp., Culture 2 Not Detected ()?? 03/04/2025 02:05 Salmonella spp., Culture 2 Not Detected ()?? 03/04/2025 02:05 Serratia marcescens, Culture 2 Not Detected ()?? 03/04/2025 02:05 Haemophilus influenzae, Culture 2 Not Detected ()?? 03/04/2025 02:05 Neisseria meningitidis, Culture 2 Not Detected ()?? 03/04/2025 02:05 Pseudomonas aeruginosa, Culture 2 Not Detected ()?? 03/04/2025 02:05 Stenotrophomonas maltophilia, Culture 2 Not Detected ()?? 03/04/2025 02:05 Enterococcus faecalis, Culture 2 Not Detected ()?? 03/04/2025 02:05 Enterococcus faecium, Culture 2 Not Detected ()?? 03/04/2025 02:05 Listeria monocytogenes, Culture 2 Not Detected ()?? 03/04/2025 02:05 Staphylococcus spp., Culture 2 Not Detected ()?? 03/04/2025 02:05 Staphylococcus aureus, Culture 2 Not Detected ()?? 03/04/2025 02:05 Staphylococcus epidermidis, Culture 2 Not Detected ()?? 03/04/2025 02:05 Staphylococcus lugdunensis, Culture 2 Not Detected ()?? 03/04/2025 02:05 Streptococcus spp., Culture 2 DETECTED (Abnormal)?? 03/04/2025 02:05 Streptococcus agalactiae, Culture 2 Not Detected ()?? 03/04/2025 02:05 Streptococcus pneumoniae, Culture 2 Not Detected ()?? 03/04/2025 02:05 Streptococcus pyogenes, Culture 2 DETECTED (Abnormal)?? 03/04/2025 02:05 Sandhya albicans, Culture 2 Not Detected ()?? 03/04/2025 02:05 Sandhya auris, Culture 2 Not Detected ()?? 03/04/2025 02:05 Sandhya glabrata, Culture 2 Not Detected ()?? 03/04/2025 02:05 Sandhya krusei, Culture 2 Not Detected ()?? 03/04/2025 02:05 Sandhya parapsilosis, Culture 2 Not Detected ()?? 03/04/2025 02:05 Sandhya tropicalis, Culture 2 Not Detected ()?? 03/04/2025 02:05 Cryptococcus neoformans/gattii,Culture 2 Not Detected ()?? 03/04/2025 02:05 IMP (Carbapenemases), Culture 2 Not applicable ()?? 03/04/2025 02:05 KPC (Carbapenemases), Culture 2 Not applicable ()?? 03/04/2025 02:05 OXA-48-like (Carbapenemases), Culture 2 Not applicable ()?? 03/04/2025 02:05 NDM (Carbapenemases), Culture 2 Not applicable ()?? 03/04/2025 02:05 VIM (Carbapenemases), Culture 2 Not applicable ()?? 03/04/2025 02:05 mcr-1 (Colistin Resistance), Culture 2 Not applicable ()?? 03/04/2025 02:05 CTX-M (ESBL), Culture 2 Not applicable ()?? 03/04/2025 02:05 mecA/C(Methicillin Resistance),Culture 2 Not applicable ()?? 03/04/2025 02:05 mecA/C and MREJ (MRSA), Culture 2 Not applicable ()?? 03/04/2025 02:05 Khalida/B (Vancomycin Resistance),Culture 2 Not applicable ()?? 03/04/2025 02:05 ? BLOOD COUNT & DIFF WBC 4.9 k/mm3 ()?? 03/08/2025 06:56 RBC 4.43 m/mm3 (Low)?? 03/08/2025 06:56 Hgb 14.0 Gm/dL ()?? 03/08/2025 06:56 Hct 41.4 % ()?? 03/08/2025 06:56 MCV 93.5 femtoliters ()?? 03/08/2025 06:56 MCH 31.6 pg ()?? 03/08/2025 06:56 MCHC 33.8 Gm/dL ()?? 03/08/2025 06:56 Platelet Count 222 k/mm3 ()?? 03/08/2025 06:56 RDW-SD 46.1 femtoliters ()?? 03/08/2025 06:56 MPV 9.1 femtoliters (Low)?? 03/08/2025 06:56 Nucleated RBC (Automated) 0.0 #/100 WBC'S ()?? 03/08/2025 06:56 Abs. NRBC 0.0 k/mm3 ()?? 03/08/2025 06:56 Abs. Neut 2.1 k/mm3 ()?? 03/08/2025 06:56 Abs. Lymph 2.0 k/mm3 ()?? 03/08/2025 06:56 Abs. [place] 0.5 k/mm3 ()?? 03/08/2025 06:56 Abs. Eo 0.3 k/mm3 ()?? 03/08/2025 06:56 Abs. Baso 0.1 k/mm3 ()?? 03/08/2025 06:56 Neut % 43.5 % (Low)?? 03/08/2025 06:56 Lymph % 39.6 % ()?? 03/08/2025 06:56 [place] % 9.8 % ()?? 03/08/2025 06:56 Eos % 5.7 % ()?? 03/08/2025 06:56 Baso % 1.0 % ()?? 03/08/2025 06:56 Imm Gran 0.4 % ()?? 03/08/2025 06:56 Abs. Imm Gran 0.0 k/mm3 ()?? 03/08/2025 06:56 ?? CHEM GENERAL Sodium 139 mmol/L ()?? 03/08/2025 06:56 Potassium 4.0 mmol/L ()?? 03/08/2025 06:56 Chloride 105 mmol/L ()?? 03/08/2025 06:56 Bicarbonate Level 25 mmol/L ()?? 03/08/2025 06:56 Anion Gap 9 mmol/L ()?? 03/08/2025 06:56 Glucose Level 113 mg/dL (High)?? 03/08/2025 06:56 BUN 12 mg/dL ()?? 03/08/2025 06:56 Creatinine-Blood 0.91 mg/dL ()?? 03/08/2025 06:56 Estimated GFR Creatinine 107 ML/MIN/1.73 M2 ()?? 03/08/2025 06:56 Calcium 8.9 mg/dL ()?? 03/08/2025 06:56 Magnesium 1.9 mg/dL ()?? 03/08/2025 06:56 Lactate 0.7 mmol/L ()?? 03/04/2025 02:00 C-Reactive Protein 7.4 mg/dL (High)?? 03/05/2025 07:56 ? ENDOCRINE/TUMOR MARKER TSH 0.94 uIU/mL ()?? 03/03/2025 23:53 ? SEROLOGY INF DISEASE Anti Hepatitis A IgM NON REACTIVE ()?? 03/05/2025 14:40 Hepatitis B Surface Antigen NON REACTIVE ()?? 03/05/2025 14:40 Hepatitis B Core Ab, IgM NON REACTIVE ()?? 03/05/2025 14:40 Hepatitis C Ab REACTIVE (Abnormal)?? 03/05/2025 14:40 Anti-HBS Quant 72.10 mIU/mL ()?? 03/05/2025 14:40 ? TOXICOLOGY/TDM Ethanol, Serum or Plasma NONE DETECTED mg/dL ()?? 03/03/2025 23:53 Barbiturate Screen, Urine NONE DETECTED ()?? 03/05/2025 17:31 Cannabinoid Screen, Urine NONE DETECTED ()?? 03/05/2025 17:31 Cocaine Metabolite Screen, Urine POSITIVE (Abnormal)?? 03/05/2025 17:31 Benzodiazepine Screen, Urine POSITIVE (Abnormal)?? 03/05/2025 17:31 Amphetamine Screen, Urine NONE DETECTED ()?? 03/05/2025 17:31 Opiate Screen, Urine NONE DETECTED ()?? 03/05/2025 17:31 ? URINE OTHER Est Creatinine Clearance 113.86 mL/min ()?? 03/08/2025 08:29 ? VIROLOGY Influenza A PCR NEGATIVE ()?? 03/04/2025 01:02 Influenza B PCR NEGATIVE ()?? 03/04/2025 01:02 RSV PCR NEGATIVE ()?? 03/04/2025 01:02 COVID-19 PCR Specimen Source NASAL ()?? 03/04/2025 01:02 COVID-19 PCR Result NEGATIVE ()?? 03/04/2025 01:02 HIV STAT Screen Result NEGATIVE ()?? 03/05/2025 14:40 ? Microbiology ?? Hepatitis C RNA PCR Quant?? Collected?? Source: Blood Body Site: ?? Collected Dt/Tm: 03/08/2025 14:54 Last Updated Dt/Tm: 03/08/2025 13:53 ?? Blood Culture?? Completed?? Source: Blood Body Site: ?? Collected Dt/Tm: 03/05/2025 14:54 Last Updated Dt/Tm: 03/07/2025 07:12 ?? Blood Culture #2?? Completed?? Source: Blood Body Site: ?? Collected Dt/Tm: 03/05/2025 14:54 Last Updated Dt/Tm: 03/07/2025 07:12 ?? Blood Culture Result?? Completed?? Source: Blood Body Site: ?? Collected Dt/Tm: 03/05/2025 14:40 Last Updated Dt/Tm: 03/07/2025 07:13 ?? Blood Culture 2 Results?? Completed?? Source: Blood Body Site: ?? Collected Dt/Tm: 03/05/2025 14:40 Last Updated Dt/Tm: 03/07/2025 07:13 ?? MRSA/MSSA PCR Nasal Swab?? Completed?? Source: Swab Body Site: Nose Collected Dt/Tm: 03/04/2025 13:29 Last Updated Dt/Tm: 03/04/2025 23:38 ?? Wound Superficial Culture W/ Gram Smear?? Completed?? Source: Swab Body Site: Laceration Collected Dt/Tm: 03/04/2025 08:30 Last Updated Dt/Tm: 03/05/2025 15:05 ?? Blood Culture 2 Results?? Completed?? Source: Blood Body Site: ?? Collected Dt/Tm: 03/04/2025 02:05 Last Updated Dt/Tm: 03/04/2025 10:11 ?? Blood Culture 2 Rapid ID, ZANE?? Completed?? Source: Blood Body Site: ?? Collected Dt/Tm: 03/04/2025 02:05 Last Updated Dt/Tm: 03/04/2025 23:07 ?? Blood Culture Result?? Completed?? Source: Blood Body Site: ?? Collected Dt/Tm: 03/04/2025 02:00 Last Updated Dt/Tm: 03/04/2025 10:11 ?? Blood Culture?? Completed?? Source: Blood Body Site: ?? Collected Dt/Tm: 03/04/2025 01:08 Last Updated Dt/Tm: 03/04/2025 10:11 ?? Blood Culture #2?? Completed?? Source: Blood Body Site: ?? Collected Dt/Tm: 03/04/2025 01:08 Last Updated Dt/Tm: 03/04/2025 10:11 ?? COVID-19, RSV, and Flu A/B, Rapid PCR?? Completed?? Source: Nasal Body Site: Nose Collected Dt/Tm: 03/03/2025 17:28 Last Updated Dt/Tm: 03/04/2025 01:51 ? 40??minutes spent on discharge Electronically Signed on 03/08/25 03:08 PM Gavi SUNSHINE, Mary Joiner RN, Ladonna: PERFORM Event Display: Patient Education/Instruction Authored Date: [id number] Inpatient Adult Discharge Instructions. [address] [address] Name: MATTEO LEDESMA : 1980?? Visit: 03/04/2025 03:04?? Current Date: 03/08/2025 15:53 ?? Account: [id number]?? Inpatient Adult Discharge Instructions We would like to thank you for allowing us to assist you with your healthcare needs. The following includes patient education materials and information regarding your injury/illness. Our entire staffstrives to provide an excellent experience for our patients and their families. PLEASE ENSURE YOU FOLLOW-UP PER THE INSTRUCTIONS BELOW! ?? YOUR OPINION IS IMPORTANT TO US! Please complete the survey you may receive by mail or email. Your feedback will be used to make improvements to the healthcare experiences of our patients and their families. Surveys are administered by [employer] ?? If further treatment with your primary care physician or another doctor is recommended, it is important for you to keep the appointment. Call your primary care physician or return to the Emergency Department immediately if your condition worsens, fails to improve, or new symptoms develop. If you need to find a doctor, you can call [facility] [employer] for a referral at [phone] or toll free at [phone] or log in to [email or web address].. ?? [facility], in keeping with [facility] guidance, no longer requires face masks for staff, patientsor visitors in most situations. Similiar to time spent indoors at other locations, there is the chance that you were exposed to repiratory viruses during your time with us (such as flu or COVID-19). If you develop symptoms concerning for a viral respiratory infection, please seek testing (and treatment if indicated) from your medical provider or home test kit. ?? You can view and manage your care through the patient portal or by using a health care sara of your choosing. [employer] is a website that allows you to securely view your medical information including your hospital discharge summary, office visit summaries, medications and follow-up visits. You can also request appointments, renew medications, and request access to your medical information using a health care sara of your choosing, or just ask a question. You are entitled to know the individuals who participated in your treatment. This information is available within your medical record and will be provided upon your request. You can enroll at [email or web address] or register d uring your next office visit. You have been discharged from [facility], Patient Care Unit: S64??. If you have any questions regarding these instructions, including results of studies pending, afteryou leave, please call us and we will be happy to assist you 08/10. [facility] Your Care Team Attending Physician Mary Gatica MD?? Consulting Providers Mary Gatica MD?? Discharging Providers Mary Gatica MD Reason for Your Visit coming from home, PD called EMS, said he attempted SI 4 days ago, he tried to cut himself and tried to hang himself.?? Your Diagnosis Cellulitis of arm Cocaine use disorder Opioid use disorder Opioid withdrawal Sepsis Tests Performed Below is a partial list of the tests performed during your hospitalization. You may have had other tests and procedures not included in this list. Please discuss all test results with your provider. Amphetamine Urine Screen Anti-HBS Quant Barbiturate Urine Screen Basic Metabolic Panel Benzodiazepine Urine Screen Blood Culture Blood Culture #2 Blood Culture 2 Rapid ID, ZANE Blood Culture 2 Results Blood Culture Result BUN Cannabinoid Urine Screen CBC CBC w/ Differential Cocaine Urine Screen COVID-19, RSV, and Flu A/B, Rapid PCR Creatinine CRP Electrolytes Ethanol Level Hepatitis A Ab IgM Hepatitis B Core Ab IgM Hepatitis B Surface Antigen Hepatitis C Ab HIV STAT Screen With Reflex to Quant Lactate Level Magnesium Level MRSA/MSSA PCR Nasal Swab Opiate Screen Urine TSH with T4 Reflex (Adults Only) Wound Superficial Culture W/ Gram Smear Amphetamine Urine Screen?? Anti-HBS Quant?? BUN?? Barbiturate Urine Screen?? Basic Metabolic Panel?? Benzodiazepine Urine Screen?? Blood Culture?? Blood Culture #2?? Blood Culture 2 Rapid ID, ZANE?? Blood Culture 2 Results?? Blood Culture Result?? C Reactive Protein (CRP)?? CBC?? CBC w/ Differential?? COVID-19, RSV, and Flu A/B, Rapid PCR?? Cannabinoid Urine Screen?? Cocaine Urine Screen?? Creatinine?? Electrolytes?? Ethanol Level?? HIV STAT Screen With Reflex to Quant?? Hepatitis A Ab IgM?? Hepatitis B Core Ab IgM?? Hepatitis B Surface Antigen?? Hepatitis C Ab?? Hepatitis C RNA PCR Quant?? Lactic Acid Level (Lactate Level)?? MRSA/MSSA PCR Nasal Swab?? Magnesium Level?? Opiate Screen Urine?? TSH with T4 Reflex (Adults Only)?? Wound Superficial Culture W/ Gram Smear?? Primary Care Provider Nakul SUNSHINE, Raúl Goodwin? Advance Directive Health Care Proxy on File No Discharge Vitals Temperature: 98 DegF Height: 183 cm Pulse Rate: 70 bpm Weight: 81 kg Respiratory Rate:??14 br/min??Low Body Mass Index: 24.19 kg/m2 Systolic Blood Pressure: 137 mm Hg Body surface area: 2.03 Diastolic Blood Pressure: 69 mm Hg ?? Oxygen Saturation: 98 % ?? Studies Pending All studies ordered during this hospital stay have been completed unless listed below. Please discuss all pending results with your provider listed above in these instructions. ?? Hepatitis C RNA PCR Quant?? What to do next Instructions From Your Doctor ?? Orders?? giving Ceftriaoxne, ??03/08/25 15:08:00 EST?? Prescriptions??, ??03/08/25 15:08:00 EST?? You Need to Schedule the Following Appointments Follow Up with??Not on Staff, PCP When:Within 1 week Discharge Medications CORAZON MATTEO JENNIFER:1980 Visit Date:03/04/2025 Medications: Please continue your medications until treatment is completed or stopped by your provider. Medications not listed below should be discontinued. Discuss any questions related to medications with your provider. What How Much When Instructions Next Dose New Amoxicillin-Clavulanate (amoxicillin-clavulanate 875 mg-125 mg oral tablet) 1 tab(s) Oral 3 times a day Duration: 12 Days Ordering Physician: Mary Gatica MD at [facility] 3 03/08, 9PM; as prescribed. Unchanged Buprenorphine (Sublocade 100 mg/ 0.5 mL subcutaneous solution, extended release) 0.5 Milliliter Subcutaneous Injection Every 28 days As prescribed. Unchanged BuPROpion (Wellbutrin XL 150 mg/ 24 hours oral tablet, extended release) 1 tab(s) Oral Every 24 hours Special Instructions: TDD: 450 mg ?? 03/09, 9AM; as prescribed. Unchanged BuPROpion (Wellbutrin XL 300 mg/ 24 hours oral tablet, extended release) 1 tab(s) Oral Every 24 hours Special Instructions: TDD: 450 mg ?? 03/09, 9AM; as prescribed. Unchanged Clonidine (cloNIDine 0.1 mg oral tablet) 1 tab(s) Oral Twice a day as needed for Anxiety 03/08, 9PM; as prescribed. Unchanged Doxepin (doxepin 10 mg oral capsule) 1 capsule Oral Daily at Bedtime 03/08, 9PM; as prescribed. Unchanged Magnesium Oxide (Mag-Ox 400 400 mg oral tablet) 1 tab(s) Oral Daily 03/09, 9AM; as prescribed. Unchanged Quetiapine (SEROquel 25 mg oral tablet) 1 tab(s) Oral Daily at Bedtime 03/08, 9PM; as prescribed. Unchanged Ropinirole (rOPINIRole 0.5 mg oral tablet) 1 tab(s) Oral 3 times a day 03/08, 9PM; as prescribed. Unchanged Testosterone (testosterone cypionate 200 mg/ mL intramuscular solution) 1.5 Milliliter Intramuscular Every Saturday As prescribed. [facility] Information [facility]: [address], [place] [phone] ?? What How Much When Comments Stop Taking Buprenorphine-Naloxone (Suboxone 4 mg-1 mg sublingual film) 1 Film Sublingual Twice a day Prescription Given During Visit Amoxicillin-Clavulanate (amoxicillin-clavulanate 875 mg-125 mg oral tablet) - 1 tablet, By Mouth, 3times a day, # 36 tablet, 0 Refills, [facility] [address], [address] [place] [address] [phone]?? Laboratory Results Below is a partial list of the most recent Laboratory test results done prior to this discharge. You may have had other tests and procedures not included in this list. Please discuss all test resultswith your provider. Est Creatinine Clearance - 113.86 mL/min (03/08/2025) Amphetamine Urine Screen (03/05/2025) ???Amphetamine Screen, Urine - NONE DETECTED Anti-HBS Quant (03/05/2025) ???Anti-HBS Quant - 72.10 mIU/mL Barbiturate Urine Screen (03/05/2025) ???Barbiturate Screen, Urine - NONE DETECTED Basic Metabolic Panel (03/08/2025) ???Sodium - 139 mmol/L???Potassium - 4.0 mmol/L???Chloride - 105 mmol/L???Bicarbonate Level - 25 mmol/L???Anion Gap - 9 mmol/L???Glucose Level - 113 mg/dL???BUN - 12 mg/dL???Creatinine-Blood - 0.91 mg/dL???Estimated GFR Creatinine - 107 ML/MIN/1.73 M2???Calcium - 8.9 mg/dL Benzodiazepine Urine Screen (03/05/2025) ???Benzodiazepine Screen, Urine - POSITIVE Blood Culture (03/05/2025) ???Blood Culture Results - Preliminary report???Blood Culture Specimen Source - BLOOD Blood Culture #2 (03/05/2025) ???Blood Cult 2 Results - Preliminary report???Blood Culture 2 Specimen Source - BLOOD Blood Culture 2 Rapid ID, ZANE (03/04/2025) ???A calcoaceticus-baumannii comp,Culture 2 - Not Detected???Bacteroides fragilis, Culture 2 - Not Detected???Enterobacterales, Culture 2 - Not Detected???Enterobacter cloacae complex, Culture 2 - Not Detected???Escherichia coli, Culture 2 - Not Detected???Klebsiella aerogenes, Culture 2 - Not Detec lynette???Klebsiella oxytoca, Culture 2 - Not Detected???Klebsiella pneumoniae group, Culture 2 - Not Detected???Proteus spp., Culture 2 - Not Detected???Salmonella spp., Culture 2 - Not Detected???Serratia marcescens, Culture 2 - Not Detected???Haemophilus influenzae, Culture 2 - Not Detected???Neisseria meningitidis, Culture 2 - Not Detected???Pseudomonas aeruginosa, Culture 2 - Not Detected???Stenotrophomonas maltophilia, Culture 2 - Not Detected???Enterococcus faecalis, Culture 2 - Not Detected???Enterococcus faecium, Culture 2 - Not Detected???Listeria monocytogenes, Culture 2 - Not Detected???Staphylococcus spp., Culture 2 - Not Detected???Staphylococcus aureus, Culture 2 - Not Detected???Staphylococcus epidermidis, Culture 2 - Not Detected???Staphylococcus lugdunensis, Culture 2 - Not Detected???Streptococcus spp., Culture 2 - DETECTED???Streptococcus agalactiae, Culture 2 - Not Detec lynette???Streptococcus pneumoniae, Culture 2 - Not Detected???Streptococcus pyogenes, Culture 2 - DETECTED???Sandhya albicans, Culture 2 - Not Detected???Sandhya auris, Culture 2 - Not Detected???Sandhya glabrata, Culture 2 - Not Detected???Sandhya krusei, Culture 2 - Not Detected???Sandhya parapsilosi s, Culture 2 - Not Detected???Sandhya tropicalis, Culture 2 - Not Detected???Cryptococcus neoformans/gattii,Culture 2 - Not Detected???IMP (Carbapenemases), Culture 2 - Not applicable???KPC (Carbapenemases), Culture 2 - Not applicable???OXA-48-like (Carbapenemases), Culture 2 - Not applicable???NDM (Carbapenemases), Culture 2 - Not applicable???VIM (Carbapenemases), Culture 2 - Not applicable???mcr-1 (Colistin Resistance), Culture 2 - Not applicable???CTX- M (ESBL), Culture 2 - Not applicable???mecA/C(Methicillin Resistance),Culture 2 - Not applicable???mecA/C and MREJ (MRSA), Culture 2 - Not applicable???Khalida/B (Vancomycin Resistance),Culture 2 - Not applicable Blood Culture 2 Results (03/05/2025) ???Blood Culture 2 Isolate 1 - Comment Blood Culture Result (03/05/2025) ???Blood Culture Isolate 1 - Comment BUN (03/06/2025) ???BUN - 9 mg/dL Cannabinoid Urine Screen (03/05/2025) ???Cannabinoid Screen, Urine - NONE DETECTED CBC (03/07/2025) ???WBC - 4.9 k/mm3???RBC - 4.17 m/mm3???Hgb - 12.8 Gm/dL???Hct - 39.2 %???MCV - 94.0 femtoliters???MCH - 30.7 pg???MCHC - 32.7 Gm/dL???Platelet Count - 203 k/mm3???RDW-SD - 47.0 femtoliters???MPV - 9.2 femtoliters???Nucleated RBC (Automated) - 0.0 #/100 WBC'S???Abs. NRBC - 0.0 k/mm3 CBC w/ Differential (03/08/2025) ???WBC - 4.9 k/mm3???RBC - 4.43 m/mm3???Hgb - 14.0 Gm/dL???Hct - 41.4 %???MCV - 93.5 femtoliters???MCH - 31.6 pg???MCHC - 33.8 Gm/dL???Platelet Count - 222 k/mm3???RDW-SD - 46.1 femtoliters???MPV - 9.1 femtoliters???Nucleated RBC (Automated) - 0.0 #/100 WBC'S???Abs. NRBC - 0.0 k/mm3???Abs. Neut - 2.1 k/mm3???Abs. Lymph - 2.0 k/mm3???Abs. [place] - 0.5 k/mm3???Abs. Eo - 0.3 k/mm3???Abs. Baso - 0.1 k/mm3???Neut % - 43.5 %???Lymph % - 39.6 %???[place] % - 9.8 %???Eos % - 5.7 %???Baso % - 1.0 %???Imm Gran - 0.4 %???Abs. Imm Gran - 0.0 k/mm3 Cocaine Urine Screen (03/05/2025) ???Cocaine Metabolite Screen, Urine - POSITIVE COVID-19, RSV, and Flu A/B, Rapid PCR (03/04/2025) ???Influenza A PCR - NEGATIVE???Influenza B PCR - NEGATIVE???RSV PCR - NEGATIVE???COVID-19 PCR Specimen Source - NASAL???COVID-19 PCR Result - NEGATIVE Creatinine (03/06/2025) ???Creatinine-Blood - 0.92 mg/dL???Estimated GFR Creatinine - 105 ML/MIN/1.73 M2 CRP (03/05/2025) ???C-Reactive Protein - 7.4 mg/dL Electrolytes (03/06/2025) ???Sodium - 143 mmol/L???Potassium - 3.8 mmol/L???Chloride - 110 mmol/L???Bicarbonate Level - 24 mmol/L???Anion Gap - 9 mmol/L Ethanol Level (03/03/2025) ???Ethanol, Serum or Plasma - NONE DETECTED Hepatitis A Ab IgM (03/05/2025) ???Anti Hepatitis A IgM - NON REACTIVE Hepatitis B Core Ab IgM (03/05/2025) ???Hepatitis B Core Ab, IgM - NON REACTIVE Hepatitis B Surface Antigen (03/05/2025) ???Hepatitis B Surface Antigen - NON REACTIVE Hepatitis C Ab (03/05/2025) ???Hepatitis C Ab - REACTIVE HIV STAT Screen With Reflex to Quant (03/05/2025) ???HIV STAT Screen Result - NEGATIVE Lactate Level (03/04/2025) ???Lactate - 0.7 mmol/L Magnesium Level (03/08/2025) ???Magnesium - 1.9 mg/dL MRSA/MSSA PCR Nasal Swab (03/04/2025) ???MRSA PCR Result - Negative, MRSA target DNA not detected.???S Aureus PCR Result - Positive, SA target DNA detected. Opiate Screen Urine (03/05/2025) ???Opiate Screen, Urine - NONE DETECTED TSH with T4 Reflex (Adults Only) (03/03/2025) ???TSH - 0.94 uIU/mL Wound Superficial Culture W/ Gram Smear (03/04/2025) ???Aerobic Cult Source - SWAB???Superficial Wound Cult Results - Note Immunizations This Visit Given Vaccine Date tetanus/diphtheria/pertussis, acel(Tdap) 03/03/2025 ?? Not Given Vaccine Commentsinfluenza virus vaccine, inactivated Patient Refuses Allergies (NKA means No Known Allergies) NKA No Known Medication Allergies Problems Active Problems??(1) Cellulitis?? Education Materials Below is the list of Educational Leaflet Providered with your Discharge Instructions. Valuables and Belongings I fully understand and agree that [facility] accepts no responsibility for all my personal property including clothing, toilet articles, radios, jewelry, dentures, hearing aids, rings, money, or any other property that is in my possession or is brought to me after admission. I understand certain valuables may be placed in a hospital safe for a short period of time. I understand that the hospital is not liable for loss or damage due to accident, fire, or other natural occurrence while said property is in the safe. I accept full responsibility for any personal property that I keep with me, and will not hold the hospital responsible in case of loss or disappearance. I acknowledge that i have been encouraged to send valuables and belongings home. ?? Date for Pt to Sign Valuables/Belongings: 03/03/25 16:46:00 ?? Other Discharge Information ? Pulmonary Rehab Status?? Pulmonary Rehab Discharge Status?? Respiratory Rate:??14 br/min??Low ? Common Emergency Awareness Tips IS IT A STROKE? Act FAST and Check for these signs: FACE Does the face look uneven? ARM Does one arm drift down? SPEECH Does their speech sound strange? TIME Call at any sign of stroke ?? Heart Attack Signs Chest discomfort: Most heart attacks involve discomfort in the center of the chest and lasts more than a few minutes, or goes away and comes back. It can feel like uncomfortable pressure, squeezing, fullness or pain. Discomfort in upper body: Symptoms can include pain or discomfort in one or both arms, back, neck, jaw or stomach. Shortness of breath: With or without discomfort. Other signs: Breaking out in a cold sweat, nausea, or lightheaded. Remember, MINUTES DO MATTER. If you experience any of these heart attack warning signs, call to get immediate medical attention! ?? Smoking can increase your chances of developing chronic health problems and can cause harmful effects to other family members in your house. If you smoke, you are strongly encouraged to quit. Please call [facility] [employer] Link at [phone] or [phone] ([phone]) or log in to [email or web address] for referrals to smoking cessation programs. ?? 987 Suicide & Crisis Lifeline is available 08/10 if you or someone you know needs to find a reason to keep living. By calling 979 you'll be connected to a skilled, trained counselor at a crisis center in your area. INPATIENT DISCHARGE INSTRUCTIONS SIGNATURE PAGE MATTEO LEDESMA Location:[facility] Registration Date and Time:03/04/2025 03:04 EST Primary Care Physician: Not on Staff, PCP Attending Physician: Gavi SUNSHINE, Mary Rutherford, I MATTEO LEDESMA, have received the above patient education materials/instructions and have verbalized understanding. If ambulance or transport services are being used I further acknowledge being given a choice of service. ?? If you need to contact me, please call me at this number: . Patient/Scorer Single Name: Patient/Scorer Single Signature: Relationship to Patient: Witness Name/Signature: Date: Patient Care team information Care Team Personnel Name: Dee Espinoza RN Position: S RN Member Role: Primary Care Nurse Name: Kate Hernandez RN Position: S RN Member Role: Primary Care Nurse Name: Julia Hennessy RN Position: S RN Member Role: Primary Care Nurse Name: Not on Staff, PCP Position: [facility] Physician (General Medicine) Member Role: PCP Name: Anita Jeter RN Position: [facility] RN Member Role: Primary Care Nurse Care Team Related Persons Name: MEGAN LEDESMA Insurance Providers Guarantor name: MATTEO LEDESMA Health Plan Information #: 1 Payer: [facility] Payer Identifier: SUSI Member Number: [id number] Group Number: [id number] Subscriber Identifier: [id number] Relationship to Subscriber: self Coverage Type: Medicaid (Managed Care) Coverage Verification Date: NA Telecom: NA Address:
[2025-03-09 07:05] VITALS: BP 127/82; PULSE 93; O2SAT 97
--- NOTE | 2025-03-09 07:07 | ECG_ITS ---
Test Reason : CP Blood Pressure : */* mmHG Vent. Rate : 89 BPM Atrial Rate : 89 BPM P-R Int : 156 ms QRS Dur : 90 ms QT Int : 362 ms P-R-T Axes : 67 19 37 degrees QTcB Int : 440 ms Normal sinus rhythm Normal ECG When compared with ECG of 19-Nov-2024 23:53, No significant change was found Referred By: Generic ED Physician Electronically Signed By: LESLYE MOSS MD
[2025-03-09 07:14] VITALS: BP 111/57; PULSE 96; RESP 14; TEMP 36.6; O2SAT 93; BMI 25.3
--- NOTE | 2025-03-09 07:34 | MHC.EDTECH ---
Patient belongings brought to pod by security, placed in locker 12. One black backpack and two belongings bags.
--- OUTSIDE RECORDS SUMMARY | 2025-03-09 07:50 | XMS_ITS | Data Portability ---
Author Organization [facility], [facility] Address [address] [place] [address] Support Name Relationship Address Phone MATTEO LEDESMA self [address] [place] [address] Assessment Encounter Date Assessment Date Assessment LastModified by Organization Details LastModified Time 09/25/2024 09/25/2024 Foot and Ankle N ew Patient Note CHIEF COMPLAINT: Right foot injury HPI: Matteo is a pleasant 44 year old male who presents today for initial evaluation of a right foot injury. 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 He assumed he had some sort of sprain and that everything would improve with time. When the symptoms did not improve over the next few weeks he presented to [facility] urgent care and was diagnosed with 5th metatarsal base fracture. He has been in a cam boot since Saturday. Pain rating is a 4 out of 10. He has been weightbearing as tolerated. Taking fsfi-bji-whsoqky pain medication. He is very active and averages 20,000 steps a day at his job. Currently he is doing more sedentary work. He is here today to discuss treatment options. 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 PHYSICAL EXAM: Constitutional: Healthy appearing individual in no acute distress Psychiatric: Alert and oriented Respiratory: Unlabored breathing Lymphatic: No lymphadenopathy in the foot/ankle Skin: No open wounds CV: Palpable pedal pulses Neuro: Light touch grossly intact MSK: Focused examination of the right foot and ankle- Onset exam foot and ankle alignment are appropriate. No deformity. Mildly antalgic gait. On seated exam skin is intact. No significant swelling or ecchymosis. Patient is tender discretely at the fifth metatarsal base. He is able to fire his peroneus brevis tendon and sathish the foot. He otherwise is nontender throughout the foot and ankle. Motor and sensory intact. Palp DP pulse. Foot warm well-perfused. IMAGIN prior weightbearing x-rays of the right foot reveal a displaced and rotated fifth metatarsal base avulsion fracture. There is some bony contact more medially. There is not significant retraction of the fracture fragment. ASSESSMENT: Right fifth metatarsal base zone 1 avulsion fracture with displacement and rotation PLAN: We discussed the diagnosis, treatment to date, and the plan moving forward. Discussed both conservative and surgical treatment options. From a conservative standpoint this represents an avulsion injury at the peroneus brevis insertion. There is not significant proximal displacement of the fracture but there is evidence of rotation. There is a chance the fracture heals then in either bony or fibrous union and that his symptoms are relieved with conservative treatment. This may take 2-3 additional months to fully heal. There is also a chance that given the displaced and rotated nature of the fracture as well as his thin soft tissue envelope that he remains symptomatic in this area. If he failed conservative treatment the most reliable surgical option for him would be fifth metatarsal base excision and peroneus brevis insertion repair. Discussed all of the above. We will plan to start with conservative treatment. He will use the cam boot for now and wean into supportive sneakers as tolerated. Work on ankle and foot range of motion and strengthening exercises at home. Will keep a close eye on him and see him back in 4 weeks for repeat x-rays. If he is continuing to be symptomatic we will consider an MRI to evaluate the injury. Follow-up sooner if any issues. Patient agrees with the plan, all questions answered. Speech recognition industrial trainer software was used to create portions of this document. An attempt at proofreading has been made to minimize errors. Please call for corrections. [email or web address] Not available 09/25/2024 12:31:44 Plan of Treatment Reminders Order Date Submit Date Provider Name Organization Details Last Modified By Last Modified Time Details Appointments None record ed. Lab None record ed. Referral None record ed. Procedures None record ed. Surgeries None record ed. Imaging XR, foot, 3 or more view 10:29:0 5 Monica maciel PA-C [facility] [address], [place], [address], Monica maciel PA-C 13:02:33 MedicationOrders None record ed. VaccineOrders None record ed. Patient TargetsNo targets recorded. Patient InstructionsNo instructions recorded. Reason for Referral None Reported. Results Created Date Observation Date Name Description Value Unit Range Abnormal Flag Specimen Type Note LastModifiedBy Organization Detail LastModifiedTime 09/23/2024 09/23/2024 foot 3 view [email or web address]=tzXfPzyXG4sDavHPf6r%1XGItbRuhvr1zrwh%7Up7VXy6 naFhcE6gHoTGbbxGr0JtIBEpQaiEJM0hIrIKtzd43x2750LT0BqtViPXwTmWpVnbPzN Not Available [facility] , [address] , [place] , [address], , 09/23/2024 10:36:41 09/23/2024 09/23/2024 foot 3 view [email or web address]=fyTrTzkFG9bSkvWLm0x%6MPZjmMpuxh4vrge%1Ju4WOf4 fiGtmF9tGwKVkmlBc2MfEEPgJkqUWA7gFwEMywe61u9571RL3GicUsRZyOpBtHqvBvN Not Available [facility] , [address] , [place] , [address], , 09/23/2024 10:36:44 Result Notes Documentation Provider Name and Address Organization Details Recorded Time Xr, Foot, 3 Or More View : [email or web address] Encrypted=xoMqSkgEL0dVfwW Uv6g%9WHOwtHlcqb0taix%2Fg 6UBr2xaJhoU4kGnPHswoKm7Md VLZdResPRD0uAjJVyjh38w472 7NC3YqnBzFWoXzFlMjhTkT Not Available [facility] 09/23/2024 10:36: 41 Xr, Foot, 3 Or More View : [email or web address] Encrypted=eoIvGapCS9fSqcC Uv6g%2CPUnmJitap6ussw%2Fg 1GJv8qlOqqC1fGjFFevfEn0Rl NRMwUyiQCI0hMdDEtkw02d297 0NF9ZnnNvGYwGwEaRitGxE Not Available [facility] 09/23/2024 10:36: 44 Problems Name Problem SNOMED Code Status Onset Date Resolution Date Notes Provider Name and Address Organization Details Recorded Time No complaint s 789499614 Active Status: 'I'; Not Available [facility] 4 09:11:12 Closed fracture of scaphoid bone 63307952 Active 2018 Problem Code: S62.024A ; Problem Code Type: ICD-10; Status: 'A'; Not Available [facility] 4 11:13:50 Fracture of scaphoid bone 67021154 Active 2018 Problem Code: S62.024D ; Problem Code Type: ICD-10; Status: 'A'; Not Available [facility] 4 11:13:50 Pain in right foot 070299489919 107 Active 2024 TAYLOR bo [place] - [facility] 10:28:34 Closed fracture of fifth metatarsa l bone 00172911 Active 2024 TAYLOR bo [place] - [facility] 07/09/202 5 11:18:18 Problem Notes None recorded. Medical Equipment None Reported. Allergies No known drug allergies Medications Name Authored On Sig Start Date Stop Date Status Note Indication Fill Status Repeat Number Dispense Quantity LastModified by Organization Details LastModified Time aripi prazo le 5 mg table t 5 08:43:25 TAKE 1 TABL ET BY MOUT H EVER YDAY AT BEDT ZHANG active Not Available Not availab le 0 Not Available Not Available fred - External Data Service - prod 09/23/2024 08:43:25 bupro pion HCl XL 300 mg 24 hr table t, exten ded relea se 5 08:43:25 TAKE 1 TABL ET BY MOUT H EVER Y DAY active Not Available Not availab le 0 Not Available Not Available fred - External Data Service - prod 09/23/2024 08:43:25 cloni dine HCl 0.1 mg table t 5 08:43:25 TAKE 1 TABL ET BY MOUT H TWIC E A DAY NEED ED active Not Available Not availab le 0 Not Available Not Available fred - External Data Service - prod 09/23/2024 08:43:25 hydro xyzin e HCl 50 mg table t 5 08:43:26 TAKE 1 TABL ET BY MOUT H TWIC E A DAY active Not Available Not availab le 0 Not Available Not Available fred - External Data Service - prod 09/23/2024 08:43:26 UltiC are Safet y Syrin ge 3 mL 22 gauge x 1 1/[address] 08:43:[address] 1.5M L INTR AMUS CULA RLY EVER Y OTHE R WEEK OF TEST OSTE HRYS active Not Available Not availab le 0 Not Available Not Available ferd - External Data Service - prod 09/23/2024 08:43:26 amoxi cilli n 500 mg capsu le 5 08:43:26 TAKE 1 CAPS ULE BY MOUT H TWIC E A DAY FOR 10 DAYS 09/23 aborted Not Available Not availab le 0 Not Available TAYLOR HIRSCH [place] - [facility] 09/23/2024 10:46:05 aripi prazo le 4 19:03:09 ARIP ipra zole 2MG Tabl et 09/23 aborted Statu s: 'Curr ent'; Not Available Not availab le 0 Not Available TAYLOR HIRSCH [facility] 09/23/2024 10:46:15 oxyco done HCl-o xycod one-A SA 19:03:09 1 ever y 4 - 6 hour s as need ed prn pain DO NOT LAURENT ROMERO THIS MEDI JASKARAN ON 09/23 aborted Statu s: 'Curr ent'; Not Available Not availab le 0 Not Available TAYLOR HIRSCH [facility] 09/23/2024 10:46:36 queti apine 100 mg table t 08:43:27 TAKE 1 TABL ET ORAL LY AT BEDT ZHANG , FOR SLEE P AND RACI NG THOU GHTS . 09/23 aborted Not Available Not availab le 0 Not Available TAYLOR HIRSCH [facility] 09/23/2024 10:46:41 trama dol 50 mg table t 12:25:37 TAKE 1 TABL ET BY MOUT H EVER Y 6 HOUR S active Not Available Not availab le 0 Not Available Not Available fred - External Data Service - prod 10/04/2024 12:25:37 testo stero ne cypio timothy 200 mg/mL intra muscu lar oil 13:33:[address] 1.5 CC IM EVER Y WEEK active Not Available Not availab le 0 Not Available Not Available fred - External Data Service - prod 10/11/2024 13:33:07 bupro pion HCl SR 150 mg table t,12 hr susta ined- relea se 23:22:30 TAKE 1 TABL ET ORAL LY ASHISH Y , IN THE MORN ING. active Not Available Not availab le 0 Not Available Not Available fred - External Data Service - prod 10/19/2024 23:22:30 Vitals Date Recorded Body height Body mass index (BMI) Body weight Provider Name and Address Organization Details Last Updated DateTime 09/23/2024 182.88 cm 23.1 kg/m2 68295.7 g TAYLOR HIRSCH [facility] 09/23/2024 10:40:26 Date Recorded Body height Body mass index (BMI) Body weight Provider Name and Address Organization Details Last Updated DateTime 09/25/2024 182.88 cm 23.1 kg/m2 42699.7 g Margaretдмитрий Sol [facility] 09/25/2024 10:43:00 Social History Social History Observation Description Date Observed Sex Unknown 10/02/2024 Legal Sex Male Status Not (finding) 03/09/20 25 No social history survey screeners recorded No social history SDOH screeners recorded Functional Status None recorded. No Functional Screening assessment recorded No Functional SDOH screeners recorded Mental Status None recorded. No Mental Screening assessment recorded No Mental SDOH screeners recorded Family History Nothing Reported. Medical History No medical history recorded. Past Encounters Encounter ID Performer Location Encounter Start Date Encounter Closed Date Diagnosis/Indication Diagnosis SNOMED-CT Code Diagnosis ICD10 Code Diagnosis IMO Codes Diagnosis Note [id number] Monica Waterman PA-C [facility] [address] [place] [address] 09/23/2024 08:45:05 10/02/2024 14:36:08 Pain in right foot 2024567583 08727 M79.671 381603 Closed fra cture of fifth metatarsal bone 10554075 S92.351A 6200217 [id number] MD [facility] [address] [place] [address] 09/25/2024 10:29:17 10/06/2024 14:47:53 Pain in right foot 5008418916 51507 M79.671 597890 Closed fra cture of fifth metatarsal bone 07107765 S92.351A 0572624 Health Concerns Section Related Observation LastModified by Organization Det ls LastModified Time None Recorded Concern Status LastModified by Organization Details LastModified Time None Recorded SDOH Concern Status LastModified by Organization [facility] LastModified Time None Recorded Advance Directives Directive None Recorded Payers Insurance Date Sequence Insurance Name Policy Number Policy Andrews Covered Member ID Andrews Member ID Guarantor Name 10/19/2024 1 [facility] [employer] - [employer]GET[employer] (MEDICAID HMO) [id number] Matteo Ledesma [id number] 1 Matteo Ledesma 09/23/2024 1 [facility] (PPO) [id number] Matteo Ledesma [id number] 1 Matteo Ledesma 09/23/2024 1 [facility] (PPO) [id number] Matteo Ledesma [id number] Matteo Ledesma Notes Date Note Type Note Provider Name and Address Organization Details Recorded Time 09/23/2024 text/html I am seeing the patient today under the supervision of Dr. Mcwilliams who was available but who did not see the patient. History is taken from the patient HPI: Patient here today concerning right foot pain. 5 weeks ago he tells me he hit his foot against a steel manhole cover. 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 He has had pain since then. 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 He thought it would get better but it did not he therefore presents to the orthopedic urgent care clinic today to further evaluate. He is complaining of a lump over his fifth proximal metatarsal. It is painful. Past family, medical, social history and review of systems has been reviewed, updated and is located in the patient s chart. EXAMINATION: Shoe and sock taken down. He does have a palpable mass at the base of his fifth metatarsal that is very tender. There is no skin breakdown. He ambulates with an antalgic gait. The remainder of his ankle is nontender to palpation. He does not have significant swelling. X-RAYS: Were ordered, obtained and independently reviewed today in our office. There were 3 views of the right foot performed in the findings are as follows: Shows a displaced proximal fifth metatarsal fracture. DIAGNOSIS: Right fifth metatarsal fracture proximal MEDICAL DECISION MAKING: Case reviewed with Dr. Landrum via phone today. Patient is in need of surgical intervention Dr. Landrum would like to see him September 25, 2024 at 10:30 AM to discuss the details and plan further. Tramadol is sent to the patient's pharmacy. Patient is aware of these arrangements. He is also given a cam walking boot and should limit his weightbearing. The patient is ambulatory, but has weakness and/or instability of their extremity which requires stabilization from this semi-rigid/rigid orthosis to improve their function. Verbal and written instructions for the use and application of this item were given. Patient was instructed that should the brace result in increased pain, decreased sensation, increased swelling or an overall worsening of their medical condition, to please contact our office immediately. Call sooner if he has any problems or concerns. Today's visit involved examining the patient, reviewing the history, reviewing the radiographic studies, counseling the patient regarding treatment options, and the administrative tasks including placing orders, preparing patient information and home handouts and preparing the visit note. This note was generated with [facility] speech recognition industrial trainer dictation software. Please excuse any errors that may have been overlooked during review of this note. Sometimes, these errors may affect the content or meaning of a given sentence. Please call for corrections. Monica Waterman PA-C [address], [place], [address], [facility] 09/23/2024 16:17:37 Care Team Name Role Member ID Specialty Address Phone None Recorded.
--- OUTSIDE RECORDS SUMMARY | 2025-03-09 07:50 | XMS_ITS | Encounter Summary ---
Author Organization [facility] Address [address] [place] [address] Care Team Providers Care Picture Enlarger Name Role Phone Raúl Blancas Primary Care Provider [phone] Encounter Details Date Type Department Care Team (Late st Contact Info) Description 11/21/2024 Lab Requisition [facility] - Main Lab [address] [facility] [place] [address] Anais Gamino [address] [place], [place] [phone] Other fpc (current) drug therapy Social History Tobacco Use Types Packs/Day Years [...] Procedure Name Priority Date/Time Associated Diagnosis Comments LIPID PANEL WITH REFLEX TO DIRECT LDL Routine 11/21/2024 7:00 AM EDT Other fpc (current) drug therapy HEMOGLOBIN A1C Routine 11/21/2024 7:00 AM EDT Other fpc (current) drug therapy GLUCOSE, RANDOM Routine 11/21/2024 7:00 AM EDT Other fpc (current) drug therapy documented in this encounter Results * Glucose, random (11/21/2024 7:00 AM EDT) Glucose 74 70 - 100 mg/dL LAB CHEMISTRY METHOD 11/21/2024 11:57 AM EDT [facility] Blood Venous blood specimen / Unknown Venipuncture / Unknown 11/21/2024 7:00 AM EDT 11/21/2024 10:39 AM EDT Anais Gamino LAB BLOOD ORDERABLES Arely l Result [facility] [address] [place] [address], [place] [phone] * (ABNORMAL) Lipid panel with reflex to direct LDL (11/21/2024 7:00 AM EDT) Cholesterol 105 0 - 200 mg/dL LAB CHEMISTRY METHOD 11/21/2024 11:57 AM [facility] Triglycerides 50 0 - 150 mg/dL LAB CHEMISTRY METHOD 11/21/2024 11:57 AM [facility] HDL 39(L) >=40 mg/dL LAB CHEMISTRY METHOD 11/21/2024 11:57 AM [facility] LDL Calculated 56 0 - 100 mg/dL LAB CHEMISTRY METHOD 11/21/2024 11:57 AM [facility] Comment:Estimated LDL Calcul ated using equation: Total cholesterol - HDL cholesterol - (Triglycerides/5) VLDL Cholesterol Noe 10 mg/dL LAB CHEMISTRY METHOD 11/21/2024 11:57 AM [facility] Non HDL Chol. (LDL+VLDL) 66 <145 mg/dL LAB CHEMISTRY METHOD 11/21/2024 11:57 AM [facility] Chol/HDL Ratio 2.7 0.0 - 4.4 LAB CHEMISTRY METHOD 11/21/2024 11:57 AM [facility] Blood Venous blood specimen / Unknown Venipuncture / Unknown 11/21/2024 7:00 AM EDT 11/21/2024 10:39 AM EDT Anais [facility] LAB BLOOD ORDERABLES Arely l Result Performing Organization Address [facility]/ZIP Co de Phone Number [facility] [address] [place] [address], [place] [phone] * Hemoglobin A1c (11/21/2024 7:00 AM EDT) Hemoglobin A1C 5.1 <6.5 % LAB CHEMISTRY METHOD 11/21/2024 1:05 PM EDT [facility] Mean Bld Glu Estim. 100 mg/dL LAB CHEMISTRY METHOD 11/21/2024 1:05 PM EDT [facility] Blood Venous blood specimen / Unknown Venipuncture / Unknown 11/21/2024 7:00 AM EDT 11/21/2024 10:39 AM EDT [facility] LAB BLOOD ORDERABLES Arely l Result Performing Organization Address City/[facility]/ZIP Co de Phone Number [facility] [address] [place] [address], [place] [phone] documented in this encounter Visit Diagnoses Diagnosis Other ocean transportation intermediary (current) drug therapy documented in this encounter Care Teams Picture Enlarger Relationship Specialty Start Date End Date Raúl Blancas PA [address] [place] [phone] PCP - General Internal Medicine 11/19/24 documented as of this encounter
--- OUTSIDE RECORDS SUMMARY | 2025-03-09 07:50 | XMS_ITS | Encounter Summary ---
Author Organization [facility] Address [address] [place] [address] Care Team Providers Care Roll Tester Name Role Phone Raúl Blancas Primary Care Provider [phone] Encounter Details Date Type Department Care Team (Late st Contact Info) Description 07/30/[address] [facility] - Main Lab [address] [place] [phone] Brien Mitchell PA [address] [phone] Testicular hypofunction Social History Tobacco Use Types [...] PM EDT) WBC 5.6 4.8 - 10.8 K/[facility] LAB HEMETOLOGY METHOD 07/30/2024 7:13 PM EDT [facility] RBC 4.60 4.50 - 5.50 M/[facility] LAB HEMETOLOGY METHOD 07/30/2024 7:13 PM EDT [facility] Hemoglobin 14.1 13.5 - 17.5 g/dL LAB HEMETOLOGY METHOD 07/30/2024 7:13 PM EDT [facility] Hematocrit 43.3 42.0 - 54.0 % LAB HEMETOLOGY METHOD 07/30/2024 7:13 PM EDT [facility] MCV 95.2 79.0 - 98.0 FL LAB HEMETOLOGY METHOD 07/30/2024 7:13 PM EDT [facility] MCH 31.0 27.0 - 32.0 pcg LAB HEMETOLOGY METHOD 07/30/2024 7:13 PM EDT [facility] MCHC 32.6 32.0 - 37.0 g/dL LAB HEMETOLOGY METHOD 07/30/2024 7:13 PM EDT [facility] RDW 14.1 11.0 - 15.0 % LAB HEMETOLOGY METHOD 07/30/2024 7:13 PM EDT [facility] Platelets 196 130 - 400 K/mcL LAB HEMETOLOGY METHOD 07/30/2024 7:13 PM EDT [facility] MPV 10.1 7.0 - 11.0 FL LAB HEMETOLOGY METHOD 07/30/2024 7:13 PM EDT [facility] NRBC 0.0 <1.0 % LAB HEMETOLOGY METHOD 07/30/2024 7:13 PM EDT [facility] NRBC Absolute 0.00 <0.10 K/mcL LAB HEMETOLOGY METHOD 07/30/2024 7:13 PM EDT [facility] Blood Venous blood specimen / Unknown 07/30/2024 1:47 PM EDT 07/30/2024 6:40 PM EDT us Brien [facility] LAB BLOOD ORDERABLES Final Res [facility] LAB [address] [place] [address], documented in this encounter Visit Diagnoses Diagnosis Testicular hypofunction Other testicular hypofunction documented in this encounter Care Teams Roll Tester Relationship Specialty Start Date End Date Raúl Blancas PA [address] [place] [address] PCP - General Internal Medicine 11/19/24 documented as of this encounter
--- OUTSIDE RECORDS SUMMARY | 2025-03-09 07:50 | XMS_ITS | Clinical Summary ---
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 Overview (03/03/2024): Starting 2000, last use 05/2017, in a community recovery program, also with his psychiatrist Immunizations Immunization Administration Dates Next Due Td Tetanus diptheria (Tdvax) 7yo and older 05/10 Surgical History Surgery Date Site/Laterality Comments OTHER SURGICAL HISTORY Left PROCEDURE: [place] RPR NON/MALUNION METARSAL W/WO BONE GRAFT OTHER SURGICAL HISTORY PROCEDURE: [place] LARYNGOSCOPY INDIRECT W/BIOPSY; COMMENT: polyps removed Medical [...] on file Sexual Orientation Not on file Plan of Treatment Health Maintenance Due Date Last Done Comments Hepatitis A Vaccines (1 of 2 - Risk 2-dose series) 1999 Hepatitis B Vaccines (1 of 3 - 19+ 3-dose series) 1999 HPV Vaccines (1 - 3-dose SCD M series) 2007 HIV Screening 02/12/2022 Hepatitis C Screening 02/12/2022 Social Influencers of Health Screening 02/12/2022 Depression Screening 03/18/2024 COVID-19 Vaccine (3 - 2024-2 6 season) 2024 05/17/2020, 04/26/2020 Influenza Vaccine (#1) 2024 DTaP,Tdap,and Td Vaccines (2 - Td or Tdap) 05/10/2027 05/10/2017 Cholesterol Screening (Lipid Panel) 11/21/2029 11/21/2024 RSV Immunization Adult Patients (1 - 1-dose 75+ series) 2055 HIB Vaccines Aged Out No longer eligi [...] on patient's age to complete this topic Procedures Procedure Name Priority Date/Time Associated Diagnosis Comments LIPID PANEL WITH REFLEX TO DIRECT LDL Routine 11/21/2024 7:00 AM EDT Other oil heaterman (current) drug therapy from Last 3 Months or Most Recently Relevant to Health Maintenance Results * (ABNORMAL) Lipid panel with reflex to direct LDL (11/21/2024 7:00 AM EDT) Cholesterol 105 0 - 200 mg/dL LAB CHEMISTRY METHOD 11/21/2024 11:57 AM [facility] Triglycerides 50 0 - 150 mg/dL LAB CHEMISTRY METHOD 11/21/2024 11:57 AM [facility] HDL 39(L) >=40 mg/dL LAB CHEMISTRY METHOD 11/21/2024 11:57 AM [facility] LDL Calculated 56 0 - 100 mg/dL LAB CHEMISTRY METHOD 11/21/2024 11:57 AM [facility] Comment:Estimated LDL Calcul ated using equation: Total cholesterol - HDL cholesterol - (Triglycerides/5) VLDL Cholesterol Noe 10 mg/dL LAB CHEMISTRY METHOD 11/21/2024 11:57 AM [facility] Non HDL Chol. (LDL+VLDL) 66 <145 mg/dL LAB CHEMISTRY METHOD 11/21/2024 11:57 AM [facility] Chol/HDL Ratio 2.7 0.0 - 4.4 LAB CHEMISTRY METHOD 11/21/2024 11:57 AM [facility] Blood Venous blood specimen / Unknown Venipuncture / Unknown 11/21/2024 7:00 AM EDT 11/21/2024 10:39 AM EDT Anais Gamino LAB BLOOD ORDERABLES Arely l Result [facility] LAB [address] [place] [address], from Last 3 Months or Most Recently Relevant to Health Maintenance Insurance [facility] Care Teams Mule Tender Relationship Specialty Start Date End Date Raúl Blancas PA [address] [place] [id number] PCP - General Internal Medicine 11/19/24
--- OUTSIDE RECORDS SUMMARY | 2025-03-09 07:50 | XMS_ITS | Data Portability ---
Author Organization [facility] [facility] [employer] Address [address] [place] [address] Assessment Encounter Date Assessment Date Assessment LastModified by Organization Details LastModified Time 08/19/2024 08/19/2024 Assessment & Emily n Substance Use Disorder - History of substance use disorder involving opiates, cocaine, and alcohol since January 2001. Currently sober for almost a year, with the last use being on September 13, 2023. Previous mental health issues related to addiction, treated with Wellbutrin and an antipsychotic for the first 6 months of sobriety, now tapered off. - Continue monitoring sobriety. No current issues with substance use reported. Sleep disturbances - Reports waking up three times a night and experiencing snoring with episodes of apnea. Symptoms have been ongoing for 6 to 7 months, leading to fatigue and emotional instability. - Refer for a home sleep study to evaluate sleep patterns and potential sleep apnea. Shoulder pain - History of a fifth-degree shoulder separation with unresolved pain in the front deltoid area, likely due to scar tissue and exacerbated by overhead work activities. - Consideration of cortisone injections if they continue to be helpful. Provide exercises and tips for at-home management. Potential future imaging and referral to an orthopedist if pain persists. Medical clearance for driving license - Requires medical clearance for driving license due to previous psychiatric issues in August 2023. - Submit medical clearance diagnosis to DMV after receiving documentation from the psychologist. Substance use disorder - History of substance abuse disorder since age 22, involving opiates, cocaine, and alcohol. Currently sober for nearly one year as of September 12, 2024. - Continue current routine that supports sobriety; no specific medical intervention discussed. Low testosterone - History of low testosterone levels; treatment with testosterone has been beneficial for sobriety, marriage, and mood stabilization. - Continue testosterone therapy as it has been effective in improving mood stabilization and supporting sobriety. Driving license restrictions - Current restricted driving license due to past psychiatric issues related to addiction. Has already completed pscyh portion of the form. -Patient to fax paperwork for PCP portion of form to be completed. Appointments - Follow-up appointment for a home polysomnography to be scheduled. - Appointment for a cortisone shot to be scheduled. - Appointment for a primary care annual exam and preventative care to be scheduled. Not available 08/19/2024 20:23:25 10/14/2024 10/14/2024 Assessment & Emily n Broken toe: - Toe was initially misdiagnosed as fine, but later confirmed broken by [facility]. Healing well, likely to have a bump but full recovery expected without surgery. - Follow-up scheduled in one week. Cortisone injection pending. Sleep disturbances: - Difficulty staying asleep, potentially contributing to fatigue and low testosterone levels. - Polysomnography scheduled for November. Consideration of environmental changes to improve sleep quality. Fatigue and body soreness: - Potential vitamin deficiencies contributing to fatigue. Sleep disturbances may also be a factor. - Lab work ordered to check thyroid function, vitamin D, and B vitamins. Follow-up in one month. Depression: - Depression returning after cessation of mental health medications. Previously responded well to bupropion. - Restart bupropion at 150 mg daily. Prescription sent to [facility] in [place]. Nicotine use: - Nicotine use through vaping, planning detox and cessation. - Scheduled detox next week. Recommendation to limit vaping before bed. Consider nicotine patches or gum. Prescription - Bupropion 150 mg, one tablet orally daily in the morning, 30 tablets Appointments - Follow-up appointment in approximately one month. [id number] Not available 10/14/2024 15:39:59 Plan of Treatment Reminders Order Date Submit Date Provider Last Modified By Organization Details Last Modified Time Details Appointments None recorded. Lab vitamin D, 25-hydroxy , total, serum 2024 025 [facility], [address] [facility], [place], [address], 12:05:48 cobalamin and folate panel, serum 2024 025 [facility], [address], [place], [address], 12:05:47 TSH + free T4, serum 2024 025 [facility], [address], [place], [address], 5 12:05:45 CMP, serum or plasma 2024 025 [facility], [address], [place], [address], 5 12:05:46 lipid panel, serum 2024 025 [facility], [address], [place], [address], 5 12:05:47 CBC w/ auto diff 2024 [facility] [address], [place], [address], 5 12:05:46 HbA1c (hemoglobi n A1c), blood 2024 025 [facility], [address], [place], [address], 12:05:48 Referral None recorded. Procedures home sleep testing (PROC) 2024 025 [email or web address] Not available 16:35:22 Surgeries None recorded. Imaging None recorded. Medication Orders bupropion HCl SR 150 mg tablet,12 hr sustained- release 2024 025 [facility] #[id number], [address], [place], [address], 15:35:57 Patient TargetsNo targets recorded. Patient Instructions Encounter Date Encounter Id Patient Instructions Last Modified By Organization Details Last Modified Time 08/19/2024 [id number] rotator cuff: exercises Not available 08/19/2024 14:59:12 rotator cuff problems: care instructions Not available 08/19/2024 14:59:12 Reason for Referral None Reported. Results Created Date Observation Date Name Description Value Unit Range Abnormal Flag Note LastModifiedBy Organization Detail LastModifiedTime 10/15/1910/15/2024 TSH+F REE T4 TSH 3.140 uIU/m L 0.450- 4.500 normal Not Available [facility] ([facility]) [address] [place], [address], 10/15/2024 12:05:45 10/15/1910/15/2024 TSH+F REE T4 T4,free(dire ct) 0.90 NG/dL 0.82-1 .77 normal Not Available [facility] ([facility]) [address] [place], [address], 10/15/2024 12:05:45 10/15/1910/15/2024 CBC WITH DIFFE RENTI AL/PL ATELE T WBC 5.8 x10e3 /uL 3.4-10 .8 normal Not Available [facility] ([facility]) [address] [place], [address], 10/15/2024 12:05:46 10/15/1910/15/2024 CBC WITH DIFFE RENTI AL/PL ATELE T RBC 4.31 x10e6 /uL 4.14-5 .80 normal Not Available [facility] ([facility]) [address] [place], [address], 10/15/2024 12:05:46 10/15/1910/15/2024 CBC WITH DIFFE RENTI AL/PL ATELE T hemoglobin 14.0 g/dL 13.0-1 7.7 normal Not Available [facility] ([facility]) [address] [place], [address], 10/15/2024 12:05:46 10/15/19 25 10/15/2024 CBC WITH DIFFE RENTI AL/PL ATELE T hematocrit 42.1 % 37.5-5 1.0 normal Not Available [facility] ([facility]) [address] [place], [address], 10/15/2024 12:05:46 10/15/19 25 10/15/2024 CBC WITH DIFFE RENTI AL/PL ATELE T MCV 98 fL 79-97 above high normal Not Available [facility] ([facility]) [address] [place], [address], 10/15/2024 12:05:46 10/15/19 25 10/15/2024 CBC WITH DIFFE RENTI AL/PL ATELE T MCH 32.5 pg 26.6-3 3.0 normal Not Available [facility] ([facility]) [address] [place], [address], 10/15/2024 12:05:46 10/15/19 25 10/15/2024 CBC WITH DIFFE RENTI AL/PL ATELE T MCHC 33.3 g/dL 31.5-3 5.7 normal Not Available [facility] ([facility]) [address] [place], [address], 10/15/2024 12:05:46 10/15/19 25 10/15/2024 CBC WITH DIFFE RENTI AL/PL ATELE T RDW 14.4 % 11.6-1 5.4 Not Available [facility] ([facility]) [address] [place], [address], 10/15/2024 12:05:46 10/15/19 25 10/15/2024 CBC WITH DIFFE RENTI AL/PL ATELE T platelets 215 x10e3 /uL 150-45 0 normal Not Available [facility] ([facility]) [address] [place], [address], 10/15/2024 12:05:46 10/15/19 25 10/15/2024 CBC WITH DIFFE RENTI AL/PL ATELE T neutrophils 67 % not estab. normal Not Available [facility] ([facility]) [address] [facility], [place], [address], 10/15/2024 12:05:46 10/15/19 25 10/15/2024 CBC WITH DIFFE RENTI AL/PL ATELE T lymphs 21 % not estab. normal Not Available [facility] ([facility]) [address] [facility], [place], [address], 10/15/2024 12:05:46 10/15/19 25 10/15/2024 CBC WITH DIFFE RENTI AL/PL ATELE T monocytes 9 % not estab. normal Not Available [facility] ([facility]) [address] [facility], [place], [address], 10/15/2024 12:05:46 10/15/19 25 10/15/2024 CBC WITH DIFFE RENTI AL/PL ATELE T eos 2 % not estab. normal Not Available [facility] ([facility]) [address] [facility], [place], [address], 10/15/2024 12:05:46 10/15/19 25 10/15/2024 CBC WITH DIFFE RENTI AL/PL ATELE T basos 1 % not estab. normal Not Available [facility] ([facility]) [address] [facility], [place], [address], 10/15/2024 12:05:46 10/15/19 25 10/15/2024 CBC WITH DIFFE RENTI AL/PL ATELE T immature cells SEISMIC PROSPECTING SUPERVISOR Not Available [facility] ([facility]) [address] [place], [address], 10/15/2024 12:05:46 10/15/19 25 10/15/2024 CBC WITH DIFFE RENTI AL/PL ATELE T neutrophils (absolute) 3.9 x10e3 /uL 1.4-7. 0 normal Not Available [facility] ([facility]) [address] [facility], [place], [address], 10/15/2024 12:05:46 10/15/19 25 10/15/2024 CBC WITH DIFFE RENTI AL/PL ATELE T lymphs (absolute) 1.2 x10e3 /uL 0.7-3. 1 normal Not Available [facility] ([facility]) [address] [facility], [place], [address], 10/15/2024 12:05:46 10/15/19 25 10/15/2024 CBC WITH DIFFE RENTI AL/PL ATELE T monocytes(ab solute) 0.5 x10e3 /uL 0.1-0. 9 normal Not Available [facility] ([facility]) [address] [facility], [place], [address], 10/15/2024 12:05:46 10/15/19 25 10/15/2024 CBC WITH DIFFE RENTI AL/PL ATELE T eos (absolute) 0.1 x10e3 /uL 0.0-0. 4 normal Not Available [facility] ([facility]) [address] [facility], [place], [address], 10/15/2024 12:05:46 10/15/19 25 10/15/2024 CBC WITH DIFFE RENTI AL/PL ATELE T baso (absolute) 0.1 x10e3 /uL 0.0-0. 2 normal Not Available [facility] ([facility]) [address] [facility], [place], [address], 10/15/2024 12:05:46 10/15/19 25 10/15/2024 CBC WITH DIFFE RENTI AL/PL ATELE T immature granulocytes 0 % not estab. Not Available [facility] ([facility]) [address] [facility], [place], [address], 10/15/2024 12:05:46 10/15/19 25 10/15/2024 CBC WITH DIFFE RENTI AL/PL ATELE T immature grans (abs) 0.0 x10e3 /uL 0.0-0. 1 Not Available [facility] ([facility]) [address] [facility], [place], [address], 10/15/2024 12:05:46 10/15/19 25 10/15/2024 CBC WITH DIFFE RENTI AL/PL ATELE T NRBC SEISMIC PROSPECTING SUPERVISOR Not Available [facility] ([facility]) [address] [facility], [place], [address], 10/15/2024 12:05:46 10/15/19 25 10/15/2024 CBC WITH DIFFE RENTI AL/PL ATELE T hematology comments: SEISMIC PROSPECTING SUPERVISOR Not Available [facility] ([facility]) [address] [facility] [facility], [place], [address], 10/15/2024 12:05:46 10/15/19 25 10/15/2024 COMP. METAB OLIC PANEL (14) glucose 75 mg/dL 70-99 normal Not Available [facility] ([facility]) [address] [facility], [place], [address], 10/15/2024 12:05:46 10/15/19 25 10/15/2024 COMP. METAB OLIC PANEL (14) BUN 16 mg/dL 6-24 normal Not Available [facility] ([facility]) [address] [place], [address], 10/15/2024 12:05:46 10/15/19 25 10/15/2024 COMP. METAB OLIC PANEL (14) creatinine 0.96 mg/dL 0.76-1 .27 normal Not Available [facility] ([facility]) [address] [place], [address], 10/15/2024 12:05:46 10/15/19 25 10/15/2024 COMP. METAB OLIC PANEL (14) eGFR 100 mL/mi n/1.7 3 >59 normal Not Available [facility] ([facility]) [address] [place], [address], 10/15/2024 12:05:46 10/15/19 25 10/15/2024 COMP. METAB OLIC PANEL (14) BUN/creatini ne ratio 17 9-20 normal Not Available [facility] ([facility]) [address] [place], [address], 10/15/2024 12:05:46 10/15/19 25 10/15/2024 COMP. METAB OLIC PANEL (14) sodium 142 mmol/ L 134-14 4 normal Not Available [facility] ([facility]) [address] [place], [address], 10/15/2024 12:05:46 10/15/19 25 10/15/2024 COMP. METAB OLIC PANEL (14) potassium 4.5 mmol/ L 3.5-5. 2 normal Not Available [facility] ([facility]) [address] [place], [address], 10/15/2024 12:05:46 10/15/19 25 10/15/2024 COMP. METAB OLIC PANEL (14) chloride 107 mmol/ L 96-106 above high normal Not Available [facility] ([facility]) [address] [place], [address], 10/15/2024 12:05:46 10/15/19 25 10/15/2024 COMP. METAB OLIC PANEL (14) carbon dioxide, total 22 mmol/ L 20-29 normal Not Available [facility] ([facility]) [address] [place], [address], 10/15/2024 12:05:46 10/15/19 25 10/15/2024 COMP. METAB OLIC PANEL (14) calcium 9.3 mg/dL 8.7-10 .2 normal Not Available [facility] ([facility]) [address] [place], [address], 10/15/2024 12:05:46 10/15/19 25 10/15/2024 COMP. METAB OLIC PANEL (14) protein, total 6.5 g/dL 6.0-8. 5 normal Not Available [facility] ([facility]) [address] [place], [address], 10/15/2024 12:05:46 10/15/19 25 10/15/2024 COMP. METAB OLIC PANEL (14) albumin 4.4 g/dL 4.1-5. 1 normal Not Available [facility] ([facility]) [address] [place], [address], 10/15/2024 12:05:46 10/15/19 25 10/15/2024 COMP. METAB OLIC PANEL (14) globulin, total 2.1 g/dL 1.5-4. 5 Not Available [facility] ([facility]) [address] [facility] [facility], [place], [address], 10/15/2024 12:05:46 10/15/19 25 10/15/2024 COMP. METAB OLIC PANEL (14) bilirubin, total 0.2 mg/dL 0.0-1. 2 normal Not Available [facility] ([facility]) [address] [facility], [place], [address], 10/15/2024 12:05:46 10/15/19 25 10/15/2024 COMP. METAB OLIC PANEL (14) alkaline phosphatase 49 IU/L 44-121 normal Not Available [facility]) [address] [place], [address], 10/15/2024 12:05:46 10/15/19 25 10/15/2024 COMP. METAB OLIC PANEL (14) AST (SGOT) 30 IU/L 0-40 normal Not Available [facility] ([facility]) [address] [place], [address], 10/15/2024 12:05:46 10/15/19 25 10/15/2024 COMP. METAB OLIC PANEL (14) ALT (SGPT) 20 IU/L 0-44 normal Not Available [facility] ([facility]) [address] [place], [address], 10/15/2024 12:05:46 10/15/19 25 10/15/2024 LIPID PANEL cholesterol, total 138 mg/dL 100-19 9 normal Not Available [facility] ([facility]) [address] [place], [address], 10/15/2024 12:05:46 10/15/19 25 10/15/2024 LIPID PANEL triglyceride s 198 mg/dL 0-149 above high normal Not Available [facility] ([facility]) [address] [facility], [place], [address], 10/15/2024 12:05:46 10/15/19 25 10/15/2024 LIPID PANEL HDL cholesterol 37 mg/dL >39 below low normal Not Available [facility] ([facility]) [address] [facility], [place], [address], 10/15/2024 12:05:46 10/15/19 25 10/15/2024 LIPID PANEL VLDL cholesterol megan 33 mg/dL 5-40 Not Available [facility]) [address] [facility], [place], [address], 10/15/2024 12:05:46 10/15/19 25 10/15/2024 LIPID PANEL LDL chol calc ([facility]) 68 mg/dL 0-99 Not Available [facility] [address] [place], [address], 10/15/2024 12:05:46 10/15/19 25 10/15/2024 LIPID PANEL LDL calc comment: SEISMIC PROSPECTING SUPERVISOR Not Available [facility]) [address] [place], [address], 10/15/2024 12:05:46 07/30/20 25 10/15/2024 VITAM IN B12 AND FOLAT E vitamin B12 595 pg/mL 232-12 45 normal Not Available [facility] ([facility]) [address] [facility], [place], [address], 10/15/2024 12:05:47 10/15/19 25 10/15/2024 VITAM IN B12 AND FOLAT E folate (folic acid), serum 10.4 NG/mL >3.0 normal A serum folat e josee ntrat ion of less than 3.1 ng/mL is consi dered to repre sent clini megan defic iency . Not Available [facility] ([facility]) [address] [facility], [place], [address], 10/15/2024 12:05:47 10/15/19 25 10/15/2024 HEMOG LOBIN A1C hemoglobin A1C 5.3 % 4.8-5. 6 normal Predi abete s: 5.7 - 6.4 Diabe nemo: >6.4 Glyce sarah contr ol for adult s with diabe nemo: <7.0 Not Available [facility] ([facility]) [address] [facility], [place], [address], 10/15/2024 12:05:48 10/15/19 25 10/15/2024 VITAM IN D, 25-HY DROXY vitamin D, 25-hydroxy 36.8 NG/mL 30.0-1 00.0 Vitam in D defic iency has been defin ed by the Insti tute of Medic ine and an Endoc rine Socie ty pract ice guide line as a level of serum 25-OH vitam in D less than 20 ng/mL (1,2) . The Endoc rine Socie ty went on to furth er defin e vitam in D insuf ficie ncy as a level betwe en 21 and 29 ng/mL (2). 1. IOM (Inst itute of Medic ine). 2010. Dieta ry refer ence jus es for calci um and D. Gabriel redding [place]: The [facility]io nal [facility] Press . 2. Tim freedman [place], Nidhi stock [place], Chris off-F errreyes i SUAREZ, et al. Evalu ation , treat ment, and preve ntion of vitam in D defic iency : an Endoc rine Socie ty clini megan pract ice guide line. JCEM. 2010; 96(7) :1911 -30. Not Available [facility] ([facility]) [address], [place], [address], 10/15/2024 12:05:48 Result Notes None recorded. Problems Name Problem SNOMED Code Status Onset Date Resolution Date Notes Provider Name and Address Organization Details Recorded Time History of opioid abuse 8300728295954 00 Active 2000 Lima Perez, [place] [address] , [facility] 5 14:19:07 History of alcohol abuse Active 2000 Lima Perez [place] [id number] , [facility] 5 14:19:25 History of hepatitis C 8517960549730 1 Active 2022 Limaaustin Perez [place] [address] , [facility] 5 14:40:44 Hypogonadi sm in male 52205697 Active 2023 Lima Perez [place] [id number] , [facility] 5 20:18:46 Problem Notes None recorded. Procedures Surgical History Date Name Laterality Status Provider Name and Address Organization Details Recorded Time Reconstructive Surgery completed E[facility] 08/19/2024 14:01:27 Imaging Results None recorded. Procedure Notes None recorded. Medical Equipment None Reported. Allergies No known drug allergies Medications Name Sig Start Date Stop Date Status Note LastModified by Organization Details LastModified Time amoxicillin 500 mg capsule TAKE 1 CAPSULE BY MOUTH TWICE A DAY FOR 10 DAYS 08/19 completed Not Available Not Available Not Available bupropion HCl SR 150 mg tablet,12 hr sustained-r elease TAKE 1 TABLET ORALLY DAILY , IN THE MORNING. active Not Available Not Available No t Available clonidine HCl 0.1 mg tablet TAKE 1 TABLET BY MOUTH TWICE A DAY NEEDED 08/19 completed Not Available Not Available Not Available hydroxyzine HCl 50 mg tablet TAKE 1 TABLET BY MOUTH TWICE A DAY 08/19 completed Not Available Not Available Not Available tramadol 50 mg tablet TAKE 1 TABLET BY MOUTH EVERY 6 HOURS 10/14 completed Not Available Not Available Not Available quetiapine 100 mg tablet TAKE 1 TABLET ORALLY AT BEDTIME , FOR SLEEP AND RACING THOUGHTS. 08/19 completed Not Available Not Available Not Available cephalexin 500 mg capsule TAKE 1 CAPSULE BY MOUTH THREE TIMES A DAY active Not Available Not Available No t Available testosteron e cypionate 200 mg/mL intramuscul ar oil INJECT 1.5 CC IM EVERY WEEK active Not Available Not Available No t Available diazepam 5 mg tablet TAKE 1 TABLET BY MOUTH EVERY 6 HOURS NEEDED FOR ANXIETY. 08/19 completed Not Available Not Available Not Available amoxicillin 500 mg-potassiu m clavulanate 125 mg tablet TAKE 1 TABLET BY MOUTH TWICE A DAY FOR 10 DAYS WITH FOOD 08/19 completed Not Available Not Available Not Available aripiprazol e 5 mg tablet TAKE 1 TABLET BY MOUTH EVERYDAY AT BEDTIME 08/19 completed Not Available Not Available Not Available bupropion HCl XL 300 mg 24 hr tablet, extended release TAKE 1 TABLET BY MOUTH EVERY DAY 08/19 completed Not Available Not Available Not Available Suboxone 8 mg-2 mg sublingual film TAKE 1 FILM BUCCALLY 2 TIMES A DAY 08/19 completed Not Available Not Available Not Available Suboxone 4 mg-[address] 1 FILM UNDER THE TONGUE TWICE A DAY active Not Available Not Available No t Available Ulti[employer] Safety Syringe 3 mL 22 gauge x 1 1/2 INJECT 1.5ML INTRAMUSC ULARLY EVERY OTHER WEEK OF TESTOSTER ONE 08/19 completed Not Available Not Available Not Available Vitals Date Recorded Body height Body mass index (BMI) Body weight Oxygen saturation Heart rate Systolic And Diastolic Provider Name and Address Organization Details Last Updated DateTime 182.88 cm 23.8 kg/m2 52033.3 6 g 95 % 60 /min 114/72 mm[Hg] Eboni [facility] 14:02:31 Date Recorded Body height Body mass index (BMI) Body weight Heart rate Oxygen saturation Systolic And Diastolic Provider Name and Address Organization Details Last Updated DateTime 182.88 cm 23.9 kg/m2 37081.2 6 g 69 /min 97 % 112/68 mm[Hg] Eboni berry [place] [facility] 15:15:13 Social History Question Answer Notes LastModified by Organizat ion Details LastModified Time Tobacco Smoking Status Former Smoker Vapes Eboni bo [facility] 08/19/2024 14:00:24 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 3 Information not available 08/19/2024 What Is Your Relationship Status? Information not available 08/19/2024 Do You Use Your Seat Belt Or Car Seat Routinely? Yes Information not available 08/19/2024 Are You Sexually Active? Yes Information not available 08/19/2024 Do You Have Smoke And Carbon Monoxide Detectors In Your Home? Yes Information not available 08/19/2024 Sex: Unknown Functional Status Question Answer Note LastModified by Organizat ion Details LastModified Time Do you use any illicit or recreational drugs? No Information not available 08/19/2024 What is your level of alcohol consumption? None Information not available 08/19/2024 Are you currently employed? 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 Family History Relationship Description Onset Age of this Age Resolved Age Notes LastModified by Organization Details LastModified Time Paternal Uncle Heart disease lauryn Not available 06/2024 14:00:41 Medical History No medical history recorded. Past Encounters Encounter ID Performer Location Encounter Start Date Encounter Closed Date Diagnosis/Indication Diagnosis SNOMED-CT Code Diagnosis ICD10 Code Diagnosis IMO Codes Diagnosis Note [id number] [facility] [address] [facility] [place] [address] 08/19/2024 13:43:09 08/19/2024 14:47:36 Daytime somnolence 7709499336 00 R40.0 [id number] Patient reports snoring, gasping for breath at night and waking for past 6-7 months. This has resulted in significan t fatigue during the day. Order for home sleep study made today. Discussed limiting stimulants , such as nicotine right before bedtime. Chronic pa in of left upper limb 9285022167 [id number] M25.512 G89.29 785778 Amenable to cortisone injection, as these have been helpful in the past. He declines physical therapy referral at this time, but is open to doing exercises at home Substance use disorder 3146057992 F19.90 [id number] Denies any recent substance use or desire to use any substances . Reports last substance use to be in August 2023. Male hypogonadism 413924 06 E29.1 [id number] On testostero ne, which is managed by [facility] in [place]. Patient reports that he has labs done every few months. Will request records to be sent to this office. [id number] MADONNA [facility] [address] [place] [address],[address] [place] [address] 10/14/2024 15:09:31 10/14/2024 15:54:39 Screening for cardiovascular system disease 710042506 Z13.6 [id number] Will collect baseline lab work today. Thyroid di sorder screening [id number] Z13.29 [id number] Based on patient's symptoms, will collect baseline thyroid labs. Screening for disorder [id number] Z13.21 [id number] Reports having been vitamin deficient in the past. I do doubt he will be vitamin B deficient due to energy drink consumptio n, but we will check today in case. Moderate r ecurrent major depression [id number] F33.1 [id number] Will restart bupropion, as patient has had good effects from this in the past. Advised this can take several weeks for effects to be noticed. Fatigue [id number] R53.82 [id number] Patient reports several possible contributi ng factors to his fatigue. He is getting 4 good hours of sleep nightly, he estimates. Looking into getting a new bed. He is continuing to use nicotine in the form of vaping just prior to bed. He has been set up with sleep medicine but will not see them until November. Reports his depression has been worse as of late. Testostero ne has been low, per urology who he is following for this issue. This is his second week with increase in weekly dose. We will also check labwork today to see if there are any other contributi ng factors. Restart Wellbutrin . Health Concerns Section Related Observation LastModified by Organization Detai ls LastModified Time None Recorded Concern Status LastModified by Organization Details LastModified Time None Recorded Advance Directives Directive None Recorded Payers Insurance Date Sequence Insurance Name Policy Number Policy Andrews Covered Member ID Andrews Member ID Guarantor Name 11/29/2024 1 Jovie - TOGETHER WITH [employer] [facility] (MEDICAID REPLACEMENT - HMO) [id number] Matteo Newton Baltazar [id number] 1 Matteo Ledesma Notes Date Note Type Note Provider Name and Address Organization Details Recorded Time 08/19/2024 text/html ROS as noted in the HPI Matteo is here to establish primary care after leaving his previous practice with Dr. Raúl Rahman over a year ago due to circumstances that made the fit unsuitable. Matteo has no current issues with substance use and has been sober for almost a year as of September 12, having struggled with substance abuse disorder involving opiates, cocaine, and alcohol since he was 22 years old. His substance abuse was initially triggered by being prescribed OxyContin in January 2001 during his sophomore year in college following a reconstructive surgery on his fifth metatarsal in [place], [place]. He has a history of heart disease on his father's side of the family, with two uncles affected, but no history of hypertension or diabetes in either parent. Both parents are still living. He reports that his testosterone levels were the lowest his previous doctor had seen in a decade for someone his age, which led to him being on testosterone therapy for about a year. He reports significant improvements in sobriety, marriage, and overall mood stabilization since starting testosterone therapy. He was also on Wellbutrin and an antipsychotic medication for the first six months of his sobriety to help with mood regulation but has since tapered off these medications and reports doing well without them. He quit smoking cigarettes after less than three years of total use, although he is currently addicted to vaping since quitting smoking. He is attempting to switch from vaping to using smokeless nicotine products or patches but has not yet been able to stop vaping entirely. Reports sleep disturbances for the past 6-7 months, waking up at 4:30 every day as part of a routine that supports sobriety. Experiences waking up three times a night with snoring and episodes of apnea, leading to significant fatigue during the day which affects emotional well-being. Reports attempts to alleviate sleep issues using melatonin, magnesium, Breathe Right strips without success. No current seasonal allergies noted; previously experienced nasal congestion from December to April which has since resolved. 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 This incident marked the beginning of substance abuse issues, exacerbated by family history of addiction which was unknown at the time. Father had requested no morphine post-surgery due to this history, but dependency developed within six months. Also reported a history of mental health issues last August resulting in a temporary license restriction allowing travel only until 9 PM daily. Was prescribed mental health medications including Wellbutrin and an antipsychotic (name not recalled) for mood regulation during the first six months of sobriety; both medications have since been tapered off successfully. Currently experiencing significant sleep disturbances for the past 6-7 months, waking up three times per night at 4:30 AM, resulting in fatigue and impacting emotional stability. Reports snoring and episodes resembling sleep apnea as observed by his . Previously tried melatonin, magnesium supplements, and Breathe Right strips without relief. No known seasonal allergies reported; nasal congestion from December to April has resolved. 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 History of fifth-degree shoulder separation during active addiction phase; previously managed with cortisone shots administered by Dr. Cole on two occasions which were helpful at that time. 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 No current use of illicit drugs or alcohol consumption for nearly a year as of September 12; previously used opiates, cocaine, and alcohol beginning at age 22 after being prescribed OxyContin during sophomore year of college (January 2001). Experienced varying lengths of sobriety but will reach one year sober in three weeks. No current issues with substance use reported. Lima Perez, TECHNICAL WRITER [address], [address], [place], [address], [place] [facility] 08/19/2024 20:24:34 10/14/2024 text/html ROS as noted in the HPI Matteo Ledesma, a 44-year-old male, reported a history of right foot pain beginning at the end of August 2024 following an injury. Initial evaluation with x-ray resulted in a misdiagnosis of no fracture. Persistent pain led to further evaluation at [facility], where a fracture was confirmed. By late September 2024, the fracture had begun to heal, and he was informed that a full recovery was likely without surgery, though a permanent bump may remain. He has a follow-up scheduled in one week. He has not yet received a cortisone injection for the foot and has canceled the procedure twice, attributing ongoing soreness to the untreated injury. Matteo described feeling absolute crap overall, with significant fatigue and poor sleep quality. He reported difficulty staying asleep, frequently waking up feeling overheated, and often relocating to the couch for the remainder of the night, which does not provide restorative sleep. He has been unable to obtain a sleep study until November 2024 due to insurance delays. He endorsed increased body soreness and a marked decline in his sense of wellness. To cope with daytime fatigue, he has been consuming two 5-hour energy drinks daily. He reported a history of substance abuse but has been sober for over a year. He was previously on medication for depression and anxiety, which he discontinued under medical supervision approximately six months ago. Since stopping the medication, anxiety has remained controlled, but depressive symptoms have returned big time. He is currently attempting dietary improvements and a detox regimen, including plans to stop nicotine use, particularly vaping, and intends to use nicotine patches or gum as alternatives. Matteo is under the care of urology for testosterone management. He previously received testosterone injections every two weeks, which caused significant fluctuations in mood and energy. The regimen was changed to a smaller weekly dose, but his testosterone levels dropped below 200. Last week, his dose was increased, and he is now on his second higher-dose injection. He has a history of ADHD and was previously treated with Vyvanse, which he found effective for focus and mental organization but ultimately discontinued due to misuse and concerns about relapse in the context of his substance abuse history. He reported that bupropion was previously effective for both mood and nicotine cravings, with no adverse effects. He is currently undergoing eight weeks of drug screening as part of DMV requirements, with only a few weeks remaining. No other symptoms or concerns were reported. Lima Perez, TECHNICAL WRITER [address] [facility] [address], [place], [address], [facility] 10/14/2024 16:56:30
[2025-03-09 08:14] LABS: MANUAL DIFF FLAG NO
--- NOTE | 2025-03-09 08:14 | ED.PSYCH ---
HPI - Psych General Chief Complaint: Overdose Stated Complaint: RELAPSE OF COCAINE/FENTANYL,CP/PALPITATIONS Time Seen by Provider: 03/09/25 08:13 History of Present Illness ED Provider: Sally Botello NP HPI Narrative: Referral with notable history of opioid use disorder, cocaine and fentanyl use, major depressive disorder, we will call use presents to the ED for evaluation via ambulance from a motel, with the patient reports using a proximally 1.5 g of cocaine on the and she would like Zofran. Reports chest pain began around 6:00 a.m. today. He does have a history of chest pain related to cocaine use, but feels this is more severe. He also reports suicidal ideations, reporting he has physically cut himself several times. He has markings that are linear to both arms, which he reports from cutting himself with a box knife. Denies any homicidal ideation. Patient is requesting help with recovery. She reports that she is scheduled to go to a long-term recovery program in [place] on 03/15 but does not feel he is going to make it until then. He denies any shortness the breath, abdominal pain, nausea or vomiting. No urinary complaints. Related Data Home Medications ?Medication ?Instructions ?Recorded ?Confirmed bupropion HCl 150 mg tablet,12 hr 150 mg PO QAM 11/20/24 03/09/25 sustained-release testosterone cypionate 200 mg/mL 300 mg IM QWEEK 11/20/24 03/09/25 intramuscular oil amoxicillin 875 mg-potassium 1 tab PO TID 03/09/25 03/09/25 clavulanate 125 mg tablet quetiapine 25 mg tablet 25 mg PO BEDTIME 03/09/25 03/09/25 Allergies Allergy/AdvReac Type Severity Reaction Status Date / Time No Known Allergies Allergy Verified 03/09/25 07:15 Review of Systems Review of Systems: ROS is otherwise negative unless mentioned in HPI. [facility] Past Medical History Medical History Opioid use disorder Right knee pain Low back pain Sore throat Opioid withdrawal Polysubstance abuse Depression Suicidal ideation Active substance abuse Drug overdose Social History Social History Household Members: None Housing: Homeless Do you presently have visiting nurse or other home services: No Alcohol intake: current Alcohol intake frequency: does not drink Patient Tobacco Use Status: Current everyday Tobacco user Tobacco use type: Cigarette Cigarette Packs Per Day: 2 Cigarettes Per Day: 40.0 Years Smoked: ''not sure, for awhile'' Smoked in Last 30 Days: Yes e-Cigarette/Vaping Use: Never Used Patient Interested in Nicotine Replacement: Yes Patient Given Instructions on How to Stop Smoking: Yes Date Education Initiated: 03/09/25 Second Hand Smoke Exposure: Yes Use of substances other than those prescribed or required for medical reasons: Yes Substance Use Type: Crack/Cocaine and Heroin Currently Displaying Signs/Symptoms of Drug Intoxication Withdrawal: No Have you been hit, kicked, punched, or otherwise hurt by someone within the past year? If so, by whom?: No Do you feel safe in your current relationship?: No Current Relationship Is there a partner from a previous relationship who is making you feel unsafe now?: No Are you made to feel afraid or neglected: No Advance Directives: No Advance Directives Information Provided: Yes Do you have thoughts of harming others: None Do you have a plan to hurt others: No Plan Recently lost weight without trying: No Eating poorly because of decreased appetite: No Nutrition Risks: No Nutritional Risk Poor oral hygiene: No service: No Sexual orientation: Straight/Heterosexual Physical Exam Exam: Exam: Nursing notes and vital signs reviewed. Constitutional: Well-appearing, NAD. Alert. Oriented X3. Eyes: EOMI. ENT: Pharynx normal. Neck: Normal inspection. Neck supple. CVS: Normal heart rate and rhythm. Pulses normal. Respiratory: No respiratory distress. Breath sounds normal. Abdomen: Nondistended. Skin: Skin warm and dry. Several linear markings, simple lacerations with healed scabs to the bilateral forearms. No open wounds. Extremities: No lower extremity edema. Neuro: Oriented X 3. No motor deficit. Vital Signs: Vital Signs: Last Vital Signs Temp 98.1 F 03/10/25 08:00 Pulse 56 03/10/25 08:00 Resp 16 03/10/25 08:00 BP 106/67 03/10/25 08:00 Pulse Ox 98 03/10/25 08:00 O2 Del Method Room Air 03/10/25 08:00 BMI result Body Mass Index 25.3 Medications Administered Generic Name Dose Route Start Last Admin Trade Name Freq PRN Reason Stop Dose Admin Bacitracin 1 appl 03/09/25 21:00 03/10/25 08:34 Bacitracin Oint 14 Gm Tube TOPICAL Not Given BID [facility] Protocol Bupropion HCl 150 mg 03/10/25 09:00 03/10/25 08:32 Bupropion Hcl Xl 150 Mg Tab.Er.24h PO 150 mg DAILY ADRIENNE Administration Cephalexin HCl 500 mg 03/09/25 20:00 03/10/25 08:32 Cephalexin 500 Mg Capsule PO 03/16/25 19:59 500 mg Q12H ADRIENNE Administration Hydroxyzine HCl 25 mg 03/09/25 15:30 03/10/25 07:47 Hydroxyzine Hcl 25 Mg Tablet PO 25 mg Q6H PRN Administration mild anxiety Melatonin 9 mg 03/09/25 22:28 03/09/25 22:41 Melatonin 3 Mg Tablet PO 9 mg BEDTIME PRN Administration Insomnia Nicotine 21 mg 03/10/25 09:00 03/10/25 08:34 Nicotine 21 Mg Patch.Td24 TRANSDERMA Not Given DAILY ADRIENNE Nicotine Polacrilex 4 mg 03/09/25 15:30 03/10/25 07:47 Nicotine Polacrilex 2 Mg Gum BUCCAL 4 mg Q2H PRN Administration Nicotine Cravings Quetiapine Fumarate 25 mg 03/09/25 21:00 03/09/25 21:06 Quetiapine Fumarate 25 Mg Tablet PO 25 mg BEDTIME ADRIENNE Administration Medical Decision Making Medical Decision Making MDM Narrative: Well-appearing male, NAD, answering all questions appropriately. Endorses using cocaine, fentanyl before 6:00 a.m. today. Has a history of cocaine related chest pain but feels this is more severe. EKG is nonischemic upon arrival. We will add on troponin. Does endorse active suicidal ideations. We will also add care eval, urine toxicology and reassess. 9:55 AM-- his troponin is flat. White blood cell count is 17, nonspecific. Urinalysis with no signs of infection, urine toxicology is positive for Suboxone, methadone, fentanyl, and cocaine. Viral panel is currently pending. She has remained vitally stable while in the ED. Medically cleared for care evaluation and assessment. 10:30 AM--patient was seen by the care team. We will be a bed search. Differential Diagnosis Differential Diagnoses: The differential diagnosis associated with the presentation includes cocaine chest pain, substance abuse, mental health crisis Admission/Observation Consideration of admission/observation: Escalation of care including admission/observation considered Consult Healthcare Provider Management of the patient was discussed with: Behavioral Health Provider Lab Data MDM Lab Attestation statement: I reviewed the patient's lab results. (Nonspecific leukocytosis.) 03/09/25 08:09 03/10/25 08:04 Labs: Lab Results 03/09/25 03/09/25 Range/Units 08:09 09:15 WBC 17.0 H (4.8-10.8) X10*3/uL RBC 4.52 L (4.60-5.80) X10*6/uL Hgb 14.4 (14.0-18.0) g/dl Hct 41.9 L (42.0-52.0) % MCV 92.7 (80.0-98.0) fL MCH 31.9 (27.0-33.0) pg MCHC 34.4 (31.0-36.0) g/dl RDW 13.0 (11.0-16.0) % Plt Count 224 (160-400) X10*3/uL MPV 8.8 L (9.4-12.4) fL Immature Gran % (Auto) 0.4 (0.0-0.4) % Neut % (Auto) 87.0 H (45-73) % Lymph % (Auto) 6.5 L (20-40) % [place] % (Auto) 5.4 (2-11) % Eos % (Auto) 0.3 (0-4) % Baso % (Auto) 0.4 (0-2) % Lymph # (Auto) 1.1 L (1.2-4.9) X10*3/uL [place] # (Auto) 0.9 (0.1-1.2) X10*3/uL Eos # (Auto) 0.1 (0.0-0.4) X10*3/uL Baso # (Auto) 0.1 (0.0-0.2) X10*3/uL Abs Immat Gran (auto) 0.07 H (0.00-0.03) X10*3/uL Absolute Neuts (auto) 14.7 H (2.0-8.3) x10*3/uL Absolute Nucleated RBC 0.000 (0.0-0.012) X10*3/uL Nucleated RBC % (auto) 0.0 (0.0-0.2) /100WBC Sodium 139 (135-145) mmol/L Potassium 4.3 (3.3-5.1) mmol/L Chloride 104 (96-108) mmol/L Carbon Dioxide 27 (22-29) mmol/L Anion Gap 12 (12-20) BUN 15 (9-16) mg/dL Creatinine 1.05 (0.5-1.4) mg/dL Estim Creat Clear Calc 98.5 Estimated GFR > 60 Random Glucose 97 (60-115) mg/dL Calcium 9.4 D (8.4-10.2) mg/dL Total Bilirubin 0.6 (0.0-1.0) mg/dL AST 24 (5-37) U/L ALT 14 (0-40) U/L Alkaline Phosphatase 62 (39-117) U/L Troponin I High Sens 9.0 (<3.5-35.0) ng/L Total Protein 7.1 (6.5-8.0) g/dL Albumin 4.5 (3.5-5.0) g/dL Urine Color Yellow Urine Appearance Clear Urine pH 7.0 (5.0-9.0) Ur Specific [place] 1.025 (1.005-1.025) Urine Protein Trace (Neg-Trace) mg/dL Urine Glucose (UA) Negative (Negative) mg/dL Urine Ketones Negative (Negative) mg/dL Urine Blood Negative (Negative) Urine Nitrite Negative (Negative) Ur Leukocyte Esterase Negative (Negative) Urine RBC 0-2 (0-2) /HPF Urine WBC 0-5 (0-5) /HPF Ur Squamous Epith Cells 0-2 (0-2) /HPF Urine Bacteria None Seen (None Seen) Hyaline Casts 0-2 (0-2) /LPF Salicylates < 5.0 L (15-30) mg/dL Urine Opiates Screen Not Detected (Not Detect) Ur Buprenorphine Scrn Positive H (Not Detect) ng/mL Ur Oxycodone Screen Not Detected (Not Detect) ng/mL Urine Methadone Screen Positive H (Not Detect) ng/mL Urine Fentanyl Screen POSITIVE H (Not Detect) Acetaminophen < 3 (<30) mcg/mL Ur Barbiturates Screen Not Detected (Not Detect) Ur Phencyclidine Scrn Not Detected (Not Detect) Ur Amphetamines Screen Not Detected (Not Detect) U Benzodiazepines Scrn Not Detected (Not Detect) Urine Cocaine Screen POSITIVE H (Not Detect) U Marijuana (THC) Screen Not Detected (Not Detect) Influenza Type A (PCR) NEGATIVE (Negative) Influenza Type B (PCR) NEGATIVE (Negative) RSV RNA Qual (PCR) NEGATIVE (Negative) SARS-CoV-2 RNA (RT-PCR) NEGATIVE (Negative) Independent Interpretation I performed an independent interpretation of an: EKG Interpretation: Rate: 89 Rhythm: NSR [place]: 67/19/37 Normal P waves. Normal ZENOBIA. Normal QRS complex. ST T wave : no dep, elev qTC: 440 prior studies: similar The study has been interpreted contemporaneously by me. Independent Historian Clinical information obtained from an independent historian. History obtained from or confirmed by: EMS External Record Review External record reviewed: Outside ED record Chronic Conditions Patient?s care impacted by: Other (Polysubstance use.) Social Determinants Patient?s care significantly limited by Social Determinants of Health including: Inadequate housing, Alcoholism and drug addiction in family, Problems related to primary support group and Problems related to employment Discharge Plan Discharge Clinical Impression: Cocaine abuse, Opioid use disorder, Depression with suicidal ideation Patient Disposition: Admitted As Inpatient Interventions: Admission Worksheet (ED) Last Done: 03/09/25 15:09 Discharge Date/Time: 03/09/25 15:29
[2025-03-09 08:17] LABS: Appearance Urine Clear; Glucose Urine UA Negative (Negative); Hematocrit 41.9 % (42.0-52.0); Hemoglobin 14.4 g/dl (14.0-18.0); Imm Gran Abs Auto 0.07 X10*3/uL (0.00-0.03); Imm Gran Pct Auto 0.4 % (0.0-0.4); Lymphocytes Absolute Auto 1.1 X10*3/uL (1.2-4.9); Mean Corpuscular HGB Conc 34.4 g/dl (31.0-36.0); Mean Corpuscular Hemoglobin 31.9 pg (27.0-33.0); Mean Corpuscular Volume 92.7 fL (80.0-98.0); NRBC Abs Auto 0.000 X10*3/uL (0.0-0.012); NRBC Pct Auto 0.0 /100WBC (0.0-0.2); PH 7.0 (5.0-9.0); Platelet Count 224 X10*3/uL (160-400); Red Blood Count 4.52 X10*6/uL (4.60-5.80); Specific Gravity - Urine 1.025 (1.005-1.025); White Blood Count 17.0 X10*3/uL (4.8-10.8)
[2025-03-09 08:27] LABS: Cannabinoid Screen Urine Not Detected (Not Detect)
[2025-03-09 08:34] LABS: Acetaminophen LAB < 3 mcg/mL (<30); Alanine Aminotransferase 14 U/L (0-40); Albumin Level 4.5 g/dL (3.5-5.0); Alkaline Phosphatase 62 U/L (39-117); Anion Gap 12 (12-20); Aspartate Amino Transferase 24 U/L (5-37); Blood Urea Nitrogen 15 mg/dL (9-16); Calcium 9.4 mg/dL (8.4-10.2); Carbon Dioxide 27 mmol/L (22-29); Chloride 104 mmol/L (96-108); Creatinine Clr Calc Pharmacy 98.5; Estimated Glomerular Filt Rate > 60; Potassium 4.3 mmol/L (3.3-5.1); Salicylate < 5.0 mg/dL (15-30); Sodium 139 mmol/L (135-145); Total Protein 7.1 g/dL (6.5-8.0)
[2025-03-09 08:36] LABS: Troponin-I High Sensitivity 9.0 ng/L (<3.5-35.0)
[2025-03-09 10:02] LABS: Resp Syncy Virus RNA Qual PCR NEGATIVE (Negative); SARS COV2 PCR INHOUSE NEGATIVE (Negative)
[2025-03-09 14:00] VITALS: BP 91/52; PULSE 52; RESP 12; TEMP 36.2; O2SAT 98
--- NOTE | 2025-03-09 14:47 | PHA.MEDREC ---
Pharmacy Consult ? Medication Reconciliation Pharmacy has reviewed the medication reconciliation completed by nursing. Pt takes testosterone of Saturdays.
[2025-03-09 15:52] VITALS: BMI 23.0
--- NOTE | 2025-03-09 16:52 | PC.ADMIT ---
Pt admitted to the unit at 1531. Pt arrived via wheelchair with security and staff. Pt signed CV with provider. Pt did sign a 3 day notice after signing the CV. 3-day up on Thursday 03/15. Skin check, contraband search completed. Legals completed. Pt was BIBA d/t unintentional overdose on cocaine and fentanyl. Pt reports an increase in substance use since the separation from his . Pt is currently homeless. 4 days prior to the unintentional overdose, Pt did cut bilateral arms from his wrists up past elbows. Pt states this was not a suicide attempt but did this as a release . Pt has a history of multiple psychiatric inpatient admissions. Pt has a history of section 35's, and multiple inpatient stays at detox/rehab centers in [place], [place], & [place]. Pt states he was accepted into [facility] in [place] which is a recovery center (Social work to verify acceptance date). Tox screen positive for cocaine, fentanyl, methadone, and buphrenorphine. EKG completed which showed NSR. Pt currently has no outside providers. WBC elevated at 17.0. Hospitalist consult placed d/t elevated WBC's and potential need for antibiotics d/t self inflicted cuts on arms. Addiction consult was placed. Pt is a 2 pack per day smoker. Pt requested nicotine replacement. Declined flu vaccine. Oriented to unit. Safety tool & treatment plan completed. Admission completed.
--- NOTE | 2025-03-09 19:32 | PM.EVENT ---
Event Note Date of Service: 03/09/25 Event Note: Pt seen on the floor for report of cut wounds to both arms. Pt stated the wounds occurred 5 days ago when pt cut himself with a knife. Pt states his last Tetanus shot was this year and is up to date. Pt denies pain or discharge from sites. Pt denies fever, chills or night sweats. Ordering keflex 500 mg Q12 H X 7D, pt has no known allergies. In addition, ordering bacitracin topically BID scheduled with wound care instructions. ABX prescribed more so empirically as sites are red, inflammed and slightly warm to the touch. Reviewed POC with nursing on the floor. Time Spent With Patient Time: Total time managing care of this patient today ____ minutes.
[2025-03-09 20:59] VITALS: BP 113/69; PULSE 73; RESP 16; TEMP 36.3; O2SAT 99
[2025-03-10 08:00] VITALS: BP 106/67; PULSE 56; RESP 16; TEMP 36.7; O2SAT 98
[2025-03-10] MEDS: buPROPion HCl XL 150 MG TAB.ER.24H PO (08:32)
[2025-03-10 08:39] LABS: Alanine Aminotransferase 30 U/L (0-40); Albumin Level 4.1 g/dL (3.5-5.0); Alkaline Phosphatase 64 U/L (39-117); Anion Gap 12 (12-20); Aspartate Amino Transferase 24 U/L (5-37); Blood Urea Nitrogen 22 mg/dL (9-16); Calcium 9.4 mg/dL (8.4-10.2); Carbon Dioxide 27 mmol/L (22-29); Chloride 106 mmol/L (96-108); Cholesterol 134 mg/dL (<200); Creatinine Clr Calc Pharmacy 98.4; Estimated Glomerular Filt Rate > 60; HDL Cholesterol 41 mg/dL (>40); Potassium 4.5 mmol/L (3.3-5.1); Sodium 140 mmol/L (135-145); Total Protein 7.0 g/dL (6.5-8.0); Triglycerides 173 mg/dL (<150)
--- NOTE | 2025-03-10 09:50 | HO.PM.IMCN ---
History of Present Illness Data of Consult Service Date: 03/10/25 Primary Care Provider: Unknown Physician HPI Reason for consult: Medical consult 44-year-old male with past medical history of opioid use disorder, polysubstance use disorder including cocaine and fentanyl, major depressive disorder complicated by housing instability presented to the ED for evaluation via ambulance after he used approximately 1.5 g of cocaine. Patient also reported chest pain, more severe than his usual chest pain. Patient reporting suicidal ideation with self-harm on both arms with a box knife. His EKG did not demonstrate any ischemic changes, troponins were negative. His white blood cell was elevated, urinalysis with no evidence of infection, U tox positive for Suboxone, methadone, fentanyl and cocaine viral panel negative. No anemia, no electrolyte imbalances. On exam he has no medical concerns. Review of Systems Review of Systems: Denies any shortness of breath, chest pain, headaches, dysuria, abdominal pain or discomfort, nausea, vomiting or diarrhea. Denies fever or chills. [facility] Medical History Opioid use disorder Right knee pain Low back pain Sore throat Opioid withdrawal Polysubstance abuse Depression Suicidal ideation Active substance abuse Drug overdose Social History Household Members: None Housing: Homeless Do you presently have visiting nurse or other home services: No Alcohol intake: current Alcohol intake frequency: does not drink Patient Tobacco Use Status: Current everyday Tobacco user Tobacco use type: Cigarette Cigarette Packs Per Day: 2 Cigarettes Per Day: 40.0 Years Smoked: ''not sure, for awhile'' Smoked in Last 30 Days: Yes e-Cigarette/Vaping Use: Never Used Patient Interested in Nicotine Replacement: Yes Patient Given Instructions on How to Stop Smoking: Yes Date Education Initiated: 03/09/25 Second Hand Smoke Exposure: Yes Use of substances other than those prescribed or required for medical reasons: Yes Substance Use Type: Crack/Cocaine and Heroin Currently Displaying Signs/Symptoms of Drug Intoxication Withdrawal: No Have you been hit, kicked, punched, or otherwise hurt by someone within the past year? If so, by whom?: No Do you feel safe in your current relationship?: No Current Relationship Is there a partner from a previous relationship who is making you feel unsafe now?: No Are you made to feel afraid or neglected: No Advance Directives: No Advance Directives Information Provided: Yes Do you have thoughts of harming others: None Do you have a plan to hurt others: No Plan Recently lost weight without trying: No Eating poorly because of decreased appetite: No Nutrition Risks: No Nutritional Risk Poor oral hygiene: No service: No Sexual orientation: Straight/Heterosexual Meds Allergies Allergy/AdvReac Type Severity Reaction Status Date / Time No Known Allergies Allergy Verified 03/09/25 07:15 Active Medications: Current Medications Acetaminophen (Acetaminophen 325 Mg Tablet) 650 mg PO Q6H PRN PRN Reason: Headache/Pain, Scale 1-10 Al Hydroxide/Mg Hydroxide (Magnesium Hydrox/Alum Hydrox 30 Ml Oral.Susp) 30 ml PO Q6H PRN PRN Reason: Heartburn/Nausea Bacitracin (Bacitracin Oint 14 Gm Tube) 1 appl TOPICAL BID [facility]; Protocol Last Admin: 03/10/25 08:34 Dose: Not Given Bupropion HCl (Bupropion Hcl Xl 150 Mg Tab.Er.24h) 150 mg PO DAILY [facility] Last Admin: 03/10/25 08:32 Dose: 150 mg Cephalexin HCl (Cephalexin 500 Mg Capsule) 500 mg PO Q12H [facility] Stop: 03/16/25 19:59 Last Admin: 03/10/25 08:32 Dose: 500 mg Hydroxyzine HCl (Hydroxyzine Hcl 25 Mg Tablet) 25 mg PO Q6H PRN PRN Reason: mild anxiety Last Admin: 03/10/25 07:47 Dose: 25 mg Magnesium Hydroxide (Milk Of Magnesia 30 Ml Oral.Susp) 30 ml PO DAILY PRN PRN Reason: Constipation Melatonin (Melatonin 3 Mg Tablet) 9 mg PO BEDTIME PRN PRN Reason: Insomnia Last Admin: 03/09/25 22:41 Dose: 9 mg Nicotine (Nicotine 21 Mg Patch.Td24) 21 mg TRANSDERMA DAILY [facility] Last Admin: 03/10/25 08:34 Dose: Not Given Nicotine Polacrilex (Nicotine Polacrilex 2 Mg Gum) 4 mg BUCCAL Q2H PRN PRN Reason: Nicotine Cravings Last Admin: 03/10/25 07:47 Dose: 4 mg Non-Formulary Medication (Testosterone Cypionate) 300 mg IM Q7D [facility] Quetiapine Fumarate (Quetiapine Fumarate 25 Mg Tablet) 25 mg PO BEDTIME [facility] Last Admin: 03/09/25 21:06 Dose: 25 mg Trazodone HCl (Trazodone Hcl 50 Mg Tablet) 50 mg PO BEDTIME MRX1 PRN PRN Reason: Insomnia Home Medications ?Medication ?Instructions ?Recorded ?Confirmed ?Last Taken ?Type bupropion HCl 150 mg tablet,12 hr 150 mg PO QAM 11/20/24 03/09/25 Unknown History sustained-release testosterone cypionate 200 mg/mL 300 mg IM QWEEK 11/20/24 03/09/25 02/20/25 History intramuscular oil amoxicillin 875 mg-potassium 1 tab PO TID 03/09/25 03/09/25 Unknown History clavulanate 125 mg tablet quetiapine 25 mg tablet 25 mg PO BEDTIME 03/09/25 03/09/25 Unknown History Physical Exam Vital Signs and Narrative: Vital Signs: Last Vital Signs Temp 98.1 F 03/10/25 08:00 Pulse 56 03/10/25 08:00 Resp 16 03/10/25 08:00 BP 106/67 03/10/25 08:00 Pulse Ox 98 03/10/25 08:00 O2 Del Method Room Air 03/10/25 08:00 BMI result Body Mass Index 23.0 Constitutional: Alert, NAD. Alert. Oriented X3. HEENT: Normocephalic atraumatic, moist mucous membranes. Pupils equal round reactive CVS: Normal heart rate and rhythm. Pulses normal. Respiratory: No respiratory distress. Breath sounds normal. Abdomen: Nontender positive bowel sounds x3 Skin: Skin warm and dry. Several linear markings, simple lacerations with scabs to the bilateral forearms. Mild redness and swelling around lacerations to left forearm. Extremities: No lower extremity edema. Neuro: Oriented X 3. No motor deficit. Results Labs 03/09/25 08:09 03/10/25 08:04 Labs: Laboratory Results - last 24 hr 03/09/25 03/10/25 09:15 08:04 Anion Gap 12 Estim Creat Clear Calc 98.4 Estimated GFR > 60 Random Glucose 116 H Estimat Average Glucose 100 Hemoglobin A1c % 5.1 Calcium 9.4 Total Bilirubin 0.2 AST 24 ALT 30 Alkaline Phosphatase 64 Total Protein 7.0 Albumin 4.1 Triglycerides 173 H Cholesterol 134 LDL Cholesterol, Calc 59 HDL Cholesterol 41 Influenza Type A (PCR) NEGATIVE Influenza Type B (PCR) NEGATIVE RSV RNA Qual (PCR) NEGATIVE SARS-CoV-2 RNA (RT-PCR) NEGATIVE Assessment and Plan (1) Cellulitis: Status: Acute Plan 44-year-old male with past medical history listed below presented to the emergency room with suicidal ideation. Now admitted for inpatient psychiatric stabilization. Opioid use disorder/Polysubstance use disorder/MDD/SI Treatment per psychiatric team. Lacerations to bilateral forearms Lacerations to left arm with redness, slight swelling and warmth surrounding scabbed areas Keflex 500 mg q.i.d. for 10 days Thank you for allowing me to participate in the care of this patient. Will follow with you, please notify medical provider with any changes in condition or concerns.
--- NOTE | 2025-03-10 10:54 | HO.PSYADMNOT ---
HPI Date of Service: 03/10/25 Chief Complaint: CRISIS Sources of Information: patient interviewed, chart reviewed and crisis/core team assessment reviewed HPI Subjective Notes: [place] Warning and Conditional Voluntary Narrative: Patient is a 44 year old male with hx of MDD, opioid use, cocaine use and ETOH use d/o, who presented to ER due to unintentional overdose with cocaine and fentanyl secondary to increased depressive symptoms. Per crisis report, patient [place] [facility] [place] with deep cuts on both of his arms, he states I did that about 5 days ago . Patient reports his of 12 years left him due to his polysubstance use. Patient reports he has been abusing substances for over 20 years. Patient states he has been using substances increasingly lately due to the split. Patient states prior to September 2024, he was clean for over a year. Patient reports a few days ago he was thinking about life and got upset and began cutting on his arms. He denies it was a suicide attempt. He reports poor sleep and appetite. He reports SI with no plan. Denies HI/VH/AH. History of multiple detox admissions and being section 35. Utox positive for buprenorphine, fentanyl, methadone and cocaine. Patient reports he has an intake at [facility] in [place]. He reports his admission date is 03/15/2025. Collateral was obtained from patient's father, Tobias Ledesma, with patient's consent. Mr. Tobias Ledesma reports patient and his have not split up however, patient's does not want him around the children when pt is under the influence of substances. Patient is reportedly accepted to the program in [place] and patient's father is asking to have him discharged on Saturday, March 13, 2025 to be able to drive him to [place]. During admission assessment, patient presents alert and oriented x3. Irritable edge. Guarded. Patient reports he relapsed in October due to stress however would not go into detail. When asked about the events prior to him cutting himself, patient stated, I don't know why I cut myself . Patient reports prior to arriving to ER, I got paranoid at a hotel and thought the police were coming into my room. I swallowed everything I had, then I called 911. My intention was not kill myself . He denies SI/HI/VH/AH. Patient reports he does not have outpatient psychiatric providers nor is he interested in referrals. Patient reports he is focused on going to a program in [place] that he was accepted, called [facility]. Patient stated, It's a 4-6 month program. I have already paid for it. My father is the one bringing me down . Past Psychiatric History: Multiple substance abuse treatment programs. hx of 2 IPLOC. Has been sectioned 35 in past. does not have outpatient psychiatric providers. hx of SIB via cutting. hx of SA via attempting to hang self. Medical Evaluation Reviewed: [facility] Medical History Opioid use disorder Right knee pain Low back pain Sore throat Opioid withdrawal Polysubstance abuse Depression Suicidal ideation Active substance abuse Drug overdose Family History: denies Social History: , has 3 children, unemployed Patient is not able to be in his home with his and children when he is actively using. Substance History: pt reports he has been using a bundle of heroin, 2 grams of cocaine and a pint of alcohol daily for the last week. Trauma History: yes Diagnostics Vital Signs (24Hr): Vital Signs - 24 hr 03/09/25 14:00 03/09/25 20:59 03/10/25 08:00 Temperature 97.2 F 97.3 F 98.1 F Pulse Rate 52 73 56 Respiratory Rate 12 16 16 Blood Pressure 91/52 L 113/69 106/67 Pulse Oximetry 98 99 98 Oxygen Delivery Method Room Air Room Air Room Air BMI result Body Mass Index 23.0 Labs 03/09/25 08:09 03/10/25 08:04 Labs: Laboratory Results - last 48 hr 03/09/25 03/09/25 03/10/25 08:09 09:15 08:04 WBC 17.0 H RBC 4.52 L Hgb 14.4 Hct 41.9 L MCV 92.7 MCH 31.9 MCHC 34.4 RDW 13.0 Plt Count 224 MPV 8.8 L Immature Gran % (Auto) 0.4 Neut % (Auto) 87.0 H Lymph % (Auto) 6.5 L Stanly % (Auto) 5.4 Eos % (Auto) 0.3 Baso % (Auto) 0.4 Lymph # (Auto) 1.1 L Stanly # (Auto) 0.9 Eos # (Auto) 0.1 Baso # (Auto) 0.1 Abs Immat Gran (auto) 0.07 H Absolute Neuts (auto) 14.7 H Absolute Nucleated RBC 0.000 Nucleated RBC % (auto) 0.0 Sodium 139 140 Potassium 4.3 4.5 Chloride 104 106 Carbon Dioxide 27 27 Anion Gap 12 12 BUN 15 22 H Creatinine 1.05 1.04 Estim Creat Clear Calc 98.5 98.4 Estimated GFR > 60 > 60 Random Glucose 97 116 H Estimat Average Glucose 100 Hemoglobin A1c % 5.1 Calcium 9.4 D 9.4 Total Bilirubin 0.6 0.2 AST 24 24 ALT 14 30 Alkaline Phosphatase 62 64 Troponin I High Sens 9.0 Total Protein 7.1 7.0 Albumin 4.5 4.1 Triglycerides 173 H Cholesterol 134 LDL Cholesterol, Calc 59 HDL Cholesterol 41 Urine Color Yellow Urine Appearance Clear Urine pH 7.0 Ur Specific Sanborn 1.025 Urine Protein Trace Urine Glucose (UA) Negative Urine Ketones Negative Urine Blood Negative Urine Nitrite Negative Ur Leukocyte Esterase Negative Urine RBC 0-2 Urine WBC 0-5 Ur Squamous Epith Cells 0-2 Urine Bacteria None Seen Hyaline Casts 0-2 Salicylates < 5.0 L Urine Opiates Screen Not Detected Ur Buprenorphine Scrn Positive H Ur Oxycodone Screen Not Detected Urine Methadone Screen Positive H Urine Fentanyl Screen POSITIVE H Acetaminophen < 3 Ur Barbiturates Screen Not Detected Ur Phencyclidine Scrn Not Detected Ur Amphetamines Screen Not Detected U Benzodiazepines Scrn Not Detected Urine Cocaine Screen POSITIVE H U Marijuana (THC) Screen Not Detected Influenza Type A (PCR) NEGATIVE Influenza Type B (PCR) NEGATIVE RSV RNA Qual (PCR) NEGATIVE SARS-CoV-2 RNA (RT-PCR) NEGATIVE Meds/Allergies Meds Home Medications ?Medication ?Instructions ?Recorded ?Confirmed ?Type bupropion HCl 150 mg tablet,12 hr 150 mg PO QAM 11/20/24 03/09/25 History sustained-release testosterone cypionate 200 mg/mL 300 mg IM QWEEK 11/20/24 03/09/25 History intramuscular oil amoxicillin 875 mg-potassium 1 tab PO TID 03/09/25 03/09/25 History clavulanate 125 mg tablet quetiapine 25 mg tablet 25 mg PO BEDTIME 03/09/25 03/09/25 History Allergies Allergies Allergy/AdvReac Type Severity Reaction Status Date / Time No Known Allergies Allergy Verified 03/09/25 07:15 Mental Status Exam Mental Status Exam Patient Appearance: Appropriate Patient Orientation: Person, Place, Time and Situation Level of Consciousness: Awake and Alert Patient Behavior: Appropriate, Guarded and Poor Eye Contact Mood Description: Depressed and Angry Affect Description: Constricted Ability to Follow Directions: Good Speech Pattern: Clear Memory Description: Intact Hallucinations: None Delusions: Not Present Thought Process: Intact and Goal Oriented Thought Content: positive for Intact Assessment & Plan Assessment & Plan (1) MDD (major depressive disorder), recurrent episode, severe: Status: Acute Code(s): F33.2 - Major depressive disorder, recurrent severe without psychotic features (2) Cocaine abuse: Status: Acute Code(s): F14.10 - Cocaine abuse, uncomplicated (3) Opioid use disorder: Status: Acute Code(s): F11.90 - Opioid use, unspecified, uncomplicated (4) ETOH abuse: Status: Acute Code(s): F10.10 - Alcohol abuse, uncomplicated Plan Patient is a 44 year old male with hx of MDD, opioid use, cocaine use and ETOH use d/o, who presented to ER due to unintentional overdose with cocaine and fentanyl secondary to increased depressive symptoms. Plan: CV 15 minute safety checks Continue home medications Obtain collateral CIWA protocol Encourage groups Discharge planning; discharge with father on March 13 2025 with plan to go to substance abuse program in [place]. Patient educated on: diagnosis and medication risk/benefits Reason for continued inpatient stay Substantial Risk for: med/psych decompensation Statement Statement: I have reviewed the history and physical and performed a pertinent examination on my patient. No changes have occurred unless specified. If the History and Physical was not performed prior to admission, the Hospitalist's service will be consulted for completing the admission physical. Time Spent With Patient Time: Total time managing care of this patient today _60___ minutes.
--- NOTE | 2025-03-10 14:34 | PC.NURSE ---
Patient injected his own left glueteal with his testosterone His technique was done well. He had a CIWA done of 13 and medicated with 2 mg of Lorazepam.
[2025-03-10 20:00] VITALS: BP 104/69; PULSE 69; RESP 15; TEMP 36.6; O2SAT 97
--- NOTE | 2025-03-10 20:22 | PC.NURSE ---
c/o SUAREZ at time of CIWA assessment. declined tylenol when offered. eating crackers for c/o nausea.
[2025-03-11 09:30] VITALS: BP 105/68; PULSE 69; RESP 14; TEMP 36.5; O2SAT 100
[2025-03-11] MEDS: buPROPion HCl XL 150 MG TAB.ER.24H PO (09:37)
[2025-03-11 10:32] VITALS: BMI 23.9
--- NOTE | 2025-03-11 10:38 | HO.PSYCHPN ---
Subjective Subjective Date of Service: 03/11/25 Reason For Visit: CRISIS Interim History: Patient was seen and discussed in rounds today. Records and plans were reviewed. He continues to be going through his withdrawal and his [facility] protocol is covering him. He is still scoring high. Eating and sleeping adequately. No SI. No AVH. No changes were made today Review of Systems Review of Systems Yes all other systems are reviewed and are negative Mental Status Exam Mental Status Exam Patient Appearance: Appropriate Patient Orientation: Person, Place, Time and Situation Level of Consciousness: Awake and Alert Patient Behavior: Appropriate, Guarded and Poor Eye Contact Mood Description: Depressed and Angry Affect Description: Constricted Ability to Follow Directions: Good Speech Pattern: Clear Memory Description: Intact Hallucinations: None Delusions: Not Present Thought Process: Intact and Goal Oriented Thought Content: positive for Intact Diagnostics Vital Signs (24Hr): Vital Signs - 24 hr 03/10/25 20:00 03/11/25 09:30 Temperature 97.9 F 97.7 F Pulse Rate 69 69 Respiratory Rate 15 14 Blood Pressure 104/69 105/68 Pulse Oximetry 97 100 Oxygen Delivery Method Room Air Room Air BMI result Body Mass Index 23.9 Labs 03/09/25 08:09 03/10/25 08:04 Labs: Laboratory Results - last 48 hr 03/10/25 08:04 Sodium 140 Potassium 4.5 Chloride 106 Carbon Dioxide 27 Anion Gap 12 BUN 22 H Creatinine 1.04 Estim Creat Clear Calc 98.4 Estimated GFR > 60 Random Glucose 116 H Estimat Average Glucose 100 Hemoglobin A1c % 5.1 Calcium 9.4 Total Bilirubin 0.2 AST 24 ALT 30 Alkaline Phosphatase 64 Total Protein 7.0 Albumin 4.1 Triglycerides 173 H Cholesterol 134 LDL Cholesterol, Calc 59 HDL Cholesterol 41 Medications Medications Current Medications Acetaminophen (Acetaminophen 325 Mg Tablet) 650 mg PO Q6H PRN PRN Reason: Headache/Pain, Scale 1-10 Al Hydroxide/Mg Hydroxide (Magnesium Hydrox/Alum Hydrox 30 Ml Oral.Susp) 30 ml PO Q6H PRN PRN Reason: Heartburn/Nausea Bacitracin (Bacitracin Oint 14 Gm Tube) 1 appl TOPICAL BID [facility]; Protocol Last Admin: 03/11/25 09:36 Dose: 1 appl Bupropion HCl (Bupropion Hcl Xl 150 Mg Tab.Er.24h) 150 mg PO DAILY [facility] Last Admin: 03/11/25 09:37 Dose: 150 mg Cephalexin HCl (Cephalexin 500 Mg Capsule) 500 mg PO Q6H [facility] Stop: 03/20/25 08:01 Last Admin: 03/11/25 09:35 Dose: 500 mg Hydroxyzine HCl (Hydroxyzine Hcl 25 Mg Tablet) 25 mg PO Q6H PRN PRN Reason: mild anxiety Last Admin: 03/11/25 07:14 Dose: 25 mg Lorazepam (Lorazepam 1 Mg Tablet) 1 mg PO Q2H PRN PRN Reason: CIWA 8-11 Last Admin: 03/10/25 20:19 Dose: 1 mg Lorazepam (Lorazepam 1 Mg Tablet) 2 mg PO Q2H PRN PRN Reason: CIWA 12-15 Last Admin: 03/10/25 23:02 Dose: 2 mg Lorazepam (Lorazepam 1 Mg Tablet) 3 mg PO Q2H PRN PRN Reason: CIWA > 15, and call Last Admin: 03/11/25 09:43 Dose: 3 mg Magnesium Hydroxide (Milk Of Magnesia 30 Ml Oral.Susp) 30 ml PO DAILY PRN PRN Reason: Constipation Melatonin (Melatonin 3 Mg Tablet) 9 mg PO BEDTIME PRN PRN Reason: Insomnia Last Admin: 03/10/25 22:57 Dose: 9 mg Nicotine (Nicotine 21 Mg Patch.Td24) 21 mg TRANSDERMA DAILY [facility] Last Admin: 03/11/25 09:52 Dose: Not Given Nicotine Polacrilex (Nicotine Polacrilex 2 Mg Gum) 4 mg BUCCAL Q2H PRN PRN Reason: Nicotine Cravings Last Admin: 03/11/25 09:44 Dose: 4 mg Quetiapine Fumarate (Quetiapine Fumarate 25 Mg Tablet) 25 mg PO BEDTIME [facility] Last Admin: 03/10/25 22:57 Dose: 25 mg Testosterone Cypionate (Testosterone Cypionate 200 Mg/1 Ml Vial) 300 mg IM Q7D [facility] Last Admin: 03/10/25 14:19 Dose: 300 mg Thiamine HCl (Thiamine Hcl 100 Mg Tablet) 100 mg PO DAILY [facility] Last Admin: 03/11/25 09:37 Dose: 100 mg Trazodone HCl (Trazodone Hcl 50 Mg Tablet) 50 mg PO BEDTIME MRX1 PRN PRN Reason: Insomnia Allergies Allergies Allergy/AdvReac Type Severity Reaction Status Date / Time No Known Allergies Allergy Verified 03/09/25 07:15 Assessment & Plan Assessment & Plan (1) Cellulitis: Status: Acute Code(s): L03.90 - Cellulitis, unspecified (2) MDD (major depressive disorder), recurrent episode, severe: Status: Acute Code(s): F33.2 - Major depressive disorder, recurrent severe without psychotic features (3) Cocaine abuse: Status: Acute Code(s): F14.10 - Cocaine abuse, uncomplicated (4) ETOH abuse: Status: Acute Code(s): F10.10 - Alcohol abuse, uncomplicated (5) Opioid use disorder: Status: Acute Code(s): F11.90 - Opioid use, unspecified, uncomplicated Plan 44-year-old male with past medical history listed below presented to the emergency room with suicidal ideation. Now admitted for inpatient psychiatric stabilization. Opioid use disorder/Polysubstance use disorder/MDD/SI Treatment per psychiatric team. Lacerations to bilateral forearms Lacerations to left arm with redness, slight swelling and warmth surrounding scabbed areas Keflex 500 mg q.i.d. for 10 days Thank you for allowing me to participate in the care of this patient. Will follow with you, please notify medical provider with any changes in condition or concerns. 03/11: Continue current regimen and plans. Reason for continued inpatient stay Substantial Risk for: med/psych decompensation Time Spent With Patient Time: Total time managing care of this patient today ____ minutes.
[2025-03-11 18:18] VITALS: BP 109/62; PULSE 75
[2025-03-11 19:34] VITALS: BP 114/61; PULSE 67; RESP 16; TEMP 36.9; O2SAT 97
--- NOTE | 2025-03-12 07:54 | PC.NURSE ---
Pt's cephalexin schedule changed from 0200, 0800, 1400, 2000 to 0600, 1200, 1800, 0000. TW previously pulled capsule for 0200 dose prior to schedule change, which was then administered for the 0600 dose. Therefore, 0600 dose shows due in the pyxis, however was already administered.
[2025-03-12 08:00] VITALS: BP 111/69; PULSE 66; RESP 18; TEMP 2.5; TEMP 36.5; O2SAT 98
[2025-03-12] MEDS: buPROPion HCl XL 150 MG TAB.ER.24H PO (08:16)
--- NOTE | 2025-03-12 12:38 | HO.PSYCHPN ---
Subjective Subjective Date of Service: 03/12/25 Reason For Visit: CRISIS Interim History: Met with patient; discussed with team; reviewed chart Patient reports that he is still depressed but starting to feel better and SI is fully resolved. He also says withdrawal is mostly resolved as well. He wants to discharge tomorrow since he is finally got accepted into a substance abuse program called [facility] which he has been trying to get into for 6 months; his father's picking him up tomorrow. Patient does not want any further help with MAT. Patient and insurance writer discussed that his Seroquel Wellbutrin are too soon for refills and he says that he has existing prescription left that he will bring with him. Staff concurs that patient is safe for discharge Mental Status Exam Mental Status Exam Narrative: Pt is alert and oriented; behavior is cooperative, polite and calm; patient is not in distress; dressed in casual attire, blanket wrapped around him, scruffy, but adequate hygiene; mood is described as ok and affect congruent; eye contact appropriate; Speech is normal rate, volume and prosody and not pressured; sine psychomotor retardation present; thought process is organized and goal directed; Thought content is on tx; otherwise pertinent to relevant topics and without any delusional content, paranoid ideations or grandiosity; denies any SI/HI. Denies AVH and there is no evidence of perceptual disturbance. Patients insight and judgment appear intact. Diagnostics Vital Signs (24Hr): Vital Signs - 24 hr 03/11/25 18:18 03/11/25 19:34 03/12/25 08:00 Temperature 98.4 F 36.5 F L Pulse Rate 75 67 66 Respiratory Rate 16 18 Blood Pressure 109/62 114/61 111/69 Pulse Oximetry 97 98 Oxygen Delivery Method Room Air Room Air BMI result Body Mass Index 23.9 Labs 03/09/25 08:09 03/10/25 08:04 Medications Medications Current Medications Acetaminophen (Acetaminophen 325 Mg Tablet) 650 mg PO Q6H PRN PRN Reason: Headache/Pain, Scale 1-10 Al Hydroxide/Mg Hydroxide (Magnesium Hydrox/Alum Hydrox 30 Ml Oral.Susp) 30 ml PO Q6H PRN PRN Reason: Heartburn/Nausea Bacitracin (Bacitracin Oint 14 Gm Tube) 1 appl TOPICAL BID ADRIENNE; Protocol Last Admin: 03/12/25 10:16 Dose: Not Given Bupropion HCl (Bupropion Hcl Xl 150 Mg Tab.Er.24h) 150 mg PO DAILY [facility] Last Admin: 03/12/25 08:16 Dose: 150 mg Cephalexin HCl (Cephalexin 500 Mg Capsule) 500 mg PO Q6H [facility] Stop: 03/20/25 12:01 Last Admin: 03/12/25 12:21 Dose: 500 mg Hydroxyzine HCl (Hydroxyzine Hcl 25 Mg Tablet) 25 mg PO Q6H PRN PRN Reason: mild anxiety Last Admin: 03/11/25 22:26 Dose: 25 mg Lorazepam (Lorazepam 1 Mg Tablet) 1 mg PO Q2H PRN PRN Reason: CIWA 8-11 Last Admin: 03/12/25 08:16 Dose: 1 mg Lorazepam (Lorazepam 1 Mg Tablet) 2 mg PO Q2H PRN PRN Reason: CIWA 12-15 Last Admin: 03/10/25 23:02 Dose: 2 mg Lorazepam (Lorazepam 1 Mg Tablet) 3 mg PO Q2H PRN PRN Reason: CIWA > 15, and call MD Last Admin: 03/11/25 09:43 Dose: 3 mg Magnesium Hydroxide (Milk Of Magnesia 30 Ml Oral.Susp) 30 ml PO DAILY PRN PRN Reason: Constipation Melatonin (Melatonin 3 Mg Tablet) 9 mg PO BEDTIME PRN PRN Reason: Insomnia Last Admin: 03/11/25 22:26 Dose: 9 mg Nicotine (Nicotine 21 Mg Patch.Td24) 21 mg TRANSDERMA DAILY [facility] Last Admin: 03/12/25 10:16 Dose: Not Given Nicotine Polacrilex (Nicotine Polacrilex 2 Mg Gum) 4 mg BUCCAL Q2H PRN PRN Reason: Nicotine Cravings Last Admin: 03/11/25 23:51 Dose: 4 mg Quetiapine Fumarate (Quetiapine Fumarate 25 Mg Tablet) 25 mg PO BEDTIME [facility] Last Admin: 03/11/25 22:26 Dose: 25 mg Testosterone Cypionate (Testosterone Cypionate 200 Mg/1 Ml Vial) 300 mg IM Q7D [facility] Last Admin: 03/10/25 14:19 Dose: 300 mg Thiamine HCl (Thiamine Hcl 100 Mg Tablet) 100 mg PO DAILY [facility] Last Admin: 03/12/25 08:16 Dose: 100 mg Trazodone HCl (Trazodone Hcl 50 Mg Tablet) 50 mg PO BEDTIME MRX1 PRN PRN Reason: Insomnia Last Admin: 03/11/25 23:51 Dose: 50 mg Allergies Allergies Allergy/AdvReac Type Severity Reaction Status Date / Time No Known Allergies Allergy Verified 03/09/25 07:15 Assessment & Plan Assessment & Plan (1) MDD (major depressive disorder), recurrent episode, severe: Status: Acute Code(s): F33.2 - Major depressive disorder, recurrent severe without psychotic features (2) Cellulitis: Status: Acute Code(s): L03.90 - Cellulitis, unspecified (3) Cocaine abuse: Status: Acute Code(s): F14.10 - Cocaine abuse, uncomplicated (4) ETOH abuse: Status: Acute Code(s): F10.10 - Alcohol abuse, uncomplicated (5) Opioid use disorder: Status: Acute Code(s): F11.90 - Opioid use, unspecified, uncomplicated Plan Patient is a 44 year old male with hx of MDD, opioid use, cocaine use and ETOH use d/o, who presented to ER due to unintentional overdose with cocaine and fentanyl secondary to increased depressive symptoms. Per crisis report, patient presented to [facility] ER with deep cuts on both of his arms, he states I did that about 5 days ago . Patient reports his of 12 years left him due to his polysubstance use. Patient reports he has been abusing substances for over 20 years. Patient states he has been using substances increasingly lately due to the split. Patient states prior to September 2024, he was clean for over a year. Patient reports a few days ago he was thinking about life and got upset and began cutting on his arms. He denies it was a suicide attempt. He reports poor sleep and appetite. He reports SI with no plan. Denies HI/VH/AH. History of multiple detox admissions and being section 35. Utox positive for buprenorphine, fentanyl, methadone and cocaine. Patient reports he has an intake at [facility] residential program in [place]. He reports his admission date is 03/15/2025. Collateral was obtained from patient's father, Tobias Ledesma, with patient's consent. Mr. Tobias Ledesma reports patient and his have not split up however, patient's does not want him around the children when pt is under the influence of substances. Patient is reportedly accepted to the program in [place] and patient's father is asking to have him discharged on Saturday, March 13, 2025 to be able to drive him to [place]. During admission assessment, patient presents alert and oriented x3. Irritable edge. Guarded. Patient reports he relapsed in October due to stress however would not go into detail. When asked about the events prior to him cutting himself, patient stated, I don't know why I cut myself . Patient reports prior to arriving to ER, I got paranoid at a hotel and thought the police were coming into my room. I swallowed everything I had, then I called 911. My intention was not kill myself . He denies SI/HI/VH/AH. Patient reports he does not have outpatient psychiatric providers nor is he interested in referrals. Patient reports he is focused on going to a program in [place] that he was accepted, called [facility]. Patient stated, It's a 4-6 month program. I have already paid for it. My father is the one bringing me down .. Hospital course: Patient detoxed without incident. SI fully resolved. Patient wanted discharge as he got accepted into a program that he has been applying to for quite some time. Started on Keflex for left arm cellulitis 03/12 Patient reports that he is still depressed but starting to feel better and SI is fully resolved.? He also says withdrawal is mostly resolved as well.? He wants to discharge tomorrow since he is finally got accepted into a substance abuse program called [facility] which he has been trying to get into for 6 months; his father's picking him up tomorrow and patient does not want to remain for any further medication management but feels this program will be sufficient.? Patient does not want any further help with MAT.? Patient and insurance writer discussed that his Seroquel Wellbutrin are too soon for refills and he says that he has existing prescription left that he will bring with him.? Staff concurs that patient is safe for discharge Impression: Patient has remained in good behavioral and impulse control; patient is appropriate with peers and staff and social in the milieu. He is not scoring all that much on CIWA. Though still depressed, he says he was never actually trying to kill himself and denies any SI. Patient has been accepted into a 4 to six-month long program and is being picked up tomorrow by his father who will take him directly there. While patient would likely benefit from remain on the unit longer for continued medication management for depression, medication management can be done at this program arranger agrees that discharged to this program is probably the best possible option for him. Patient is not in imminent risk for harm to self or others and appropriate to return to the community for treatment. His request for discharge honored. Patient educated on: diagnosis, medication risk/benefits, substance abuse, therapeutic strategies and medical condition Informed Consent: understands Reason for continued inpatient stay Substantial Risk for: stable for discharge Time Spent With Patient Time: Total time managing care of this patient today ____ minutes.
--- NOTE | 2025-03-12 15:59 | PM.PSYDC ---
DS: Providers Provider Date of admission: 03/09/25 13:07 Date of discharge: 03/13/25 Primary care physician: Unknown Physician Admitting clinician: Shaina Mata Consults: 03/09/25 16:44 Consult to Comprehensive Care Routine Consulting Provider: [facility] 03/09/25 17:16 Consult to Hospitalist Routine Comment: Consulting Provider: [facility] Hospitalists Reason For Exam: ?need for antibiotics d/t cuts on arms Attending physician on discharge: Mikel Chapin DS: Diagnosis Discharge Diagnosis (1) MDD (major depressive disorder), recurrent episode, severe: Status: Acute (2) Cellulitis: Status: Acute (3) Cocaine abuse: Status: Acute (4) ETOH abuse: Status: Acute (5) Opioid use disorder: Status: Acute DS: Medications Discharge Medications Home Medications: Home Medications ?Medication ?Instructions ?Recorded ?Confirmed testosterone cypionate 200 mg/mL 300 mg IM QWEEK 11/20/24 03/09/25 intramuscular oil Previous Rx's ?Medication ?Instructions ?Recorded bupropion HCl 150 mg 24 hr tablet, 150 mg PO QAM 30 days #30 tabs 03/12/25 extended release (Wellbutrin XL) cephalexin 500 mg capsule 500 mg PO Q6H 8 days #32 caps 03/12/25 hydroxyzine HCl 25 mg tablet 25 mg PO Q6H PRN mild anxiety 30 03/12/25 days #60 tabs melatonin 5 mg capsule 10 mg (2 x 5 mg) PO BEDTIME PRN 03/12/25 insomnia 30 days #60 caps nicotine (polacrilex) 4 mg gum 4 mg buccal Q2H PRN nicotine 03/12/25 cravings 30 days #100 ea quetiapine 25 mg tablet 25 mg PO BEDTIME 30 days #30 tabs 03/12/25 Mental Status Exam Mental Status Exam Narrative: Pt is alert and oriented; behavior is cooperative, polite and calm; patient is not in distress; adequate hygiene/grooming; mood is described as improved and affect congruent; eye contact appropriate; Speech is normal rate, volume and prosody and not pressured; sine psychomotor retardation present; thought process is organized and goal directed; Thought content is on tx; otherwise pertinent to relevant topics and without any delusional content, paranoid ideations or grandiosity; denies any SI/HI. Denies AVH and there is no evidence of perceptual disturbance. Patients insight and judgment fair. Data Data Completed and Pending Completed studies during hospitalization [Text1]: 03/09/25 03/09/25 03/10/25 08:09 09:15 08:04 WBC 17.0 H RBC 4.52 L Hgb 14.4 Hct 41.9 L MCV 92.7 MCH 31.9 MCHC 34.4 RDW 13.0 Plt Count 224 MPV 8.8 L Immature Gran % (Auto) 0.4 Neut % (Auto) 87.0 H Lymph % (Auto) 6.5 L [place] % (Auto) 5.4 Eos % (Auto) 0.3 Baso % (Auto) 0.4 Lymph # (Auto) 1.1 L [place] # (Auto) 0.9 Eos # (Auto) 0.1 Baso # (Auto) 0.1 Abs Immat Gran (auto) 0.07 H Absolute Neuts (auto) 14.7 H Absolute Nucleated RBC 0.000 Nucleated RBC % (auto) 0.0 Sodium 139 140 Potassium 4.3 4.5 Chloride 104 106 Carbon Dioxide 27 27 Anion Gap 12 12 BUN 15 22 H Creatinine 1.05 1.04 Estim Creat Clear Calc 98.5 98.4 Estimated GFR > 60 > 60 Random Glucose 97 116 H Estimat Average Glucose 100 Hemoglobin A1c % 5.1 Calcium 9.4 D 9.4 Total Bilirubin 0.6 0.2 AST 24 24 ALT 14 30 Alkaline Phosphatase 62 64 Troponin I High Sens 9.0 Total Protein 7.1 7.0 Albumin 4.5 4.1 Triglycerides 173 H Cholesterol 134 LDL Cholesterol, Calc 59 HDL Cholesterol 41 Urine Color Yellow Urine Appearance Clear Urine pH 7.0 Ur Specific [place] 1.025 Urine Protein Trace Urine Glucose (UA) Negative Urine Ketones Negative Urine Blood Negative Urine Nitrite Negative Ur Leukocyte Esterase Negative Urine RBC 0-2 Urine WBC 0-5 Ur Squamous Epith Cells 0-2 Urine Bacteria None Seen Hyaline Casts 0-2 Salicylates < 5.0 L Urine Opiates Screen Not Detected Ur Buprenorphine Scrn Positive H Ur Oxycodone Screen Not Detected Urine Methadone Screen Positive H Urine Fentanyl Screen POSITIVE H Acetaminophen < 3 Ur Barbiturates Screen Not Detected Ur Phencyclidine Scrn Not Detected Ur Amphetamines Screen Not Detected U Benzodiazepines Scrn Not Detected Urine Cocaine Screen POSITIVE H U Marijuana (THC) Screen Not Detected Influenza Type A (PCR) NEGATIVE Influenza Type B (PCR) NEGATIVE RSV RNA Qual (PCR) NEGATIVE SARS-CoV-2 RNA (RT-PCR) NEGATIVE DS: Summary Hospital Course Hospital Course: HPI: Patient is a 44 year old male with hx of MDD, opioid use, cocaine use and ETOH use d/o, who presented to ER due to unintentional overdose with cocaine and fentanyl secondary to increased depressive symptoms. Per crisis report, patient presented to [facility] ER with deep cuts on both of his arms, he states I did that about 5 days ago . Patient reports his of 12 years left him due to his polysubstance use. Patient reports he has been abusing substances for over 20 years. Patient states he has been using substances increasingly lately due to the split. Patient states prior to September 2024, he was clean for over a year. Patient reports a few days ago he was thinking about life and got upset and began cutting on his arms. He denies it was a suicide attempt. He reports poor sleep and appetite. He reports SI with no plan. Denies HI/VH/AH. History of multiple detox admissions and being section 35. Utox positive for buprenorphine, fentanyl, methadone and cocaine. Patient reports he has an intake at [facility] in [place]. He reports his admission date is 03/15/2025. Collateral was obtained from patient's father, Tobias Ledesma, with patient's consent. Mr. Tobias Ledesma reports patient and his have not split up however, patient's does not want him around the children when pt is under the influence of substances. Patient is reportedly accepted to the program in [place] and patient's father is asking to have him discharged on Saturday, March 13, 2025 to be able to drive him to [place]. During admission assessment, patient presents alert and oriented x3. Irritable edge. Guarded. Patient reports he relapsed in October due to stress however would not go into detail. When asked about the events prior to him cutting himself, patient stated, I don't know why I cut myself . Patient reports prior to arriving to ER, I got paranoid at a hotel and thought the police were coming into my room. I swallowed everything I had, then I called 911. My intention was not kill myself . He denies SI/HI/VH/AH. Patient reports he does not have outpatient psychiatric providers nor is he interested in referrals. Patient reports he is focused on going to a program in [place] that he was accepted, called [facility]. Patient stated, It's a 4-6 month program. I have already paid for it. My father is the one bringing me down .. Hospital course: Patient detoxed without incident. SI fully resolved. Patient wanted discharge as he got accepted into a program that he has been applying to for quite some time. Started on Keflex for left arm cellulitis 03/12 Patient reports that he is still depressed but starting to feel better and SI is fully resolved.? He also says withdrawal is mostly resolved as well.? He wants to discharge tomorrow since he is finally got accepted into a substance abuse program called [facility] which he has been trying to get into for 6 months; his father's picking him up tomorrow and patient does not want to remain for any further medication management but feels this program will be sufficient.? Patient does not want any further help with MAT.? Patient and casualty underwriter discussed that his Seroquel Wellbutrin are too soon for refills and he says that he has existing prescription left that he will bring with him.? Staff concurs that patient is safe for discharge Impression: Patient has remained in good behavioral and impulse control; patient is appropriate with peers and staff and social in the milieu. He is not scoring all that much on CIWA. Though still depressed, he says he was never actually trying to kill himself and denies any SI. Patient has been accepted into a 4 to six-month long program and is being picked up tomorrow by his father who will take him directly there. While patient would likely benefit from remain on the unit longer for continued medication management for depression, medication management can be done at this community health program representative agrees that discharged to this program is probably the best possible option for him. Patient is not in imminent risk for harm to self or others and appropriate to return to the community for treatment. His request for discharge honored. Status at Discharge Functional status at discharge: independent ambulation Overall status at discharge: patient is back to baseline Time Spent with Patient Time attestation: Total time managing care of this patient today ____ minutes. Time spent: Less than 30 minutes Discharge Plan Discharge Anticipated Discharge Date/Time: 03/13/25 09:38 Patient Disposition: Home, Self-Care Discharge Diagnosis: MDD, recurrent, severe w/out psychosis Referrals: Physician,Unknown J [Primary Care Provider, Medical] - 1 Week Discharge Medications: New cephalexin 500 mg Capsule 500 mg PO Q6H 8 Days Qty: 32 0RF nicotine (polacrilex) 4 mg gum 4 mg buccal Q2H PRN (Reason: nicotine cravings) 30 Days Qty: 100 0RF hydroxyzine HCl 25 mg Tablet 25 mg PO Q6H PRN (Reason: mild anxiety) 30 Days Qty: 60 0RF melatonin 5 mg capsule 10 mg PO BEDTIME PRN (Reason: insomnia) 30 Days Qty: 60 0RF quetiapine 25 mg Tablet 25 mg PO BEDTIME 30 Days Qty: 30 0RF bupropion HCl [Wellbutrin XL] 150 mg tablet extended release 24 hr 150 mg PO QAM 30 Days Qty: 30 0RF Continued testosterone cypionate 200 mg/mL oil 300 mg IM QWEEK Rx Instructions: SATURDAYS Discontinued quetiapine 25 mg tablet 25 mg PO BEDTIME amoxicillin-pot clavulanate 875-125 mg tablet 1 tab PO TID bupropion HCl 150 mg tablet sustained-release 12 hr 150 mg PO QAM Discharge Orders: Discharge Order (Routine); Ordered 03/13/25 Ordered By: Mikel Chapin Diet: Regular diet Activity on Discharge: As tolerated Stand Alone Forms: Patient Portal Discharge page Print Language: Slovenian Care Plan Goals: Maintain mood and safe behaviors Take medications as prescribed Continue to pursue sobriety Practice coping skills Continue with outpatient providers and reach out to them as needed Health Concerns: Mood stability and behaviors Sobriety Left Arm Cellulitis Plan of Treatment: Follow up with your PCP, psychiatric provider and other outpatient providers regarding above concerns Take medications as prescribed Assessment: Risk assessment at time of discharge:? Patient was interviewed prior to discharge and found to be fully oriented and without any SI or HI. Patient has improved insight and judgment and wants to continue treatment. Patient is not in imminent risk of harm to self or others and has a safety plan that includes presenting to the closest ER or calling 911 if feeling unsafe.? Patient has been observed closely by nursing and unit staff throughout admission; patient has not engaged in any behaviors that suggest dangerousness to self or others and has demonstrated appropriate behaviors and impulse control
[2025-03-12 20:00] VITALS: BP 110/60; PULSE 55; RESP 16; TEMP 37; O2SAT 97
--- NOTE | 2025-03-13 00:19 | PC.NURSE ---
pt refused HS Keflex @0000. He states do not wake me up for any meds .
--- NOTE | 2025-03-13 06:50 | PC.NURSE ---
Pt was sleeping when RN tried to wake him up @0645 for HS Keflex but declined to respond.
[2025-03-13 07:55] VITALS: BP 110/61; PULSE 67; RESP 16; TEMP 36.8; O2SAT 99
[2025-03-13] MEDS: buPROPion HCl XL 150 MG TAB.ER.24H PO (08:07)
[2025-03-13] MEDS: Naloxone HCl Nasal TAKE HOME 4 MG SPRAY 8 MG NOSTRILALT (08:07)
== END 2025-03-13 08:50 | disposition home or self-care (01) | DRG 751 ==
LOC: HO.ED 14:08 → HO.PADLT16 14:39
PROVIDERS: Admitting Provider Registered Nurse; Emergency Provider Emergency Medicine; Visit Provider Registered Nurse
DX: F33.2 Major depressive disorder, recurrent severe without psychotic features (principal); R45.851 Suicidal ideations; F10.10 Alcohol abuse, uncomplicated; F17.210 Nicotine dependence, cigarettes, uncomplicated; S51.812A Laceration without foreign body of left forearm, initial encounter; S51.811A Laceration without foreign body of right forearm, initial encounter; X78.8XXA Intentional self-harm by other sharp object, initial encounter; L03.114 Cellulitis of left upper limb; Z71.6 Tobacco abuse counseling; F14.10 Cocaine abuse, uncomplicated; F11.90 Opioid use, unspecified, uncomplicated; Z20.822 Contact with and (suspected) exposure to COVID-19; Z79.899 Other long term (current) drug therapy
CPT/HCPCS: 36415; 80053; 80061; 80143; 80179; 80307; 81001; 83036; 84484; 85025; 87637; 93005; 99285; J1071; S9485

== ENCOUNTER → 2025-03-09 07:07 | Outpatient (BNV) | payer OTHER, SELFPAY | PROVIDERS: Emergency Provider Emergency Medicine; Visit Provider Internal Medicine Cardiovascular Disease | DX: R07.9 Chest pain, unspecified (principal) | CPT/HCPCS: 93010 ==

== ENCOUNTER → 2025-03-09 13:07 | Outpatient (BNV) | payer OTHER, SELFPAY | PROVIDERS: Admitting Provider Registered Nurse; Emergency Provider Emergency Medicine; Visit Provider Nurse Practitioner Family | DX: L03.90 Cellulitis, unspecified (principal) | CPT/HCPCS: 99221; 99499 ==

== ENCOUNTER → 2025-03-09 13:07 | Outpatient (BNV) | payer OTHER, SELFPAY | PROVIDERS: Admitting Provider Registered Nurse; Emergency Provider Emergency Medicine; Visit Provider Psychiatry & Neurology Psychiatry | DX: L03.90 Cellulitis, unspecified (principal); F33.2 Major depressive disorder, recurrent severe without psychotic features; F14.10 Cocaine abuse, uncomplicated; F10.10 Alcohol abuse, uncomplicated; F11.90 Opioid use, unspecified, uncomplicated | CPT/HCPCS: 90792; 99232; 99238 ==